=== PATIENT | male | born 1940 | race Caucasian/White ===

== ENCOUNTER → 2019-06-26 12:30 | Outpatient (BNVA) | payer MEDICARE, MEDICAID, SELFPAY | PROVIDERS: Family Provider Family Medicine; PCP Family Medicine; Visit Provider Family Medicine | DX: J44.9 Chronic obstructive pulmonary disease, unspecified (principal); I10 Essential (primary) hypertension; E78.2 Mixed hyperlipidemia; M1A.09X0 Idiopathic chronic gout, multiple sites, without tophus (tophi); N18.3 Chronic kidney disease, stage 3 (moderate); E55.9 Vitamin D deficiency, unspecified | CPT/HCPCS: 80069; 82044; 82306; 82310; 83970; 85025 ==

== ENCOUNTER 2019-10-18 07:36 | Outpatient (CLI) | payer MEDICARE, MEDICAID, SELFPAY ==
[2019-10-18 08:31] VITALS: BMI 36.5
--- NOTE | 2019-10-18 08:32 | ECG_ITS ---
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 Interpretive Statements NAME OF STUDY: LEXISCAN SESTAMIBI STRESS TEST INDICATION: Chest Pain LEXISCAN STRESS TEST ORDERING PHYSICIAN: Niranjan CLINICAL INFORMATION: Shortness of breath and chest pain INTERPRETATION: 1. The patient was brought to the laboratory where Lexiscan was infused over 20 seconds. The resting blood pressure was 154/79. Maximum blood pressure was 174/74. The resting heart rate was 75 beats per minute. The maximum heart rate is 95 beats per minute. 2. The baseline electrocardiogram reveals sinus rhythm with a right bundle branch block and nonspecific ST and T wave changes 3. With Lexiscan infusion, there were no ST segment changes to suggest ischemia. 4. The patient experienced no symptoms or arrhythmias during the examination. CONCLUSION: 1. Unremarkable Lexiscan infusion. 2. Nuclear imaging to follow. Electronically Signed On 10-19-2019 10:02:11 CDT by Franklin Ureña M.D. [email or web address] [id number]
--- NOTE | 2019-10-18 08:32 | NMCV_ITS ---
NM irma perf SPECT r/s* [id number] Yumiko Basurto Age: 78 Gender: M : 1940 Exam Date: 10/18/2019 08:32 Ordering Phys: Franklin Ureña MD ([email or web address]) Technologist: FLORINA Angulo Exam Location: [facility] Indications: SHORTNESS OF BREATH STRESS TEST Please see separate stress test report in [facility] for full findings IMAGE PROTOCOL Rest/Stress 1 Lexiscan Day Radiopharmaceutical Dose (mCi) Administration Site Administered by Rest: Tc-99m 10.8 IV FLORINA Angulo Sestamibi Stress:Tc-99m 33.0 IV FLORINA Thomas Sestamibi Rest: 18-Oct-2019 60 Discovery 630 Stress: 18-Oct-2019 120 Discovery 630 0.4mg Lexiscan. Supine position only as patient was unable to lay prone. SPECT RESULTS Technical Quality: Excellent Raw Data Analysis: Normal Image Corrections: No attenuation or motion correction applied Summed Stress Score: 11 Summed Rest Score: 6 Summed Difference Score: 6 PERFUSION FINDINGS Medium sized perfusion abnormality of mild severity of basal to mid anterior, mid anterolateral, mid inferolateral and apical lateral chawla on rest images. There is reversible perfusion abnormality of basal to apical anterior and mid anteroseptal chawla on supine stress images. FUNCTIONAL RESULTS (calculated via Gated SPECT) Stress Image LV EF (%): 68 Stress EDV (mL):75 TID: 0.98 Stress ESV (mL):24 FUNCTIONAL FINDINGS: The left ventricle is normal in size. Transient Ischemia Dilatation of 0.98. There is normal left ventricular systolic function. The left ventricular ejection fraction is normal with a value of 68%. There is normal left ventricular wall thickening. Normal end-diastolic and end-systolic volumes. IMPRESSIONS 1. Medium sized perfusion abnormality of moderate severity of basal to apical anterior and mid to apical lateral chawla with reversibility noted in entire anterior and mid anteroseptal chawla. 2. 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 3. Overall left ventricular systolic function is normal without regional wall motion abnormalities. 4. The left ventricular ejection fraction is normal with a value of 68%. 5. No prior similar studies to compare. Violet Rucker MD (Electronically Signed) Final Date: 19 October 2019 18:35 S
[2019-10-18 09:57] VITALS: BP 154/73; PULSE 94
[2019-10-18] MEDS: regadenoson 0.4 Mg/5 ml Syringe IVP (09:57)
[2019-10-18] MEDS: nitroglycerin 0.4 mg sublingual Tablet SUBLINGUAL (10:07)
== END 2019-10-18 07:37 | disposition home or self-care (01) ==
LOC: CDL 07:36
PROVIDERS: Family Provider Family Medicine; Visit Provider Internal Medicine Cardiovascular Disease
DX: R06.02 Shortness of breath (principal); R07.9 Chest pain, unspecified
CPT/HCPCS: 78452; 93017; A9500; J2785

== ENCOUNTER 2019-10-18 10:48 | Emergency (ER) | payer MEDICARE, MEDICAID, SELFPAY ==
[2019-10-18 10:49] VITALS: BMI 38.0
--- NOTE | 2019-10-18 10:49 | XR_ITS ---
WS: [id number] XR chest 1V portable [id number] REASON FOR EXAM: cp FINDINGS: Cardiomegaly is again noted with previous sternotomy changes. Interstitial reaction lower l jerome aguilar is seen. With chronic obstructive pulmonary disease findings. There is no pneumonia or pulmonary edema seen. The chest is similar to September 16, 2018. XR/XR chest 1V portable [id number] IMPRESSION: Prior sternotomy changes There is cardiomegaly There is interstitial reaction the lower lung aguilar Emphysema.
--- NOTE | 2019-10-18 10:49 | ECG_ITS ---
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 Measurements Intervals [place] Rate: 83 P: -14 OR: 137 QRS: -17 QRSD: 109 T: 32 QT: 378 QTc: 445 Interpretive Statements SINUS RHYTHM LOW QRS VOLTAGE IN PRECORDIAL LEADS [QRS DEFLECTION < 1.0 mV IN CHEST LEADS] MODERATE ST DEPRESSION [0.05+ mV ST DEPRESSION] Compared to ECG 09/16/2018 23:31:42 ST (T wave) deviation now present Sinus tachycardia no longer present Left-axis deviation no longer present Myocardial infarct finding no longer present Electronically Signed On 10-18-2019 19:20:01 CDT by Bobbi Galvez M.D. [id number]
[2019-10-18 10:52] VITALS: BP 164/84; PULSE 93; RESP 22; TEMP 36.6; O2SAT 98
--- NOTE | 2019-10-18 10:59 | W.ED.CHESTPA ---
HPI - Chest Pain General: Chief Complaint: Chest Pain Stated Complaint: CHEST PAIN Time Seen by Provider: 10/18/19 10:56 Source: patient Mode of arrival: ambulatory Limitations: no limitations History of Present Illness: HPI narrative: 78-year-old male who is having a stress test today. Patient states he started having pain during the initial part of the stress test was given 1 nitro and pain went away. Patient sent in the waiting room then and 20 minutes later started having pain again. Patient brought over here from cardiac suite. Patient states she is currently pain-free. He had shortness of breath as well that is since resolved also. MD complaint: chest pain Associated symptoms: Reports dyspnea; Deny abdominal pain, fever(s), nausea or vomiting Review of Systems Const: Denies: fever(s), chills, body aches or change in appetite Eyes: Denies: blurry vision or eye discomfort ENMT: Denies: throat pain or dental pain Card: Reports: chest pain Resp: Reports: dyspnea GI: Denies: abdominal pain, nausea, vomiting or diarrhea : Denies: dysuria Musc: Denies: neck pain or back pain Skin/Breast: Denies: rash Neuro: Denies: headache(s) Psych: Denies: depression Jean/Lymph: Denies: easy bruising All/Imm: Denies: urticaria PFSH ED PFSH: Medical History (Updated 10/18/19 @ 11:35 by Janis Quiñones MD) Arteriosclerotic heart disease (ASHD) Chronic kidney disease, stage 3 (moderate) Chronic obstructive pulmonary disease, unspecified Chronic shortness of breath Chronic systolic (congestive) heart failure Drug-induced chronic gout, unspecified wrist, without tophus (tophi) Encounter for counseling for care management of patient with chronic conditions and complex health needs using nurse-based model Essential (primary) hypertension Gastro-esophageal reflux disease without esophagitis Mixed hyperlipidemia Obesity Obstructive sleep apnea Umbilical hernia without obstruction or gangrene Vitamin B 12 deficiency Vitamin D deficiency Surgical History History of back surgery Hx of appendectomy Hx of CABG Patient had coronary bypass surgery on July 07, 2006 at a [facility]. This included left internal mammary to the LAD, single vein graft to the diagonal, single vein graft to the right posterior descending artery and sequential vein graft to the first and second marginal for a total of 5 bypasses. Family History Father Stroke Social History Smoking and tobacco status: never smoked Quit status (tobacco): has quit using tobacco Year quit tobacco: 1959' Former quit date comment: smokeless tobacco x 60 yrs; quit 2007 Alcohol intake: never Caregiver/support person: Yes Lives independently: Yes Household members: significant other Marital status: Current occupational status: retired Current gender identity: Male Physical Exam Const: COMMON NORMALS: no acute distress, patient oriented x3 and healthy appearing HENMT: COMMON NORMALS: normocephalic and atraumatic HEAD & SCALP: normocephalic and atraumatic Eye: COMMON NORMALS: Equal, round and reactive pupils present and EOMs intact bilaterally PUPIL: Yes Equal, round and reactive pupils present Neck/C-Spine: COMMON NORMALS: full ROM and supple Chest: COMMONS NORMALS: normal inspection of the chest and normal palpation of entire chest wall Resp: COMMON NORMALS: normal respiratory effort, No retractions, No use of accessory muscles and clear to auscultation bilaterally AUSCULTATION: clear to auscultation bilaterally Cardio: COMMON NORMALS: regular rate, regular rhythm and No murmurs present (Cardio) RATE: regular rate RHYTHM: regular rhythm GI: COMMON NORMALS: Normal to inspection, nondistended, normoactive bowel sounds present, Soft to palpation, non-tender and no masses PALPATION: Yes Soft to palpation Extremity: COMMON NORMALS: normal to inspection and full ROM Neuro: COMMON NORMALS: patient oriented x3, moves all extremities and no focal motor deficits Psych: COMMON NORMALS: mental status grossly normal, Normal thought process present and cooperative THOUGHT PROCESS: Normal thought process present Skin: COMMON NORMALS: no rashes or lesions noted and no wounds GENERAL SKIN EXAM: no rashes or lesions noted Course Vital Signs: Vital signs: Vital Signs Temperature 97.9 F 10/18/19 10:52 Pulse Rate 88 10/18/19 11:52 Respiratory Rate 20 H 10/18/19 11:52 Blood Pressure 138/84 10/18/19 11:52 Pulse Oximetry 97 10/18/19 11:52 MDM - Chest Pain MDM Narrative: Medical decision making narrative: Patient presents here from getting a stress test. Patient had pain that sounds like likely reflux as he had belching it was worse with lying flat. Patient's been pain-free here and troponin is normal. Patient is wanting to go back to finish his stress test. Patient discharged back over to finish the stress test at this time. Troponin and EKG are normal and he has no signs of pulmonary embolism. Lab Data: Labs: Lab Results 10/18/19 10/18/19 10/18/19 Range/Units 11:09 11:09 11:09 WBC 10.0 (4.0-10.0) 10^3/ uL RBC 4.57 (4.1-5.3) 10^6/u L Hgb 13.7 (11.7-16.6) g/dL Hct 43.0 (42.0-52.0) % MCV 94.1 H (80-94) fL MCH 30.0 (28.0-34.0) pg MCHC 31.9 (30.0-36.0) g/dL RDW 14.2 (12.1-15.1) % Plt Count 192 (130-400) 10^3/c mm MPV 11.3 H (7.4-10.4) fL Neut % (Auto) 68.5 % Lymph % (Auto) 20.8 % [place] % (Auto) 9.0 % Eos % (Auto) 0.9 % Baso % (Auto) 0.5 % Neut # (Auto) 6.8 (1.8-7.7) 10^3/u L Lymph # (Auto) 2.1 (0.8-4.8) 10^3/u L [place] # (Auto) 0.9 (0.2-0.9) 10^3/u L Eos # (Auto) 0.1 (0.0-0.8) 10^3/u L Baso # (Auto) 0.1 (0.0-0.1) 10^3/u L Nucleated RBC % (a uto) 0 % Nucleated RBCs # 0.0 /100WBC Sodium 134 L (136-145) mmol/L Potassium 4.3 (3.5-5.1) mmol/L Chloride 97 L (98-107) mmol/L Carbon Dioxide 23 (22-29) mmol/L Anion Gap 18.3 (5-19) BUN 14 (8-23) mg/dL Creatinine 1.0 (0.7-1.2) mg/dL Glucose 167 H (65-115) mg/dL Calculated Osmolal ity 278 L (285-295) mOsm/k g Calcium 9.4 (8.5-10.5) mg/dL Total Bilirubin 0.5 (0.15-1.2) mg/dL AST 22 (0-40) U/L ALT 20 (0-41) U/L Alkaline Phosphata se 65 (40-130) IU/L Troponin T Baselin e 10 (0-15) ng/L Total Protein 7.0 (6.6-8.7) g/dL Albumin 4.3 (3.5-5.2) g/dL Globulin 2.7 (1.3-4.6) g/dL EKG Data^: EKG 1: Attestation: I personally reviewed and interpreted this EKG as follows: EKG interpretation date: 10/18/19 EKG interpretation time: 11:02 Interpretation: nsr hr [address] or t wave abnormalities Discharge Plan Discharge Patient Disposition: Home, Self-Care Clinical Impression: Chest pain Qualifiers: Chest pain type: unspecified Qualified Code(s): R07.9 - Chest pain, unspecified Condition: Stable Prescriptions: No Action allopurinol 300 mg tablet 300 mg PO DAILY RF: 0 furosemide 40 mg tablet 40 mg PO QAM RF: 0 metoprolol succinate 25 mg tablet extended release 24 hr 25 mg PO DAILY RF: 0 simvastatin 40 mg tablet 40 mg PO ONCE RF: 0 Symbicort 80-4.5 mcg/actuation HFA aerosol inhaler 2 inh INHALATION BID RF: 0 albuterol sulfate [Ventolin HFA] 90 mcg/actuation HFA aerosol inhaler 2 puff INHALATION Q6H PRNRF: 0 cholecalciferol (vitamin D3) 1,000 unit capsule 1,000 unit PO ONCE RF: 0 triamcinolone acetonide 0.1 % cream 1 applic TOPICAL BID RF: 0 spironolactone 25 mg tablet 25 mg PO DAILY RF: 0 nitroglycerin 0.4 mg tablet, sublingual 0.4 mg SUBLINGUAL Q5M PRNRF: 0 pyridoxine (vitamin B6) 25 mg tablet 25 mg PO ONCE RF: 0 aspirin 81 mg tablet,chewable 81 mg PO ONCE RF: 0 potassium chloride [Klor-Con 10] 10 mEq tablet extended release 10 meq PO BID Qty: 30 RF: 5 amlodipine 5 mg tablet 5 mg PO BID Qty: 180 RF: 0 pantoprazole [Protonix] 40 mg tablet,delayed release (DR/EC) 40 mg PO QAM Qty: 90 RF: 0 albuterol sulfate 2.5 mg /3 mL (0.083 %) solution for nebulization 2.5 mg INHALATION Q4H PRN (Reason: shortness of breath or wheezing) Qty: 75 RF: 6 Discharge Orders: Discharge Order (Routine); Ordered 10/18/19 Ordered By: Janis Quiñones Referrals: Alondra Perry MD [Family Provider] - Discharge Diet: Advance as tolerated Discharge Activity: Resume usual activity Patient Instructions: Chest Pain (ED) Discharge Date/Time: 10/18/19 11:52 Coding Level of Care Code 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
[2019-10-18 11:13] VITALS: BP 165/87; PULSE 86; RESP 20; O2SAT 97
[2019-10-18 11:14] LABS: Basophils # 0.1 10^3/uL (0.0-0.1); Basophils % 0.5 %; Eosinophils # 0.1 10^3/uL (0.0-0.8); Eosinophils % 0.9 %; Hemoglobin 13.7 g/dL (11.7-16.6); Lymphocytes # 2.1 10^3/uL (0.8-4.8); Lymphocytes % 20.8 %; Mean Corpuscular HGB Conc 31.9 g/dL (30.0-36.0); Mean Corpuscular Volume 94.1 fL (80-94); Mean Platelet Volume 11.3 fL (7.4-10.4); Monocytes # 0.9 10^3/uL (0.2-0.9); Neutrophils # 6.8 10^3/uL (1.8-7.7); Neutrophils % 68.5 %; Nucleated Red Blood Cells % 0 %; Platelet Count 192 10^3/cmm (130-400); Red Blood Count 4.57 10^6/uL (4.1-5.3); Red Cell Distribution Width 14.2 % (12.1-15.1)
[2019-10-18 11:28] LABS: Alanine Aminotransferase 20 U/L (0-41); Albumin Level 4.3 g/dL (3.5-5.2); Alkaline Phosphatase 65 IU/L (40-130); Anion Gap 18.3 (5-19); Aspartate Amino Transferase 22 U/L (0-40); Blood Urea Nitrogen 14 mg/dL (8-23); Calcium 9.4 mg/dL (8.5-10.5); Carbon Dioxide 23 mmol/L (22-29); Chloride 97 mmol/L (98-107); Creatinine Clr Calc Pharmacy 74.3993; Globulin 2.7 g/dL (1.3-4.6); Glucose 167 mg/dL (65-115); Osmolality Calculated 278 mOsm/kg (285-295); Potassium 4.3 mmol/L (3.5-5.1); Sodium 134 mmol/L (136-145); Total Bilirubin 0.5 mg/dL (0.15-1.2)
[2019-10-18 11:30] LABS: Troponin(5th) Baseline 10 ng/L (0-15)
[2019-10-18 11:52] VITALS: BP 138/84; PULSE 88; RESP 20; O2SAT 97
== END 2019-10-18 11:52 | disposition home or self-care (01) ==
PROVIDERS: Emergency Provider Emergency Medicine; Family Provider Family Medicine
DX: R07.9 Chest pain, unspecified (principal); Z79.82 Long term (current) use of aspirin; I13.0 Hypertensive heart and chronic kidney disease with heart failure and stage 1 through stage 4 chronic kidney disease, or unspecified chronic kidney disease; N18.3 Chronic kidney disease, stage 3 (moderate); I50.20 Unspecified systolic (congestive) heart failure; J44.9 Chronic obstructive pulmonary disease, unspecified; E78.2 Mixed hyperlipidemia; Z95.1 Presence of aortocoronary bypass graft; Z87.891 Personal history of nicotine dependence; R06.02 Shortness of breath
CPT/HCPCS: 12345; 36415; 71045; 78452; 80053; 84484; 85025; 93005; 93017; 99281; 99284; A9500; J2785

== ENCOUNTER 2019-10-31 13:54 | Outpatient (CLI) | payer MEDICARE, MEDICAID, SELFPAY ==
[2019-10-31 14:59] LABS: NT Pro B Type Natriuretic Pept 292 pg/mL (0-450)
[2019-11-01 18:15] LABS: Bermuda Class 0; Bermuda Grass (G2) Ige <0.10 kU/L; Cat Dander (E1) Ige <0.10 kU/L; Cat Dander Class 0; Common Ragweed (Short) (W1) Ig <0.10 kU/L; Dog Dander (E5) Ige <0.10 kU/L; Dog Dander Class 0; Elm (T8) Ige <0.10 kU/L; Elm Class 0; English Plantain (W9) Ige <0.10 kU/L; English Plantain Class 0; Immunoglobulin E 133 kU/L (<OR=114); Johnson Grass (G10) Ige <0.10 kU/L; Johnson Grass Cl 0; June Grass Class 0; June Grass(Kentucky Blue) (G8) <0.10 kU/L; Lamb'S Quarters (Goose Foot) <0.10 kU/L; Lamb'S Quarters Class 0; Maple (Box Elder) (T1) Ige <0.10 kU/L; Maple Class 0; Meadow Fescue (G4) Ige <0.10 kU/L; Meadow Fescue Class 0; Oak (T7) Ige <0.10 kU/L; Oak Class 0; Orchard Grass (Cocksfoot) (G3) <0.10 kU/L; Perennial Rye Grass (G5) Ige <0.10 kU/L; Perennial Rye Grass Class 0; Ragweeed Class 0; Rough Marsh Elder (W16) Ige <0.10 kU/L; Rough Marsh Elder Class 0; Sweet Vernal Class 0; Sweet Vernal Grass (G1) Ige <0.10 kU/L; Timothy Grass (G6) Ige <0.10 kU/L; Timothy Grass Class 0
[2019-11-02 16:56] LABS: Alternaria Alternata (M6) Ige <0.10 kU/L; Alternaria Class 0; D. Farinae Class 0/1; Dermatophagoides Class 0/1; Dermatophagoides Farinae (D2) 0.11 kU/L; Dermatophagoides Pteronyssinus 0.14 kU/L; House Dust (Greer) (H1) Ige 0.24 kU/L; House Dust (Hollister- Stier) 0.15 kU/L; House Dust Class 0/1; Mucor Racemosus Class 0; Penicillium Class 0; Penicillium Notatum (M1) Ige <0.10 kU/L
[2019-11-02 21:10] LABS: Aspergillus Fumigatus, Igg Ab, 9.5 mg/L (<=102)
== END 2019-10-31 13:55 | disposition home or self-care (01) ==
LOC: LAB 14:02
PROVIDERS: Family Provider Family Medicine; Visit Provider Internal Medicine Critical Care Medicine
DX: R06.02 Shortness of breath (principal)
CPT/HCPCS: 82785; 83880; 86003

== ENCOUNTER 2019-11-20 13:06 | Outpatient (CLI) | payer MEDICARE, MEDICAID, SELFPAY ==
--- NOTE | 2019-11-20 15:00 | USCV_ITS ---
Yumiko Basurto Age: 78 Gender: M : 1940 Exam Date: 11/20/2019 14:19 Ordering Phys: Amna Arriola MD Technologist: Demetrio Low [place] [facility] [place]: CHEST PAIN BP: 123 / 72 HR: 86 Rhythm: Sinus Technical Quality: Poor MEASUREMENTS (Male / Female) Normal Values 2D ECHO LV Diastolic Diameter PLAX 4.2 cm 4.2 - 5.9 / 3.9 - 5.3 cm LV Systolic Diameter PLAX 2.8 cm IVS Diastolic Thickness 1.0 cm 0.6 - 1.0 / 0.6 - 0.9 cm IVS Systolic Thickness 1.7 cm LVPW Diastolic Thickness 1.1 cm 0.6 - 1.0 / 0.6 - 0.9 cm LVPW Systolic Thickness 1.5 cm LVOT Diameter 2.1 cm LV Ejection Fraction 2D Teich 62.7 % LV Ejection Fraction MOD 2C 49.8 % LV Ejection Fraction 2C AL 51.1 % LA Diameter 4.6 cm LA Width 3.1 cm LA Height 4.4 cm RA Width 3.8 cm RA Height 4.8 cm Aorta at Sinotubular Diameter 3.0 cm M-MODE LV Diastolic Diameter MM 5.7 cm 4.2 - 5.9 / 3.9 - 5.3 cm LV Systolic Diameter MM 4.1 cm LV Ejection Fraction MM Teich 53.7 % IVS Diastolic Thickness MM 1.3 cm 0.6 - 1.0 / 0.6 - 0.9 cm IVS Systolic Thickness MM 1.3 cm LVPW Diastolic Thickness MM 1.2 cm 0.6 - 1.0 / 0.6 - 0.9 cm LVPW Systolic Thickness MM 1.7 cm RV Diastolic Diameter MM 1.7 cm Aortic Annulus Diameter 3.6 cm LA Ao Ratio MM 1.3 MV E Point Septal Separation 0.8 cm DOPPLER AV Peak Velocity 140.0 cm/s LVOT Peak Velocity 92.0 cm/s AV Area Cont Eq vti 2.7 cm squared AV Area Cont Eq pk 2.3 cm squared MV Area PHT 5.0 cm squared Mitral E to A Ratio 1.1 MV E' Velocity 11.0 cm/s Mitral E to MV E' Ratio 9.8 Mitral E to LV E' Lateral Ratio 9.2 Mitral E to LV E' Septal Ratio 10.5 TR Peak Velocity 134.0 cm/s TR Peak Gradient 7.1 mmHg TV Peak E Velocity 78.0 cm/s Right Atrial Pressure 3.0 mmHg Pulmonary Artery Systolic Pressu 10.2 mmHg FINDINGS Left Ventricle Very poor quality study. Probably normal ventricular size. Perhaps lower limit of normal to mild global hypokinesis of the ventricle. Ejection fraction is around 45 to 50%. No obvious wall motion disturbances. Grade 1 diastolic dysfunction. Right Ventricle Right ventricle not well visualized. Normal right ventricular systolic pressure. Right Atrium The right atrium is normal in size. Left Atrium Mildly increased left atrial size. Mitral Valve Mitral valve not well visualized. Aortic Valve Aortic valve not well visualized. Tricuspid Valve Tricuspid valve not well visualized. Pulmonic Valve Pulmonic valve not well visualized. Pericardium Normal pericardium without effusion. Aorta Normal ascending aorta dimension. CONCLUSIONS Very poor quality study. Probably normal ventricular size. Perhaps lower limit of normal to mild global hypokinesis of the ventricle. Ejection fraction is around 45 to 50%. No obvious wall motion disturbances. Grade 1 diastolic dysfunction. Mildly increased left atrial size. The study is similar to the study performed in June 2017. Poor quality study with limited views available. No opportunity to evaluate the valves. Dr. Franklin Ureña MD (Electronically Signed) Final Date: 20 November 2019 17:36 S
--- NOTE | 2019-11-20 15:22 | PFTS_ITS ---
Date of Study:11/20/19 Date of Dictation: MECHANICS: Forced vital capacity (FVC) is reduced. Forced expiratory volume in one second (FEV1) is reduced. FEV1/FVC is normal. FLOW VOLUME LOOP: Narrow with mild scooping. LUNG VOLUMES: Total lung capacity (TLC) is reduced. Residual volume (RV) is increased. DIFFUSING CAPACITY FOR CARBON MONOXIDE: Normal. INTERPRETATION: The pulmonary function tests are consistent with moderate restriction. There is significant postbronchodilator response. Given his preserved gas exchange, the etiology of the restriction is likely extrathoracic. The patient has reduced MVV, and reduced maximal inspiratory and expiratory pressures. With an increased residual volume and reduced inspiratory capacity, this could represent neuromuscular weakness. However, a combination of restrictive lung disease and small airways disease can mimic the elevated residual volume. Gas exchange (DLCO) is normal. MTDD
== END 2019-11-20 13:07 | disposition home or self-care (01) ==
PROVIDERS: Visit Provider Internal Medicine Critical Care Medicine
DX: I50.22 Chronic systolic (congestive) heart failure (principal); R06.02 Shortness of breath; R07.9 Chest pain, unspecified
CPT/HCPCS: 93306; 94060; 94726; 94729; J7611

== ENCOUNTER 2019-12-25 19:37 | Emergency (ER) | payer MEDICARE, MEDICAID, SELFPAY ==
[2019-12-25 19:43] VITALS: BP 142/72; PULSE 116; RESP 18; TEMP 37.2; O2SAT 98; BMI 36.9
--- NOTE | 2019-12-25 19:49 | XRR_ITS ---
PROCEDURE INFORMATION: Exam: XR Chest, 1 View Exam date and time: 12/25/2019 8:04 PM Age: 79 years old Clinical indication: Shortness of breath; Prior surgery; Surgery type: Bypass; Additional info: SOB TECHNIQUE: Imaging protocol: XR of the chest Views: 1 view. COMPARISON: CR XR chest 1V portable [id number] 10/18/2019 11:38 AM FINDINGS: Lungs: Lungs are well aerated without a focal area of consolidation. Pleural space: Unremarkable. No pleural effusion. No pneumothorax. Heart/Mediastinum: cardiac silhouette is enlarged. Prior sternotomy. Bones/joints: See Heart/Mediastinum finding. XR/XR chest 1V portable [id number] IMPRESSION: Lungs are well aerated without a focal area of consolidation.
--- NOTE | 2019-12-25 19:49 | ECG_ITS ---
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 Measurements Intervals [place] Rate: 112 P: 35 CA: 179 QRS: 11 QRSD: 111 T: 34 QT: 332 QTc: 454 Interpretive Statements SINUS TACHYCARDIA INDETERMINATE AXIS LOW QRS VOLTAGE IN PRECORDIAL LEADS [QRS DEFLECTION < 1.0 mV IN CHEST LEADS] INCOMPLETE RIGHT BUNDLE BRANCH BLOCK [90+ ms QRS DURATION, TERMINAL R IN V1/V2, 40+ ms S IN I/aVL/V4/V5/V6] ST DEVIATION AND MODERATE T-WAVE ABNORMALITY, CONSIDER ANTERIOR ISCHEMIA [-0.1+ mV T WAVE IN V3/V4] Compared to ECG 10/18/2019 11:02:15 Indeterminate axis now present Incomplete right bundle-branch block now present T-wave abnormality now present Possible ischemia now present Sinus rhythm no longer present ST (T wave) deviation no longer present Electronically Signed On 12-26-2019 17:25:26 CDT by Kristy Clark M.D. [id number]
[2019-12-25 20:18] LABS: Basophils % 0.1 %; Hematocrit 44.3 % (42.0-52.0); Hemoglobin 14.1 g/dL (11.7-16.6); Lymphocytes # 0.7 10^3/uL (0.8-4.8); Lymphocytes % 4.7 %; Mean Corpuscular HGB Conc 31.8 g/dL (30.0-36.0); Mean Corpuscular Hemoglobin 29.4 pg (28.0-34.0); Mean Corpuscular Volume 92.3 fL (80-94); Mean Platelet Volume 11.6 fL (7.4-10.4); Monocytes # 0.9 10^3/uL (0.2-0.9); Monocytes % 6.3 %; Neutrophils # 13.12 10^3/uL (1.8-7.7); Neutrophils % 88.6 %; Nucleated Red Blood Cells % 0 %; Platelet Count 207 10^3/cmm (130-400); Red Cell Distribution Width 14.1 % (12.1-15.1); White Blood Count 14.8 10^3/uL (4.0-10.0)
--- NOTE | 2019-12-25 20:18 | ED_ITS ---
HPI - Weakness General: Chief complaint: Weakness Stated complaint: WEAKNESS Time Seen by Provider: 12/25/19 19:45 Source: patient Mode of arrival: ambulatory Limitations: no limitations History of Present Illness: HPI Narrative: 79-year-old male states has been feeling generally weak through the day. He states that he had went to the bathroom had a hard time getting off the toilet. He denies any vomiting or diarrhea. He denies any cough or shortness of breath. He states he feels improved currently and does not feel as weak. Patient given breathing treatment in route. He does have a history of COPD. MD Complaint: generalized weakness Associated symptoms: Denies chest pain, chills, dysuria, easy bruising, fever(s), headache(s), nausea or vomiting Review of Systems Const: Denies: fever(s), chills, body aches or change in appetite Eyes: Denies: blurry vision or eye discomfort ENMT: Denies: throat pain or dental pain Card: Denies: chest pain Resp: Denies: dyspnea GI: Denies: abdominal pain, nausea, vomiting or diarrhea : Denies: dysuria Musc: Reports: muscle weakness Skin/Breast: Denies: rash Neuro: Denies: headache(s) Psych: Denies: depression Jean/Lymph: Denies: easy bruising All/Imm: Denies: urticaria PFSH ED PFSH: Medical History Arteriosclerotic heart disease (ASHD) Chronic kidney disease, stage 3 (moderate) Chronic obstructive pulmonary disease, unspecified Chronic shortness of breath Chronic systolic (congestive) heart failure Drug-induced chronic gout, unspecified wrist, without tophus (tophi) Encounter for counseling for care management of patient with chronic conditions and complex health needs using nurse-based model Essential (primary) hypertension Gastro-esophageal reflux disease without esophagitis Mixed hyperlipidemia Obesity Obstructive sleep apnea Umbilical hernia without obstruction or gangrene Vitamin B 12 deficiency Vitamin D deficiency Surgical History History of back surgery Hx of appendectomy Hx of CABG Patient had coronary bypass surgery on July 07, 2006 at a [facility]. This included left internal mammary to the LAD, single vein graft to the diagonal, single vein graft to the right posterior descending artery and sequential vein graft to the first and second marginal for a total of 5 bypasses. Family History Father Stroke Social History Smoking and tobacco status: former smoker Quit status (tobacco): has quit using tobacco Year quit tobacco: 1959' Former quit date comment: smokeless tobacco x 60 yrs; quit 2007 Alcohol intake: never Caregiver/support person: Yes Lives independently: Yes Household members: significant other Marital status: Current occupational status: retired History of recent travel: No Current gender identity: Male Physical Exam Const: COMMON NORMALS: no acute distress, patient oriented x3 and healthy appearing HENMT: COMMON NORMALS: normocephalic and atraumatic HEAD & SCALP: normocephalic and atraumatic Eye: COMMON NORMALS: Equal, round and reactive pupils present and EOMs intact bilaterally PUPIL: Yes Equal, round and reactive pupils present Neck/C-Spine: COMMON NORMALS: full ROM and supple Chest: COMMONS NORMALS: normal inspection of the chest and normal palpation of entire chest wall Resp: COMMON NORMALS: normal respiratory effort, No retractions, No use of accessory muscles and clear to auscultation bilaterally AUSCULTATION: clear to auscultation bilaterally Cardio: COMMON NORMALS: regular rate, regular rhythm and No murmurs present (Cardio) RATE: regular rate RHYTHM: regular rhythm GI: COMMON NORMALS: Normal to inspection, nondistended, normoactive bowel sounds present, Soft to palpation and no masses PALPATION: Yes Soft to palpation and Yes Tenderness to palpation present (GI) Details: RUQ Extremity: COMMON NORMALS: normal to inspection and full ROM Neuro: COMMON NORMALS: patient oriented x3, moves all extremities and no focal motor deficits Psych: COMMON NORMALS: mental status grossly normal, Normal thought process present and cooperative THOUGHT PROCESS: Normal thought process present Skin: COMMON NORMALS: no rashes or lesions noted and no wounds GENERAL SKIN EXAM: no rashes or lesions noted Course Vital Signs: Vital signs: Vital Signs Temperature 98.8 F 12/25/19 23:35 Pulse Rate 88 12/25/19 23:35 Respiratory Rate 16 12/25/19 23:35 Blood Pressure 145/88 12/25/19 23:35 Pulse Oximetry 97 12/25/19 23:35 MDM - Weakness MDM Narrative: Medical decision making narrative: Sarah presents here with abdominal pain is found to have cholecystitis. Patient does have elevated bilirubin along with liver enzymes. Spoke to Dr. Higginbotham who recommended transfer as patient likely needs ERCP but these elevations. I spoke to [facility] in [place] and will transfer there for higher level of care. Lab Data: Labs: Lab Results 12/25/19 12/25/19 12/25/19 Range/Units 20:10 20:10 20:10 WBC 14.8 H (4.0-10.0) 10^3/ uL RBC 4.80 (4.1-5.3) 10^6/u L Hgb 14.1 (11.7-16.6) g/dL Hct 44.3 (42.0-52.0) % MCV 92.3 (80-94) fL MCH 29.4 (28.0-34.0) pg MCHC 31.8 (30.0-36.0) g/dL RDW 14.1 (12.1-15.1) % Plt Count 207 (130-400) 10^3/c mm MPV 11.6 H (7.4-10.4) fL Neut % (Auto) 88.6 % Lymph % (Auto) 4.7 % [place] % (Auto) 6.3 % Eos % (Auto) 0.0 % Baso % (Auto) 0.1 % Neut # (Auto) 13.12 H (1.8-7.7) 10^3/u L Lymph # (Auto) 0.7 L (0.8-4.8) 10^3/u L [place] # (Auto) 0.9 (0.2-0.9) 10^3/u L Eos # (Auto) 0.0 (0.0-0.8) 10^3/u L Baso # (Auto) 0.0 (0.0-0.1) 10^3/u L Nucleated RBC % (a uto) 0 % Nucleated RBCs # 0.0 /100WBC PT 13.50 (12.1-14.9) SECO NDS INR 1.00 (0.8-1.2) Sodium 132 L (136-145) mmol/L Potassium 3.4 L (3.5-5.1) mmol/L Chloride 92 L (98-107) mmol/L Carbon Dioxide 23 (22-29) mmol/L Anion Gap 20.4 H (5-19) BUN 29 H (8-23) mg/dL Creatinine 1.7 H (0.7-1.2) mg/dL GFR Calculation Not Reportable Glucose 239 H (65-115) mg/dL Calculated Osmolal ity 279 L (285-295) mOsm/k g Calcium 9.5 (8.5-10.5) mg/dL Total Bilirubin 3.6 H (0.15-1.2) mg/dL AST 790 H (0-40) U/L ALT 481 H (0-41) U/L Alkaline Phosphata se 176 H (40-130) IU/L Troponin T Baselin e (0-15) ng/L Troponin T 120 Min kathryn (0-15) ng/L Delta Troponin T (0-10) ABS# NT-Pro-B Natriuret Pep 420 (0-450) pg/mL Total Protein 7.1 (6.6-8.7) g/dL Albumin 3.9 (3.5-5.2) g/dL Globulin 3.2 (1.3-4.6) g/dL Lipase (13-60) U/L Urine Color (Yellow) Urine Appearance (CLEAR) Urine pH (5-7) Ur Specific Gravit y (1.005-1.030) Urine Protein (Negative) Urine Glucose (UA) (Normal) Urine Ketones (Negative) Urine Blood (Negative) Urine Nitrate (Negative) Urine Bilirubin (NEGATIVE) Urine Urobilinogen (Negative) mg/dL Ur Leukocyte Allison ase (Negative) Hepatitis A IgM Ab (Nonreactive) Hep Bs Antigen (Nonreactive) Hep Bs Antibody (0-8.5) Hep B Core Total A b (Nonreactive) Hepatitis C Antibo dy (Nonreactive) 12/25/19 12/25/19 12/25/19 Range/Units 20:10 20:55 22:20 WBC (4.0-10.0) 10^3/ uL RBC (4.1-5.3) 10^6/u L Hgb (11.7-16.6) g/dL Hct (42.0-52.0) % MCV (80-94) fL MCH (28.0-34.0) pg MCHC (30.0-36.0) g/dL RDW (12.1-15.1) % Plt Count (130-400) 10^3/c mm MPV (7.4-10.4) fL Neut % (Auto) % Lymph % (Auto) % [place] % (Auto) % Eos % (Auto) % Baso % (Auto) % Neut # (Auto) (1.8-7.7) 10^3/u L Lymph # (Auto) (0.8-4.8) 10^3/u L [place] # (Auto) (0.2-0.9) 10^3/u L Eos # (Auto) (0.0-0.8) 10^3/u L Baso # (Auto) (0.0-0.1) 10^3/u L Nucleated RBC % (a uto) % Nucleated RBCs # /100WBC PT (12.1-14.9) SECO NDS INR (0.8-1.2) Sodium (136-145) mmol/L Potassium (3.5-5.1) mmol/L Chloride (98-107) mmol/L Carbon Dioxide (22-29) mmol/L Anion Gap (5-19) BUN (8-23) mg/dL Creatinine (0.7-1.2) mg/dL GFR Calculation Glucose (65-115) mg/dL Calculated Osmolal ity (285-295) mOsm/k g Calcium (8.5-10.5) mg/dL Total Bilirubin (0.15-1.2) mg/dL AST (0-40) U/L ALT (0-41) U/L Alkaline Phosphata se (40-130) IU/L Troponin T Baselin e 18 H (0-15) ng/L Troponin T 120 Min kathryn 16.84 H (0-15) ng/L Delta Troponin T -1.16 L (0-10) ABS# NT-Pro-B Natriuret Pep (0-450) pg/mL Total Protein (6.6-8.7) g/dL Albumin (3.5-5.2) g/dL Globulin (1.3-4.6) g/dL Lipase (13-60) U/L Urine Color Yellow (Yellow) Urine Appearance Clear (CLEAR) Urine pH 7 (5-7) Ur Specific Gravit y 1.010 (1.005-1.030) Urine Protein Neg (Negative) Urine Glucose (UA) Norm (Normal) Urine Ketones Negative (Negative) Urine Blood Neg (Negative) Urine Nitrate Negative (Negative) Urine Bilirubin Neg (NEGATIVE) Urine Urobilinogen 1 H (Negative) mg/dL Ur Leukocyte Allison ase Negative (Negative) Hepatitis A IgM Ab (Nonreactive) Hep Bs Antigen (Nonreactive) Hep Bs Antibody (0-8.5) Hep B Core Total A b (Nonreactive) Hepatitis C Antibo dy (Nonreactive) 12/25/19 12/25/19 Range/Units 22:20 22:20 WBC (4.0-10.0) 10^3/ uL RBC (4.1-5.3) 10^6/u L Hgb (11.7-16.6) g/dL Hct (42.0-52.0) % MCV (80-94) fL MCH (28.0-34.0) pg MCHC (30.0-36.0) g/dL RDW (12.1-15.1) % Plt Count (130-400) 10^3/c mm MPV (7.4-10.4) fL Neut % (Auto) % Lymph % (Auto) % [place] % (Auto) % Eos % (Auto) % Baso % (Auto) % Neut # (Auto) (1.8-7.7) 10^3/u L Lymph # (Auto) (0.8-4.8) 10^3/u L [place] # (Auto) (0.2-0.9) 10^3/u L Eos # (Auto) (0.0-0.8) 10^3/u L Baso # (Auto) (0.0-0.1) 10^3/u L Nucleated RBC % (a uto) % Nucleated RBCs # /100WBC PT (12.1-14.9) SECO NDS INR (0.8-1.2) Sodium (136-145) mmol/L Potassium (3.5-5.1) mmol/L Chloride (98-107) mmol/L Carbon Dioxide (22-29) mmol/L Anion Gap (5-19) BUN (8-23) mg/dL Creatinine (0.7-1.2) mg/dL GFR Calculation Glucose (65-115) mg/dL Calculated Osmolal ity (285-295) mOsm/k g Calcium (8.5-10.5) mg/dL Total Bilirubin (0.15-1.2) mg/dL AST (0-40) U/L ALT (0-41) U/L Alkaline Phosphata se (40-130) IU/L Troponin T Baselin e (0-15) ng/L Troponin T 120 Min kathryn (0-15) ng/L Delta Troponin T (0-10) ABS# NT-Pro-B Natriuret Pep (0-450) pg/mL Total Protein (6.6-8.7) g/dL Albumin (3.5-5.2) g/dL Globulin (1.3-4.6) g/dL Lipase 21 (13-60) U/L Urine Color (Yellow) Urine Appearance (CLEAR) Urine pH (5-7) Ur Specific Gravit y (1.005-1.030) Urine Protein (Negative) Urine Glucose (UA) (Normal) Urine Ketones (Negative) Urine Blood (Negative) Urine Nitrate (Negative) Urine Bilirubin (NEGATIVE) Urine Urobilinogen (Negative) mg/dL Ur Leukocyte Allison ase (Negative) Hepatitis A IgM Ab Non-reactive (Nonreactive) Hep Bs Antigen Non-reactive (Nonreactive) Hep Bs Antibody 3.5 (0-8.5) Hep B Core Total A b Non-reactive (Nonreactive) Hepatitis C Antibo dy Non-reactive (Nonreactive) Imaging Data^: CT Abd/Pel: Attestation: I personally reviewed and interpreted this imaging study as follows: Radiologist's impression: [address] [address] [address] Scan Report Signed Patient: Yumiko Basurto Unit #: [id number] : 1940 Age/Sex: 79 / M ADM Date: 12/25/19 Loc: ER Room/Bed: Attending Dr: Ordering Provider/Ordering MD: Janis Quiñones MD Date of Service: 12/25/19 Procedure(s): CT abdomen pelvis wo con [id number] Accession Number(s): [id number] Report Number: [id number] PROCEDURE INFORMATION: Exam: CT Abdomen And Pelvis Without Contrast Exam date and time: 12/25/2019 9:17 PM Age: 79 years old Clinical indication: Pain; Prior surgery; Surgery type: Cabg, back, appy TECHNIQUE: Imaging protocol: Computed tomography of the abdomen and pelvis without contrast. Radiation optimization: All CT scans at this facility use at least one of these dose optimization techniques: automated exposure control; mA and/or kV adjustment per patient size (includes targeted exams where dose is matched to clinical indication); or iterative reconstruction. COMPARISON: CT Abdomen/Pelvis Renal [id number] 06/21/2017 10:49 PM RADIATION DOSE METRICS: Total DLP (mGy-cm): 1714.52 FINDINGS: Lungs: Calcified granuloma in the right lower lobe. Calcified right hilar lymph node. Liver: Calcified granuloma in the liver. Gallbladder and bile ducts: Fluid distended gallbladder with mild wall thickening and pericholecystic fat stranding. No visible calculi. The bile ducts are normal. Pancreas: Normal. No ductal dilation. Spleen: Calcified granulomas in the spleen. Adrenals: Normal. No mass. Kidneys and ureters: Normal. No hydronephrosis. Stomach and bowel: Linear density in the distal left transverse colon could represent an ingested foreign body or medication capsule. Small bowel and stomach are unremarkable. Appendix: The appendix is absent. Intraperitoneal space: Unremarkable. No free air. No significant fluid collection. Vasculature: Unremarkable. No abdominal aortic aneurysm. Lymph nodes: Unremarkable. Bladder: Unremarkable as visualized. Reproductive: Unremarkable as visualized. Bones/joints: Degenerative lumbar spine. No compression fracture. Soft tissues: Fat containing umbilical hernia. Fat containing left inguinal hernia. Gynecomastia. CT/CT abdomen pelvis wo con [id number] IMPRESSION: 1. Findings consistent with acute cholecystitis. No visible stones. This can be further evaluated with ultrasound. EKG Data^: EKG 1: Attestation: I personally reviewed and interpreted this EKG as follows: EKG interpretation date: 12/25/19 EKG interpretation time: 20:09 Interpretation: sinus tach hr [address] elevation qrs 111 qtc 398 Discharge Plan Discharge Patient Disposition: Xfer Other Clinical Impression: Cholecystitis Condition: Stable Coding Level of Care Code ED Spar Cap Beveler for Chg 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
[2019-12-25 20:45] LABS: Alanine Aminotransferase 481 U/L (0-41); Albumin Level 3.9 g/dL (3.5-5.2); Alkaline Phosphatase 176 IU/L (40-130); Anion Gap 20.4 (5-19); Blood Urea Nitrogen 29 mg/dL (8-23); Calcium 9.5 mg/dL (8.5-10.5); Carbon Dioxide 23 mmol/L (22-29); Chloride 92 mmol/L (98-107); Globulin 3.2 g/dL (1.3-4.6); Glucose 239 mg/dL (65-115); NT Pro B Type Natriuretic Pept 420 pg/mL (0-450); Osmolality Calculated 279 mOsm/kg (285-295); Potassium 3.4 mmol/L (3.5-5.1); Sodium 132 mmol/L (136-145); Total Bilirubin 3.6 mg/dL (0.15-1.2); Total Protein 7.1 g/dL (6.6-8.7)
[2019-12-25 20:55] LABS: Aspartate Amino Transferase 790 U/L (0-40)
--- NOTE | 2019-12-25 20:58 | CTR_ITS ---
PROCEDURE INFORMATION: Exam: CT Abdomen And Pelvis Without Contrast Exam date and time: 12/25/2019 9:17 PM Age: 79 years old Clinical indication: Pain; Prior surgery; Surgery type: Cabg, back, appy TECHNIQUE: Imaging protocol: Computed tomography of the abdomen and pelvis without contrast. Radiation optimization: All CT scans at this facility use at least one of these dose optimization techniques: automated exposure control; mA and/or kV adjustment per patient size (includes targeted exams where dose is matched to clinical indication); or iterative reconstruction. COMPARISON: CT Abdomen/Pelvis Renal [id number] 06/21/2017 10:49 PM RADIATION DOSE METRICS: Total DLP (mGy-cm): 1714.52 FINDINGS: Lungs: Calcified granuloma in the right lower lobe. Calcified right hilar lymph node. Liver: Calcified granuloma in the liver. Gallbladder and bile ducts: Fluid distended gallbladder with mild wall thickening and pericholecystic fat stranding. No visible calculi. The bile ducts are normal. Pancreas: Normal. No ductal dilation. Spleen: Calcified granulomas in the spleen. Adrenals: Normal. No mass. Kidneys and ureters: Normal. No hydronephrosis. Stomach and bowel: Linear density in the distal left transverse colon could represent an ingested foreign body or medication capsule. Small bowel and stomach are unremarkable. Appendix: The appendix is absent. Intraperitoneal space: Unremarkable. No free air. No significant fluid collection. Vasculature: Unremarkable. No abdominal aortic aneurysm. Lymph nodes: Unremarkable. Bladder: Unremarkable as visualized. Reproductive: Unremarkable as visualized. Bones/joints: Degenerative lumbar spine. No compression fracture. Soft tissues: Fat containing umbilical hernia. Fat containing left inguinal hernia. Gynecomastia. CT/CT abdomen pelvis wo con [id number] IMPRESSION: 1. Findings consistent with acute cholecystitis. No visible stones. This can be further evaluated with ultrasound. Radiation Dose CTDIVOL = (mGy): DLP = 1714.52 (mGy-cm)
[2019-12-25 21:02] LABS: Troponin(5th) Baseline 18 ng/L (0-15)
[2019-12-25 21:07] LABS: Add Urine Microscopic? NO
[2019-12-25 21:10] LABS: Bilirubin Urine Neg (NEGATIVE); Blood Urine Neg (Negative); Glucose Urine UA Norm (Normal); Ketones Urine Negative (Negative); Leukocyte Esterase Urine Negative (Negative); Nitrate Urine Negative (Negative); Protein Urine Neg (Negative); Urine Appearance Clear (CLEAR); Urine Color Yellow (Yellow); Urobilinogen Urine 1 mg/dL (Negative); pH Urine 7 (5-7)
--- NOTE | 2019-12-25 21:27 | US_ITS ---
WS: [id number] ULTRASOUND ABDOMEN LIMITED CLINICAL INFORMATION: abd pain COMPARISON: None. FINDINGS: Liver Size: Normal. Craniocaudal length: 13.0 cm. Echogenicity: Coarse Surface nodularity: None. Mass (size and location): None. Bile ducts Intrahepatic ducts: Normal. Common bile duct diameter: 0.5 cm. Gallbladder Sludge Gallstones: None. Gallbladder sludge: Present Gallbladder wall thickening: Gallbladder wall 4.4 mm. Mild gallbladder wall edema. Pericholecystic fluid: None. Sonographic [place] sign: Absent. Pancreas Normal as visualized. Right kidney: Normal. Hydronephrosis: None. Size: 11.1 cm x 6.6 cm x 5.2 cm. Abdominal aorta and IVC Visualized portions are normal. Ascites: None. US/US gall bladder [id number] IMPRESSION: 1. Diffuse fatty infiltration the liver 2. Dilated gallbladder with gallbladder sludge and gallbladder wall thickening measuring 4.4 mm. Normal common bile duct. Findings suspicious for acute mitchell cystitis. 3. No hydronephrosis in right kidney.
--- NOTE | 2019-12-25 22:22 | ECG_ITS ---
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 Measurements Intervals [place] Rate: 107 P: 30 ME: 174 QRS: 11 QRSD: 111 T: 55 QT: 334 QTc: 447 Interpretive Statements SINUS TACHYCARDIA MODERATE INTRAVENTRICULAR CONDUCTION DELAY [110+ ms QRS DURATION] ST DEVIATION AND MODERATE T-WAVE ABNORMALITY, CONSIDER ANTERIOR ISCHEMIA [-0.1+ mV T WAVE IN V3/V4] Compared to ECG 12/25/2019 20:09:45 Intraventricular conduction delay now present Indeterminate axis no longer present Incomplete right bundle-branch block no longer present T-wave abnormality still present Possible ischemia still present Electronically Signed On 12-26-2019 17:29:16 CDT by rKisty Clark M.D. [id number]
[2019-12-25] MEDS: piperacillin-tazobactam 3.375 GM in sodium chloride 0.9% (plus) 50 ML IV (22:33)
[2019-12-25 23:00] LABS: Troponin 5 2HR 16.84 ng/L (0-15)
[2019-12-25 23:01] LABS: Troponin 5 2HR Delta -1.16 ABS# (0-10)
[2019-12-25 23:15] LABS: Hepatitis A Antibody IgM Non-Reactive (Nonreactive); Hepatitis B Core AB, Total Non-Reactive (Nonreactive); Hepatitis B Surface AB 3.5 (0-8.5); Hepatitis B Surface Antigen Non-Reactive (Nonreactive); Hepatitis C Virus Antibody Non-Reactive (Nonreactive)
[2019-12-25 23:18] LABS: Lipase 21 U/L (13-60)
--- NOTE | 2019-12-25 23:34 | PC.NURSE ---
Report called to Jahaira Mac RN at [facility] dept.
[2019-12-25 23:35] VITALS: BP 145/88; PULSE 88; RESP 16; TEMP 37.1; O2SAT 97
[2019-12-26 01:08] VITALS: BP 123/65; PULSE 103; RESP 18; TEMP 37.2; O2SAT 99
== END 2019-12-26 01:10 | disposition other institution (70) ==
PROVIDERS: Emergency Provider Emergency Medicine
DX: K81.9 Cholecystitis, unspecified (principal); I13.0 Hypertensive heart and chronic kidney disease with heart failure and stage 1 through stage 4 chronic kidney disease, or unspecified chronic kidney disease; N18.3 Chronic kidney disease, stage 3 (moderate); I50.22 Chronic systolic (congestive) heart failure; J44.9 Chronic obstructive pulmonary disease, unspecified; E78.2 Mixed hyperlipidemia; Z95.1 Presence of aortocoronary bypass graft; Z87.891 Personal history of nicotine dependence
CPT/HCPCS: 12345; 71045; 74176; 76705; 80053; 80061; 81003; 82043; 82310; 83690; 83880; 83970; 84100; 84484; 85025; 85610; 86705; 86706; 86709; 86803; 87340; 93005; 96365; 99283; 99284; J2543

== ENCOUNTER 2020-01-23 10:41 | Outpatient (CLI) | payer MEDICARE, MEDICAID, SELFPAY ==
--- NOTE | 2020-01-23 10:15 | USCV_ITS ---
Sb Yumiko Age: 79 Gender: M : 1940 Exam Date: 01/23/2020 11:04 Ordering Phys: Jack Polk M.D ([email or web address]) Technologist: Exam [place] [facility] [place]ication: LEG PAIN RIGHT LEFT Brachial 151.00 mmHg Brachial 155.00 mmHg Pressure (mmHg) Waveform Pressure (mmHg) Waveform 180.00 ON AIR ANNOUNCER 166.00 172.00 DPA 160.00 1.16 Ankle/Brachial Index 1.07 166.00 Pre-Exercise Toe Pressure 168.00 1.07 Pre-Exercise Toe/Brachial Index 1.08 FINDINGS Normal resting ABIs and TBIs bilaterally CONCLUSIONS No significant arterial obstruction, based on the above findings Dr Bobbi Galvez MD [facility] (Electronically Signed) Final Date: 24 January 2020 20:44 S
== END 2020-01-23 10:42 | disposition home or self-care (01) ==
LOC: RAD 10:46
PROVIDERS: Visit Provider Internal Medicine
DX: M79.604 Pain in right leg (principal); M79.605 Pain in left leg
CPT/HCPCS: 93922; 93923

== ENCOUNTER → 2020-03-01 11:06 | Outpatient (BNVA) | payer MEDICARE, MEDICAID, SELFPAY | PROVIDERS: Visit Provider Internal Medicine | DX: R06.02 Shortness of breath (principal); E66.9 Obesity, unspecified; E78.2 Mixed hyperlipidemia; I10 Essential (primary) hypertension; I25.10 Atherosclerotic heart disease of native coronary artery without angina pectoris; J44.9 Chronic obstructive pulmonary disease, unspecified; K81.9 Cholecystitis, unspecified; R07.9 Chest pain, unspecified; Z01.818 Encounter for other preprocedural examination | CPT/HCPCS: 80048; 83880 ==

== ENCOUNTER 2020-03-05 10:04 | Outpatient (CLI) | payer MEDICARE, MEDICAID, SELFPAY ==
[2020-03-05] MEDS: perflutren protein-a microsphr 0.22 mg/mL SDV 3 mL IV (10:50)
--- NOTE | 2020-03-05 11:00 | USCV_ITS ---
Yumiko Basurto Age: 79 Gender: M : 1940 Exam Date: 03/05/2020 10:39 Ordering Phys: Jack Polk M.D ([email or web address]) Technologist: Demetrio Low Exam Location: [facility] [place] Indication: CABG BP: 120 / 80 HR: 78 Rhythm: Sinus Technical Quality: Fair MEASUREMENTS (Male / Female) Normal Values 2D ECHO LVOT Diameter 2.0 cm LV Ejection Fraction MOD 2C 38.9 % LV Ejection Fraction 2C AL 40.0 % LA Diameter 3.7 cm LA Width 3.8 cm LA Height 5.0 cm RA Width 3.8 cm RA Height 4.9 cm M-MODE LV Diastolic Diameter MM 3.7 cm 4.2 - 5.9 / 3.9 - 5.3 cm LV Systolic Diameter MM 2.4 cm LV Ejection Fraction MM Teich 64.3 % IVS Diastolic Thickness MM 1.1 cm 0.6 - 1.0 / 0.6 - 0.9 cm IVS Systolic Thickness MM 1.8 cm LVPW Diastolic Thickness MM 1.0 cm 0.6 - 1.0 / 0.6 - 0.9 cm LVPW Systolic Thickness MM 1.6 cm RV Diastolic Diameter MM 1.8 cm Aortic Annulus Diameter 3.6 cm LA Ao Ratio MM 1.1 MV E Point Septal Separation 2.4 cm DOPPLER AV Peak Velocity 103.0 cm/s LVOT Peak Velocity 69.0 cm/s AV Area Cont Eq vti 2.9 cm squared AV Area Cont Eq pk 2.2 cm squared MV Area PHT 4.1 cm squared Mitral E to A Ratio 1.0 MV E' Velocity 53.0 cm/s TR Peak Velocity 347.0 cm/s TR Peak Gradient 48.2 mmHg TV Peak E Velocity 45.0 cm/s Right Atrial Pressure 3.0 mmHg Pulmonary Artery Systolic Pressu 51.2 mmHg FINDINGS Left Ventricle LV systolic function is normal with EF of 50-55%. No significant regional wall motion abnormalities are noted. Right Ventricle Right Atrium Left Atrium Mitral Valve Aortic Valve Tricuspid Valve Mild Tricuspid regurgitation is noted Pulmonic Valve Pericardium Aorta CONCLUSIONS This is a limited echocardiogram performed to assess LV systolic function LV systolic function is normal with EF of 50-55%. No significant regional wall motion abnormalities are noted Compared to prior echo from 11/20/2019, EF is slightly improved to 50-55% (was 45-50% on last echo) Jack Polk MD (Electronically Signed) Final Date: 05 March 2020 14:42 S
== END 2020-03-05 10:05 | disposition home or self-care (01) ==
LOC: US 10:08
PROVIDERS: PCP Family Medicine; Visit Provider Internal Medicine
DX: R06.02 Shortness of breath (principal); Z95.1 Presence of aortocoronary bypass graft
CPT/HCPCS: C8924; Q9956

== ENCOUNTER 2020-06-11 09:13 | Outpatient (CLI) | payer MEDICARE, MEDICAID, SELFPAY ==
[2020-06-11 10:21] LABS: Anion Gap 17.3 (5-19); Blood Urea Nitrogen 33 mg/dL (8-23); Calcium 9.9 mg/dL (8.5-10.5); Carbon Dioxide 33 mmol/L (22-29); Chloride 90 mmol/L (98-107); Glucose 151 mg/dL (65-115); Magnesium 1.9 mg/dL (1.7-2.3); Osmolality Calculated 294 mOsm/kg (285-295); Phosphorus 2.8 mg/dL (2.5-4.5); Potassium 3.3 mmol/L (3.5-5.1); Sodium 137 mmol/L (136-145)
== END 2020-06-11 09:14 | disposition home or self-care (01) ==
PROVIDERS: PCP Family Medicine; Visit Provider Internal Medicine Critical Care Medicine
DX: J44.9 Chronic obstructive pulmonary disease, unspecified (principal); I50.22 Chronic systolic (congestive) heart failure
CPT/HCPCS: 36415; 80048; 83735; 84100

== ENCOUNTER → 2020-06-24 09:31 | Outpatient (BNVA) | payer MEDICARE, MEDICAID, SELFPAY | PROVIDERS: PCP Family Medicine; Visit Provider Family Medicine | DX: E53.8 Deficiency of other specified B group vitamins (principal); E55.9 Vitamin D deficiency, unspecified; E78.2 Mixed hyperlipidemia; I10 Essential (primary) hypertension; I25.10 Atherosclerotic heart disease of native coronary artery without angina pectoris; J45.909 Unspecified asthma, uncomplicated; Z68.36 Body mass index [BMI] 36.0-36.9, adult; F17.211 Nicotine dependence, cigarettes, in remission | CPT/HCPCS: 80053; 80061; 82306; 82607; 84443; 85025 ==

== ENCOUNTER → 2020-07-26 12:37 | Outpatient (BNVA) | payer MEDICARE, MEDICAID, SELFPAY | PROVIDERS: PCP Family Medicine; Visit Provider Internal Medicine | DX: R06.02 Shortness of breath (principal); Z20.822 Contact with and (suspected) exposure to COVID-19 | CPT/HCPCS: 87635 ==

== ENCOUNTER → 2020-07-31 07:08 | Day surgery (SDC) | payer MEDICARE, MEDICAID, SELFPAY ==
[2020-07-26 12:01] LABS: Basophils # 0.1 10^3/uL (0.0-0.1); Basophils % 0.5 %; Eosinophils # 0.2 10^3/uL (0.0-0.8); Eosinophils % 1.3 %; Hemoglobin 13.7 g/dL (11.7-16.6); Lymphocytes # 2.4 10^3/uL (0.8-4.8); Lymphocytes % 21.1 %; Mean Corpuscular HGB Conc 31.9 g/dL (30.0-36.0); Mean Corpuscular Hemoglobin 29.7 pg (28.0-34.0); Mean Corpuscular Volume 93.3 fL (80-94); Mean Platelet Volume 12.1 fL (7.4-10.4); Monocytes # 0.9 10^3/uL (0.2-0.9); Monocytes % 8.2 %; Neutrophils # 7.76 10^3/uL (1.8-7.7); Neutrophils % 68.5 %; Nucleated Red Blood Cells % 0 %; Platelet Count 190 10^3/cmm (130-400); Red Blood Count 4.61 10^6/uL (4.1-5.3); Red Cell Distribution Width 14.7 % (12.1-15.1); White Blood Count 11.4 10^3/uL (4.0-10.0)
[2020-07-26 12:25] LABS: INR 0.98 (0.8-1.2)
[2020-07-26 12:31] LABS: Anion Gap 17.7 (5-19); Blood Urea Nitrogen 40 mg/dL (8-23); Calcium 9.8 mg/dL (8.5-10.5); Carbon Dioxide 30 mmol/L (22-29); Chloride 93 mmol/L (98-107); Glucose 149 mg/dL (65-115); Osmolality Calculated 297 mOsm/kg (285-295); Potassium 3.7 mmol/L (3.5-5.1); Sodium 137 mmol/L (136-145)
[2020-07-31 07:58] VITALS: BP 161/76; PULSE 87; RESP 20; TEMP 36.8; O2SAT 97; BMI 37.2
--- NOTE | 2020-07-31 09:30 | PC.NURSE ---
Normal Saline 175 ml/hr started at 0750. The patient took his last prednisone as directed by physician.
[2020-07-31] MEDS: FUROsemide 10 mg/mL SDV 2mL 20 MG IVP (11:40)
[2020-07-31 12:00] VITALS: BP 174/89; PULSE 100; RESP 20; O2SAT 99
[2020-07-31 12:30] VITALS: BP 141/80; PULSE 96; RESP 20; O2SAT 96
[2020-07-31 13:00] VITALS: BP 152/78; PULSE 97; RESP 20; O2SAT 95
--- NOTE | 2020-07-31 13:29 | PC.NURSE ---
Normal saline 525 ml infused over 3 hours. Void x 3.
== END ==
PROVIDERS: PCP Family Medicine; Visit Provider Internal Medicine
DX: R06.02 Shortness of breath (principal); R07.89 Other chest pain
CPT/HCPCS: 36415; 80048; 85025; 85610; C1769; J1644; J1940; J2250; J3010; J7030

== ENCOUNTER → 2020-08-06 13:32 | Outpatient (BNVA) | payer MEDICARE, MEDICAID, SELFPAY | PROVIDERS: PCP Family Medicine; Visit Provider Internal Medicine | DX: R06.02 Shortness of breath (principal); R07.89 Other chest pain; I25.10 Atherosclerotic heart disease of native coronary artery without angina pectoris; E53.8 Deficiency of other specified B group vitamins; G47.33 Obstructive sleep apnea (adult) (pediatric); E78.2 Mixed hyperlipidemia; Z95.1 Presence of aortocoronary bypass graft; N18.30 Chronic kidney disease, stage 3 unspecified; E66.9 Obesity, unspecified; I12.9 Hypertensive chronic kidney disease with stage 1 through stage 4 chronic kidney disease, or unspecified chronic kidney disease | CPT/HCPCS: 80048; 83880 ==

== ENCOUNTER → 2020-10-02 11:40 | Outpatient (BNVA) | payer MEDICARE, MEDICAID, SELFPAY | PROVIDERS: PCP Family Medicine; Visit Provider Family Medicine | DX: E53.8 Deficiency of other specified B group vitamins (principal); R29.6 Repeated falls; E55.9 Vitamin D deficiency, unspecified; E66.9 Obesity, unspecified; E78.2 Mixed hyperlipidemia; I10 Essential (primary) hypertension; J44.9 Chronic obstructive pulmonary disease, unspecified; Z68.36 Body mass index [BMI] 36.0-36.9, adult; F17.211 Nicotine dependence, cigarettes, in remission | CPT/HCPCS: 80053; 80061; 82306; 82607; 84443; 85025 ==

== ENCOUNTER → 2020-10-10 10:36 | Outpatient (BNVA) | payer MEDICARE, MEDICAID, SELFPAY | PROVIDERS: PCP Family Medicine; Visit Provider Family Medicine | DX: M79.673 Pain in unspecified foot (principal) | CPT/HCPCS: 84550 ==

== ENCOUNTER 2020-10-16 06:00 | Outpatient (RCR) | payer MEDICARE, MEDICAID, SELFPAY | END 2020-10-30 23:59 | disposition home or self-care (01) | LOC: TOT 06:00 | PROVIDERS: PCP Family Medicine; Referring Provider Family Medicine; Visit Provider Family Medicine | DX: R29.6 Repeated falls (principal) | CPT/HCPCS: 97167; 97530 ==

== ENCOUNTER 2020-10-30 22:34 | Emergency (ER) | payer MEDICARE, MEDICAID, SELFPAY ==
[2020-10-30 22:53] VITALS: BP 130/69; PULSE 83; RESP 18; TEMP 36.4; O2SAT 97; BMI 34.9
--- NOTE | 2020-10-31 02:16 | ED_ITS ---
HPI - Extremity Problem General: Chief complaint: Extremity Problem,Nontraumatic Stated complaint: left ankle swelling Time Seen by Provider: 10/31/20 01:57 History of Present Illness: HPI Narrative: Patient is a 79-year-old male comes to the ED with left ankle swelling. Patient says he has been having this problem for about 3 weeks. His left leg is more swollen and he has pain in his left foot. Pain gets worse when he tries to walk on it. He denies any trauma or injury to cause left foot pain. He says his leg edema is chronic issue. Denies any chest pain or hemoptysis. Patient reports chronic shortness of breath but does not endorse any acute change in symptoms. Denies any history of blood clots or DVTs. Patient has a history of CHF, COPD, CKD stage III and history of CABG. Patient says he weighs himself daily and has not had any acute change in weight and has stayed red 230 pounds the past couple weeks. Associated symptoms: Deny chest pain, fever(s) or rash Review of Systems Const: Denies: fever(s), chills or fatigue Eyes: Denies: change in vision or eye discomfort ENMT: Denies: throat pain, odynophagia, nasal discharge or nasal congestion Card: Denies: chest pain, palpitations, edema, swelling of feet/ankles, dyspnea on exertion or orthopnea Resp: Denies: dyspnea, productive cough or non-productive cough GI: Denies: abdominal pain, nausea, vomiting, diarrhea, constipation or hematochezia : Denies: flank pain, difficulty urinating, dysuria or hematuria Musc: Reports: extremity pain (left foot) and extremity swelling (left foot); Denies: neck pain or back pain Skin/Breast: Denies: rash or new lesions Neuro: Denies: headache(s), numbness in extremities or weakness in extremities PFSH ED PFSH: Medical History Arteriosclerotic heart disease (ASHD) Chronic kidney disease, stage 3 (moderate) Chronic shortness of breath Chronic systolic (congestive) heart failure Drug-induced chronic gout, unspecified wrist, without tophus (tophi) Encounter for counseling for care management of patient with chronic conditions and complex health needs using nurse-based model Essential (primary) hypertension Gastro-esophageal reflux disease without esophagitis Mixed hyperlipidemia Obesity Obstructive sleep apnea Umbilical hernia without obstruction or gangrene Vitamin B 12 deficiency Vitamin D deficiency Surgical History History of back surgery Hx of appendectomy Hx of CABG Patient had coronary bypass surgery on July 07, 2006 at a [facility]. This included left internal mammary to the LAD, single vein graft to the diagonal, single vein graft to the right posterior descending artery and sequential vein graft to the first and second marginal for a total of 5 bypasses. Family History Father Stroke Social History Smoking and tobacco status: former smoker Quit status (tobacco): has quit using tobacco Year quit tobacco: 2007 - Chew x 60 Years Second hand smoke exposure: No Smoking risk assessment/counseling performed?: Yes Alcohol intake: never Desire information about alcohol rehabilitation?: No Counseling given: No Desire information about substance/drug rehabilitation?: No Counseling given: No Lives independently: Yes Household members: spouse Housing: House Marital status: service: No Current occupational status: retired Pets and animals: Yes History of recent travel: No Current gender identity: Male Physical Exam Const: COMMON NORMALS: no acute distress, patient oriented x3 and alert GENERAL APPEARANCE: cooperative and comfortable HENMT: COMMON NORMALS: normocephalic HEAD & SCALP: normocephalic MOUTH: Normal oral and palatal mucosa present THROAT: posterior oropharynx normal and uvula midline Neck/C-Spine: COMMON NORMALS: supple GENERAL: Yes normal visual inspection Resp: COMMON NORMALS: normal respiratory effort, No retractions, No use of accessory muscles and clear to auscultation bilaterally AUSCULTATION: clear to auscultation bilaterally Cardio: COMMON NORMALS: regular rate, regular rhythm, S1 normal heart sound present, S2 normal heart sound present, No gallops present (Cardio), No clicks present (Cardio), No murmurs present (Cardio) and Peripheral pulses 2+ thr oughout RATE: regular rate RHYTHM: regular rhythm HEART SOUNDS: S1 normal heart sound present and S2 normal heart sound present PERIPHERAL PULSES: Peripheral pulses 2+ throughout GI: COMMON NORMALS: Normal to inspection, nondistended, normoactive bowel sounds present, Soft to palpation, non-tender and no masses PALPATION: Yes Soft to palpation : COMMON NORMALS: Yes no CVA tenderness BLADDER/KIDNEY EXAM: Yes no CVA tenderness Back/Pelvis: COMMON NORMALS: no CVA tenderness Extremity: COMMON NORMALS: no calf tenderness NARRATIVE EXTREMITY EXAM: Patient's left leg appears more swollen than his right leg. He does have 3+ pitting edema both right and left lower extremities. He also has some tenderness when palpating the lateral aspect of left foot. Exam findings negative for any cellulitis or gout. GENERAL: Yes edema (Bilateral lower extr emity 3+ pitting edema.) Neuro: COMMON NORMALS: patient oriented x3 and moves all extremities SENSORIUM/ORIENTATION: Yes alert Skin: NARRATIVE SKIN EXAM: Patient's left leg appears more swollen than his right leg. He does have 3+ pitting edema both right and left lower extremities. He also has some tenderness when palpating the lateral aspect of left foot. Exam findings negative for any cellulitis or gout. GENERAL SKIN EXAM: dry skin Course Vital Signs: Vital signs: Vital Signs Temperature 97.6 F 10/30/20 22:53 Pulse Rate 83 10/31/20 03:23 Respiratory Rate 18 10/31/20 03:23 Blood Pressure 135/78 10/31/20 03:23 Pulse Oximetry 98 10/31/20 03:23 MDM - Extremity (Nontraumatic) MDM Narrative: Medical decision making narrative: Patient is a 79-year-old male comes to the ED with left leg swelling and pain. Patient has a history of CHF, COPD. Bilateral leg edema is a chronic issue has been dealing with. He sees his director regulatory agency in a week. Upon exam patient has bilateral 3+ pitting edema of lower extremities. Patient's left leg has slightly more swelling and he has tenderness and pain in his left foot. No signs of any cellulitis or gout noted. Patient has full range of motion and has 2+ pedal pulse bilaterally. Ultrasound venous duplex of left lower extremity showed no DVT or blood clots seen. Patient denies any chest pain, hemoptysis. Patient has chronic shortness of breath and denies any acute change. Patient diagnosed with bilateral lower extremity edema and I think that swelling is probably causing his left foot pain. I told him to contact his PCP tomorrow to discuss lower extremity edema and possible diuretic med adjustment. Patient also sees his director regulatory agency in a week. Return to ED precautions given. Patient understood agree with plan. Imaging Data^: US Vascular: Attestation: I personally reviewed and interpreted this imaging study as follows: Radiologist's impression: Ultrasound venous duplex of left lower extremity?prelim report?no DVTs or blood clots seen. Discharge Plan Discharge Patient Disposition: Home Clinical Impression: Bilateral leg edema Condition: Stable Prescriptions: No Action cholecalciferol (vitamin D3) 1,000 unit capsule 1,000 unit PO ONCE RF: 0 aspirin 81 mg tablet,chewable 81 mg PO ONCE RF: 0 vit C,E,Zn,Wd--ass-zeax 250-2.5-0.5 mg capsule PO RF: 0 cyanocobalamin (vitamin B-12) 2,500 mcg tablet 2,500 mcg PO DAILY Qty: 90 RF: 3 folic acid 800 mcg tablet 0.8 mg PO DAILY Qty: 90 RF: 3 pyridoxine (vitamin B6) 25 mg tablet 25 mg PO ONCE Qty: 90 RF: 3 spironolactone 25 mg tablet 25 mg PO BID 90 Days Qty: 180 RF: 3 triamcinolone acetonide 0.1 % cream 1 applic TOPICAL BID Qty: 454 RF: 2 Breztri Aerosphere 160-9-4.8 mcg/actuation HFA aerosol inhaler 2 inh inhalation BID Qty: 10.7 RF: 4 potassium chloride 20 mEq tablet extended release 20 meq PO BID Qty: 180 RF: 3 rosuvastatin [Crestor] 10 mg tablet 10 mg PO DAILY Qty: 90 RF: 2 metolazone 2.5 mg tablet 2.5 mg PO DAILY Qty: 90 RF: 1 pantoprazole [Protonix] 40 mg tablet,delayed release (DR/EC) 40 mg PO BID Qty: 180 RF: 2 nitroglycerin 0.4 mg tablet, sublingual 0.4 mg SUBLINGUAL Q5M PRN (Reason: Chest Pain) Qty: 30 RF: 0 albuterol sulfate [Ventolin HFA] 90 mcg/actuation HFA aerosol inhaler 2 puff INHALATION Q6H PRN (Reason: Shortness Of Breath) Qty: 6.7 RF: 4 albuterol sulfate 2.5 mg /3 mL (0.083 %) solution for nebulization 2.5 mg INHALATION Q4H PRN (Reason: shortness of breath or wheezing) Qty: 75 RF: 6 furosemide 40 mg tablet See Rx Instructions .ROUTE .COMPLEX Qty: 180 RF: 3 prednisone 10 mg tablets,dose pack See Rx Instructions PO PER PKG DIR Qty: 21 RF: 0 febuxostat [Uloric] 40 mg tablet 40 mg PO DAILY Qty: 30 RF: 0 metoprolol succinate 50 mg tablet extended release 24 hr 50 mg PO DAILY Qty: 90 RF: 3 Discharge Orders: Discharge ED (Routine); Ordered 10/31/20 Ordered By: Abiel Tenorio Referrals: Shannan Ellis MD [Primary Care Provider] - Discharge Diet: Regular Discharge Activity: Increase activity as tolerated Patient Instructions: Leg Edema (ED) Activity Restrictions/Additional Instructions: Follow-up with medical provider as directed. Call your primary care physician tomorrow morning to set up an appointment and to discuss your increasing leg edema. Continue taking all home medications as prescribed. Elevate your legs at night to help with swelling. Wear compression stockings to help with edema as well. Continue weighing yourself daily to monitor any fluid weight gain. Return to the ER or your medical provider if condition worsens. Please read and understand discharge instructions. Thank you for choosing [facility] for your healthcare needs today. Please realize this is an emergency room and that we are providing you with a medical screening exam and this may not be complete and all inclusive of all the testing and or work up that you may need to determine your ailment or severity of your illness. It is very important that you follow up as instructed or that you return to the Emergency Department should you have concerns or if your condition changes or worsens in any way. Coding Level of Care Code ED Environmental Emergencies Planner for Kieran Fwpenny 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
--- NOTE | 2020-10-31 02:24 | USCV_ITS ---
Yumiko Basurto Age: 79 Gender: M : 1940 Exam Date: 10/31/2020 02:55 Ordering Phys: Abiel Tenorio Technologist: Demetrio Low Exam Location: [facility]_ Indication: LLE PAIN AND SWELLING HISTORY: Lower extremity swelling. Lower extremity pain. PROCEDURES: Venous duplex imaging was performed in only the left lower extremity. The following venous structures were evaluated: common femoral vein, profunda vein, proximal portion of the greater saphenous vein, superficial femoral vein, and the popliteal vein. In addition, the posterior tibial and peroneal trunk were evaluated. Serial compression, augmentation maneuvers, and spectral Doppler flow evaluation were performed. FINDINGS: No evidence of DVT seen in any vessel visualized at this time. CONCLUSIONS No evidence of left lower extremity DVT. Asher Colby MD (Electronically Signed) Final Date: 31 October 2020 13:15 S
[2020-10-31 02:39] VITALS: BP 105/75; RESP 18; O2SAT 95
[2020-10-31 03:23] VITALS: BP 135/78; PULSE 83; RESP 18; O2SAT 98
== END 2020-10-31 03:25 | disposition home or self-care (01) ==
PROVIDERS: Emergency Provider Physician Assistant; PCP Family Medicine
DX: R60.0 Localized edema (principal); Z79.82 Long term (current) use of aspirin; I13.0 Hypertensive heart and chronic kidney disease with heart failure and stage 1 through stage 4 chronic kidney disease, or unspecified chronic kidney disease; N18.30 Chronic kidney disease, stage 3 unspecified; I50.22 Chronic systolic (congestive) heart failure; E78.2 Mixed hyperlipidemia; Z95.1 Presence of aortocoronary bypass graft; Z87.891 Personal history of nicotine dependence
CPT/HCPCS: 93971; 99282

== ENCOUNTER 2020-11-07 17:19 | Emergency (ER) | payer MEDICARE, MEDICAID, SELFPAY ==
[2020-11-07 18:24] VITALS: BP 127/77; PULSE 88; RESP 18; TEMP 37.3; O2SAT 94; BMI 38.9
--- NOTE | 2020-11-07 19:05 | XRR_ITS ---
PROCEDURE INFORMATION: Exam: XR Chest Exam date and time: 11/07/2020 7:05 PM Age: 79 years old Clinical indication: Chest wall pain; Prior surgery; Surgery date: 6+ months; Surgery type: Open heart; Additional info: Cp TECHNIQUE: Imaging protocol: XR of the chest. Views: 1 view. Total images: 1 COMPARISON: CR XR chest 1V portable [id number] 12/25/2019 7:54 PM FINDINGS: Lungs: No visible active interstitial or alveolar airspace disease. Calcified granulomas of antecedent disease. Pleural spaces: Unremarkable. No pleural effusion. No pneumothorax. Heart/Mediastinum: Cardiac structures and configuration reveal cardiomegaly with status post sternotomy chest and CABG. Arteriosclerosis. Bones/joints: Unremarkable. XR/XR chest 1V portable [id number] IMPRESSION: Nonacute.
--- NOTE | 2020-11-07 19:05 | ECG_ITS ---
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 Measurements Intervals [place] Rate: 96 P: 9 DC: 172 QRS: -59 QRSD: 144 T: 38 QT: 386 QTc: 490 Interpretive Statements SINUS RHYTHM INDETERMINATE AXIS RIGHT BUNDLE BRANCH BLOCK LEFT ANTERIOR FASCICULAR BLOCK [QRS AXIS <= -45, QR IN I, RS IN II] ST DEPRESSION, CONSIDER SUBENDOCARDIAL INJURY Compared to ECG 12/25/2019 22:23:21 Indeterminate axis now present Right bundle-branch block now present Left anterior fascicular block now present ST (T wave) deviation now present Sinus tachycardia no longer present Electronically Signed On 11-08-2020 6:11:40 CDT by Violet Rucker M.D. [email or web address]
[2020-11-07 19:40] LABS: Basophils # 0.1 10^3/uL (0.0-0.1); Basophils % 0.5 %; Eosinophils # 0.1 10^3/uL (0.0-0.8); Eosinophils % 0.8 %; Hematocrit 44.3 % (42.0-52.0); Hemoglobin 14.4 g/dL (11.7-16.6); Lymphocytes # 2.5 10^3/uL (0.8-4.8); Mean Corpuscular HGB Conc 32.5 g/dL (30.0-36.0); Mean Corpuscular Hemoglobin 30.5 pg (28.0-34.0); Mean Corpuscular Volume 93.9 fL (80-94); Mean Platelet Volume 11.2 fL (7.4-10.4); Monocytes # 1.1 10^3/uL (0.2-0.9); Monocytes % 8.8 %; Neutrophils # 8.19 10^3/uL (1.8-7.7); Neutrophils % 68.4 %; Nucleated Red Blood Cells % 0 %; Platelet Count 211 10^3/cmm (130-400); Red Blood Count 4.72 10^6/uL (4.1-5.3); Red Cell Distribution Width 14.3 % (12.1-15.1)
[2020-11-07 20:31] LABS: Alanine Aminotransferase 31 U/L (0-41); Albumin Level 4.2 g/dL (3.5-5.2); Alkaline Phosphatase 64 IU/L (40-130); Anion Gap 22.6 (5-19); Aspartate Amino Transferase 29 U/L (0-40); Blood Urea Nitrogen 46 mg/dL (8-23); Calcium 11.7 mg/dL (8.5-10.5); Carbon Dioxide 28 mmol/L (22-29); Chloride 86 mmol/L (98-107); Globulin 3.5 g/dL (1.3-4.6); Glucose 213 mg/dL (65-115); Lipase 39 U/L (13-60); NT Pro B Type Natriuretic Pept 655 pg/mL (0-450); Osmolality Calculated 294 mOsm/kg (285-295); Potassium 3.6 mmol/L (3.5-5.1); Sodium 133 mmol/L (136-145); Total Bilirubin 0.7 mg/dL (0.15-1.2); Total Protein 7.7 g/dL (6.6-8.7)
[2020-11-07 20:47] LABS: Troponin(5th) Baseline 26 ng/L (0-15)
[2020-11-07 22:14] LABS: Troponin 5 2HR 24.37 ng/L (0-15); Troponin 5 2HR Delta -1.63 ABS# (0-10)
[2020-11-07] MEDS: FUROsemide 10 mg/mL SDV 10mL 60 MG IVP (23:48)
--- NOTE | 2020-11-08 00:41 | W.ED.GENADLT ---
HPI - General Adult General: Chief complaint: General Medical Stated complaint: CHEST PAIN/NAUSEA/STOMACH PAIN Time Seen by Provider: 11/07/20 23:06 Source: patient Mode of arrival: ambulatory Limitations: no limitations History of Present Illness: HPI narrative: 79-year-old male has history congestive heart failure states he had some increased swelling over the last 2 to 3 days and some mild weakness. He states he is feeling short of breath earlier today but he feels much improved currently. Denies any chest pain currently. Denies any fever cough. He states that he still like his Lasix is not working very well at home. Denies any worsening improving factors. Associated symptoms: Deny chest pain, dyspnea, headache(s), nausea, rash or vomiting Review of Systems Const: Denies: fever(s), chills, body aches or change in appetite Eyes: Denies: blurry vision or eye discomfort ENMT: Denies: throat pain or dental pain Card: Denies: chest pain Resp: Denies: dyspnea GI: Denies: abdominal pain, nausea, vomiting or diarrhea : Denies: dysuria Musc: Reports: extremity swelling; Denies: neck pain or back pain Skin/Breast: Denies: rash Neuro: Denies: headache(s) Psych: Denies: depression Jean/Lymph: Denies: easy bruising All/Imm: Denies: urticaria PFSH ED PFSH: Medical History Arteriosclerotic heart disease (ASHD) Chronic kidney disease, stage 3 (moderate) Chronic shortness of breath Chronic systolic (congestive) heart failure Drug-induced chronic gout, unspecified wrist, without tophus (tophi) Encounter for counseling for care management of patient with chronic conditions and complex health needs using nurse-based model Essential (primary) hypertension Gastro-esophageal reflux disease without esophagitis Mixed hyperlipidemia Obesity Obstructive sleep apnea Umbilical hernia without obstruction or gangrene Vitamin B 12 deficiency Vitamin D deficiency Surgical History History of back surgery Hx of appendectomy Hx of CABG Patient had coronary bypass surgery on July 07, 2006 at a [facility]. This included left internal mammary to the LAD, single vein graft to the diagonal, single vein graft to the right posterior descending artery and sequential vein graft to the first and second marginal for a total of 5 bypasses. Family History Father Stroke Social History Smoking and tobacco status: former smoker Quit status (tobacco): has quit using tobacco Year quit tobacco: 2008 - Chew x 60 Years Second hand smoke exposure: No Smoking risk assessment/counseling performed?: Yes Alcohol intake: never Desire information about alcohol rehabilitation?: No Counseling given: No Desire information about substance/drug rehabilitation?: No Counseling given: No Lives independently: Yes Household members: spouse Housing: House Marital status: service: No Current occupational status: retired Pets and animals: Yes History of recent travel: No Current gender identity: Male Physical Exam Const: COMMON NORMALS: no acute distress, patient oriented x3 and healthy appearing HENMT: COMMON NORMALS: normocephalic and atraumatic HEAD & SCALP: normocephalic and atraumatic Eye: COMMON NORMALS: Equal, round and reactive pupils present and EOMs intact bilaterally PUPIL: Yes Equal, round and reactive pupils present Neck/C-Spine: COMMON NORMALS: full ROM and supple Chest: COMMONS NORMALS: normal inspection of the chest and normal palpation of entire chest wall Resp: COMMON NORMALS: normal respiratory effort, No retractions, No use of accessory muscles and clear to auscultation bilaterally AUSCULTATION: clear to auscultation bilaterally Cardio: COMMON NORMALS: regular rate, regular rhythm and No murmurs present (Cardio) RATE: regular rate RHYTHM: regular rhythm GI: COMMON NORMALS: Normal to inspection, nondistended, normoactive bowel sounds present, Soft to palpation, non-tender and no masses PALPATION: Yes Soft to palpation Extremity: COMMON NORMALS: full ROM NARRATIVE EXTREMITY EXAM: 2+ edema Neuro: COMMON NORMALS: patient oriented x3, moves all extremities and no focal motor deficits Psych: COMMON NORMALS: mental status grossly normal, Normal thought process present and cooperative THOUGHT PROCESS: Normal thought process present Skin: COMMON NORMALS: no rashes or lesions noted and no wounds GENERAL SKIN EXAM: no rashes or lesions noted Course Vital Signs: Vital signs: Vital Signs Temperature 99.1 F 11/07/20 18:24 Pulse Rate 88 11/07/20 18:24 Respiratory Rate 18 07/08/21 18:24 Blood Pressure 127/77 11/07/20 18:24 Pulse Oximetry 94 11/07/20 18:24 MDM - General Adult MDM Narrative: Medical decision making narrative: Patient presents with lower extreme edema and a history of congestive heart failure. He feels much improved here and has had some urine output after Lasix. BNP is only elevated minimally and x-ray here is clear. His troponins are negative. He is stable for discharge is to follow-up his PCP in 2 to 4 days and return if worsening. He understands agrees to plan. Lab Data: Labs: Lab Results 11/07/20 11/07/20 11/07/20 Range/Units 19:27 19:27 19:27 WBC 12.0 H (4.0-10.0) 10^3/ uL RBC 4.72 (4.1-5.3) 10^6/u L Hgb 14.4 (11.7-16.6) g/dL Hct 44.3 (42.0-52.0) % MCV 93.9 (80-94) fL MCH 30.5 (28.0-34.0) pg MCHC 32.5 (30.0-36.0) g/dL RDW 14.3 (12.1-15.1) % Plt Count 211 (130-400) 10^3/c mm MPV 11.2 H (7.4-10.4) fL Neut % (Auto) 68.4 % Lymph % (Auto) 21.0 % [place] % (Auto) 8.8 % Eos % (Auto) 0.8 % Baso % (Auto) 0.5 % Neut # (Auto) 8.19 H (1.8-7.7) 10^3/u L Lymph # (Auto) 2.5 (0.8-4.8) 10^3/u L [place] # (Auto) 1.1 H (0.2-0.9) 10^3/u L Eos # (Auto) 0.1 (0.0-0.8) 10^3/u L Baso # (Auto) 0.1 (0.0-0.1) 10^3/u L Nucleated RBC % (a uto) 0 % Nucleated RBCs # 0.0 /100WBC Sodium 133 L (136-145) mmol/L Potassium 3.6 (3.5-5.1) mmol/L Chloride 86 L (98-107) mmol/L Carbon Dioxide 28 (22-29) mmol/L Anion Gap 22.6 H (5-19) BUN 46 H (8-23) mg/dL Creatinine 1.9 H (0.7-1.2) mg/dL GFR Calculation Not Reportable Glucose 213 H (65-115) mg/dL Calculated Osmolal ity 294 (285-295) mOsm/k g Calcium 11.7 H (8.5-10.5) mg/dL Total Bilirubin 0.7 (0.15-1.2) mg/dL AST 29 (0-40) U/L ALT 31 (0-41) U/L Alkaline Phosphata se 64 (40-130) IU/L Troponin T Baselin e 26 H (0-15) ng/L Troponin T 120 Min [place] (0-15) ng/L Delta Troponin T (0-10) ABS# NT-Pro-B Natriuret Pep 655 H (0-450) pg/mL Total Protein 7.7 (6.6-8.7) g/dL Albumin 4.2 (3.5-5.2) g/dL Globulin 3.5 (1.3-4.6) g/dL Lipase 39 (13-60) U/L 11/07/20 Range/Units 21:32 WBC (4.0-10.0) 10^3/ uL RBC (4.1-5.3) 10^6/u L Hgb (11.7-16.6) g/dL Hct (42.0-52.0) % MCV (80-94) fL MCH (28.0-34.0) pg MCHC (30.0-36.0) g/dL RDW (12.1-15.1) % Plt Count (130-400) 10^3/c mm MPV (7.4-10.4) fL Neut % (Auto) % Lymph % (Auto) % [place] % (Auto) % Eos % (Auto) % Baso % (Auto) % Neut # (Auto) (1.8-7.7) 10^3/u L Lymph # (Auto) (0.8-4.8) 10^3/u L [place] # (Auto) (0.2-0.9) 10^3/u L Eos # (Auto) (0.0-0.8) 10^3/u L Baso # (Auto) (0.0-0.1) 10^3/u L Nucleated RBC % (a uto) % Nucleated RBCs # /100WBC Sodium (136-145) mmol/L Potassium (3.5-5.1) mmol/L Chloride (98-107) mmol/L Carbon Dioxide (22-29) mmol/L Anion Gap (5-19) BUN (8-23) mg/dL Creatinine (0.7-1.2) mg/dL GFR Calculation Glucose (65-115) mg/dL Calculated Osmolal ity (285-295) mOsm/k g Calcium (8.5-10.5) mg/dL Total Bilirubin (0.15-1.2) mg/dL AST (0-40) U/L ALT (0-41) U/L Alkaline Phosphata se (40-130) IU/L Troponin T Baselin e (0-15) ng/L Troponin T 120 Min [place] 24.37 H (0-15) ng/L Delta Troponin T -1.63 L (0-10) ABS# NT-Pro-B Natriuret Pep (0-450) pg/mL Total Protein (6.6-8.7) g/dL Albumin (3.5-5.2) g/dL Globulin (1.3-4.6) g/dL Lipase (13-60) U/L Imaging Data^: CXR: Attestation: I personally reviewed and interpreted this imaging study as follows: Radiologist's impression: [address] [address] XRay Report Signed Patient: Yumiko Basurto Unit #: [id number] : 1940 Age/Sex: 79 / M ADM Date: 11/07/20 Loc: ER Room/Bed: Attending Dr: Ordering Provider/Ordering MD: Janis Quiñones MD Date of Service: 11/07/20 Procedure(s): XR chest 1V portable [id number] Accession Number(s): [id number] Report Number: [id number] PROCEDURE INFORMATION: Exam: XR Chest Exam date and time: 11/07/2020 7:05 PM Age: 79 years old Clinical indication: Chest wall pain; Prior surgery; Surgery date: 6+ months; Surgery type: Open heart; Additional info: Cp TECHNIQUE: Imaging protocol: XR of the chest. Views: 1 view. Total images: 1 COMPARISON: CR XR chest 1V portable [id number] 12/25/2019 7:54 PM FINDINGS: Lungs: No visible active interstitial or alveolar airspace disease. Calcified granulomas of antecedent disease. Pleural spaces: Unremarkable. No pleural effusion. No pneumothorax. Heart/Mediastinum: Cardiac structures and configuration reveal cardiomegaly with status post sternotomy chest and CABG. Arteriosclerosis. Bones/joints: Unremarkable. XR/XR chest 1V portable [id number] IMPRESSION: Nonacute. Discharge Plan Discharge Patient Disposition: Home Clinical Impression: Chronic systolic (congestive) heart failure, Edema Condition: Stable Prescriptions: No Action cholecalciferol (vitamin D3) 1,000 unit capsule 1,000 unit PO ONCE RF: 0 aspirin 81 mg tablet,chewable 81 mg PO ONCE RF: 0 vit C,E,Zn,Kb--uxe-zeax 250-2.5-0.5 mg capsule PO RF: 0 cyanocobalamin (vitamin B-12) 2,500 mcg tablet 2,500 mcg PO DAILY Qty: 90 RF: 3 folic acid 800 mcg tablet 0.8 mg PO DAILY Qty: 90 RF: 3 pyridoxine (vitamin B6) 25 mg tablet 25 mg PO ONCE Qty: 90 RF: 3 spironolactone 25 mg tablet 25 mg PO BID 90 Days Qty: 180 RF: 3 triamcinolone acetonide 0.1 % cream 1 applic TOPICAL BID Qty: 454 RF: 2 Breztri Aerosphere 160-9-4.8 mcg/actuation HFA aerosol inhaler 2 inh inhalation BID Qty: 10.7 RF: 4 potassium chloride 20 mEq tablet extended release 20 meq PO BID Qty: 180 RF: 3 rosuvastatin [Crestor] 10 mg tablet 10 mg PO DAILY Qty: 90 RF: 2 metolazone 2.5 mg tablet 2.5 mg PO DAILY Qty: 90 RF: 1 pantoprazole [Protonix] 40 mg tablet,delayed release (DR/EC) 40 mg PO BID Qty: 180 RF: 2 nitroglycerin 0.4 mg tablet, sublingual 0.4 mg SUBLINGUAL Q5M PRN (Reason: Chest Pain) Qty: 30 RF: 0 albuterol sulfate [Ventolin HFA] 90 mcg/actuation HFA aerosol inhaler 2 puff INHALATION Q6H PRN (Reason: Shortness Of Breath) Qty: 6.7 RF: 4 albuterol sulfate 2.5 mg /3 mL (0.083 %) solution for nebulization 2.5 mg INHALATION Q4H PRN (Reason: shortness of breath or wheezing) Qty: 75 RF: 6 furosemide 40 mg tablet See Rx Instructions .ROUTE .COMPLEX Qty: 180 RF: 3 prednisone 10 mg tablets,dose pack See Rx Instructions PO PER PKG DIR Qty: 21 RF: 0 febuxostat [Uloric] 40 mg tablet 40 mg PO DAILY Qty: 30 RF: 0 metoprolol succinate 50 mg tablet extended release 24 hr 50 mg PO DAILY Qty: 90 RF: 3 Discharge Orders: Discharge ED (Routine); Ordered 11/08/20 Ordered By: Janis Quiñones Referrals: Shannan Ellis MD [Primary Care Provider] - 1-3 days Discharge Diet: Advance as tolerated Discharge Activity: Resume usual activity Patient Instructions: Heart Failure (ED) Coding Level of Care Code ED Appeals Reviewer Veteran for Chg 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
[2020-11-08 01:27] VITALS: BP 116/75; PULSE 88; RESP 18; TEMP 36.9; O2SAT 94
== END 2020-11-08 01:34 | disposition home or self-care (01) ==
PROVIDERS: Emergency Provider Emergency Medicine; PCP Family Medicine
DX: I13.0 Hypertensive heart and chronic kidney disease with heart failure and stage 1 through stage 4 chronic kidney disease, or unspecified chronic kidney disease (principal); N18.30 Chronic kidney disease, stage 3 unspecified; I50.22 Chronic systolic (congestive) heart failure; R60.0 Localized edema; Z79.82 Long term (current) use of aspirin; E78.2 Mixed hyperlipidemia; Z95.1 Presence of aortocoronary bypass graft; Z87.891 Personal history of nicotine dependence
CPT/HCPCS: 36415; 71045; 80053; 83690; 83880; 84484; 85025; 93005; 96374; 99283; J1940

== ENCOUNTER → 2020-11-26 09:57 | Outpatient (BNVA) | payer MEDICARE, MEDICAID, SELFPAY | PROVIDERS: PCP Family Medicine; Visit Provider Nurse Practitioner Family | DX: M25.572 Pain in left ankle and joints of left foot (principal); M10.9 Gout, unspecified; M19.072 Primary osteoarthritis, left ankle and foot | CPT/HCPCS: 73610; 73630; 80053; 84550; 85025; 85651; 86038; 86140; 86431 ==

== ENCOUNTER → 2020-12-18 12:12 | Outpatient (BNVA) | payer MEDICARE, MEDICAID, SELFPAY | PROVIDERS: PCP Family Medicine; Visit Provider Registered Nurse | DX: N18.30 Chronic kidney disease, stage 3 unspecified (principal) | CPT/HCPCS: 81000; 81003; 82043 ==

== ENCOUNTER → 2020-12-23 10:57 | Outpatient (BNVA) | payer MEDICARE, MEDICAID, SELFPAY | PROVIDERS: PCP Family Medicine; Referring Provider Nurse Practitioner Family; Visit Provider Podiatrist Foot & Ankle Surgery | DX: M79.672 Pain in left foot (principal) | CPT/HCPCS: 73610; 73630 ==

== ENCOUNTER 2020-12-23 14:12 | Outpatient (CLI) | payer MEDICARE, MEDICAID, SELFPAY | END 2020-12-23 14:13 | disposition home or self-care (01) | LOC: SPT 14:13 | PROVIDERS: PCP Family Medicine; Visit Provider Podiatrist Foot & Ankle Surgery | DX: Z46.89 Encounter for fitting and adjustment of other specified devices (principal); R29.6 Repeated falls | CPT/HCPCS: 97760; L4361 ==

== ENCOUNTER → 2020-12-26 10:30 | Outpatient (BNVA) | payer MEDICARE, MEDICAID, SELFPAY | PROVIDERS: PCP Family Medicine; Visit Provider Registered Nurse | DX: E55.9 Vitamin D deficiency, unspecified (principal); I10 Essential (primary) hypertension; N18.30 Chronic kidney disease, stage 3 unspecified; I25.10 Atherosclerotic heart disease of native coronary artery without angina pectoris; J44.9 Chronic obstructive pulmonary disease, unspecified; Z79.899 Other long term (current) drug therapy | CPT/HCPCS: 80048; 80069; 82043; 82306; 82310; 83970; 85025 ==

== ENCOUNTER → 2021-01-01 00:01 | Outpatient (BNVA) | payer MEDICARE, MEDICAID, SELFPAY | PROVIDERS: PCP Family Medicine; Visit Provider Family Medicine | DX: E53.8 Deficiency of other specified B group vitamins (principal); E55.9 Vitamin D deficiency, unspecified; E66.9 Obesity, unspecified; E78.2 Mixed hyperlipidemia; I10 Essential (primary) hypertension; M10.9 Gout, unspecified; J44.9 Chronic obstructive pulmonary disease, unspecified | CPT/HCPCS: 80061; 82306; 82607; 84443 ==

== ENCOUNTER → 2021-01-14 12:58 | Outpatient (BNVA) | payer MEDICARE, MEDICAID, SELFPAY | PROVIDERS: PCP Family Medicine; Visit Provider Internal Medicine | DX: M10.9 Gout, unspecified (principal); R00.0 Tachycardia, unspecified; N18.30 Chronic kidney disease, stage 3 unspecified; Z11.59 Encounter for screening for other viral diseases; R70.0 Elevated erythrocyte sedimentation rate; R53.1 Weakness; R25.1 Tremor, unspecified | CPT/HCPCS: 99204 ==

== ENCOUNTER 2021-01-14 14:13 | Inpatient (IN) | payer MEDICARE, MEDICAID, SELFPAY ==
[2021-01-14] VITALS (9 sets, daily range): BP systolic 117–130; BP diastolic 68–86; PULSE 80–143; RESP 16–23; TEMP 36.3–36.6; O2SAT 96–100; BMI 34.2; BMI 34.6
--- NOTE | 2021-01-14 14:15 | XR_ITS ---
WS: [id number] PORTABLE CHEST HISTORY: chest pain COMPARISON: 11/07/2020 Prior CABG. Lungs are clear and well expanded. No pleural effusion or pneumothorax. Cardiac size: [place] enlarged cardiac silhouette is exacerbated by lordotic positioning. Mediastinum/Aorta: Mild mediastinal widening and calcification in aorta. No osseous abnormality seen. XR/XR chest 1V portable [id number] IMPRESSION: Cardiomegaly and partially calcified aorta. No pneumonia.
--- NOTE | 2021-01-14 14:15 | ECG_ITS ---
[facility] Test Date: 2021-01-14 Pat Name: Yumiko Basurto Department: Room: Gender: Male Vocational Aide: : 1940 Requested By: Iris Menchaca Order Number: [id number] Ana MD: Bobbi Galvez M.D. Measurements Intervals [place] Rate: 88 P: 15 VA: 169 QRS: -12 QRSD: 138 T: 29 QT: 380 QTc: 462 Interpretive Statements SINUS RHYTHM INDETERMINATE AXIS RIGHT BUNDLE BRANCH BLOCK [120+ ms QRS DURATION, UPRIGHT V1, 40+ ms S IN I/aVL/V4/V5/V6] Compared to ECG 11/07/2020 18:46:28 Left anterior fascicular block no longer present ST (T wave) deviation no longer present Electronically Signed On 01-14-2021 23:13:11 CDT by Bobbi Galvez M.D. [email or web address] [facility] [place].[email or web address]/store/[id number]
--- NOTE | 2021-01-14 14:41 | ECG_ITS ---
[facility] Test Date: 2021-01-14 Pat Name: Yumiko Basurto Department: Room: Gender: Male Claims Agent Right Of Way: : 1940 Requested By: Michael Desir Order Number: [id number] Ana MD: Bobbi Galvez M.D. Measurements Intervals [place] Rate: 141 P: 90 ID: [id number] QRS: -20 QRSD: 144 T: 8 QT: 347 QTc: 533 Interpretive Statements SINUS TACHYCARDIA, POSSIBLE ATRIAL FLUTTER INDETERMINATE AXIS RIGHT BUNDLE BRANCH BLOCK [120+ ms QRS DURATION, UPRIGHT V1, 40+ ms S IN I/aVL/V4/V5/V6] ST DEPRESSION, CONSIDER SUBENDOCARDIAL INJURY [0.1+ mV ST DEPRESSION] Compared to ECG 01/14/2021 14:25:44 ST (T wave) deviation now present Sinus rhythm no longer present Electronically Signed On 01-14-2021 23:21:11 CDT by Bobbi Galvez M.D. [email or web address]/[id number]
--- NOTE | 2021-01-14 14:52 | W.ED.GENADLT ---
HPI - General Adult General: Chief complaint: Chest Pain Stated complaint: cp Time Seen by Provider: 01/14/21 14:36 History of Present Illness: HPI narrative: CC: Chest Pain HPI: This is a [80] yo patient hx of HTN, CABG, HLD presenting to the ED w/ acute onset intermittent substernal chest pain an dyspnea. Patient describes the pain as achey and short-lasting. Patient was seeing his financial institution president for severe gout and high uric acid level when he was told to go the ER because chest pain and dyspnea. Pain is not tearing in nature and does not radiate to the back. Endorse nausea but has no associated with vomiting or decreased PO intake. Denies any recent sympathomimetic drug use. Patient denies any cough. Denies palpitations, syncope symptoms. Pain not positional. Norecent immobility, surgery, unilateral leg swelling, or prior PE. Patient denies any orthopnea, paroxysmal nocturnal dyspnea, weight gain, or increased leg swellings. Onset: 3 hrs ago Duration: ongoing for the last 1 day Location: home Severity: moderate Review of Systems Narrative: Constitutional: No fever, no chills. HEENT: No vision changes, no sore throat. CV: +chest pain, no palpitations. PULM: No cough, +dyspnea. GI: No abdominal pain, no N/V/D. : No dysuria, no frequency, no hematuria. MSKEL: No arthralgias, no edema. SKIN: No new rashes, no lesions. NEURO: No headache, no focal weakness. HEME: No easy bleeding or bruising. PSYCH: No change in mood or affect. PFS ED PFSH: Medical History Arteriosclerotic heart disease (ASHD) Chronic kidney disease, stage 3 (moderate) Chronic shortness of breath Chronic systolic (congestive) heart failure Drug-induced chronic gout, unspecified wrist, without tophus (tophi) Encounter for counseling for care management of patient with chronic conditions and complex health needs using nurse-based model Essential (primary) hypertension Gastro-esophageal reflux disease without esophagitis Mixed hyperlipidemia Obesity Obstructive sleep apnea Umbilical hernia without obstruction or gangrene Vitamin B 12 deficiency Vitamin D deficiency Surgical History History of back surgery Hx of appendectomy Hx of CABG Patient had [facility] on [facility], [facility]. This included left internal mammary to the LAD, single vein graft to the diagonal, single vein graft to the right posterior descending artery and sequential vein graft to the first and second marginal for a total of 5 bypasses. Family History Father Stroke Social History (Updated 01/14/21 @ 13:38 by Cheryl Alonso LPN) Smoking and tobacco status: former smoker Quit status (tobacco): has quit using tobacco Year quit tobacco: 2007 - Chew x 60 Years Second hand smoke exposure: No Smoking risk assessment/counseling performed?: Yes Alcohol intake: never Desire information about alcohol rehabilitation?: No Counseling given: No Desire information about substance/drug rehabilitation?: No Counseling given: No Lives independently: Yes Household members: spouse Housing: House Marital status: service: No Current occupational status: retired Pets and animals: Yes History of recent travel: No Current gender identity: Male Physical Exam Narrative: EXAM NARRATIVE: Head: Atraumatic, normocephalic Eyes: PERRL, EOMI, conjunctiva without injection ENT: Throat without erythema, lesions or exudate, MMM NECK: Supple, trachea midline, no JVD LUNGS: LCTA CV: RRR, S1,S2, no murmurs, rubs, gallops. 2+ peripheral pulses in UEs ABDOMEN: Soft, nontender, nondistended, BS x4, no rigidity, no guarding, no rebound EXTREMITY: Normal ROM, no pitting edema, no calf tenderness to palpation SKIN: No rash or erythema NEURO: Awake and alert. No focal motor deficits. PSYCH: Normal mood and affect. Course Vital Signs: Vital signs: Vital Signs Temperature 97.3 F L 01/14/21 20:10 Pulse Rate 97 01/14/21 20:10 Respiratory Rate 16 01/14/21 20:10 Blood Pressure 130/86 01/14/21 20:10 Pulse Oximetry 97 01/14/21 20:10 MDM - General Adult MDM Narrative: Medical decision making narrative: [80]yo patient w/ hx of CABG, HTN, HLD presenting to the ED With acute substernal chest pain X 3 hrs with hx of similar prior pain. Currently chest pain free Given History And Exam today I have moderate to high suspicion for ACS/UA/NSTEMI. Today, I have NO suspicion for pneumothorax, pneumonia, pulmonary embolus, tamponade, aortic dissection or other emergent problem as a cause for this presentation. ECG did not show any signs of acute STEMI. Workup: ECG, CXR, CBC, BMP, Troponin Intervention: ASA 325mg, SL nitroglycerin EKG showing regular sinus rhythm at HT of [89]. Normal axis. RBBB No ST elevations/depressions to suggest coronary occlusion. Normal SC, QRS, QT intervals. Findings: ECG: No overt evidence of STEMI, no hyperacute T waves, localizable STD or T wave inversions. No evidence of Brugada?s sign, delta wave, epsilon wave, significantly prolonged QTc, or malignant arrhythmia. No Q waves. Troponin: mildly elevated CXR: Without PTX, PNA, or widened mediastinum [4:30pm] On reassessment, the patient is currently chest pain free. S/p aspirin 325mg. Will defer antiplatelet and anticoagulation to the inpatient team. Pending repeat troponin. HDS, AAOx3, no signs of respiratory distress, without refractory chest pain, no signs of malignant dysrhythmia on monitoring coordinator (VT/VF). Intermittently in the ED, patient went into atrial flutter with RVR with HR 145 that broke with 5mg of metoprolol. Disposition: Inpatient admission. Lab Data: Labs: Lab Results 01/14/21 01/14/21 01/14/21 Range/Units 15:07 15:07 15:07 WBC 13.9 H (4.0-10.0) 10^3/ uL RBC 4.42 (4.1-5.3) 10^6/u L Hgb 13.4 (11.7-16.6) g/dL Hct 41.0 L (42.0-52.0) % MCV 92.8 (80-94) fl MCH 30.3 (28.0-34.0) pg MCHC 32.7 (30.0-36.0) g/dL RDW 15.4 H (12.1-15.1) % Plt Count 213 (130-400) 10^3/c mm MPV 10.9 H (7.4-10.4) fL Neut % (Auto) 75.5 % Lymph % (Auto) 15.1 % Garza % (Auto) 7.5 % Eos % (Auto) 0.9 % Baso % (Auto) 0.4 % Neut # (Auto) 10.52 H (1.8-7.7) 10^3/u L Lymph # (Auto) 2.1 (0.8-4.8) 10^3/u L Garza # (Auto) 1.1 H (0.2-0.9) 10^3/u L Eos # (Auto) 0.1 (0.0-0.8) 10^3/u L Baso # (Auto) 0.1 (0.0-0.1) 10^3/u L Nucleated RBC % (a uto) 0 % Nucleated RBCs # 0.0 /100WBC D-Dimer (0-0.59) ug/mIFE U Sodium 131 L (136-145) mmol/L Potassium 3.8 (3.5-5.1) mmol/L Chloride 88 L (98-107) mmol/L Carbon Dioxide 27 (22-29) mmol/L Anion Gap 19.8 H (5-19) BUN 28 H (8-23) mg/dL Creatinine 1.8 H (0.7-1.2) mg/dL GFR Calculation Not Reportable Glucose 177 H (65-115) mg/dL Calculated Osmolal ity 282 L (285-295) mOsm/k g Calcium 8.8 (8.5-10.5) mg/dL Total Bilirubin 0.5 (0.15-1.2) mg/dL AST 98 H (0-40) U/L ALT 176 H (0-41) U/L Alkaline Phosphata se 292 H (40-130) IU/L Troponin T Baselin e 27 H (0-15) ng/L NT-Pro-B Natriuret Pep 596 H (0-450) pg/mL Total Protein 6.5 L (6.6-8.7) g/dL Albumin 4.1 (3.5-5.2) g/dL Globulin 2.4 (1.3-4.6) g/dL 01/14/ Range/Units 15:07 WBC (4.0-10.0) 10^3/ uL RBC (4.1-5.3) 10^6/u L Hgb (11.7-16.6) g/dL Hct (42.0-52.0) % MCV (80-94) fl MCH (28.0-34.0) pg MCHC (30.0-36.0) g/dL RDW (12.1-15.1) % Plt Count (130-400) 10^3/c mm MPV (7.4-10.4) fL Neut % (Auto) % Lymph % (Auto) % Garza % (Auto) % Eos % (Auto) % Baso % (Auto) % Neut # (Auto) (1.8-7.7) 10^3/u L Lymph # (Auto) (0.8-4.8) 10^3/u L Garza # (Auto) (0.2-0.9) 10^3/u L Eos # (Auto) (0.0-0.8) 10^3/u L Baso # (Auto) (0.0-0.1) 10^3/u L Nucleated RBC % (a uto) % Nucleated RBCs # /100WBC D-Dimer 1.16 H (0-0.59) ug/mIFE U Sodium (136-145) mmol/L Potassium (3.5-5.1) mmol/L Chloride (98-107) mmol/L Carbon Dioxide (22-29) mmol/L Anion Gap (5-19) BUN (8-23) mg/dL Creatinine (0.7-1.2) mg/dL GFR Calculation Glucose (65-115) mg/dL Calculated Osmolal ity (285-295) mOsm/k g Calcium (8.5-10.5) mg/dL Total Bilirubin (0.15-1.2) mg/dL AST (0-40) U/L ALT (0-41) U/L Alkaline Phosphata se (40-130) IU/L Troponin T Baselin e (0-15) ng/L NT-Pro-B Natriuret Pep (0-450) pg/mL Total Protein (6.6-8.7) g/dL Albumin (3.5-5.2) g/dL Globulin (1.3-4.6) g/dL Imaging Data^: Other Imaging: Radiologist's impression: [employer] [place], [place] [address]YJfs ReportSigned Patient: Yumiko Basurto #: [id number]: 1940cct#:[id number]/Sex: 80 / MADM Date: 01/14/21Loc: ERRoom/Bed:Attending Dr: Ordering Provider/Ordering MD: Iris Menchaca Date of Service: 01/14/21 Procedure(s): XR chest 1V portable [id number] Accession Number(s): [id number] Report Number: [id number] WS: [id number] PORTABLE CHEST HISTORY: chest pain COMPARISON: 11/07/2020 Prior CABG. Lungs are clear and well expanded. No pleural effusion or pneumothorax. Cardiac size: [place] enlarged cardiac silhouette is exacerbated by lordotic positioning. Mediastinum/Aorta: Mild mediastinal widening and calcification in aorta. No osseous abnormality seen. XR/XR chest 1V portable [id number] IMPRESSION: Cardiomegaly and partially calcified aorta. No pneumonia. Dictated By:Mariah Nguyen DOSigned By:Mariah Nguyen DOSigned Date/Time:01/14/218DD/ 151 Discharge Plan Discharge Patient Disposition: Admitted As Inpatient Admit Provider: Tone Junior Clinical Impression: Chest pain, Dyspnea, Hx of CABG, Atrial flutter with rapid ventricular response Condition: Stable Coding Level of Care Code ED Photoengraving Proofer Apprentice for Kirean Sanders
[2021-01-14 15:18] LABS: Basophils # 0.1 10^3/uL (0.0-0.1); Basophils % 0.4 %; Eosinophils # 0.1 10^3/uL (0.0-0.8); Eosinophils % 0.9 %; Hemoglobin 13.4 g/dL (11.7-16.6); Lymphocytes # 2.1 10^3/uL (0.8-4.8); Lymphocytes % 15.1 %; Mean Corpuscular HGB Conc 32.7 g/dL (30.0-36.0); Mean Corpuscular Hemoglobin 30.3 pg (28.0-34.0); Mean Corpuscular Volume 92.8 fl (80-94); Mean Platelet Volume 10.9 fL (7.4-10.4); Monocytes # 1.1 10^3/uL (0.2-0.9); Monocytes % 7.5 %; Neutrophils # 10.52 10^3/uL (1.8-7.7); Neutrophils % 75.5 %; Nucleated Red Blood Cells % 0 %; Platelet Count 213 10^3/cmm (130-400); Red Blood Count 4.42 10^6/uL (4.1-5.3); Red Cell Distribution Width 15.4 % (12.1-15.1); White Blood Count 13.9 10^3/uL (4.0-10.0)
[2021-01-14] MEDS: metoprolol tartrate 1 mg/1 mL SDV 5 mL 5 MG IVP (15:23)
[2021-01-14 15:43] LABS: Troponin(5th) Baseline 27 ng/L (0-15)
[2021-01-14] MEDS: aspirin 325 mg Tablet PO (15:55)
[2021-01-14 16:00] LABS: Alanine Aminotransferase 176 U/L (0-41); Albumin Level 4.1 g/dL (3.5-5.2); Alkaline Phosphatase 292 IU/L (40-130); Anion Gap 19.8 (5-19); Aspartate Amino Transferase 98 U/L (0-40); Blood Urea Nitrogen 28 mg/dL (8-23); Calcium 8.8 mg/dL (8.5-10.5); Carbon Dioxide 27 mmol/L (22-29); Chloride 88 mmol/L (98-107); Globulin 2.4 g/dL (1.3-4.6); Glucose 177 mg/dL (65-115); NT Pro B Type Natriuretic Pept 596 pg/mL (0-450); Osmolality Calculated 282 mOsm/kg (285-295); Potassium 3.8 mmol/L (3.5-5.1); Sodium 131 mmol/L (136-145); Total Bilirubin 0.5 mg/dL (0.15-1.2); Total Protein 6.5 g/dL (6.6-8.7)
[2021-01-14 17:53] LABS: Troponin 5 2HR 24.08 ng/L (0-15)
[2021-01-14 17:56] LABS: Troponin 5 2HR Delta -2.92 ABS# (0-10)
[2021-01-14 18:22] LABS: D Dimer 1.16 ug/mIFEU (0-0.59)
--- NOTE | 2021-01-14 19:12 | PC.NURSE ---
PATIENT PLACED ON PHONE BANKER.
--- NOTE | 2021-01-14 20:15 | ECG_ITS ---
[facility] Test Date: 2021-01-14 Pat Name: Yumiko Basurto Department: Room: Gender: Male Crack Off Person: : 1940 Requested By: Iris Menchaca Order Number: [id number] Ana MD: Bobbi Galvez M.D. Measurements Intervals [place] Rate: 82 P: 18 TN: 180 QRS: 0 QRSD: 145 T: 37 QT: 400 QTc: 469 Interpretive Statements SINUS RHYTHM INDETERMINATE AXIS RIGHT BUNDLE BRANCH BLOCK [120+ ms QRS DURATION, UPRIGHT V1, 40+ ms S IN I/aVL/V4/V5/V6] Compared to ECG 01/14/2021 15:22:15 ST (T wave) deviation no longer present Electronically Signed On 01-14-2021 23:52:48 CDT by Bobbi Galvez M.D. [id number]
--- NOTE | 2021-01-14 20:41 | ECG_ITS ---
[facility] Test Date: 2021-01-14 Pat Name: Yumiko Basurto Department: Room: 276 Gender: Male Human Resource Assistant: : 1940 Requested By: Michael Desir Order Number: [id number] Ana MD: Bobbi Galvez M.D. Measurements Intervals [place] Rate: 89 P: 30 MN: 184 QRS: -30 QRSD: 145 T: 36 QT: 402 QTc: 490 Interpretive Statements SINUS RHYTHM BORDERLINE LEFT AXIS DEVIATION [QRS AXIS < -20] RIGHT BUNDLE BRANCH BLOCK [120+ ms QRS DURATION, UPRIGHT V1, 40+ ms S IN I/aVL/V4/V5/V6] Compared to ECG 01/14/2021 16:34:41 Indeterminate axis no longer present Electronically Signed On 01-14-2021 23:53:37 CDT by Bobbi Galvez M.D. [id number]
--- NOTE | 2021-01-14 20:52 | PC.NURSE ---
i reported low temp to nurse 97.3
[2021-01-14 21:38] LABS: Troponin 5 6HR 26.19 ng/L (0-15)
[2021-01-14 21:43] LABS: Troponin 5 6HR Delta -0.81 ng/L (0-12)
--- NOTE | 2021-01-14 22:09 | P.HP_ITS ---
Providers/Chief Complaint Admitting Physician: Tone Junior MD Primary Care Provider: Shannan Ellis MD Chief Complaint: cp History of Present Illness Yumiko Basurto is a 80 year old male with PMH of HTN, GOUT, CAD S/P CABG, HFrEF, LELIA,COPD, was admitted with C/O substernal chest pain 6/7 In severity, squeezing, lasting transiently going on last couple of days earliest episode being this morning non radiating.He is also complaining of worsening SOB with minimal exertion goi ng on for some time. Upon arrival in the ER he was worked up for above mention complain. Pertinent imaging studies and labs : XR chest : No infiltrates, effusion,PTX. EKG :A.Flutter with RVR WBC: 13.9 H&H : 13.4/41, PLT : 213, Serum Na: 131, k: 3.8 BUN/SCR : 28/1.8, AST: 98, ALT: 176, ALP: 292, Troponin trend :Without significant delta, Pro Bnp: 596 Received Metoprolol 5 Mg I.V * 1 Dose , Aspirin :325 mg po * 1 dsoe Review of Systems Const: Denies: fever(s), chills, body aches, change in appetite or diaphoresis Card: Denies: orthopnea Resp: Denies: productive cough, wheezing or pain on inspiration GI: Denies: abdominal pain, nausea, vomiting, diarrhea or constipation : Denies: flank pain or difficulty urinating Musc: Denies: back pain Neuro: Denies: headache(s), difficulty walking or confusion Medications/Allergies Home Medications Medication Instructions Recorded Confirmed Last Taken Type aspirin 81 mg chewable tablet 81 mg PO DAILY 05/08/19 01/14/21 01/13/21 History cholecalciferol (vitamin D3) 25 1,000 unit PO DAILY 05/08/19 01/14/21 01/13/21 History mcg (1,000 unit) capsule albuterol sulfate 2.5 mg INHALATION Q4H PRN #75 ml 10/06/19 01/14/21 01/13/21 Rx vit 1 cap PO DAILY 06/11/20 01/14/21 01/13/21 History C,E,zinc,Xr-laqjo-8-lutein-zeaxanthin 250 mg-2.5 mg-0.5 mg capsule cyanocobalamin (vitamin B-12) 2,500 mcg PO DAILY #90 tab 06/24/20 01/14/21 01/13/21 Rx 2,500 mcg tablet folic acid 800 mcg tablet 0.8 mg PO DAILY #90 tab 06/24/20 01/14/21 01/13/21 Rx spironolactone 25 mg tablet 25 mg PO BID 90 Days #180 tab 06/24/20 01/14/21 01/13/21 Rx triamcinolone acetonide 0.1 % 1 applic TOPICAL BID #454 g 06/24/20 01/14/21 Rx topical cream albuterol sulfate 90 mcg/actuation 2 puff INHALATION Q6H PRN #6.7 g 10/02/20 01/14/21 01/14/21 Rx aerosol inhaler metolazone 2.5 mg tablet 2.5 mg PO DAILY #90 tab 10/02/20 01/14/21 01/13/21 Rx nitroglycerin 0.4 mg sublingual 0.4 mg SUBLINGUAL Q5M PRN #30 tab 10/02/20 01/14/21 Unknown Rx tablet pantoprazole 40 mg tablet,delayed 40 mg PO BID #180 tab 10/02/20 01/14/21 01/13/21 Rx release potassium chloride 20 mEq 20 meq PO BID #180 tab 10/02/20 01/14/21 01/13/21 Rx tablet,extended release rosuvastatin 10 mg tablet 10 mg PO DAILY #90 tab 10/02/20 01/14/21 01/13/21 Rx metoprolol succinate 50 mg 50 mg PO DAILY #90 tab 10/23/20 01/14/21 01/13/21 Rx tablet,extended release 24 hr powered scooter #1 ea 11/15/20 01/14/21 Unknown Rx Cam Boot to the left #1 ea 12/23/20 01/14/21 Unknown Rx doxycycline hyclate 100 mg capsule 100 mg PO BID 12/23/20 01/14/21 01/13/21 History budesonide-formoterol HFA 160 2 puff INHALATION BID #10.2 g 01/01/21 01/14/21 01/14/21 Rx mcg-4.5 mcg/actuation aerosol inhaler febuxostat 80 mg tablet 80 mg PO DAILY #30 tab 01/01/21 01/14/21 01/13/21 Rx meloxicam 15 mg tablet 15 mg PO DAILY #20 tab 01/02/21 01/14/21 Unknown Rx acetaminophen [Tylenol] 325 mg PO QID PRN MDD SEE PHARMACY 01/14/21 01/14/21 01/13/21 History COMMENT allopurinol 300 mg tablet 300 mg PO DAILY 01/14/21 01/14/21 01/13/21 History furosemide 40 mg PO DAILY 01/14/21 01/14/21 01/14/21 History pyridoxine (vitamin B6) 25 mg PO DAILY 01/14/21 01/14/21 01/13/21 History Allergies Allergy/AdvReac Type Severity Reaction Status Date / Time iodine Allergy Severe Unknown Verified 01/14/21 13:33 PFSH Acute PFSH: Medical History Arteriosclerotic heart disease (ASHD) Chronic kidney disease, stage 3 (moderate) Chronic shortness of breath Chronic systolic (congestive) heart failure Drug-induced chronic gout, unspecified wrist, without tophus (tophi) Encounter for counseling for care management of patient with chronic conditions and complex health needs using nurse-based model Essential (primary) hypertension Gastro-esophageal reflux disease without esophagitis Mixed hyperlipidemia Obesity Obstructive sleep apnea Umbilical hernia without obstruction or gangrene Vitamin B 12 deficiency Vitamin D deficiency Surgical History History of back surgery Hx of appendectomy Hx of CABG Patient had coronary bypass surgery on July 07, 2006 at a [facility]. This included left internal mammary to the LAD, single vein graft to the diagonal, single vein graft to the right posterior descending artery and sequential vein graft to the first and second marginal for a total of 5 bypasses. Family History Father Stroke Social History (Updated 01/14/21 @ 13:38 by Cheryl Alonso LPN) Smoking and tobacco status: former smoker Quit status (tobacco): has quit using tobacco Year quit tobacco: 2008 - Chew x 60 Years Second hand smoke exposure: No Smoking risk assessment/counseling performed?: Yes Alcohol intake: never Desire information about alcohol rehabilitation?: No Counseling given: No Desire information about substance/drug rehabilitation?: No Counseling given: No Lives independently: Yes Household members: spouse Housing: House Marital status: service: No Current occupational status: retired Pets and animals: Yes History of recent travel: No Current gender identity: Male Vitals/I&O/Wt Last Vital Signs Temp 97.3 F L 01/14/21 20:10 Pulse 97 01/14/21 20:10 Resp 16 01/14/21 20:10 BP 130/86 01/14/21 20:10 Pulse Ox 97 01/14/21 20:10 Weight last 48 hrs Weight 103.374 kg Weight 102.058 kg Physical Exam Const: COMMON NORMALS: patient oriented x3 HENMT: COMMON NORMALS: normocephalic and atraumatic HEAD & SCALP: normocephalic and atraumatic Resp: COMMON NORMALS: clear to auscultation bilaterally AUSCULTATION: clear to auscultation bilaterally Cardio: COMMON NORMALS: regular rate, regular rhythm, S1 normal heart sound present, S2 normal heart sound present, No gallops present (Cardio), No murmurs present (Cardio), No rub (Cardio) and Peripheral pulses 2+ throughout RATE: regular rate RHYTHM: regular rhythm HEART SOUNDS: S1 normal heart sound present and S2 normal heart sound present PERIPHERAL PULSES: Peripheral pulses 2+ throughout GI: COMMON NORMALS: Normal to inspection, nondistended, normoactive bowel sounds present, Soft to palpation, non-tender, No hepatosplenomegaly present and no masses AUSCULTATION: Yes normoactive bowel sounds PALPATION: Yes Soft to palpation and Yes No hepatosplenomegaly present RECTAL EXAM: Yes deferred Extremity: OTHER: B/L Lower extremity erythema present as well as B/L L/E 2 + Pitting edema present. Neuro: COMMON NORMALS: patient oriented x3 Data : 01/14/21 15:07 01/14/21 15:07 A&P Assessment and plan (1) Chest pain: Patient Present with Typical cardiac chest pain.Has prior h/o underlying CAD S/P CABG: Nuclear stress test in 2019: Medium sized perfusion abnormality of moderate severity of basal to apical anterior and mid to apical lateral chawla with reversibility noted in entire anterior and mid anteroseptal chawla. 2 D Echo Aspirin 81 mg po daily Metoprorlol .S : 50 Mg po daily IMDUR 30 MG PO DAILY Lipitor 40 mg po daily S/L Nitro Status: Acute (2) Atrial flutter with rapid ventricular response: Metoprorlol .S : 50 Mg po daily Lovenox 100 mg sc q12 h daily.Will switch to eliquis on discharge Status: Acute (3) Cellulitis: Cellulitis of lower extremity Cef 1g i.v daily Doppler vein b/l l/e Status: Acute (4) Chronic systolic (congestive) heart failure: Currently compensated Lasix 40 mg i.v q12 h daily Metolazone I/O Charting Status: Acute (5) Gout: Status: Acute (6) Tremor: Status: Acute (7) Obstructive sleep apnea: Status: Acute (8) Mixed hyperlipidemia: Status: Acute (9) Essential (primary) hypertension: Status: Acute (10) Chronic obstructive pulmonary disease, unspecified: Status: Acute Qualifiers: COPD type: unspecified COPD Qualified Code(s): J44.9 - Chronic obstructive pulmonary disease, unspecified (11) Chronic kidney disease, stage 3 (moderate): Status: Acute (12) Hx of CABG: Status: Acute (13) Arteriosclerotic heart disease (ASHD): Status: Acute Additional A&P Information Code Status :Full code DVT PPX: Not needed on eliquis Attestations Medical Necessity Statement*: Patient needs to be in hospital for chest pain work up and new onset A.Flutter with RVR.Anticipated LOS Greater then 2 midnights. Coding Level of Care Code Acute Client Project Coordinator for [facility] Fwd Diagnoses Chest pain R07.9 Atrial flutter with rapid ventricular response I48.92 Cellulitis L03.90 Chronic systolic (congestive) heart failure I50.22 Gout M10.9 Tremor R25.1 Obstructive sleep apnea G47.33 Mixed hyperlipidemia E78.2 Essential (primary) hypertension I10 Chronic obstructive pulmonary disease, unspecified J44.9 COPD type: unspecified COPD Chronic kidney disease, stage 3 (moderate) N18.3 Hx of CABG Z95.1 Arteriosclerotic heart disease (ASHD) I25.10
[2021-01-14] MEDS: cefTRIAXone 1,000 MG in sodium chloride 0.9% (plus) 50 ML 100 MG IV (22:54)
[2021-01-15] VITALS (13 sets, daily range): BP systolic 104–132; BP diastolic 67–84; PULSE 48–95; RESP 16–20; TEMP 36.4–36.9; O2SAT 95–98
--- NOTE | 2021-01-15 04:04 | PC.NURSE ---
i reported low pulse 48 to nurse
[2021-01-15] MEDS: acetaminophen 325 mg Tablet 650 MG PO (04:20)
[2021-01-15 04:53] LABS: Basophils # 0.1 10^3/uL (0.0-0.1); Basophils % 0.4 %; Eosinophils # 0.2 10^3/uL (0.0-0.8); Eosinophils % 1.8 %; Hematocrit 37.5 % (42.0-52.0); Lymphocytes # 2.2 10^3/uL (0.8-4.8); Lymphocytes % 19.1 %; Mean Corpuscular Hemoglobin 30.1 pg (28.0-34.0); Mean Platelet Volume 10.7 fL (7.4-10.4); Monocytes % 8.5 %; Neutrophils # 8.03 10^3/uL (1.8-7.7); Neutrophils % 69.7 %; Nucleated Red Blood Cells % 0 %; Platelet Count 193 10^3/cmm (130-400); Red Blood Count 3.99 10^6/uL (4.1-5.3); Red Cell Distribution Width 15.4 % (12.1-15.1); White Blood Count 11.5 10^3/uL (4.0-10.0)
[2021-01-15 05:23] LABS: Alanine Aminotransferase 119 U/L (0-41); Albumin Level 3.4 g/dL (3.5-5.2); Alkaline Phosphatase 198 IU/L (40-130); Anion Gap 16.8 (5-19); Aspartate Amino Transferase 51 U/L (0-40); Blood Urea Nitrogen 30 mg/dL (8-23); Calcium 9.1 mg/dL (8.5-10.5); Carbon Dioxide 27 mmol/L (22-29); Chloride 96 mmol/L (98-107); Globulin 2.9 g/dL (1.3-4.6); Glucose 130 mg/dL (65-115); Magnesium 2.1 mg/dL (1.7-2.3); Osmolality Calculated 290 mOsm/kg (285-295); Potassium 3.8 mmol/L (3.5-5.1); Sodium 136 mmol/L (136-145); Total Bilirubin 0.3 mg/dL (0.15-1.2); Total Protein 6.3 g/dL (6.6-8.7)
[2021-01-15] MEDS: metoprolol succinate ER (24 HR) 50 mg Tablet PO (07:59)
[2021-01-15] MEDS: cholecalciferol (vitamin D3) 1,000 unit Tablet 1000 UNIT PO (07:59)
[2021-01-15] MEDS: isosorbide mononitrate ER 30 mg Tablet PO (07:59)
[2021-01-15] MEDS: spironolactone 25 mg Tablet PO ×2 (07:59→18:03)
[2021-01-15] MEDS: aspirin 81 mg Chew Tablet PO (07:59)
[2021-01-15] MEDS: atorvastatin 40 mg Tablet PO (07:59)
[2021-01-15] MEDS: pantoprazole DR 40 mg Tablet PO ×2 (07:59→18:04)
[2021-01-15] MEDS: cyanocobalamin 1,000 mcg Tablet 2500 MCG PO (08:00)
[2021-01-15] MEDS: metOLazone 5 MG Tablet 2.5 MG PO (08:00)
[2021-01-15] MEDS: enoxaparin 100 mg/mL Syringe SUBCUT ×2 (08:03→20:29)
[2021-01-15] MEDS: FUROsemide 10 mg/mL SDV 4mL 40 MG IVP ×2 (09:28→20:29)
--- NOTE | 2021-01-15 10:11 | PC.CHAP ---
Pastoral Care Encounter/Spiritual Assessment Type of Contact [] Declined can bander operator visit [] Patient/Family/Request visit [] Outpatient visit [] Follow-up visit [] Physician referral [] Code/Alert [x] Routine visit [] Staff referral [] Actively dying [] Patient sleeping [] Family support [] [] Out of room [] Palliative care [] [] Receiving care in room [] Pre-surgical visit [] Trauma [] Long length of stay [] ICU visit [] Other: Relational/Emotional Strength [x] Patient feels connected with others/family/visitors/staff [] Distress [] Loneliness/isolation [] Abandonment Spirituality of Patient [x] Person of Viv [] Attends Shinto of their Viv [x] Believes in Prayer [] Reads Bible or Latter-Day materials [] There are Spiritual issues to be addressed Hair Rooting Machine Operator Interventions [x] Prayer [x] Active listening [x] Non-anxious presence [] Spiritual/emotional support [] Crisis/trauma care [] Spiritual counseling [] Bereavement support [] Provided bereavement packet [] Provided Bible/devotional materials [] Provided toy/stuffed animal, coloring book to patient or family member [] Provided Communion [] Anointing/[place] [] Salvation [x] Completed spiritual assessment [] Other: Impact on Illness or Injury [] Angry [] Fearful [] Anxious [] Often cries [] Exhaustion [] Unable to work [] Unable to attend orthodoxy [] Unable to walk/stand [] Unable to read [] Unable to drive [] Unable to eat/drink [] Unable to sleep [] Unable to be with family [] Patient intubated [] Other: Summary Time spent with patient 20 min
--- NOTE | 2021-01-15 13:17 | P.PN_ITS ---
Subjective Subjective: Interval history: Patient was seen and examined this morning,deny any chest pain, sob is at its baseline. Denies any palpitation. tele was reviewed was in NSR. Medications: Reviewed: Yes Vitals/I&O/Wt Last Vital Signs Temp 97.9 F 01/15/21 11:52 Pulse 76 01/15/21 11:52 Resp 20 H 01/15/21 11:52 BP 122/71 01/15/21 11:52 Pulse Ox 96 01/15/21 11:52 01/14/21 01/15/21 01/15/21 22:59 06:59 14:59 Intake Total 650 / 650 240 / 240 Output Total 1000 / 1000 Balance -350 / -350 240 / 240 Weight last 48 hrs Weight 104.825 kg Weight 103.374 kg Weight 102.058 kg Physical Exam Const: COMMON NORMALS: patient oriented x3 HENMT: COMMON NORMALS: normocephalic and atraumatic HEAD & SCALP: normocephalic and atraumatic Resp: COMMON NORMALS: clear to auscultation bilaterally AUSCULTATION: clear to auscultation bilaterally Cardio: COMMON NORMALS: regular rate, regular rhythm, S1 normal heart sound present, S2 normal heart sound present, No gallops present (Cardio), No murmurs present (Cardio), No rub (Cardio) and Peripheral pulses 2+ throughout RATE: regular rate RHYTHM: regular rhythm HEART SOUNDS: S1 normal heart sound present and S2 normal heart sound present PERIPHERAL PULSES: Peripheral pulses 2+ throughout GI: COMMON NORMALS: Normal to inspection, nondistended, normoactive bowel sounds present, Soft to palpation, non-tender, No hepatosplenomegaly present and no masses AUSCULTATION: Yes normoactive bowel sounds PALPATION: Yes Soft to palpation and Yes No hepatosplenomegaly present RECTAL EXAM: Yes deferred Extremity: OTHER: B/L Lower extremity erythema present as well as B/L L/E 2 + Pitting edema present. Neuro: COMMON NORMALS: patient oriented x3 Data : 01/15/21 04:45 01/15/21 04:45 A&P Assessment and plan (1) Chest pain: Patient Present with Typical cardiac chest pain.Has prior h/o underlying CAD S/P CABG: Nuclear stress test in 2019: Medium sized perfusion abnormality of moderate severity of basal to apical anterior and mid to apical lateral chawla with reversibility noted in entire anterior and mid anteroseptal chawla. 2 D Echo : Normal left ventricular cavity size. Normal left ventricular systolic function. No regional wall motion abnormalities. Left ventricular ejection fraction is estimated at 55 %. Grade I/IV diastolic dysfunction (abnormal relaxation filling pattern),normal to mildly elevated filling pressures. No significant valve abnormalities. There is no pericardial effusion. Pulmonary artery systolic pressure is within normal limits. Right atrial pressure is around 5 mm of mercury. Aspirin 81 mg po daily Metoprorlol .S : 50 Mg po daily IMDUR 30 MG PO DAILY Lipitor 40 mg po daily S/L Nitro Patient currently do not want any aggressive intervention. We will continue with optimal medical management Status: Acute (2) Atrial flutter with rapid ventricular response: Metoprorlol .S : 50 Mg po daily Lovenox 100 mg sc q12 h daily.Will switch to eliquis on discharge Status: Acute (3) Cellulitis: Cellulitis of lower extremity Cef 1g i.v daily Doppler vein b/l l/e Status: Acute (4) Chronic systolic (congestive) heart failure: Currently compensated Lasix 40 mg i.v q12 h daily Metolazone I/O Charting Status: Acute (5) Gout: Status: Acute (6) Tremor: Status: Acute (7) Obstructive sleep apnea: Status: Acute (8) Mixed hyperlipidemia: Status: Acute (9) Essential (primary) hypertension: Status: Acute (10) Chronic obstructive pulmonary disease, unspecified: Status: Acute Qualifiers: COPD type: unspecified COPD Qualified Code(s): J44.9 - Chronic obstructive pulmonary disease, unspecified (11) Chronic kidney disease, stage 3 (moderate): Status: Acute (12) Hx of CABG: Status: Acute (13) Arteriosclerotic heart disease (ASHD): Status: Acute Additional A&P Information Code Status :Full code DVT PPX: On Lovenox Attestations Medical Necessity Statement*: Patient needs to be in hospital for management of chest pain. And for A. 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
--- NOTE | 2021-01-15 22:13 | USCV_ITS ---
Yumiko Basurto Age: 80 Gender: M : 1940 Exam Date: 01/15/2021 07:13 Ordering Phys: Tone Junior MD Technologist: Stacey Cruz Exam Location: [facility] [place] Indication: SWOLLEN RED LEGS HISTORY: Swollen legs PROCEDURES: The venous duplex Doppler examination of both lower extremities was performed in the standard fashion. The following venous structures were evaluated: common femoral vein, profunda vein, proximal portion of the greater saphenous vein, superficial femoral vein, and the popliteal vein. In addition, the posterior tibial and peroneal trunk were evaluated. Serial compression, augmentation maneuvers, and spectral Doppler flow evaluation were performed. FINDINGS: Normal 2-D Doppler and augmentation and compressibility throughout the lower extremity venous structures. Additional imaging through the proximal calf veins also reveals no thrombus. Limited evaluation of the greater saphenous vein is patent with no thrombus. (Rt GSV was used for Cabg) CONCLUSIONS No DVT bilateral lower extremities. Dr. Mariah Nguyen DO (Electronically Signed) Final Date: 15 January 2021 08:07 S
[2021-01-15] MEDS: cefTRIAXone 1,000 MG in sodium chloride 0.9% (plus) 50 ML 100 MG IV (22:17)
--- NOTE | 2021-01-15 22:38 | USCV_ITS ---
Yumiko Basurto Age: 80 Gender: M : 1940 Exam Date: 01/15/2021 14:10 Ordering Phys: Tone Junior MD Technologist: JENA DUARTE [place] [facility] [place]: chest pain BP: 126 / 83 HR: 83 Rhythm: Sinus Technical Quality: Adequate MEASUREMENTS (Male / Female) Normal Values 2D ECHO LV Diastolic Diameter PLAX 3.5 cm 4.2 - 5.9 / 3.9 - 5.3 cm LV Systolic Diameter PLAX 2.3 cm LV Chamber Size 2.9 cm IVS Diastolic Thickness 1.3 cm 0.6 - 1.0 / 0.6 - 0.9 cm IVS Systolic Thickness 1.3 cm LVPW Diastolic Thickness 1.5 cm 0.6 - 1.0 / 0.6 - 0.9 cm LVPW Systolic Thickness 1.5 cm RV Chamber Size 2.5 cm LVOT Diameter 2.1 cm LV Ejection Fraction 2D Teich 65.2 % LV Ejection Fraction MOD 2C 66.7 % LV Ejection Fraction 2C AL 68.3 % LA Diameter 3.4 cm LA Width 2.8 cm LA Height 4.2 cm RA Width 2.8 cm RA Height 3.3 cm Aorta at Sinotubular Diameter 3.7 cm M-MODE LV Diastolic Diameter MM 6.6 cm 4.2 - 5.9 / 3.9 - 5.3 cm LV Systolic Diameter MM 4.9 cm LV Ejection Fraction MM Teich 48.1 % IVS Diastolic Thickness MM 1.3 cm 0.6 - 1.0 / 0.6 - 0.9 cm IVS Systolic Thickness MM 1.6 cm LVPW Diastolic Thickness MM 1.2 cm 0.6 - 1.0 / 0.6 - 0.9 cm LVPW Systolic Thickness MM 1.9 cm Aortic Annulus Diameter 2.1 cm LA Ao Ratio MM 1.1 DOPPLER AV Peak Velocity 116.0 cm/s LVOT Peak Velocity 68.0 cm/s AV Area Cont Eq vti 2.7 cm squared AV Area Cont Eq pk 2.0 cm squared MV Area PHT 3.9 cm squared Mitral E to A Ratio 1.1 MV E' Velocity 39.0 cm/s Mitral E to MV E' Ratio 11.9 Mitral E to LV E' Lateral Ratio 10.3 Mitral E to LV E' Septal Ratio 14.0 TR Peak Velocity 199.7 cm/s TR Peak Gradient 16.0 mmHg TR Mean Velocity 119.8 cm/s TR Mean Gradient 7.2 mmHg TR Velocity Time Integral 48.3 cm TV Peak E Velocity 67.0 cm/s Right Atrial Pressure 3.0 mmHg Pulmonary Artery Systolic Pressu 19.0 mmHg PV Peak Velocity 50.0 cm/s RV Acceleration Time 0.1 s RV Ejection Time 0.3 s RV AcT/ET 0.3 FINDINGS Left Ventricle Normal left ventricular cavity size. Normal left ventricular systolic function. No regional wall motion abnormalities. Left ventricular ejection fraction is estimated at 55 %. Grade I/IV diastolic dysfunction (abnormal relaxation filling pattern), normal to mildly elevated filling pressures. Right Ventricle The right ventricle is normal in size and function. Right Atrium The right atrium is normal in size. Left Atrium The left atrium is normal in size. Mitral Valve Moderately thickened mitral valve. No mitral valve stenosis. Trace mitral valve regurgitation. Aortic Valve Aortic valve sclerosis without stenosis or regurgitation. Tricuspid Valve No tricuspid valve regurgitation. Pulmonic Valve Structurally normal pulmonic valve without significant stenosis. There is no pulmonic regurgitation. Pericardium Normal pericardium without effusion. Aorta Normal ascending aorta dimension. CONCLUSIONS 1-Normal left ventricular cavity size. Normal left ventricular systolic function. No regional wall motion abnormalities. Left ventricular ejection fraction is estimated at 55 %. Grade I/IV diastolic dysfunction (abnormal relaxation filling pattern), normal to mildly elevated filling pressures. 2-No significant valve abnormalities. 3-There is no pericardial effusion. 4-Pulmonary artery systolic pressure is within normal limits. 5-Right atrial pressure is around 5 mm of mercury. 6-No significant change since the prior echocardiogram study of 11/20/2019. Kristy Clark MD (Electronically Signed) Final Date: 15 January 2021 15:52 S
[2021-01-16] VITALS (26 sets, daily range): BP systolic 105–178; BP diastolic 61–108; PULSE 72–140; RESP 16–23; TEMP 36.4–36.8; O2SAT 92–100
--- NOTE | 2021-01-16 00:22 | ECG_ITS ---
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 Measurements Intervals [place] Rate: 140 P: MS: QRS: -36 QRSD: 144 T: 11 QT: 339 QTc: 518 Interpretive Statements ATRIAL FLUTTER/TACHYCARDIA WITH RAPID VENTRICULAR RESPONSE INDETERMINATE AXIS RIGHT BUNDLE BRANCH BLOCK ST DEPRESSION, CONSIDER SUBENDOCARDIAL INJURY Compared to ECG 01/14/2021 21:06:50 Indeterminate axis now present ST (T wave) deviation now present Sinus rhythm no longer present Electronically Signed On 01-17-2021 18:57:31 CDT by Violet Rucker M.D. [id number]
[2021-01-16] MEDS: metoprolol tartrate 1 mg/1 mL SDV 5 mL 5 MG IVP ×4 (00:50→23:17)
[2021-01-16] MEDS: metoprolol succinate ER (24 HR) 50 mg Tablet PO ×3 (05:14→18:02)
[2021-01-16 05:47] LABS: Basophils # 0.1 10^3/uL (0.0-0.1); Basophils % 0.6 %; Eosinophils # 0.3 10^3/uL (0.0-0.8); Eosinophils % 2.2 %; Hematocrit 36.8 % (42.0-52.0); Hemoglobin 11.8 g/dL (11.7-16.6); Lymphocytes # 2.3 10^3/uL (0.8-4.8); Lymphocytes % 19.8 %; Mean Corpuscular HGB Conc 32.1 g/dL (30.0-36.0); Mean Corpuscular Hemoglobin 30.3 pg (28.0-34.0); Mean Corpuscular Volume 94.6 fl (80-94); Mean Platelet Volume 11.4 fL (7.4-10.4); Monocytes # 0.9 10^3/uL (0.2-0.9); Monocytes % 7.8 %; Neutrophils # 8.15 10^3/uL (1.8-7.7); Neutrophils % 69.1 %; Nucleated Red Blood Cells % 0 %; Platelet Count 198 10^3/cmm (130-400); Red Blood Count 3.89 10^6/uL (4.1-5.3); Red Cell Distribution Width 15.6 % (12.1-15.1); White Blood Count 11.8 10^3/uL (4.0-10.0)
[2021-01-16 06:03] LABS: Alanine Aminotransferase 84 U/L (0-41); Albumin Level 3.6 g/dL (3.5-5.2); Alkaline Phosphatase 188 IU/L (40-130); Anion Gap 17.6 (5-19); Aspartate Amino Transferase 27 U/L (0-40); Blood Urea Nitrogen 24 mg/dL (8-23); Calcium 9.1 mg/dL (8.5-10.5); Carbon Dioxide 28 mmol/L (22-29); Chloride 94 mmol/L (98-107); Creatinine Clr Calc Pharmacy 43.2135; Globulin 2.7 g/dL (1.3-4.6); Glucose 148 mg/dL (65-115); Osmolality Calculated 289 mOsm/kg (285-295); Potassium 3.6 mmol/L (3.5-5.1); Sodium 136 mmol/L (136-145); Total Bilirubin 0.4 mg/dL (0.15-1.2); Total Protein 6.3 g/dL (6.6-8.7)
[2021-01-16] MEDS: enoxaparin 100 mg/mL Syringe SUBCUT ×2 (08:10→22:33)
[2021-01-16] MEDS: metOLazone 5 MG Tablet 2.5 MG PO (08:10)
[2021-01-16] MEDS: spironolactone 25 mg Tablet PO (08:11)
[2021-01-16] MEDS: aspirin 81 mg Chew Tablet PO (08:11)
[2021-01-16] MEDS: atorvastatin 40 mg Tablet PO (08:11)
[2021-01-16] MEDS: pantoprazole DR 40 mg Tablet PO ×2 (08:11→18:02)
[2021-01-16] MEDS: cholecalciferol (vitamin D3) 1,000 unit Tablet 1000 UNIT PO (08:11)
[2021-01-16] MEDS: cyanocobalamin 1,000 mcg Tablet 2500 MCG PO (08:11)
[2021-01-16] MEDS: isosorbide mononitrate ER 30 mg Tablet PO (08:11)
--- NOTE | 2021-01-16 09:14 | ECG_ITS ---
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 Measurements Intervals [place] Rate: 77 P: 12 [place]: 169 QRS: -5 QRSD: 145 T: 21 QT: 409 QTc: 465 Interpretive Statements SINUS RHYTHM INDETERMINATE AXIS RIGHT BUNDLE BRANCH BLOCK [120+ ms QRS DURATION, UPRIGHT V1, 40+ ms S IN I/aVL/V4/V5/V6] Compared to ECG 01/16/2021 00:29:38 Atrial flutter no longer present ST (T wave) deviation no longer present Electronically Signed On 01-17-2021 19:22:42 CDT by Violet Rucker M.D. [id number] f
[2021-01-16] MEDS: FUROsemide 10 mg/mL SDV 4mL 40 MG IVP (11:02)
[2021-01-16] MEDS: amiodarone 200 mg Tablet PO ×2 (11:02→18:02)
--- NOTE | 2021-01-16 15:02 | PC.NURSE ---
patient pressed called light and reported that he was experiencing chest pain rated 4/10. telemetry showed that patients hearts rate was in the 140's and he was in an irregular rhythm. notified and new orders received. After medication patient returned to normal sinus rhythm, and chest pain has since resolved. patient voiced concerns about saying alone overnight. Dr. Junior notified, and okayed the patient's son staying overnight.
--- NOTE | 2021-01-16 15:04 | P.PN_ITS ---
Subjective Subjective: Interval history: Patient was seen and examined this morning, patient again went into A. fib with RVR, with rate as high as 130-140S at that time he was complaining of severe chest pain. He again went into A.fib with rvr this afternoon with chest pain.Converted back to NSR both time with I.V Metoprolol. Medications: Reviewed: Yes Vitals/I&O/Wt Last Vital Signs Temp 98.1 F 01/16/21 11:15 Pulse 109 H 01/16/21 11:15 Resp 20 H 01/16/21 11:15 BP 109/75 01/16/21 14:25 Pulse Ox 95 01/16/21 11:15 01/16/21 01/16/21 01/16/21 06:59 14:59 22:59 Intake Total 120 / 120 Output Total 500 / 2130 Balance -500 / -1360 120 / 120 Weight last 48 hrs Weight 103.873 kg Weight 104.825 kg Weight 103.374 kg Physical Exam Const: COMMON NORMALS: patient oriented x3 HENMT: COMMON NORMALS: normocephalic and atraumatic HEAD & SCALP: normocephalic and atraumatic Resp: COMMON NORMALS: clear to auscultation bilaterally AUSCULTATION: clear to auscultation bilaterally Cardio: COMMON NORMALS: regular rate, regular rhythm, S1 normal heart sound present, S2 normal heart sound present, No gallops present (Cardio), No murmurs present (Cardio), No rub (Cardio) and Peripheral pulses 2+ throughout RATE: regular rate RHYTHM: regular rhythm HEART SOUNDS: S1 normal heart sound present and S2 normal heart sound present PERIPHERAL PULSES: Peripheral pulses 2+ throughout GI: COMMON NORMALS: Normal to inspection, nondistended, normoactive bowel sounds present, Soft to palpation, non-tender, No hepatosplenomegaly present and no masses AUSCULTATION: Yes normoactive bowel sounds PALPATION: Yes Soft to palpation and Yes No hepatosplenomegaly present RECTAL EXAM: Yes deferred Extremity: OTHER: B/L Lower extremity erythema present as well as B/L L/E 2 + Pitting edema present. Neuro: COMMON NORMALS: patient oriented x3 Data : 01/16/21 05:18 01/16/21 05:18 A&P Assessment and plan (1) Chest pain: Patient Present with Typical cardiac chest pain.Has prior h/o underlying CAD S/P CABG: Nuclear stress test in 2020: Medium sized perfusion abnormality of moderate severity of basal to apical anterior and mid to apical lateral chawla with reversibility noted in entire anterior and mid anteroseptal chawla. 2 D Echo : Normal left ventricular cavity size. Normal left ventricular s ystolic function. No regional wall motion abnormalities. Left ventricular ejection fraction is estimated at 55 %. Grade I/IV diastolic dysfunction (abnormal relaxation filling pattern),normal to mildly elevated filling pressures. No significant valve abnormalities. There is no pericardial effusion. Pulmonary artery systolic pressure is within normal limits. Right atrial pressure is around 5 mm of mercury. Aspirin 81 mg po daily Metoprorlol .S : 50 Mg po BID IMDUR 30 MG PO DAILY Lipitor 40 mg po daily S/L Nitro Patient currently do not want any aggressive intervention. We will continue with optimal medical management Status: Acute (2) Atrial flutter with rapid ventricular response: Amiodarone Drip Amiodarone 200 mg po BID Metoprorlol .S : 50 Mg po BID Lovenox 100 mg sc q12 h daily.Will switch to eliquis on discharge Status: Acute (3) Cellulitis: Cellulitis of lower extremity Cef 1g i.v daily Doppler vein b/l l/e : No DVT Status: Acute (4) Chronic systolic (congestive) heart failure: Currently compensated Lasix 40 mg i.v q24H h daily Metolazone 2.5 MG PO Daily I/O Charting Daily weight Mg>2, K>4 Status: Acute (5) Gout: On Febuxostat 80 mg po daily Status: Acute (6) Tremor: Status: Acute (7) Obstructive sleep apnea: Status: Acute (8) Mixed hyperlipidemia: Status: Acute (9) Essential (primary) hypertension: Status: Acute (10) Chronic obstructive pulmonary disease, unspecified: Status: Acute Qualifiers: COPD type: unspecified COPD Qualified Code(s): J44.9 - Chronic obstructive pulmonary disease, unspecified (11) Chronic kidney disease, stage 3 (moderate): Status: Acute (12) Hx of CABG: Status: Acute (13) Arteriosclerotic heart disease (ASHD): Status: Acute Additional A&P Information Code Status :Full code DVT PPX: On Lovenox Attestations Medical Necessity Statement*: Patient needs to be in hospital for the management of A.fib with RVR, chest pain. 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
--- NOTE | 2021-01-16 16:59 | PM.CONSULT ---
Providers/Reason For Consult Consulting Physician/Specialty*: Dr. Rucker, cardiology Reason for Consult*: Symptomatic A. flutter with RVR Attending Physician: Tone Junior MD Primary Care Provider: Shannan Ellis MD History of Present Illness History of Present Illness Yumiko Basurto is a 80 year old male with past medical history of coronary artery disease, status post CABG in 2006 with a ROJAS to LAD, single vein graft to the diagonal, single vein graft to the right PDA, sequential vein graft to first and second marginal for a total of 5 bypasses. Because of his unrelenting symptoms of shortness of breath coronary angiography was performed in 2017 and his grafts were open. He had a repeat angiogram in 2018 in [place] which revealed that his graft to diagonal was occluded. Rest of the grafts were open. His ejection fraction was 55 to 60%. He also has severe COPD, LELIA on CPAP, obesity, HTN, HLD, CKD stage 3 and HFmrEF. He was scheduled for left heart cath in August 2020 but did not tolerated as he was unable to lay flat and was diuresed. Medical management was opted for later on as patient denied having any anginal symptoms. He was admitted with C/O substernal chest pain 6/7 In severity, squeezing, lasting transiently going on last couple of days earliest episode being this morning non radiating.He is also complaining of worsening SOB with minimal exertion going on for some time. Upon arrival in the ER he was found to be in possible atrial flutter with RVR with HR in 140's. He received metoprolol IV that converted him. Since then inspite of being on metoprolo , he had 2 other episodes requiring metoprolol IV that converted him. He develops chest pain and SOB with each episode of tachycardia. Troponin T x 3 in 20's. At the time of evaluation, patient was sitting comfortable in bed and having dinner. He was due to be started on amiodarone gtt. Shortly, thereafter at around 6:30 pm rapid response was called as the patient became unresponsive. Patient was just started on amidarone drip at 1. Upon arrival patient was found to be in A. fib with RVR with rate in 130s.He had also developed erythematous macular rash in thigh as well as in the anterior of chest, neck and appeared flushed. Drug reaction to amidarone was suspected he was given solumedrol 60 mg I.V. For his tachycardia he was give metoprolol 5mg I.V push. He also received fluid bolus and was briefly on levophed drip. After sometime patient regained consciousness and was agitated. He was given ativan I.V. Patient was moved to ICU. His BP was in 150's. In ICU he developed PSVT with HR in 160's for which he give was adenosine 6 followed by 12 mg I.V to which he responded briefly and then went back in PSVT. He was then started on esmolol drip. He received metoprolol 5 i.v push as well w/o response. He successfully converted and maintained NSR on esmolol gtt. Review of Systems Const: Denies: fever(s), chills, body aches, change in appetite or diaphoresis Card: Reports: edema (mild (better than before)); Denies: orthopnea Resp: Denies: productive cough, wheezing or pain on inspiration GI: Denies: abdominal pain, nausea, vomiting, diarrhea or constipation : Denies: flank pain or difficulty urinating Musc: Denies: back pain Neuro: Denies: headache(s), difficulty walking or confusion Endo: Denies: change in body appearance Meds/Allergies Home Medications and Allergies Home Medications Medication Instructions Recorded Confirmed Last Taken Type aspirin 81 mg chewable tablet 81 mg PO DAILY 05/08/19 01/14/21 01/13/21 History cholecalciferol (vitamin D3) 25 1,000 unit PO DAILY 05/08/19 01/14/21 01/13/21 History mcg (1,000 unit) capsule albuterol sulfate 2.5 mg INHALATION Q4H PRN #75 ml 10/06/19 01/14/21 01/13/21 Rx vit 1 cap PO DAILY 06/11/20 01/14/21 01/13/21 History C,E,zinc,Vh-nhkdy-4-lutein-zeaxanthin 250 mg-2.5 mg-0.5 mg capsule cyanocobalamin (vitamin B-12) 2,500 mcg PO DAILY #90 tab 06/24/20 01/14/21 01/13/21 Rx 2,500 mcg tablet folic acid 800 mcg tablet 0.8 mg PO DAILY #90 tab 06/24/20 01/14/21 01/13/21 Rx spironolactone 25 mg tablet 25 mg PO BID 90 Days #180 tab 06/24/20 01/14/21 01/13/21 Rx triamcinolone acetonide 0.1 % 1 applic TOPICAL BID #454 g 06/24/20 01/14/21 01/13/21 Rx topical cream albuterol sulfate 90 mcg/actuation 2 puff INHALATION Q6H PRN #6.7 g 10/02/20 01/14/21 01/14/21 Rx aerosol inhaler metolazone 2.5 mg tablet 2.5 mg PO DAILY #90 tab 10/02/20 01/14/21 01/13/21 Rx nitroglycerin 0.4 mg sublingual 0.4 mg SUBLINGUAL Q5M PRN #30 tab 10/02/20 01/14/21 Unknown Rx tablet pantoprazole 40 mg tablet,delayed 40 mg PO BID #180 tab 10/02/20 01/14/21 01/13/21 Rx release potassium chloride 20 mEq 20 meq PO BID #180 tab 10/02/20 01/14/21 01/13/21 Rx tablet,extended release rosuvastatin 10 mg tablet 10 mg PO DAILY #90 tab 10/02/20 01/14/21 01/13/21 Rx metoprolol succinate 50 mg 50 mg PO DAILY #90 tab 10/23/20 01/14/21 01/13/21 Rx tablet,extended release 24 hr powered scooter #1 ea 11/15/20 01/14/21 Unknown Rx Cam Boot to the left #1 ea 12/23/20 01/14/21 Unknown Rx doxycycline hyclate 100 mg capsule 100 mg PO BID 12/23/20 01/14/21 01/13/21 History budesonide-formoterol HFA 160 2 puff INHALATION BID #10.2 g 01/01/21 01/14/21 01/14/21 Rx mcg-4.5 mcg/actuation aerosol inhaler febuxostat 80 mg tablet 80 mg PO DAILY #30 tab 01/01/21 01/14/21 01/13/21 Rx meloxicam 15 mg tablet 15 mg PO DAILY #20 tab 01/02/21 01/14/21 Unknown Rx acetaminophen [Tylenol] 325 mg PO QID PRN MDD SEE PHARMACY 01/14/21 01/14/21 01/13/21 History COMMENT allopurinol 300 mg tablet 300 mg PO DAILY 01/14/21 01/14/21 01/13/21 History furosemide 40 mg PO DAILY 01/14/21 01/14/21 01/14/21 History pyridoxine (vitamin B6) 25 mg PO DAILY 01/14/21 01/14/21 01/13/21 History Allergies Allergy/AdvReac Type Severity Reaction Status Date / Time iodine Allergy Severe Unknown Verified 01/14/21 13:33 Current Medications Current Medications Generic Name Dose Route Start Last Admin Trade Name Freq PRN Reason Stop Dose Admin Acetaminophen 650 mg 01/14/21 21:55 01/15/21 04:20 Acetaminophen 325 Mg Tablet PO 650 mg Q6H PRN Administration Mild/Mod Pain Or Temp >/= 101 Amiodarone HCl 200 mg 01/16/21 10:40 01/16/21 11:02 Amiodarone 200 Mg Tablet PO 200 mg BID MARK Administration Aspirin 81 mg 01/15/21 09:00 01/16/21 08:11 Aspirin 81 Mg Chew Tablet PO 81 mg DAILY MARK Administration Atorvastatin Calcium 40 mg 01/15/21 09:00 01/16/21 08:11 Atorvastatin 40 Mg Tablet PO 40 mg DAILY MARK Administration Cyanocobalamin 2,500 mcg 01/15/21 09:00 01/16/21 08:11 Cyanocobalamin 1,000 Mcg Tablet PO 2,500 mcg DAILY MARK Administration Enoxaparin Sodium 100 mg 01/15/21 08:00 01/16/21 08:10 Enoxaparin 100 Mg/Ml Syringe 1 mg/kg (100 mg) 100 mg SUBCUT Administration Q12H [facility] Ceftriaxone Sodium 1,000 mg/ 50 mls @ 100 mls/hr 01/14/21 22:15 01/15/21 22:47 Sodium Chloride IV Infused Q24H [facility] Infusion Protocol Isosorbide Mononitrate 30 mg 01/15/21 09:00 01/16/21 08:11 Isosorbide Mononitrate Er 30 Mg Tablet PO 30 mg DAILY MARK Administration Metolazone 2.5 mg 01/15/21 09:00 01/16/21 08:10 Metolazone 5 Mg Tablet PO 2.5 mg DAILY MARK Administration Metoprolol Succinate 50 mg 01/16/21 06:00 01/16/21 08:11 Metoprolol Succinate Er (24 Hr) 50 Mg Tablet PO 50 mg BID MARK Administration Non-Formulary Medication 80 mg 01/15/21 09:00 01/16/21 08:16 Febuxostat [Uloric] PO Not Given DAILY MARK Non-Formulary Medication 0.8 mg 01/15/21 09:00 01/16/21 08:16 Folic Acid PO Not Given DAILY MARK Pantoprazole Sodium 40 mg 01/15/21 09:00 01/16/21 08:[address] 40 Mg Tablet PO 40 mg BID MARK Administration Fluticasone/Salmeterol 1 puff 01/15/21 09:00 01/16/21 09:18 Fluticasone-Salmeterol 250-50 Diskus INHALATION 1 puff BID MARK Administration Vitamin D 1,000 unit 01/15/21 09:00 01/16/21 08:11 Cholecalciferol (Vitamin D3) 1,000 Unit Tablet PO 1,000 unit DAILY MARK Administration PFSH Acute PFSH: Medical History (Updated 01/17/21 @ 17:07 by Violet Rucker MD) Arteriosclerotic heart disease (ASHD) Chronic kidney disease, stage 3 (moderate) Chronic shortness of breath Chronic systolic (congestive) heart failure Drug-induced chronic gout, unspecified wrist, without tophus (tophi) Encounter for counseling for care management of patient with chronic conditions and complex health needs using nurse-based model Essential (primary) hypertension Gastro-esophageal reflux disease without esophagitis Mixed hyperlipidemia Obesity Obstructive sleep apnea PSVT (paroxysmal supraventricular tachycardia) Umbilical hernia without obstruction or gangrene Vitamin B 12 deficiency Vitamin D deficiency Surgical History History of back surgery Hx of appendectomy Hx of CABG Patient had coronary bypass surgery on July 07, 2006 at a [facility]. This included left internal mammary to the LAD, single vein graft to the diagonal, single vein graft to the right posterior descending artery and sequential vein graft to the first and second marginal for a total of 5 bypasses. Family History Father Stroke Social History Smoking and tobacco status: former smoker Quit status (tobacco): has quit using tobacco Year quit tobacco: 2008 - Chew x 60 Years Second hand smoke exposure: No Smoking risk assessment/counseling performed?: Yes Alcohol intake: never Desire information about alcohol rehabilitation?: No Counseling given: No Desire information about substance/drug rehabilitation?: No Counseling given: No Lives independently: Yes Household members: spouse Housing: House Marital status: service: No Current occupational status: retired Pets and animals: Yes History of recent travel: No Current gender identity: Male Vitals/I&O/Wt Last Vital Signs Temp 97.5 F L 01/16/21 15:35 Pulse 80 01/16/21 15:35 Resp 18 01/16/21 15:35 BP 108/68 01/16/21 15:35 Pulse Ox 100 01/16/21 15:35 01/16/21 01/16/21 01/16/21 06:59 14:59 22:59 Intake Total 120 / 120 Output Total 500 / 2130 Balance -500 / -1360 120 / 120 Weight last 48 hrs Weight 229 lb Weight 231 lb 1.6 oz Weight 227 lb 14.4 oz Physical Exam Narrative: EXAM NARRATIVE: GENERAL: obese man sitting in no acute distress HEENT: No pallor or icterus. NECK: JVD not appreciated, short thick neck CARDIOVASCULAR SYSTEM: S1-S2 regular. No murmur or gallops. RESPIRATORY SYSTEM: Chest clear to auscultation. Decreased d/t habitus. No wheezes heard. ABDOMEN: Soft, nontender and nondistended. Normal bowel sounds present. EXTREMITIES: No cyanosis . Trace bilateral edema. ASSURANCE MANAGER INSURANCE: Patient is alert oriented ?3. No focal neurological deficits. Data Other Data: Attestation for Other Data: I personally reviewed and interpreted the following: Other data: Transthoracic echocardiogram 15 January 2021 CONCLUSIONS 1-Normal left ventricular cavity size. Normal left ventricular systolic function. No regional wall motion abnormalities. Left ventricular ejection fraction is estimated at 55 %. Grade I/IV diastolic dysfunction (abnormal relaxation filling pattern), normal to mildly elevated filling pressures. 2-No significant valve abnormalities. 3-There is no pericardial effusion. 4-Pulmonary artery systolic pressure is within normal limits. 5-Right atrial pressure is around 5 mm of mercury. 6-No significant change since the prior echocardiogram study of 11/20/2019. Lexiscan stress test 10/18/2019 IMPRESSIONS 1. Medium sized perfusion abnormality of moderate severity of basal to apical anterior and mid to apical lateral chawla with reversibility noted in entire anterior and mid anteroseptal chawla. 2. 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 3. Overall left ventricular systolic function is normal without regional wall motion abnormalities. 4. The left ventricular ejection fraction is normal with a value of 68%. 5. No prior similar studies to compare. A&P Assessment and plan (1) Atrial flutter with rapid ventricular response: -continue esmolol gtt and therapeutic lovenox -Allergic to amiodarone. -will plan for sotalol in morning. Status: Acute (2) PSVT (paroxysmal supraventricular tachycardia): Status: Acute (3) Chest pain: -may benefit from cardiac cath if chest pain persists. Status: Acute Qualifiers: Chest pain type: other chest pain Qualified Code(s): R07.89 - Other chest pain (4) Chronic systolic (congestive) heart failure: Status: Acute (5) Chronic kidney disease, stage 3 (moderate): Status: Acute (6) Mixed hyperlipidemia: Status: Acute (7) Obstructive sleep apnea: Status: Acute Additional A&P Information H/O CAD s/p CABG Obesity H/O iodine allergy Anaphylaxis with amiodarone Thank you for allowing me to participate in patient's care. Please feel free to call with questions or concerns. Consult Attestations Critical Care Time: The high probability of a clinically significant, sudden or life threatening deterioration of the patient's cardiovascular and respiratory system(s) required my full and direct attention, intervention and personal management. The critical care time is as shown. This time is in addition to time spent performing any reported procedures but includes the following: [x] Data and vital sign review and interpretation [x] Patient assessment, examination and intervention [x] Documentation [x] Medication orders and management Critical Care Time (min): 60 Coding Level of Care Code Acute Drupal Php Developer for Kieran Fwd Diagnoses Atrial flutter with rapid ventricular response I48.92 PSVT (paroxysmal supraventricular tachycardia) I47.1 Chest pain R07.89 Chest pain type: other chest pain Chronic systolic (congestive) heart failure I50.22 Chronic kidney disease, stage 3 (moderate) N18.3 Mixed hyperlipidemia E78.2 Obstructive sleep apnea G47.33
[2021-01-16] MEDS: spironolactone 25 mg Tablet 12.5 MG PO (18:01)
--- NOTE | 2021-01-16 18:39 | CTR_ITS ---
PROCEDURE INFORMATION: Exam: CT Head Without Contrast Exam date and time: 01/16/2021 6:39 PM Age: 80 years old Clinical indication: Altered mental status/memory loss; Confusion or disorientation; Patient HX: Unresponsiveness due to episode of cardiac svt. ; Additional info: Unresponsive TECHNIQUE: Imaging protocol: Computed tomography of the head without contrast. Radiation optimization: All CT scans at this facility use at least one of these dose optimization techniques: automated exposure control; mA and/or kV adjustment per patient size (includes targeted exams where dose is matched to clinical indication); or iterative reconstruction. COMPARISON: No relevant prior studies available. RADIATION DOSE METRICS: Total DLP (mGy-cm): 910.34 FINDINGS: Brain: No acute intracranial hemorrhage or mass effect. There is decreased attenuation in the periventricular white matter, likely from microvascular disease. No definite acute infarct by CT. MRI could be more sensitive/specific for detection, as clinically directed. Cerebral ventricles: Ventricle size is normal for age. Paranasal sinuses: Included paranasal sinuses are essentially clear. Mastoid air cells: No significant acute finding. Vasculature: Vascular calcifications in the internal carotid and vertebral basilar systems. Bones/joints: No definite acute skull fracture. CT/CT head wo con* 13560 IMPRESSION: 1. No acute intracranial hemorrhage or mass effect. 2. Changes of microvascular disease. 3. No definite acute infarct by CT, see above. 4. Other findings discussed above. Radiation Dose CTDIVOL = (mGy): DLP = 910.34 (mGy-cm)
[2021-01-16 18:41] LABS: Glucose Point of Care 209 mg/dL (70-110)
[2021-01-16] MEDS: LORazepam 2 mg/mL INJ 1 mL 0.5 MG IVP (19:00)
[2021-01-16] MEDS: LORazepam 2 mg/mL INJ 1 mL IVP (19:10)
[2021-01-16] MEDS: adenosine 3 mg/mL SDV 2mL 6 MG IVP (19:11)
[2021-01-16] MEDS: adenosine 3 mg/mL SDV 2mL 12 MG IVP (19:13)
[2021-01-16] MEDS: esmolol drip 2,500 MG/250 ML PREMIX 31.16 MG IV (19:22)
--- NOTE | 2021-01-16 19:30 | ECG_ITS ---
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 Measurements Intervals [place] Rate: 82 P: 41 MI: 169 QRS: 19 QRSD: 144 T: 32 QT: 394 QTc: 463 Interpretive Statements SINUS RHYTHM WITH OCCASIONAL VENTRICULAR PREMATURE COMPLEXES INDETERMINATE AXIS RIGHT BUNDLE BRANCH BLOCK [120+ ms QRS DURATION, UPRIGHT V1, 40+ ms S IN I/aVL/V4/V5/V6] Compared to ECG 01/16/2021 09:50:22 Ventricular premature complex(es) now present Electronically Signed On 01-17-2021 18:36:21 CDT by Violet Rucker M.D. [email or web address] [email or web address] Limitedregency hospital [email or web address]/[id number]
[2021-01-16 19:36] LABS: Basophils % 0.3 %; Eosinophils # 0.1 10^3/uL (0.0-0.8); Eosinophils % 0.9 %; Hematocrit 43.3 % (42.0-52.0); Hemoglobin 13.7 g/dL (11.7-16.6); Lymphocytes # 5.4 10^3/uL (0.8-4.8); Lymphocytes % 48.7 %; Mean Corpuscular HGB Conc 31.6 g/dL (30.0-36.0); Mean Platelet Volume 11.4 fL (7.4-10.4); Monocytes # 0.4 10^3/uL (0.2-0.9); Monocytes % 3.8 %; Neutrophils # 5.05 10^3/uL (1.8-7.7); Neutrophils % 45.1 %; Nucleated Red Blood Cells % 0 %; Platelet Count 225 10^3/cmm (130-400); Red Blood Count 4.56 10^6/uL (4.1-5.3); Red Cell Distribution Width 15.6 % (12.1-15.1); White Blood Count 11.2 10^3/uL (4.0-10.0)
--- NOTE | 2021-01-16 19:48 | PC.NURSE ---
admitted to room 108 from room 276 at 1715.report received.pt alert and awake and oriented x 4.sr on monitor.denies pain at present.oral antiarrhythmics given as ordered.dr martin rounded on pt.ordered amioderone drip per protocol...no bolus.began drip at approx 1830.with-in minutes of starting drip,pt became flushed,sob,and extremely anxious.amioderone drip stopped.pt became unresponsive.did have pulse. rapid response called. blood sugar obtained (209).abg obtained.bp 60/dop.noted to be in rapid afib with rates 150's.ns bolus began.levophed began at 4 mcg/min.5 mg metoprolol given iv push.pt awakened...combative.ativan 0.25 mg given initially..then 0.5mg given as ordered.raised red rash appeared on chest,upper arms,and upper thighs.solumedrol given iv as ordered.bp up to 90/dop.briefly converted to sr...then back to afib with rvr.transferred to icu at 1850
[2021-01-16 20:03] LABS: Slide Review Slide Review Perform
--- NOTE | 2021-01-16 20:04 | PC.NURSE ---
Rapid Response was called to room 108. ICU nurses responded. Patient was unresponsive. Dr. Junior and Dr. Rucker were at the bedside. Vital signs and blood sugar were obtained. Patient was observed to have a new rash. Solu medrol was given. Patients heart rate was elevated. Metoporol was given. Patient was aggitated and trying to get out of bed. Ativan was given. Patient was transferred to ICU. Dr. Junior and Dr. Rucker at bedside. Patient connected to monitor. Adnosine was given for dysrhythmia. Esmolol drip started. Will continue to monitor.
[2021-01-16 20:07] LABS: Troponin T (5th) Once 25 ng/L (0-15)
[2021-01-16 20:12] LABS: Anion Gap 20.5 (5-19); Blood Urea Nitrogen 28 mg/dL (8-23); Calcium 8.8 mg/dL (8.5-10.5); Carbon Dioxide 26 mmol/L (22-29); Chloride 92 mmol/L (98-107); Glucose 230 mg/dL (65-115); Magnesium 1.7 mg/dL (1.7-2.3); Osmolality Calculated 293 mOsm/kg (285-295); Potassium 3.5 mmol/L (3.5-5.1); Sodium 135 mmol/L (136-145)
[2021-01-16 22:00] LABS: Glucose Point of Care 135 mg/dL (70-110)
[2021-01-16] MEDS: cefTRIAXone 1,000 MG in sodium chloride 0.9% (plus) 50 ML 100 MG IV (22:33)
[2021-01-17] VITALS (116 sets, daily range): BP systolic 84–131; BP diastolic 44–109; PULSE 63–82; RESP 9–38; TEMP 36.4–36.7; O2SAT 83–100; BMI 34.1
[2021-01-17] MEDS: LORazepam 2 mg/mL INJ 1 mL 1 MG IVP (02:08)
[2021-01-17] MEDS: esmolol drip 2,500 MG/250 ML PREMIX 31.16 MG IV (03:30)
[2021-01-17 05:46] LABS: Basophils % 0.1 %; Lymphocytes # 1.2 10^3/uL (0.8-4.8); Lymphocytes % 7.4 %; Mean Corpuscular HGB Conc 32.4 g/dL (30.0-36.0); Mean Corpuscular Hemoglobin 30.5 pg (28.0-34.0); Mean Corpuscular Volume 94.1 fl (80-94); Mean Platelet Volume 11.2 fL (7.4-10.4); Monocytes # 0.1 10^3/uL (0.2-0.9); Monocytes % 0.9 %; Neutrophils # 14.74 10^3/uL (1.8-7.7); Neutrophils % 91.1 %; Nucleated Red Blood Cells % 0 %; Platelet Count 194 10^3/cmm (130-400); Red Blood Count 3.93 10^6/uL (4.1-5.3); Red Cell Distribution Width 15.3 % (12.1-15.1); White Blood Count 16.2 10^3/uL (4.0-10.0)
--- NOTE | 2021-01-17 05:54 | PC.NURSE ---
Davin ARROYO, and Abiel the yard specialist, left for CT at 0545. They arrived back at 0553 without experiencing any complications.
[2021-01-17 06:09] LABS: Alanine Aminotransferase 56 U/L (0-41); Albumin Level 3.2 g/dL (3.5-5.2); Alkaline Phosphatase 147 IU/L (40-130); Aspartate Amino Transferase 19 U/L (0-40); Blood Urea Nitrogen 26 mg/dL (8-23); Calcium 8.4 mg/dL (8.5-10.5); Carbon Dioxide 23 mmol/L (22-29); Chloride 91 mmol/L (98-107); Globulin 2.9 g/dL (1.3-4.6); Glucose 257 mg/dL (65-115); Osmolality Calculated 280 mOsm/kg (285-295); Sodium 128 mmol/L (136-145); Total Bilirubin 0.4 mg/dL (0.15-1.2); Total Protein 6.1 g/dL (6.6-8.7)
[2021-01-17 06:10] LABS: Anion Gap 18.3 (5-19); Potassium 4.3 mmol/L (3.5-5.1)
[2021-01-17 06:26] LABS: ABG PCO2 50.4 mmHg (35-45); ABG PH Result 7.34 (7.35-7.45); Alveolar-Arterial Oxygen Gradi 17.5 mmHg (5-10); Arterial Blood Gas Hematocrit 41.6 % (42-52); Base Excess ABG 0.6 mmol/L (-2.0-2.0); Blood Gas Allen Test Pos; Blood Gas Operator Identificat ED; Blood Gas Sample Site Radial, left; Blood Gas Sample Type Arterial; HCO3 ABG 27.2 mmol/L (22-26); HGB O2 Sat 87.9 % (95-100); Ionized Calcium Level - ABG 1.2 mmol/L (1.1-1.4); Methemoglobin 0.3 % (0.4-1.5); Oxygen Device NC; Oxygen Saturation ABG 89.1; PO2 ABG 60.1 mmHg (80.0-100.0); Potassium Level - ABG 3.7 mmol/L (3.5-5.0); Total Hemoglobin 13.6 g/dL (14-18)
--- NOTE | 2021-01-17 07:05 | PC.NURSE ---
Shift Note Frequent safety and comfort rounds continue. Orders and/or nursing care completed as indicated. Patient monitored for response to intervention and treatment(s). Education provided includes[]. Patient and/or group sales representative [ResponseToTeaching]. Will continue to monitor. The patient arrived as a rapid response at the beginning of shift. It was believe that there was an allergic reaction to the Amiodarone drip that was being infused. To stabilize the patient he received two doses of ativan, metoprolol, and also received adenosine twice. The patient was also started on an Esmolol drip at 1922 at 50 mcg. The patient slept most of the night and converted to a normal sinus rhythm. He also went down to CT in the morning. There were no further complications with the patient and his vitals remained stable.
[2021-01-17] MEDS: atorvastatin 40 mg Tablet PO (08:37)
[2021-01-17] MEDS: pantoprazole DR 40 mg Tablet PO ×2 (08:37→17:18)
[2021-01-17] MEDS: metoprolol succinate ER (24 HR) 50 mg Tablet PO (08:37)
[2021-01-17] MEDS: isosorbide mononitrate ER 30 mg Tablet PO (08:37)
[2021-01-17] MEDS: cyanocobalamin 1,000 mcg Tablet 2500 MCG PO (08:37)
[2021-01-17] MEDS: spironolactone 25 mg Tablet 12.5 MG PO ×2 (08:37→17:18)
[2021-01-17] MEDS: aspirin 81 mg Chew Tablet PO (08:37)
[2021-01-17] MEDS: cholecalciferol (vitamin D3) 1,000 unit Tablet 1000 UNIT PO (08:37)
[2021-01-17] MEDS: metOLazone 5 MG Tablet 2.5 MG PO (08:38)
--- NOTE | 2021-01-17 09:34 | ECG_ITS ---
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 Measurements Intervals [place] Rate: 66 P: 20 NC: 174 QRS: -9 QRSD: 137 T: 47 QT: 444 QTc: 468 Interpretive Statements SINUS RHYTHM INDETERMINATE AXIS RIGHT BUNDLE BRANCH BLOCK [120+ ms QRS DURATION, UPRIGHT V1, 40+ ms S IN I/aVL/V4/V5/V6] Compared to ECG 01/16/2021 19:36:44 Ventricular premature complex(es) no longer present Electronically Signed On 01-17-2021 19:10:53 CDT by Violet Rucker M.D. [email or web address] delta regional medical [email or web address] memorial [email or web address]/store/[id number]
[2021-01-17] MEDS: enoxaparin 100 mg/mL Syringe SUBCUT ×2 (09:52→19:04)
[2021-01-17] MEDS: sotalol 80 mg Tablet 40 MG PO (09:53)
--- NOTE | 2021-01-17 10:24 | PC.SOCIAL ---
IMM Update Pg. 2 of IMM updated and reviewed with patient who verbalized understanding. Copy provided.
--- NOTE | 2021-01-17 13:26 | P.PN_ITS ---
Subjective Subjective: Interval history: Patient was seen and examined this morning,was alert and awake, and oriented, was in NSR, denied any chest pain, SOB,rash has cleared. Medications: Reviewed: Yes Vitals/I&O/Wt Last Vital Signs Temp 98.0 F 01/17/21 08:00 Pulse 64 01/17/21 13:00 Resp 27 H 01/17/21 13:00 BP 119/64 01/17/21 13:00 Pulse Ox 96 01/17/21 13:00 01/16/21 01/17/21 01/17/21 22:59 06:59 14:59 Intake Total 300 / 420 212.927 / 212.927 Balance 300 / 420 212.927 / 212.927 Weight last 48 hrs Weight 101.746 kg Weight 103.873 kg Physical Exam Const: COMMON NORMALS: patient oriented x3 HENMT: COMMON NORMALS: normocephalic and atraumatic HEAD & SCALP: normocephalic and atraumatic Resp: COMMON NORMALS: clear to auscultation bilaterally AUSCULTATION: clear to auscultation bilaterally Cardio: COMMON NORMALS: regular rate, regular rhythm, S1 normal heart sound present, S2 normal heart sound present, No gallops present (Cardio), No murmurs present (Cardio), No rub (Cardio) and Peripheral pulses 2+ throughout RATE: regular rate RHYTHM: regular rhythm HEART SOUNDS: S1 normal heart sound present and S2 normal heart sound present PERIPHERAL PULSES: Peripheral pulses 2+ throughout GI: COMMON NORMALS: Normal to inspection, nondistended, normoactive bowel sounds present, Soft to palpation, non-tender, No hepatosplenomegaly present and no masses AUSCULTATION: Yes normoactive bowel sounds PALPATION: Yes Soft to palpation and Yes No hepatosplenomegaly present RECTAL EXAM: Yes deferred Extremity: OTHER: B/L Lower extremity erythema present as well as B/L L/E 1 + Pitting edema present. Neuro: COMMON NORMALS: patient oriented x3 Data : 01/17/21 05:34 01/17/21 05:34 A&P Assessment and plan (1) Chest pain: Patient Present with Typical cardiac chest pain.Has prior h/o underlying CAD S/P CABG: Nuclear stress test in 2019: Medium sized perfusion abnormality of moderate severity of basal to apical anterior and mid to apical lateral chawla with reversibility noted in entire anterior and mid anteroseptal chawla. 2 D Echo : Normal left ventricular cavity size. Normal left ventricular systolic function. No regional wall motion abnormalities. Left ventricular ejection fraction is estimated at 55 %. Grade I/IV diastolic dysfunction (abnormal relaxation filling pattern),normal to mildly elevated filling pressures. No significant valve abnormalities. There is no pericardial effusion. Pulmonary artery systolic pressure is within normal limits. Right atrial pressure is around 5 mm of mercury. Aspirin 81 mg po daily Metoprorlol .S : 50 Mg po BID IMDUR 30 MG PO DAILY Lipitor 40 mg po daily S/L Nitro Patient currently do not want any aggressive intervention. We will continue with optimal medical management Status: Acute (2) Atrial flutter with rapid ventricular response: Amiodarone Drip was stopped as the patient developed allergic reaction to it ( Rash, SOB, dizziness, LOC ) Amiodarone 200 mg po BID ( Stopped ) Metoprorlol .S : 50 Mg po BID ( Stopped ) Esmolol Drip was stopped Sotolol 40 MG PO Daily started folowed by 2 hrs ekg monitoring Lovenox 100 mg sc q12 h daily.Will switch to eliquis on discharge Status: Acute (3) Cellulitis: Cellulitis of lower extremity Cef 1g i.v daily Doppler vein b/l l/e : No DVT Status: Acute (4) Chronic systolic (congestive) heart failure: Currently compensated Lasix 40 mg po q24H h daily Metolazone 2.5 MG PO Daily I/O Charting Daily weight Mg>2, K>4 Status: Acute (5) Gout: On Febuxostat 80 mg po daily Status: Acute (6) Tremor: Status: Acute (7) Obstructive sleep apnea: Status: Acute (8) Mixed hyperlipidemia: Status: Acute (9) Essential (primary) hypertension: Status: Acute (10) Chronic obstructive pulmonary disease, unspecified: Status: Acute Qualifiers: COPD type: unspecified COPD Qualified Code(s): J44.9 - Chronic obstructive pulmonary disease, unspecified (11) Chronic kidney disease, stage 3 (moderate): Status: Acute (12) Hx of CABG: Status: Acute (13) Arteriosclerotic heart disease (ASHD): Status: Acute Additional A&P Information Code Status :Full code DVT PPX: On Lovenox Attestations Medical Necessity Statement*: Patient needs to be in hospital for the management of A.fib with RVR . 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
[2021-01-17] MEDS: tamsulosin 0.4 mg Capsule PO (14:19)
[2021-01-17] MEDS: FUROsemide 40 mg Tablet PO (14:19)
--- NOTE | 2021-01-17 17:15 | P.PN_ITS ---
Subjective Subjective: Interval history: He is back to his normal self today. Mental status has improved. Medications: Reviewed: Yes Medication Review Details: Current Medications Acetaminophen (Acetaminophen 325 Mg Tablet) 650 mg PO Q6H PRN PRN Reason: Mild/Mod Pain Or Temp >/= 101 Last Admin: 01/15/21 04:20 Dose: 650 mg Documented by: Albuterol Sulfate (Albuterol 8 Gm Mdi) 2 puff INHALATION Q6H PRN PRN Reason: Shortness Of Breath Aspirin (Aspirin 81 Mg Chew Tablet) 81 mg PO DAILY MARK Last Admin: 01/17/21 08:37 Dose: 81 mg Documented by: Atorvastatin Calcium (Atorvastatin 40 Mg Tablet) 40 mg PO DAILY MARK Last Admin: 01/17/21 08:37 Dose: 40 mg Documented by: Bisacodyl (Bisacodyl 5 Mg Tablet) 10 mg PO DAILY PRN; Protocol PRN Reason: Constipation (see protocol) Cyanocobalamin (Cyanocobalamin 1,000 Mcg Tablet) 2,500 mcg PO DAILY [facility] Last Admin: 01/17/21 08:37 Dose: 2,500 mcg Documented by: Enoxaparin Sodium (Enoxaparin 100 Mg/Ml Syringe) 100 mg 1 mg/kg (100 mg) SUBCUT Q12H MARK Last Admin: 01/17/21 09:52 Dose: 100 mg Documented by: Furosemide (Furosemide 40 Mg Tablet) 40 mg PO DAILY@1500 MARK Last Admin: 01/17/21 14:19 Dose: 40 mg Documented by: Ceftriaxone Sodium 1,000 mg/ (Sodium Chloride) 50 mls @ 100 mls/hr IV Q24H [facility]; Protocol Last Infusion: 01/16/21 23:03 Dose: Infused Documented by: Esmolol HCl (Brevibloc Drip) 2,500 mg in 250 mls @ 0 mls/hr IV .Q0M [facility]; Protocol Last Titration: 01/17/21 10:20 Dose: 0 mcg/kg/min, 0 mls/hr Documented by: Isosorbide Mononitrate (Isosorbide Mononitrate Er 30 Mg Tablet) 30 mg PO DAILY MARK Last Admin: 01/17/21 08:37 Dose: 30 mg Documented by: Lorazepam (Lorazepam 2 Mg/Ml Inj 1 Ml) 1 mg IVP Q4H PRN PRN Reason: ANXIETY Last Admin: 01/17/21 02:08 Dose: 1 mg Documented by: Metolazone (Metolazone 5 Mg Tablet) 2.5 mg PO DAILY [facility] Last Admin: 01/17/21 08:38 Dose: 2.5 mg Documented by: Naloxone HCl (Naloxone 0.4 Mg/Ml Sdv) 0.1 mg IVP Q2M PRN PRN Reason: OPIATERV Nitroglycerin (Nitroglycerin 0.4 Mg Sublingual Tablet) 0.4 mg SUBLINGUAL Q5M PRN PRN Reason: Chest Pain Non-Formulary Medication (Febuxostat [Uloric]) 80 mg PO DAILY [facility] Last Admin: 01/17/21 08:13 Dose: Not Given Documented by: Non-Formulary Medication (Folic Acid) 0.8 mg PO DAILY [facility] Last Admin: 01/17/21 08:13 Dose: Not Given Documented by: Ondansetron HCl (Ondansetron 2 Mg/Ml Sdv 2 Ml) 4 mg IVP Q8H PRN PRN Reason: vomiting, or N/V if npo Oxycodone/Acetaminophen (Oxycodone-Apap 5-325 Mg Tablet) 1 tab PO Q4H PRN PRN Reason: SEVERE PAIN Pantoprazole Sodium (Pantoprazole Dr 40 Mg Tablet) 40 mg PO BID [facility] Last Admin: 01/17/21 08:37 Dose: 40 mg Documented by: Fluticasone/Salmeterol (Fluticasone-Salmeterol 250-50 Diskus) 1 puff INHALATION BID [facility] Last Admin: 01/16/21 20:14 Dose: Not Given Documented by: Sotalol HCl (Sotalol 80 Mg Tablet) 40 mg PO DAILY [facility] Last Admin: 01/17/21 09:53 Dose: 40 mg Documented by: Spironolactone (Spironolactone 25 Mg Tablet) 12.5 mg PO BID [facility] Last Admin: 01/17/21 08:37 Dose: 12.5 mg Documented by: Tamsulosin HCl (Tamsulosin 0.4 Mg Capsule) 0.4 mg PO DAILY [facility] Last Admin: 01/17/21 14:19 Dose: 0.4 mg Documented by: Vitamin D (Cholecalciferol (Vitamin D3) 1,000 Unit Tablet) 1,000 unit PO DAILY [facility] Last Admin: 01/17/21 08:37 Dose: 1,000 unit Documented by: Vitals/I&O/Wt Last Vital Signs Temp 98.0 F 01/17/21 08:00 Pulse 73 01/17/21 16:30 Resp 28 H 01/17/21 16:30 BP 96/58 01/17/21 16:30 Pulse Ox 99 01/17/21 16:30 01/17/21 01/17/21 01/17/21 06:59 14:59 22:59 Intake Total 300 / 420 212.927 / 212.927 Balance 300 / 420 212.927 / 212.927 Weight last 48 hrs Weight 224 lb 5 oz Weight 229 lb Physical Exam Narrative: EXAM NARRATIVE: GENERAL: obese man sitting in no acute distress HEENT: No pallor or icterus. NECK: JVD not appreciated, short thick neck CARDIOVASCULAR SYSTEM: S1-S2 regular. No murmur or gallops. RESPIRATORY SYSTEM: Chest clear to auscultation. Decreased d/t habitus. No wheezes heard. ABDOMEN: Soft, nontender and nondistended. Normal bowel sounds present. EXTREMITIES: No cyanosis . Trace bilateral edema. 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 No focal neurological deficits. Urinary Catheter Management^: Parker: Cath Placed During This Visit: yes Urinary Catheter Date of Insertion: 01/17/21 Urinary Catheter Time of Insertion: 13:44 Data : 01/17/21 05:34 01/17/21 05:34 A&P Assessment and plan (1) Atrial flutter with rapid ventricular response: - He got sotalol in morning and was taken off esmolol drip. -will need to be monitored 72 hr. EKG daily after sotalol. -He feels well and denies any chest pain. -continue with lovenox and plan to transition to Eliquis 2.5 BID on discharge. Status: Acute (2) PSVT (paroxysmal supraventricular tachycardia): Status: Acute (3) Chest pain: -Continue medical management for CAD. Status: Acute Qualifiers: Chest pain type: other chest pain Qualified Code(s): R07.89 - Other cipriano st pain (4) Chronic systolic (congestive) heart failure: Status: Acute (5) Chronic kidney disease, stage 3 (moderate): Status: Acute (6) Mixed hyperlipidemia: Status: Acute (7) Obstructive sleep apnea: Status: Acute Additional A&P Information H/O CAD s/p CABG Obesity H/O iodine allergy Allergic to amiodarone Cellulitis Urinary retention Thank you for allowing me to participate in patient's care. Please feel free to call with questions or concerns. Attestations Medical Necessity Statement*: Needs hospital stay for A flutter, SVT, CHF, cellulitis and urinary retention. Time Spent in Patient Care: Greater than 35 minutes (>than 50% of time spent in counselling and/or direct pt care on unit) . 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
--- NOTE | 2021-01-17 17:27 | PC.NURSE ---
Shift Note Frequent safety and comfort rounds continue. Orders and nursing care completed as indicated. Pt started on new medication today per physician's orders. Patient received first dose of betapace this am, esmolol drip stopped at 1020 this am per physician's orders. Pt often complained he had to urinate today, on attempt to stand up and urinate patient was only able to urinate 100ml. This nurse bladder scanned patient to find approimately 500ml of urine still left in bladder. Physician notified. Orders to place abreu and start patient on flomax today. Pt sat in chair for 3 hours and his son came to visit later in the afternoon. Son was updated on plan of care and new medications that were started today, verbalized understanding. Patient had BM today, up to bedside commode with one assist. Patient monitored for response to intervention and treatments. Will continue to monitor.
--- NOTE | 2021-01-17 19:09 | PC.NURSE ---
Patient is currently alert and oriented x4. Per report, patient can become confused at night. Patient states, sometimes I wake up and don't know where I am at, so if I do that I promise I'm not trying to scare you. Bed alarm has been set. Patient has been oriented to his room and call light and has call light within reach.
[2021-01-17] MEDS: cefTRIAXone 1,000 MG in sodium chloride 0.9% (plus) 50 ML 100 MG IV (21:03)
[2021-01-18] VITALS (19 sets, daily range): BP systolic 91–138; BP diastolic 49–74; PULSE 62–77; RESP 16–30; TEMP 36.7–37.1; O2SAT 95–100
--- NOTE | 2021-01-18 00:51 | PC.NURSE ---
Patient became tearful. Nurse asked patient if he was in pain and patient stated, no, I just do this sometimes.
--- NOTE | 2021-01-18 02:34 | PC.NURSE ---
Patient assisted to chair with 2 assist. Patient states that the bed was becoming uncomfortable for his back. Patient is requesting Tylenol.
[2021-01-18] MEDS: acetaminophen 325 mg Tablet 650 MG PO (02:36)
--- NOTE | 2021-01-18 04:03 | PC.NURSE ---
Shift Note Frequent safety and comfort rounds continue. Orders and/or nursing care completed as indicated. Patient monitored for response to intervention and treatment(s). Education provided includes fall safety and call light. Patient and/or major account representative verbalized understanding. Will continue to monitor.
--- NOTE | 2021-01-18 07:57 | XRR_ITS ---
PROCEDURE INFORMATION: Exam: XR Chest Exam date and time: 01/18/2021 7:57 AM Age: 80 years old Clinical indication: Dyspnea; Additional info: SOB, chf TECHNIQUE: Imaging protocol: XR of the chest. Views: 1 view. COMPARISON: CR XR chest 1V portable [id number] 01/14/2021 2:57 PM FINDINGS: Lungs: COPD, interstitial prominence, chronic granulomatous disease. Pleural spaces: Extrapleural thickening. No dependent pleural effusion. Heart/Mediastinum: Cardiomegaly and prominent epicardial fat. Diaphragm: Asymmetric elevation of the right hemidiaphragm. Bones/joints: Median sternotomy. Degenerative change. XR/XR chest 1V portable [id number] IMPRESSION: 1. COPD, interstitial prominence, chronic granulomatous disease. 2. Additional findings as described above.
[2021-01-18] MEDS: cholecalciferol (vitamin D3) 1,000 unit Tablet 1000 UNIT PO (08:01)
[2021-01-18] MEDS: atorvastatin 40 mg Tablet PO (08:01)
[2021-01-18] MEDS: tamsulosin 0.4 mg Capsule PO (08:01)
[2021-01-18] MEDS: metOLazone 5 MG Tablet 2.5 MG PO (08:01)
[2021-01-18] MEDS: isosorbide mononitrate ER 30 mg Tablet PO (08:01)
[2021-01-18] MEDS: pantoprazole DR 40 mg Tablet PO ×2 (08:01→17:51)
[2021-01-18] MEDS: aspirin 81 mg Chew Tablet PO (08:01)
[2021-01-18] MEDS: sotalol 80 mg Tablet 40 MG PO (08:01)
[2021-01-18] MEDS: cyanocobalamin 1,000 mcg Tablet 2500 MCG PO (08:02)
[2021-01-18] MEDS: enoxaparin 100 mg/mL Syringe SUBCUT ×2 (08:02→21:05)
[2021-01-18] MEDS: spironolactone 25 mg Tablet 12.5 MG PO ×2 (08:02→17:51)
[2021-01-18 08:23] LABS: Basophils % 0.2 %; Eosinophils % 0.1 %; Hematocrit 36.6 % (42.0-52.0); Hemoglobin 11.9 g/dL (11.7-16.6); Lymphocytes # 2.2 10^3/uL (0.8-4.8); Lymphocytes % 11.5 %; Mean Corpuscular HGB Conc 32.5 g/dL (30.0-36.0); Mean Corpuscular Hemoglobin 30.5 pg (28.0-34.0); Mean Corpuscular Volume 93.8 fl (80-94); Mean Platelet Volume 11.4 fL (7.4-10.4); Monocytes % 5.2 %; Neutrophils # 15.86 10^3/uL (1.8-7.7); Neutrophils % 82.5 %; Nucleated Red Blood Cells % 0 %; Platelet Count 202 10^3/cmm (130-400); Red Cell Distribution Width 15.4 % (12.1-15.1); White Blood Count 19.2 10^3/uL (4.0-10.0)
--- NOTE | 2021-01-18 08:41 | ECG_ITS ---
[facility] Test Date: 2021-01-18 Pat Name: Yumiko Basurto Department: Room: [facility] Gender: Male Subassemblies Wirer: : 1940 Requested By: Violet Rucker Order Number: [id number] Ana MD: Bobbi Galvez M.D. Measurements Intervals [place] Rate: 73 P: 31 CO: 183 QRS: -10 QRSD: 150 T: 29 QT: 439 QTc: 485 Interpretive Statements SINUS RHYTHM INDETERMINATE AXIS RIGHT BUNDLE BRANCH BLOCK [120+ ms QRS DURATION, UPRIGHT V1, 40+ ms S IN I/aVL/V4/V5/V6] Compared to ECG 01/17/2021 11:38:21 No significant changes Electronically Signed On 01-18-2021 16:14:52 CDT by Bobbi Galvez M.D. [id number]
--- NOTE | 2021-01-18 08:43 | P.PN_ITS ---
Subjective Subjective: Interval history: He is back to his normal self today. Mental status has improved. He did not sleep well last night. Occasional PVC's on telemetry. Medications: Reviewed: Yes Medication Review Details: Current Medications Acetaminophen (Acetaminophen 325 Mg Tablet) 650 mg PO Q6H PRN PRN Reason: Mild/Mod Pain Or Temp >/= 101 Last Admin: 01/15/21 04:20 Dose: 650 mg Documented by: Albuterol Sulfate (Albuterol 8 Gm Mdi) 2 puff INHALATION Q6H PRN PRN Reason: Shortness Of Breath Aspirin (Aspirin 81 Mg Chew Tablet) 81 mg PO DAILY [facility] Last Admin: 01/17/21 08:37 Dose: 81 mg Documented by: Atorvastatin Calcium (Atorvastatin 40 Mg Tablet) 40 mg PO DAILY [facility] Last Admin: 01/17/21 08:37 Dose: 40 mg Documented by: Bisacodyl (Bisacodyl 5 Mg Tablet) 10 mg PO DAILY PRN; Protocol PRN Reason: Constipation (see protocol) Cyanocobalamin (Cyanocobalamin 1,000 Mcg Tablet) 2,500 mcg PO DAILY [facility] Last Admin: 01/17/21 08:37 Dose: 2,500 mcg Documented by: Enoxaparin Sodium (Enoxaparin 100 Mg/Ml Syringe) 100 mg 1 mg/kg (100 mg) SUBCUT Q12H MARK Last Admin: 01/17/21 09:52 Dose: 100 mg Documented by: Furosemide (Furosemide 40 Mg Tablet) 40 mg PO DAILY@1500 MARK Last Admin: 01/17/21 14:19 Dose: 40 mg Documented by: Ceftriaxone Sodium 1,000 mg/ (Sodium Chloride) 50 mls @ 100 mls/hr IV Q24H MARK; Protocol Last Infusion: 01/16/21 23:03 Dose: Infused Documented by: Esmolol HCl (Brevibloc Drip) 2,500 mg in 250 mls @ 0 mls/hr IV .Q0M MARK; Prot ocol Last Titration: 01/17/21 10:20 Dose: 0 mcg/kg/min, 0 mls/hr Documented by: Isosorbide Mononitrate (Isosorbide Mononitrate Er 30 Mg Tablet) 30 mg PO DAILY MARK Last Admin: 01/17/21 08:37 Dose: 30 mg Documented by: Lorazepam (Lorazepam 2 Mg/Ml Inj 1 Ml) 1 mg IVP Q4H PRN PRN Reason: ANXIETY Last Admin: 01/17/21 02:08 Dose: 1 mg Documented by: Metolazone (Metolazone 5 Mg Tablet) 2.5 mg PO DAILY [facility] Last Admin: 01/17/21 08:38 Dose: 2.5 mg Documented by: Naloxone HCl (Naloxone 0.4 Mg/Ml Sdv) 0.1 mg IVP Q2M PRN PRN Reason: OPIATERV Nitroglycerin (Nitroglycerin 0.4 Mg Sublingual Tablet) 0.4 mg SUBLINGUAL Q5M PRN PRN Reason: Chest Pain Non-Formulary Medication (Febuxostat [Uloric]) 80 mg PO DAILY [facility] Last Admin: 01/17/21 08:13 Dose: Not Given Documented by: Non-Formulary Medication (Folic Acid) 0.8 mg PO DAILY [facility] Last Admin: 01/17/21 08:13 Dose: Not Given Documented by: Ondansetron HCl (Ondansetron 2 Mg/Ml Sdv 2 Ml) 4 mg IVP Q8H PRN PRN Reason: vomiting, or N/V if npo Oxycodone/Acetaminophen (Oxycodone-Apap 5-325 Mg Tablet) 1 tab PO Q4H PRN PRN Reason: SEVERE PAIN Pantoprazole Sodium (Pantoprazole Dr 40 Mg Tablet) 40 mg PO BID [facility] Last Admin: 01/17/21 08:37 Dose: 40 mg Documented by: Fluticasone/Salmeterol (Fluticasone-Salmeterol 250-50 Diskus) 1 puff INHALATION BID [facility] Last Admin: 01/16/21 20:14 Dose: Not Given Documented by: Sotalol HCl (Sotalol 80 Mg Tablet) 40 mg PO DAILY [facility] Last Admin: 01/17/21 09:53 Dose: 40 mg Documented by: Spironolactone (Spironolactone 25 Mg Tablet) 12.5 mg PO BID [facility] Last Admin: 01/17/21 08:37 Dose: 12.5 mg Documented by: Tamsulosin HCl (Tamsulosin 0.4 Mg Capsule) 0.4 mg PO DAILY [facility] Last Admin: 01/17/21 14:19 Dose: 0.4 mg Documented by: Vitamin D (Cholecalciferol (Vitamin D3) 1,000 Unit Tablet) 1,000 unit PO DAILY [facility] Last Admin: 01/17/21 08:37 Dose: 1,000 unit Documented by: Vitals/I&O/Wt Last Vital Signs Temp 97.6 F 01/17/21 19:08 Pulse 65 01/18/21 07:04 Resp 17 01/18/21 07:04 BP 122/65 01/18/21 07:04 Pulse Ox 98 01/18/21 06:00 01/17/21 01/18/21 01/18/21 22:59 06:59 14:59 Intake Total 530 / 742.927 300 / 1042.927 Output Total 550 / 550 975 / 1525 Balance -20 / 192.927 -675 / -482.073 Weight last 48 hrs Weight 224 lb 5 oz Physical Exam Narrative: EXAM NARRATIVE: GENERAL: obese man sitting in no acute distress HEENT: No pallor or icterus. NECK: JVD not appreciated, short thick neck CARDIOVASCULAR SYSTEM: S1-S2 regular. No murmur or gallops. RESPIRATORY SYSTEM: Chest clear to auscultation. Decreased d/t habitus. No wheezes heard. ABDOMEN: Soft, nontender and nondistended. Normal bowel sounds present. EXTREMITIES: No cyanosis . Trace bilateral edema. 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 No focal neurological deficits. Urinary Catheter Management^: Parker: Cath Placed During This Visit: yes Reason for Continuing Indwelling Catheter: Acute Urinary Retention or Obstruction Urinary Catheter Date of Insertion: 01/17/21 Urinary Catheter Time of Insertion: 13:44 Data : 01/18/21 08:15 01/18/21 08:15 A&P Assessment and plan (1) Atrial flutter with rapid ventricular response: - He got sotalol yesterday morning and was taken off esmolol drip. -will need to be monitored 72 hr. EKG daily after sotalol. -He feels well and denies any chest pain. Discharge home on Wednesday -continue with lovenox and plan to transition to Eliquis 2.5 BID later today/tomorrow. -I spoke to son bedside and he was updated on plan. Status: Acute (2) PSVT (paroxysmal supraventricular tachycardia): Status: Acute (3) Chest pain: -Continue medical management for CAD. I thinks his symptoms were in setting of atrial flutter with RVR and PSVT. -None when is in SR. Status: Acute Qualifiers: Chest pain type: other chest pain Qualified Code(s): R07.89 - Other chest pain (4) Chronic systolic (congestive) heart failure: appears fairly euvolemic. -continue PO diuretics. Status: Acute (5) Chronic kidney disease, stage 3 (moderate): Status: Acute (6) Mixed hyperlipidemia: Status: Acute (7) Obstructive sleep apnea: Status: Acute Additional A&P Information H/O CAD s/p CABG Obesity H/O iodine allergy Allergic to amiodarone Cellulitis : On antibiotics Urinary retention : currently Parker in place Thank you for allowing me to participate in patient's care. Please feel free to call with questions or concerns. Attestations Medical Necessity Statement*: need hospital stay for atrial flutter for monitoring for sotalol. Time Spent in Patient Care: 16 - 35 minutes (>than 50% of time spent in counselling and/or direct pt care on unit) . 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
[2021-01-18 08:45] LABS: Alanine Aminotransferase 47 U/L (0-41); Albumin Level 3.8 g/dL (3.5-5.2); Alkaline Phosphatase 129 IU/L (40-130); Aspartate Amino Transferase 19 U/L (0-40); Blood Urea Nitrogen 42 mg/dL (8-23); Calcium 9.4 mg/dL (8.5-10.5); Carbon Dioxide 26 mmol/L (22-29); Chloride 92 mmol/L (98-107); Globulin 2.8 g/dL (1.3-4.6); Glucose 185 mg/dL (65-115); Magnesium 2.1 mg/dL (1.7-2.3); Osmolality Calculated 293 mOsm/kg (285-295); Sodium 134 mmol/L (136-145); Total Bilirubin 0.3 mg/dL (0.15-1.2); Total Protein 6.6 g/dL (6.6-8.7)
--- NOTE | 2021-01-18 11:43 | P.PN_ITS ---
Subjective Subjective: Interval history: Patient was seen and examined this morning,no acute events overnight. Vitals and labs have been reviewed. Medications: Reviewed: Yes Vitals/I&O/Wt Last Vital Signs Temp 98.7 F 01/18/21 08:00 Pulse 70 01/18/21 08:00 Resp 23 H 01/18/21 08:00 BP 111/62 01/18/21 08:00 Pulse Ox 100 01/18/21 08:00 01/17/21 01/18/21 01/18/21 22:59 06:59 14:59 Intake Total 530 / 742.927 300 / 1042.927 120 / 120 Output Total 550 / 550 975 / 1525 Balance -20 / 192.927 -675 / -482.073 120 / 120 Weight last 48 hrs Weight 101.746 kg Physical Exam Const: COMMON NORMALS: patient oriented x3 HENMT: COMMON NORMALS: normocephalic and atraumatic HEAD & SCALP: normocephalic and atraumatic Resp: COMMON NORMALS: clear to auscultation bilaterally AUSCULTATION: clear to auscultation bilaterally Cardio: COMMON NORMALS: regular rate, regular rhythm, S1 normal heart sound present, S2 normal heart sound present, No gallops present (Cardio), No murmurs present (Cardio), No rub (Cardio) and Peripheral pulses 2+ throughout RATE: regular rate RHYTHM: regular rhythm HEART SOUNDS: S1 normal heart sound present and S2 normal heart sound present PERIPHERAL PULSES: Peripheral puls es 2+ throughout GI: COMMON NORMALS: Normal to inspection, nondistended, normoactive bowel sounds present, Soft to palpation, non-tender, No hepatosplenomegaly present and no masses AUSCULTATION: Yes normoactive bowel sounds PALPATION: Yes Soft to palpation and Yes No hepatosplenomegaly present RECTAL EXAM: Yes deferred Extremity: OTHER: B/L Lower extremity erythema present as well as B/L L/E 1 + Pitting edema present. Neuro: COMMON NORMALS: patient oriented x3 Urinary Catheter Management^: Parker: Cath Placed During This Visit: yes Reason for Continuing Indwelling Catheter: Acute Urinary Retention or Obstruction Urinary Catheter Date of Insertion: 01/17/21 Urinary Catheter Time of Insertion: 13:44 Data : 01/18/21 08:15 01/18/21 08:15 A&P Assessment and plan (1) Chest pain: Patient Present with Typical cardiac chest pain.Has prior h/o underlying CAD S/P CABG: Nuclear stress test in 2019: Medium sized perfusion abnormality of moderate severity of basal to apical anterior and mid to apical lateral chawla with reversibility noted in entire anterior and mid anteroseptal chawla. 2 D Echo : 01/2020 : Normal left ventricular cavity size. Normal left ventricular systolic function. No regional wall motion abnormalities. Left ventricular ejection fraction is estimated at 55 %. Grade I/IV diastolic dysfu nction (abnormal relaxation filling pattern),normal to mildly elevated filling pressures. No significant valve abnormalities. There is no pericardial effusion. Pulmonary artery systolic pressure is within normal limits. Right atrial pressure is around 5 mm of mercury. Repeat 2 D Echo : Aspirin 81 mg po daily Metoprorlol .S : 50 Mg po BID IMDUR 30 MG PO DAILY Lipitor 40 mg po daily S/L Nitro Patient currently do not want any aggressive intervention. We will continue with optimal medical management Status: Acute Qualifiers: Chest pain type: other chest pain Qualified Code(s): R07.89 - Other chest pain (2) Atrial flutter with rapid ventricular response: Amiodarone Drip was stopped as the patient developed allergic reaction to it ( Rash, SOB, dizziness, LOC ) Amiodarone 200 mg po BID ( Stopped ) Metoprorlol .S : 50 Mg po BID ( Stopped ) Initially on Esmolol Drip was stopped Sotolol 40 MG PO Daily started folowed by 2 hrs ekg monitoring Lovenox 100 mg sc q12 h daily.Will switch to eliquis on discharge Status: Acute (3) PSVT (paroxysmal supraventricular tachycardia): Status: Acute (4) Cellulitis: Cellulitis of lower extremity Cef 1g i.v daily Doppler vein b/l l/e : No DVT Status: Acute (5) Leukocytosis: Likely reactive with some element from soolumedrol dose.Patient is afebrile,no worsening SOB. Xray chest :No infiltrates Blood Culture Follow Status: Acute (6) Chronic systolic (congestive) heart failure: Currently compensated Lasix 40 mg po q24H h daily Metolazone 2.5 MG PO Daily I/O Charting Daily weight Mg>2, K>4 Status: Acute (7) Gout: On Febuxostat 80 mg po daily Status: Acute (8) Tremor: Status: Acute (9) Obstructive sleep apnea: Status: Acute (10) Mixed hyperlipidemia: Status: Acute (11) Essential (primary) hypertension: Status: Acute (12) Chronic obstructive pulmonary disease, unspecified: Status: Acute Qualifiers: COPD type: unspecified COPD Qualified Code(s): J44.9 - Chronic obstructive pulmonary disease, unspecified (13) Chronic kidney disease, stage 3 (moderate): Status: Acute (14) Hx of CABG: Status: Acute (15) Arteriosclerotic heart disease (ASHD): Status: Acute Additional A&P Information Code Status :Full code DVT PPX: On Lovenox Attestations Medical Necessity Statement*: Patient needs to be in hospital for the management of A.flutter. Coding Level of Care Code Acute Director Of Academic Support for [facility] Fwd Exam Detailed Diagnoses Chest pain R07.89 Chest pain type: other chest pain Atrial flutter with rapid ventricular response I48.92 PSVT (paroxysmal supraventricular tachycardia) I47.1 Cellulitis L03.90 Leukocytosis D72.829 Chronic systolic (congestive) heart failure I50.22 Gout M10.9 Tremor R25.1 Obstructive sleep apnea G47.33 Mixed hyperlipidemia E78.2 Essential (primary) hypertension I10 Chronic obstructive pulmonary disease, unspecified J44.9 COPD type: unspecified COPD Chronic kidney disease, stage 3 (moderate) N18.3 Hx of CABG Z95.1 Arteriosclerotic heart disease (ASHD) I25.10
[2021-01-18] MEDS: FUROsemide 40 mg Tablet PO (14:40)
--- NOTE | 2021-01-18 17:46 | PC.NURSE ---
Shift Note Frequent safety and comfort rounds continue. Orders and nursing care completed as indicated. Pt up to chair with meals today. Son came to visit and still remains at bedside. Orders to transfer patient to [facility] room 103. Report called to DINA Mendez. Pt transferred to C[facility] room 103 by wheelchair with son and this nurse at side. Pt transferred from wheelchair to bed with one assist, patient tolerated well. Patient A&O at time of transfer, Vanessa notified of patient's arrival.
[2021-01-18 18:40] LABS: Add Urine Culture? Yes; Add Urine Microscopic? YES; Bacteria Urine 1+ /hpf; Bilirubin Urine Neg (Negative); Blood Urine 3+ (Negative); Glucose Urine UA Norm (Normal); Ketones Urine Negative (Negative); Leukocyte Esterase Urine 2+ (Negative); Nitrate Urine Negative (Negative); Protein Urine Neg (Negative); RBC Urine >100 /hpf (0-2); Squamous Epithelial Cell Urine 0-4 /hpf (0-5); Urine Color Yellow (Yellow); Urobilinogen Urine Norm (Negative); WBC Urine >100 /hpf (0-5); pH Urine 5 (5-7)
--- NOTE | 2021-01-18 19:08 | PC.NURSE ---
Received report from DINA Mendez. Patient resting in bed with eyes closed. Spontaneously aroused with verbal stimuli. Patient denies pain or needs presently. No distress observed. Parker catheter in place.
[2021-01-18] MEDS: cefTRIAXone 1,000 MG in sodium chloride 0.9% (plus) 50 ML 100 MG IV (21:05)
[2021-01-19] VITALS (8 sets, daily range): BP systolic 104–135; BP diastolic 57–71; PULSE 72–77; RESP 15–30; TEMP 36.5–37; O2SAT 95–97
--- NOTE | 2021-01-19 00:33 | PC.NURSE ---
Patient requesting to be up out of bed. Assisted patient up to chair using walker. Patient tolerated well and expressed thanks. Patient has not slept this evening. Denies pain or other needs. No distress observed.
[2021-01-19] MEDS: acetaminophen 325 mg Tablet 650 MG PO (03:28)
--- NOTE | 2021-01-19 03:34 | PC.NURSE ---
Patient c/o left flank pain. Repositioned for comfort and administered Tylenol as ordered. Provided ice cream per patient request. Patient reports not sleeping this night states, I am ready to be home in my own bed. Patient denies other needs. No distress observed.
[2021-01-19 05:26] LABS: Basophils # 0.1 10^3/uL (0.0-0.1); Basophils % 0.3 %; Eosinophils # 0.2 10^3/uL (0.0-0.8); Eosinophils % 1.1 %; Lymphocytes # 2.9 10^3/uL (0.8-4.8); Lymphocytes % 19.3 %; Mean Corpuscular HGB Conc 32.4 g/dL (30.0-36.0); Mean Corpuscular Hemoglobin 30.9 pg (28.0-34.0); Mean Corpuscular Volume 95.4 fl (80-94); Mean Platelet Volume 12.1 fL (7.4-10.4); Monocytes % 6.6 %; Neutrophils # 10.76 10^3/uL (1.8-7.7); Neutrophils % 71.8 %; Nucleated Red Blood Cells % 0 %; Platelet Count 214 10^3/cmm (130-400); Red Blood Count 3.88 10^6/uL (4.1-5.3); Red Cell Distribution Width 15.5 % (12.1-15.1)
--- NOTE | 2021-01-19 05:28 | PC.NURSE ---
Shift Note Frequent safety and comfort rounds continue. Orders and/or nursing care completed as indicated. Patient monitored for response to intervention and treatment(s). Education provided includes Lovenox. Patient verbalized complete understanding. Patient reports improvement in pain to left flank. Patient reports feeling ready to be home so he can sleep in his own bed. Denies other needs. No distress observed. Will continue to monitor.
[2021-01-19 05:57] LABS: Magnesium 1.8 mg/dL (1.7-2.3)
[2021-01-19 06:02] LABS: Procalcitonin 0.45 ng/mL (0-0.5)
[2021-01-19 07:59] LABS: Absolute Eosinophils 0.3 10^3/cmm (0.0-0.7); Absolute Neutrophil 11.7 10^3/cmm (1.4-6.5); Absolute Segmented Neutrophil 11.1 10/cmm (1.6-7.1); Band Neutrophils Absolute 0.6 10^3/cmm (0.0-1.2); Eosinophils 2 %; Giant Platelets Trace; Lymphocytes 18 %; Lymphocytes Absolute 2.7 10^3/cmm (1.2-3.4); Monocytes Absolute 0.3 10^3/cmm (0.1-0.6); Platelet Estimate Normal (Normal); Segmented Neutrophils 74 %; Total Cells Counted 100 (0-100)
[2021-01-19] MEDS: cyanocobalamin 1,000 mcg Tablet 2500 MCG PO (08:46)
[2021-01-19] MEDS: spironolactone 25 mg Tablet 12.5 MG PO (08:46)
[2021-01-19] MEDS: metOLazone 5 MG Tablet 2.5 MG PO (08:46)
[2021-01-19] MEDS: pantoprazole DR 40 mg Tablet PO (08:46)
[2021-01-19] MEDS: isosorbide mononitrate ER 30 mg Tablet PO (08:47)
[2021-01-19] MEDS: tamsulosin 0.4 mg Capsule PO (08:47)
[2021-01-19] MEDS: atorvastatin 40 mg Tablet PO (08:47)
[2021-01-19] MEDS: cholecalciferol (vitamin D3) 1,000 unit Tablet 1000 UNIT PO (08:47)
[2021-01-19] MEDS: aspirin 81 mg Chew Tablet PO (08:47)
[2021-01-19] MEDS: sotalol 80 mg Tablet 40 MG PO (08:47)
[2021-01-19] MEDS: enoxaparin 100 mg/mL Syringe SUBCUT (08:48)
--- NOTE | 2021-01-19 09:32 | PC.SOCIAL ---
IMM Updated Updated pt on IMM. No questions voiced. Provided pt a copy. Initialed, dated, & timed copy in chart.
--- NOTE | 2021-01-19 10:40 | ECG_ITS ---
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 Measurements Intervals Stollings Rate: 64 P: 21 SC: 173 QRS: -4 QRSD: 144 T: 20 QT: 447 QTc: 463 Interpretive Statements SINUS RHYTHM INDETERMINATE AXIS RIGHT BUNDLE BRANCH BLOCK [120+ ms QRS DURATION, UPRIGHT V1, 40+ ms S IN I/aVL/V4/V5/V6] Compared to ECG 01/18/2021 12:11:54 No significant changes Electronically Signed On 01-19-2021 18:15:56 CDT by Bobbi Galvez M.D. [id number]
--- NOTE | 2021-01-19 10:46 | PM.PN ---
Subjective Subjective: Interval history: No events on telemetry. He has tolerated sotalol well. He would like to go home. No chest pain or SOB. Medications: Reviewed: Yes Medication Review Details: Current Medications Acetaminophen (Acetaminophen 325 Mg Tablet) 650 mg PO Q6H PRN PRN Reason: Mild/Mod Pain Or Temp >/= 101 Last Admin: 01/15/21 04:20 Dose: 650 mg Documented by: Albuterol Sulfate (Albuterol 8 Gm Mdi) 2 puff INHALATION Q6H PRN PRN Reason: Shortness Of Breath Aspirin (Aspirin 81 Mg Chew Tablet) 81 mg PO DAILY COUNTS INCLUDE 234 BEDS AT THE [facility] Last Admin: 01/17/21 08:37 Dose: 81 mg Documented by: Atorvastatin Calcium (Atorvastatin 40 Mg Tablet) 40 mg PO DAILY MARK Last Admin: 01/17/21 08:37 Dose: 40 mg Documented by: Bisacodyl (Bisacodyl 5 Mg Tablet) 10 mg PO DAILY PRN; Protocol PRN Reason: Constipation (see protocol) Cyanocobalamin (Cyanocobalamin 1,000 Mcg Tablet) 2,500 mcg PO DAILY MARK Last Admin: 01/17/21 08:37 Dose: 2,500 mcg Documented by: Enoxaparin Sodium (Enoxaparin 100 Mg/Ml Syringe) 100 mg 1 mg/kg (100 mg) SUBCUT Q12H MARK Last Admin: 01/17/21 09:52 Dose: 100 mg Documented by: Furosemide (Furosemide 40 Mg Tablet) 40 mg PO DAILY@1500 MARK Last Admin: 01/17/21 14:19 Dose: 40 mg Documented by: Ceftriaxone Sodium 1,000 mg/ (Sodium Chloride) 50 mls @ 100 mls/hr IV Q24H MARK; Protocol Last Infusion: 01/16/21 23:03 Dose: Infused Documented by: Esmolol HCl (Brevibloc Drip) 2,500 mg in 250 mls @ 0 mls/hr IV .Q0M MARK; Protocol Last Titration: 01/17/21 10:20 Dose: 0 mcg/kg/min, 0 mls/hr Documented by: Isosorbide Mononitrate (Isosorbide Mononitrate Er 30 Mg Tablet) 30 mg PO DAILY MARK Last Admin: 01/17/21 08:37 Dose: 30 mg Documented by: Lorazepam (Lorazepam 2 Mg/Ml Inj 1 Ml) 1 mg IVP Q4H PRN PRN Reason: ANXIETY Last Admin: 01/17/21 02:08 Dose: 1 mg Documented by: Metolazone (Metolazone 5 Mg Tablet) 2.5 mg PO DAILY COUNTS INCLUDE 234 BEDS AT THE [facility] Last Admin: 01/17/21 08:38 Dose: 2.5 mg Documented by: Naloxone HCl (Naloxone 0.4 Mg/Ml Sdv) 0.1 mg IVP Q2M PRN PRN Reason: OPIATERV Nitroglycerin (Nitroglycerin 0.4 Mg Sublingual Tablet) 0.4 mg SUBLINGUAL Q5M PRN PRN Reason: Chest Pain Non-Formulary Medication (Febuxostat [Uloric]) 80 mg PO DAILY COUNTS INCLUDE 234 BEDS AT THE [facility] Last Admin: 01/17/21 08:13 Dose: Not Given Documented by: Non-Formulary Medication (Folic Acid) 0.8 mg PO DAILY COUNTS INCLUDE 234 BEDS AT THE [facility] Last Admin: 01/17/21 08:13 Dose: Not Given Documented by: Ondansetron HCl (Ondansetron 2 Mg/Ml Sdv 2 Ml) 4 mg IVP Q8H PRN PRN Reason: vomiting, or N/V if npo Oxycodone/Acetaminophen (Oxycodone-Apap 5-325 Mg Tablet) 1 tab PO Q4H PRN PRN Reason: SEVERE PAIN Pantoprazole Sodium (Pantoprazole Dr 40 Mg Tablet) 40 mg PO BID COUNTS INCLUDE 234 BEDS AT THE [facility] Last Admin: 01/17/21 08:37 Dose: 40 mg Documented by: Fluticasone/Salmeterol (Fluticasone-Salmeterol 250-50 Diskus) 1 puff INHALATION BID COUNTS INCLUDE 234 BEDS AT THE [facility] Last Admin: 01/16/21 20:14 Dose: Not Given Documented by: Sotalol HCl (Sotalol 80 Mg Tablet) 40 mg PO DAILY COUNTS INCLUDE 234 BEDS AT THE [facility] Last Admin: 01/17/21 09:53 Dose: 40 mg Documented by: Spironolactone (Spironolactone 25 Mg Tablet) 12.5 mg PO BID COUNTS INCLUDE 234 BEDS AT THE [facility] Last Admin: 01/17/21 08:37 Dose: 12.5 mg Documented by: Tamsulosin HCl (Tamsulosin 0.4 Mg Capsule) 0.4 mg PO DAILY COUNTS INCLUDE 234 BEDS AT THE [facility] Last Admin: 01/17/21 14:19 Dose: 0.4 mg Documented by: Vitamin D (Cholecalciferol (Vitamin D3) 1,000 Unit Tablet) 1,000 unit PO DAILY COUNTS INCLUDE 234 BEDS AT THE [facility] Last Admin: 01/17/21 08:37 Dose: 1,000 unit Documented by: Vitals/I&O/Wt Last Vital Signs Temp 97.7 F 01/19/21 08:00 Pulse 77 01/19/21 09:13 Resp 18 01/19/21 09:12 BP 135/71 01/19/21 08:00 Pulse Ox 95 01/19/21 09:12 01/18/21 01/19/21 01/19/21 22:59 06:59 14:59 Intake Total 410 / 770 100 / 100 Output Total 1000 / 1000 1750 / 2750 Balance -590 / -230 -1750 / -1980 100 / 100 Weight last 48 hrs Weight 227 lb 11.2 oz Physical Exam Narrative: EXAM NARRATIVE: GENERAL: obese man sitting in no acute distress HEENT: No pallor or icterus. NECK: JVD not appreciated, short thick neck CARDIOVASCULAR SYSTEM: S1-S2 regular. No murmur or gallops. RESPIRATORY SYSTEM: Chest clear to auscultation. Decreased d/t habitus. No wheezes heard. ABDOMEN: Soft, nontender and nondistended. Normal bowel sounds present. EXTREMITIES: No cyanosis . Trace bilateral edema. FLUX CORE WELDER: Patient is alert oriented ?3. No focal neurological deficits. Urinary Catheter Management^: Parker: Cath Placed During This Visit: yes Reason for Continuing Indwelling Catheter: Acute Urinary Retention or Obstruction Urinary Catheter Date of Insertion: 01/17/21 Urinary Catheter Time of Insertion: 13:44 Data : 01/19/21 04:30 01/18/21 08:15 Micro: Microbiology 01/19/21 04:30 Blood Culture - Preliminary Blood SPECIMEN COLLECTED 01/19/21 04:30 Blood Culture - Preliminary Blood SPECIMEN COLLECTED A&P Assessment and plan (1) Atrial flutter with rapid ventricular response: - He is tolerating sotalol well -He feels well and denies any chest pain. -May be discharged home safely later this afternoon. -continue with lovenox and plan to transition to Eliquis 2.5 BID. -I spoke to son bedside and he was updated on plan. Status: Acute (2) PSVT (paroxysmal supraventricular tachycardia): Status: Acute (3) Chest pain: -Continue medical management for CAD. I thinks his symptoms were in setting of atrial flutter with RVR and PSVT. -None when is in SR. Status: Acute Qualifiers: Chest pain type: other chest pain Qualified Code(s): R07.89 - Other chest pain (4) Chronic systolic (congestive) heart failure: appears fairly euvolemic. -continue PO diuretics. Status: Acute (5) Chronic kidney disease, stage 3 (moderate): Status: Acute (6) Mixed hyperlipidemia: Status: Acute (7) Obstructive sleep apnea: Status: Acute Additional A&P Information H/O CAD s/p CABG Obesity H/O iodine allergy Allergic to amiodarone Cellulitis : On antibiotics Urinary retention : currently Parker in place Thank you for allowing me to participate in patient's care. Please feel free to call with questions or concerns. 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
--- NOTE | 2021-01-19 10:51 | USCV_ITS ---
Yumiko Basurto Age: 80 Gender: M : 1940 Exam Date: 01/19/2021 11:17 Ordering Phys: Violet Rucker MD ([email or web address]) Technologist: ISADORA [place] [facility] [place] function and RWMA BP: 135 / 71 HR: 65 Rhythm: Sinus Technical Quality: Suboptimal MEASUREMENTS (Male / Female) Normal Values 2D ECHO LV Diastolic Diameter PLAX 3.7 cm 4.2 - 5.9 / 3.9 - 5.3 cm LV Systolic Diameter PLAX 2.8 cm IVS Diastolic Thickness 1.6 cm 0.6 - 1.0 / 0.6 - 0.9 cm IVS Systolic Thickness 1.4 cm LVPW Diastolic Thickness 0.9 cm 0.6 - 1.0 / 0.6 - 0.9 cm LVPW Systolic Thickness 1.0 cm LV Ejection Fraction 2D Teich 46.8 % LV Ejection Fraction MOD 2C 55.0 % LV Ejection Fraction 2C AL 57.4 % M-MODE LV Diastolic Diameter MM 5.8 cm 4.2 - 5.9 / 3.9 - 5.3 cm LV Systolic Diameter MM 4.3 cm LV Ejection Fraction MM Teich 51.3 % IVS Diastolic Thickness MM 0.9 cm 0.6 - 1.0 / 0.6 - 0.9 cm IVS Systolic Thickness MM 1.3 cm LVPW Diastolic Thickness MM 1.4 cm 0.6 - 1.0 / 0.6 - 0.9 cm LVPW Systolic Thickness MM 1.6 cm FINDINGS Left Ventricle Normal left ventricular cavity size. Normal left ventricular systolic function. Left ventricular ejection fraction is estimated at 55 %. No diagnostic regional wall motion abnormality. Abnormal septal motion consistent with conduction abnormality. Right Ventricle Normal right ventricular size and systolic function. Right Atrium Normal right atrial size. Left Atrium Mildly increased left atrial size. Mitral Valve Structurally normal mitral valve. Aortic Valve Mildly thickened trileaflet aortic valve. Tricuspid Valve Structurally normal tricuspid valve. Pulmonic Valve Pulmonic valve not well visualized. Pericardium No pericardial effusion. Aorta Aorta not well visualized. CONCLUSIONS 1. Normal left ventricular cavity size and systolic function. Left ventricular ejection fraction is estimated at 55 %. No diagnostic regional wall motion abnormality. Abnormal septal motion consistent with conduction abnormality. 2. Normal right ventricular size and systolic function. 3. There may not have been any significant change when compared to previous echo dated 01/15/21. Violet Rucker MD (Electronically Signed) Final Date: 19 January 2021 16:21 S
--- NOTE | 2021-01-19 11:30 | PM.DCS ---
Discharge Providers Date of Admission: 01/14/21 16:17 Date of Discharge: January 19, 2021 Attending Provider at Admission: Tone Junior MD Attending Provider at Discharge: Tone Junior MD Primary Care Provider: Shannan Ellis MD Diagnoses at Discharge Discharge Diagnosis (1) Atrial flutter with rapid ventricular response: Status: Acute (2) PSVT (paroxysmal supraventricular tachycardia): Status: Acute (3) Chest pain: Status: Acute Qualifiers: Chest pain type: other chest pain Qualified Code(s): R07.89 - Other chest pain (4) Chronic systolic (congestive) heart failure: Status: Acute (5) Chronic kidney disease, stage 3 (moderate): Status: Acute (6) Mixed hyperlipidemia: Status: Acute (7) Obstructive sleep apnea: Status: Acute Reason for Visit Reason for Visit: cp Hospital Course Hospital Course 80 year old male with PMH of HTN, GOUT, CAD S/P CABG, HFrEF, LELIA,COPD, was admitted with C/O substernal chest pain 6/7 In severity, squeezing, lasting transiently going on last couple of days.Upon arrival in the ER he was worked up for above mention complain. Pertinent imaging studies and labs : XR chest : No infiltrates, effusion,PTX. EKG :A.Flutter with RVR WBC: 13.9 H&H : 13.4/41, PLT : 213, Serum Na: 131, k: 3.8 BUN/SCR : 28/1.8, AST: 98, ALT: 176, ALP: 292, Troponin trend :Without significant delta, Pro Bnp: 596. Patient received metoprolol 5 mg IV x1 dose as well as aspirin 325 mg p.o. x1 dose in the ER, and converted to normal sinus rhythm. After that he was continued on metoprolol but unfortunately he went into atrial flutter with RVR intermittently during the hospital stay, for breakthrough atrial flutter, he was started on p.o. amiodarone, as well as amiodarone drip Patient developed severe allergic reaction immediately after initiating amiodarone drip, he developed generalized erythematous rash, transient hypotension, transient loss of consciousness, shortness of breath. Thereafter amiodarone drip was stopped, Solu-Medrol IV was given, during that episode patient also went into a flutter with RVR, followed by PSVT, he failed to respond to metoprolol IV push, as well as to adenosine, he was placed on esmolol drip, after which again he converted to normal sinus rhythm, later esmolol drip, he was started on p.o. sotalol 40 mg daily, based on his renal function, 2-hour EKG monitoring for QTC assessment was done. QTC was satisfactory. Patient continued to remain in normal sinus rhythm on sotalol. Plan is to discharge the patient on sotalol and he will follow cardiology as an outpatient. Patient complain of chest pains during these episodes of palpitation.Nuclear stress test in 2020: Medium sized perfusion abnormality of moderate severity of basal to apical anterior and mid to apical lateral chawla with reversibility noted in entire anterior and mid anteroseptal chawla. 2D echo done during the hospital stay had shown normal LV cavity and systolic function no RWMA , Left ventricular ejection fraction is estimated at 55 %. Grade I/IV diastolic dysfunction (abnormal relaxation filling pattern), normal to mildly elevated filling pressures.Patient failed to tolerate cardiac cath recently likely was not able to lie flat. In all likelihood the current chest pain can be arrhythmia driven or it could be possibly due to underlying coronary artery disease. Plan at this point in time is to discharge patient home on sotalol, and continue to monitor for now. He will continue on aspirin, Lipitor, Imdur. Patient was also started on anticoagulation for a flutter. Patient was also managed for decompensated heart failure with preserved ejection fraction, responded well to IV diuresis, at the time of discharge he was continued on his home dose of Lasix 40 p.o. daily as well as metolazone 2.5 mg p.o. daily, at the time of discharge patient was euvolemic. He was also managed for lower extremity cellulitis. For his gout he was started on febuxostat 80 mg p.o. daily, allopurinol has been discontinued. Patient responded well to the medical management and is being discharged in stable condition to home. Physical Exam Const: COMMON NORMALS: patient oriented x3 HENMT: COMMON NORMALS: normocephalic and atraumatic HEAD & SCALP: normocephalic and atraumatic Resp: COMMON NORMALS: clear to auscultation bilaterally AUSCULTATION: clear to auscultation bilaterally Cardio: COMMON NORMALS: regular rate, regular rhythm, S1 normal heart sound present, S2 normal heart sound present, No gallops present (Cardio), No murmurs present (Cardio), No rub (Cardio) and Peripheral pulses 2+ throughout RATE: regular rate RHYTHM: regular rhythm HEART SOUNDS: S1 normal heart sound present and S2 normal heart sound present PERIPHERAL PULSES: Peripheral pulses 2+ throughout GI: COMMON NORMALS: Normal to inspection, nondistended, normoactive bowel sounds present, Soft to palpation, non-tender, No hepatosplenomegaly present and no masses AUSCULTATION: Yes normoactive bowel sounds PALPATION: Yes Soft to palpation and Yes No hepatosplenomegaly present RECTAL EXAM: Yes deferred Extremity: OTHER: B/L Lower extremity erythema present as well as B/L L/E 1 + Pitting edema present. Neuro: COMMON NORMALS: patient oriented x3 Urinary Catheter Management^: Parker: Cath Placed During This Visit: yes, but has since been removed by the nurse Reason for Continuing Indwelling Catheter: Acute Urinary Retention or Obstruction Urinary Catheter Date of Insertion: 01/17/21 Urinary Catheter Time of Insertion: 13:44 Date Urinary Catheter Removed: 01/19/21 Time Urinary Catheter Discontinued: 10:00 Discharge Data Data Completed and Pending: Completed Studies During Hospitalization Category Date Time Status CT head wo con* [id number] 0450 Stat Cat Scan 01/16/21 18:39 Completed XR chest 1V radha ble [id number] Routine Exams 01/18/21 07:57 Completed XR chest 1V radha ble [id number] Urgent Exams 01/14/21 14:15 [place] [id number] Routin e Ultrasound 01/15/21 22:13 Completed CV. echo complete * [id number] Routine Ultrasound 01/15/21 22:38 Completed Pending at discharge Category Date Time Status Blood Culture AM LABS Lab 01/19/21 04:30 Results Complete Blood Co unt w/Auto AM LABS Lab 01/20/21 04:00 Ordered Complete Blood Co unt w/Auto AM LABS Lab 01/21/21 04:00 Ordered Complete Blood Co unt w/Man Dif AM L ABS Lab 01/20/21 04:00 Ordered Complete Blood Co unt w/Man Dif AM L ABS Lab 01/21/21 04:00 Ordered Magnesium AM LABS Lab 01/20/21 04:00 Ordered Magnesium AM LABS Lab 01/21/21 04:00 Ordered Urine Culture Rou danielle Lab 01/18/21 18:00 Received CV. echo lmt w/w contras [id number] Rout ine Ultrasound 01/19/21 10:51 Ordered Labs from last 24 hours 01/19/21 01/19/21 01/18/21 04:30 04:30 18:00 WBC 15.0 H RBC 3.88 L Hgb 12.0 Hct 37.0 L MCV 95.4 H MCH 30.9 MCHC 32.4 RDW 15.5 H Plt Count 214 MPV 12.1 H Neut % (Auto) 71.8 Lymph % (Auto) 19.3 [place] % (Auto) 6.6 Eos % (Auto) 1.1 Baso % (Auto) 0.3 Neut # (Auto) 10.76 H Lymph # (Auto) 2.9 [place] # (Auto) 1.0 H Eos # (Auto) 0.2 Baso # (Auto) 0.1 Nucleated RBC % (a uto) 0 Total Counted 100 Atypical Lymphs % 0.0 Absolute Neutrophi ls 11.7 H Segmented Neutroph ils 74 Abs Segm Neuts (Ma n) 11.1 H Band Neutrophils 4.0 Abs Band Neuts (Ma n) 0.6 Absolute Lymphocyt es 2.7 Lymphocytes (Manua l) 18 Monocytes (Manual) 2.0 Absolute Monocytes 0.3 Eosinophils (Manua l) 2 Absolute Eosinophi ls 0.3 Basophils (Manual) 0.0 Absolute Basophils 0.0 Nucleated RBCs # 0.0 Platelet Estimate Normal Giant Platelets Trace Magnesium 1.8 Procalcitonin 0.45 Urine Color Yellow Urine Appearance Sl cloudy A Urine pH 5 Ur Specific Gravit y 1.010 Urine Protein Neg Urine Glucose (UA) Norm Urine Ketones Negative Urine Blood 3+ H Urine Nitrate Negative Urine Bilirubin Neg Urine Urobilinogen Norm Ur Leukocyte Alliosn ase 2+ H Urine RBC >100 H Urine WBC >100 H Ur Squamous Epith Cells 0-4 H Amorphous Sediment Not Reportable Urine Bacteria 1+ H Vitals: Last Vital Signs Temp 97.7 F 01/19/21 08:00 Pulse 77 01/19/21 09:13 Resp 18 01/19/21 09:12 BP 135/71 01/19/21 08:00 Pulse Ox 95 01/19/21 09:12 Discharge Plan Discharge Patient Disposition: Home Condition: Stable Prescriptions: New sotalol 80 mg tablet 40 mg PO DAILY Qty: 30 RF: 3 Eliquis 2.5 mg tablet 2.5 mg PO BID Qty: 60 RF: 3 Continued cholecalciferol (vitamin D3) 1,000 unit capsule 1,000 unit PO DAILY RF: 0 aspirin 81 mg tablet,chewable 81 mg PO DAILY RF: 0 vit C,E,Zn,Vd-[id number]-pgf-zeax 250-2.5-0.5 mg capsule 1 cap PO DAILY RF: 0 budesonide-formoterol [Symbicort] 160-4.5 mcg/actuation HFA aerosol inhaler 2 puff inhalation BID Qty: 10.2 RF: 4 febuxostat [Uloric] 80 mg tablet 80 mg PO DAILY Qty: 30 RF: 5 (DME) [place] Boot to the left See Rx Instructions .Route .MEDSUPPLY Qty: 1 RF: 0 cyanocobalamin (vitamin B-12) 2,500 mcg tablet 2,500 mcg PO DAILY Qty: 90 RF: 3 folic acid 800 mcg tablet 0.8 mg PO DAILY Qty: 90 RF: 3 spironolactone 25 mg tablet 25 mg PO BID 90 Days Qty: 180 RF: 3 triamcinolone acetonide 0.1 % cream 1 applic TOPICAL BID Qty: 454 RF: 2 potassium chloride 20 mEq tablet extended release 20 meq PO BID Qty: 180 RF: 3 rosuvastatin [Crestor] 10 mg tablet 10 mg PO DAILY Qty: 90 RF: 2 metolazone 2.5 mg tablet 2.5 mg PO DAILY Qty: 90 RF: 1 pantoprazole [Protonix] 40 mg tablet,delayed release (DR/EC) 40 mg PO BID Qty: 180 RF: 2 nitroglycerin 0.4 mg tablet, sublingual 0.4 mg SUBLINGUAL Q5M PRN (Reason: Chest Pain) Qty: 30 RF: 0 albuterol sulfate [Ventolin HFA] 90 mcg/actuation HFA aerosol inhaler 2 puff INHALATION Q6H PRN (Reason: Shortness Of Breath) Qty: 6.7 RF: 4 albuterol sulfate 2.5 mg /3 mL (0.083 %) solution for nebulization 2.5 mg INHALATION Q4H PRN (Reason: shortness of breath or wheezing) Qty: 75 RF: 6 (DME) powered scooter large See Rx Instructions .Route .MEDSUPPLY Qty: 1 RF: 0 meloxicam [Mobic] 15 mg tablet 15 mg PO DAILY Qty: 20 RF: 0 acetaminophen [Tylenol] 325 mg Tablet 325 mg PO QID MDD SEE PHARMACY COMMENT PRN (Reason: Pain) RF: 0 furosemide 40 mg tablet 40 mg PO DAILY RF: 0 pyridoxine (vitamin B6) 25 mg tablet 25 mg PO DAILY RF: 0 Discontinued doxycycline hyclate 100 mg capsule 100 mg PO BID RF: 0 allopurinol 300 mg tablet 300 mg PO DAILY RF: 0 metoprolol succinate 50 mg tablet extended release 24 hr 50 mg PO DAILY Qty: 90 RF: 3 Discharge Orders: Discharge Order (Routine); Ordered 01/19/21 Ordered By: Tone Junior Referrals: Jack Polk M.D [Physician] - 2 weeks Shannan Ellis MD [Primary Care Provider] - 1 week Discharge Diet: Cardiac Discharge Activity: Increase activity as tolerated Patient Instructions: Opioid Safety Discharge Attestations Time Spent in Discharge Care*: less than 30 min Specific Discharge Activities: educating patient, educating and/or supporting family/caregiver, discussing with pcp/other providers, discussing with foster care case manager/social workers/dc planners, documenting/other paperwork and evaluating patient/reviewing data Status at Discharge: Cognitive status at discharge: cognitively intact, Behavioral status at discharge: cooperative, Functional status at discharge: other assisted ambulation Overall status at discharge: patient is progressing back to baseline Quality Metrics Clinical Quality Measures During this hospital stay, did patient experience: None Coding Level of Care Code Acute Chg FW DC note Exam Detailed Diagnoses Atrial flutter with rapid ventricular response I48.92 PSVT (paroxysmal supraventricular tachycardia) I47.1 Chest pain R07.89 Chest pain type: other chest pain Chronic systolic (congestive) heart failure I50.22 Chronic kidney disease, stage 3 (moderate) N18.3 Mixed hyperlipidemia E78.2 Obstructive sleep apnea G47.33
--- NOTE | 2021-01-19 15:59 | PC.NURSE ---
pt left via w/c with son. d/c papers given no questions or concerns
--- NOTE | 2021-01-20 09:47 | PC.SOCIAL ---
discharge follow up call made. spoke with patient . discussed new medications and discontinued medications. patient reports when they took patient home, he fell getting into the 5th wheel, no injuries just bruising. reports they are living in an 5th wheel at the time because they are unable to finish their house due to prices. patient given follow up appointments. she isn't sure they will make it to Dr. Garcia, she will call and cancel if they can't or see if they can do a telephone visit. questioned patient about home health, she said they were living in such close quarters she wasn't sure she wanted anyone there but would talk to dr. garcia's office if she decided they needed it. patient does have [facility]. son is living with them to help with patient.
--- NOTE | 2021-01-21 13:02 | PC.SOCIAL ---
patients called wanting patient set up with outpatient therapy. real estate underwriter called and scheduled pts follow up appointment for sooner, this wednesday. left a message for Dr. Ellis about orders for physical therapy and for patient to be seen in the [facility] for PT. real estate underwriter called and gave this info to patients .
== END 2021-01-19 15:59 | disposition home or self-care (01) | DRG 308 ==
LOC: ER 14:57 → MEDSURG 18:32 → CSU 01-16 17:44 → ICU 01-16 18:58 → CSU 01-18 18:11
PROVIDERS: Physician Assistant; Admitting Provider Internal Medicine; Emergency Provider Emergency Medicine; PCP Family Medicine; Visit Provider Internal Medicine
DX: I48.92 Unspecified atrial flutter (principal); I50.23 Acute on chronic systolic (congestive) heart failure; I13.0 Hypertensive heart and chronic kidney disease with heart failure and stage 1 through stage 4 chronic kidney disease, or unspecified chronic kidney disease; L03.116 Cellulitis of left lower limb; L03.115 Cellulitis of right lower limb; N18.30 Chronic kidney disease, stage 3 unspecified; I25.10 Atherosclerotic heart disease of native coronary artery without angina pectoris; Z95.1 Presence of aortocoronary bypass graft; E78.2 Mixed hyperlipidemia; M1A.20X0 Drug-induced chronic gout, unspecified site, without tophus (tophi); K21.9 Gastro-esophageal reflux disease without esophagitis; E66.9 Obesity, unspecified; Z68.34 Body mass index [BMI] 34.0-34.9, adult; G47.33 Obstructive sleep apnea (adult) (pediatric); K42.9 Umbilical hernia without obstruction or gangrene; E53.8 Deficiency of other specified B group vitamins; Z87.891 Personal history of nicotine dependence; J44.9 Chronic obstructive pulmonary disease, unspecified; R25.1 Tremor, unspecified; R33.9 Retention of urine, unspecified; Z79.82 Long term (current) use of aspirin; Z79.51 Long term (current) use of inhaled steroids; L27.0 Generalized skin eruption due to drugs and medicaments taken internally; T46.2X5A Adverse effect of other antidysrhythmic drugs, initial encounter; Y92.230 Patient room in hospital as the place of occurrence of the external cause; R06.02 Shortness of breath; I47.1 Supraventricular tachycardia; I95.9 Hypotension, unspecified
CPT/HCPCS: 36415; 36416; 36600; 51702; 70450; 71045; 80048; 80051; 80053; 81001; 82330; 82805; 82962; 83735; 83880; 84145; 84484; 85007; 85025; 85027; 85378; 87040; 87086; 93005; 93306; 93308; 93970; 94640; 96372; 96374; 96375; 99204; 99285; J0153; J0696; J1650; J1940; J2060; J2930; J3490; J7040; J7050

== ENCOUNTER 2021-01-31 06:00 | Outpatient (RCR) | payer MEDICARE, MEDICAID, SELFPAY | END 2021-03-02 23:59 | disposition home or self-care (01) | LOC: TPT 06:00 | PROVIDERS: PCP Family Medicine; Referring Provider Nurse Practitioner Family; Visit Provider Nurse Practitioner Family | DX: R29.6 Repeated falls (principal) | CPT/HCPCS: 97110; 97162 ==

== ENCOUNTER 2021-03-03 13:37 | Emergency (ER) | payer MEDICARE, MEDICAID, SELFPAY ==
[2021-03-03 14:16] VITALS: BP 114/71; PULSE 70; RESP 20; TEMP 36.9; O2SAT 99; BMI 34.9
--- NOTE | 2021-03-03 14:39 | ECG_ITS ---
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1940 Requested By: Oswaldo Ray Order Number: [id number] Reading MD: MANN SHELLEY Measurements Intervals [place] Rate: 68 P: 41 CO: 175 QRS: -11 QRSD: 138 T: 21 QT: 452 QTc: 482 Interpretive Statements SINUS RHYTHM INDETERMINATE AXIS RIGHT BUNDLE BRANCH BLOCK [120+ ms QRS DURATION, UPRIGHT V1, 40+ ms S IN I/aVL/V4/V5/V6] Compared to ECG 01/19/2021 10:01:58 No significant changes Electronically Signed On 03-03-2021 21:54:26 CDT by MANN SHELLEY [id number]
--- NOTE | 2021-03-03 14:40 | XRR_ITS ---
PROCEDURE INFORMATION: Exam: XR Chest Exam date and time: 03/03/2021 2:40 PM Age: 80 years old Clinical indication: Cough and dyspnea; Additional info: Dyspnea/cough TECHNIQUE: Imaging protocol: XR of the chest. Views: 1 view. COMPARISON: CR (CHEST, ) 01/18/2021 8:12 AM FINDINGS: Lungs: There are calcified granulomata in the right lung. Pleural spaces: Unremarkable. No pleural effusion. No pneumothorax. Heart/Mediastinum: Mild cardiomegaly. Bones/joints: Status post median sternotomy. XR/XR chest 1V portable [id number] IMPRESSION: No acute findings Radiation Dose CTDIVOL = (mGy): DLP = (mGy-cm)
[2021-03-03 18:05] LABS: Basophils # 0.1 10^3/uL (0.0-0.1); Basophils % 0.6 %; Eosinophils # 0.2 10^3/uL (0.0-0.8); Eosinophils % 1.5 %; Hematocrit 41.2 % (42.0-52.0); Hemoglobin 13.2 g/dL (11.7-16.6); Lymphocytes # 2.3 10^3/uL (0.8-4.8); Lymphocytes % 19.7 %; Mean Corpuscular Hemoglobin 29.6 pg (28.0-34.0); Mean Corpuscular Volume 92.4 fl (80-94); Mean Platelet Volume 11.2 fL (7.4-10.4); Monocytes # 0.8 10^3/uL (0.2-0.9); Neutrophils % 70.9 %; Nucleated Red Blood Cells % 0 %; Platelet Count 280 10^3/cmm (130-400); Red Blood Count 4.46 10^6/uL (4.1-5.3); Red Cell Distribution Width 14.7 % (12.1-15.1); White Blood Count 11.7 10^3/uL (4.0-10.0)
[2021-03-03 18:29] LABS: Creatine Phosphokinase 31 U/L (39-308)
[2021-03-03 18:41] LABS: Alanine Aminotransferase 22 U/L (0-41); Albumin Level 4.2 g/dL (3.5-5.2); Alkaline Phosphatase 80 IU/L (40-130); Anion Gap 17.2 (5-19); Aspartate Amino Transferase 23 U/L (0-40); Blood Urea Nitrogen 47 mg/dL (8-23); Calcium 9.8 mg/dL (8.5-10.5); Carbon Dioxide 31 mmol/L (22-29); Chloride 90 mmol/L (98-107); Globulin 2.6 g/dL (1.3-4.6); Glucose 146 mg/dL (65-115); NT Pro B Type Natriuretic Pept 682 pg/mL (0-450); Osmolality Calculated 293 mOsm/kg (285-295); Potassium 4.2 mmol/L (3.5-5.1); Sodium 134 mmol/L (136-145); Total Bilirubin 0.5 mg/dL (0.15-1.2); Total Protein 6.8 g/dL (6.6-8.7)
== END 2021-03-03 22:31 ==
LOC: ER 13:41
PROVIDERS: Family Medicine; Physician Assistant; PCP Family Medicine
DX: Z53.21 Procedure and treatment not carried out due to patient leaving prior to being seen by health care provider (principal)
CPT/HCPCS: 71045; 80053; 82550; 83880; 85025; 93005

== ENCOUNTER → 2021-03-04 11:47 | Outpatient (BNVA) | payer MEDICARE, MEDICAID, SELFPAY | PROVIDERS: PCP Family Medicine; Visit Provider Internal Medicine | DX: I48.92 Unspecified atrial flutter (principal); R07.89 Other chest pain; R06.02 Shortness of breath; I48.91 Unspecified atrial fibrillation | CPT/HCPCS: 80048; 83880 ==

== ENCOUNTER 2021-03-13 11:42 | Inpatient (IN) | payer MEDICARE, MEDICAID, SELFPAY ==
--- NOTE | 2021-03-13 11:51 | XR_ITS ---
WS: [id number] Portable AP upright chest, 03/13/2021 Clinical Data: edema, fluid overload Comparison: Portable chest, 03/03/2021. Findings: No nodules, masses or effusions are seen. The heart is enlarged. The pulmonary vascularity is not increased. No pneumonia or pneumothorax is seen. The aortic arch and descending thoracic aorta show calcification and tortuosity. Midline sternotomy sutures are present. XR/XR chest 1V portable [id number] Impression: Cardiomegaly and atherosclerosis.
[2021-03-13 12:16] VITALS: PULSE 68; RESP 16; TEMP 36.7; O2SAT 97; BMI 35.2
--- NOTE | 2021-03-13 13:59 | ECG_ITS ---
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 Measurements Intervals [place] Rate: 64 P: 47 OR: 181 QRS: 5 QRSD: 151 T: 44 QT: 482 QTc: 500 Interpretive Statements SINUS RHYTHM INDETERMINATE AXIS RIGHT BUNDLE BRANCH BLOCK [120+ ms QRS DURATION, UPRIGHT V1, 40+ ms S IN I/aVL/V4/V5/V6] Compared to ECG 03/03/2021 17:23:17 No significant changes Electronically Signed On 03-13-2021 22:45:39 DRY ROASTER by Bobbi Galvez M.D. [id number]
--- NOTE | 2021-03-13 14:02 | ED_ITS ---
HPI - SOB/Dyspnea General: Chief Complaint: Extremity Injury, Lower Stated Complaint: Fluid Build up Time Seen by Provider: 03/13/21 13:54 History of Present Illness: HPI Narrative: 80-year-old male with history of CHF and COPD presents due to worsening shortness of breath and lower extremity swelling over the past 2 weeks. Primary care has been increasing his Lasix dose. Denies any chest pain fevers or chills. Denies cough. States he has orthopnea. He is also on Eliquis and states has been compliant with medications. Review of Systems Narrative: - CONSTITUTIONAL: Denies weight loss, fever and chills. - HEENT: Denies changes in vision and hearing. - RESPIRATORY: As above - CV: Denies palpitations and CP. - GI: Denies abdominal pain, nausea, vomiting and diarrhea. - : Denies dysuria and urinary frequency. - MSK: Denies myalgia and joint pain. - SKIN: Denies rash and pruritus. - NEUROLOGICAL: Denies headache, weakness, numbness and syncope. - PSYCHIATRIC: Denies suicidal ideation PFS ED PFSH: Medical History Arteriosclerotic heart disease (ASHD) Atrial flutter with rapid ventricular response Cellulitis Chest pain Chronic kidney disease, stage 3 (moderate) Chronic obstructive pulmonary disease, unspecified Chronic shortness of breath Chronic systolic (congestive) heart failure Drug-induced chronic gout, unspecified wrist, without tophus (tophi) Dyspnea Encounter for counseling for care management of patient with chronic conditions and complex health needs using nurse-based model Essential (primary) hypertension Gastro-esophageal reflux disease without esophagitis Gout Leukocytosis Mixed hyperlipidemia Obesity Obstructive sleep apnea PSVT (paroxysmal supraventricular tachycardia) PSVT (paroxysmal supraventricular tachycardia) Tremor Umbilical hernia without obstruction or gangrene Vitamin B 12 deficiency Vitamin D deficiency Surgical History History of back surgery Hx of appendectomy Hx of CABG Patient had coronary bypass surgery on July 07, 2006 at a [facility]. This included left internal mammary to the LAD, single vein graft to the diagonal, single vein graft to the right posterior descending artery and sequential vein graft to the first and second marginal for a total of 5 bypasses. Family History Father Stroke Social History Quit status (tobacco): has quit using tobacco Year quit tobacco: 2008 - Chew x 60 Years Second hand smoke exposure: No Smoking risk assessment/counseling performed?: Yes Alcohol intake: never Desire information about alcohol rehabilitation?: No Counseling given: No Desire information about substance/drug rehabilitation?: No Counseling given: No Lives independently: Yes Household members: spouse Housing: House Marital status: service: No Current occupational status: retired Pets and animals: Yes History of recent travel: No Current gender identity: Male Physical Exam Narrative: EXAM NARRATIVE: - GENERAL: Alert and oriented x 3. No acute distress. Well-nourished. - EYES: EOMI. Anicteric. - HENT: Atraumatic, no C-spine tenderness. Moist mucous membranes. No scleral icterus. No cervical lymphadenopathy. - LUNGS: Bilateral crackles, no wheezing, equal breath sounds bilaterally - CARDIOVASCULAR: Regular rate and rhythm. No murmur. No JVD. - ABDOMEN: Soft, non-tender and non-distended. Negative CVA tenderness bilate rally, no rebound or guarding, negative [place] sign. No palpable masses. - EXTREMITIES: +2 bilateral pitting edema with bilateral ulcers. No crepitus or signs of overlying infection. No signs of necrotizing fasciitis. Pulses intact. Capillary refill less than 2 seconds. - SKIN: No rashes or lesions. Warm. - NEUROLOGIC: No meningismus or focal neurological deficits. CN II-XII grossly intact. - PSYCHIATRIC: Cooperative. Appropriate mood and affect. Course Vital Signs: Vital signs: Vital Signs Temperature 98.0 F 03/13/21 12:16 Pulse Rate 68 03/13/21 12:16 Respiratory Rate 18 03/13/21 15:08 Pulse Oximetry 97 03/13/21 12:16 MDM - SOB/Dyspnea MDM Narrative: Medical decision making narrative: 80-year-old male with history of CHF and COPD presents with shortness of breath. He has orthopnea and bilateral lower extremity swelling. BNP is elevated to 1600. Lasix provided. X-ray does not reveal pneumothorax or consolidation. Also has mildly worsened kidney function with creatinine 1.6. EKG reveals right bundle branch block with no sign of acute ischemia or other acute abnormality. High-sensitivity troponin is mildly elevated this 30s. Will trend. However this is likely secondary to strain and reduced clearance. He denies any chest pain. Also has LULU with creatinine up to 4. Remainder of lab work and imaging reviewed. Discussed with hospitalist and they agreed patient would benefit from admission. Patient admitted in stable condition. Further evaluation management per hospitalist team. Lab Data: Labs: Lab Results 03/13/21 03/13/21 03/13/21 14:14 14:14 14:14 WBC 9.3 10^3/uL 10^3/ uL (4.0-10.0) RBC 4.50 10^6/uL 10^6 /uL (4.1-5.3) Hgb 13.2 g/dL g/dL (11.7-16.6) Hct 40.4 % L % (42.0-52.0) MCV 89.8 fl fl (80-94) MCH 29.3 pg pg (28.0-34.0) MCHC 32.7 g/dL g/dL (30.0-36.0) RDW 14.8 % % (12.1-15.1) Plt Count 245 10^3/cmm 10^3 /cmm (130-400) MPV 11.8 fL H fL (7.4-10.4) Neut % (Auto) 69.3 % % Lymph % (Auto) 16.8 % % Toombs % (Auto) 10.5 % % Eos % (Auto) 2.0 % % Baso % (Auto) 1.0 % % Neut # (Auto) 6.43 10^3/uL 10^3 /uL (1.8-7.7) Lymph # (Auto) 1.6 10^3/uL 10^3/ uL (0.8-4.8) [place]ombs # (Auto) 1.0 10^3/uL H 10^ 3/uL (0.2-0.9) Eos # (Auto) 0.2 10^3/uL 10^3/ uL (0.0-0.8) Baso # (Auto) 0.1 10^3/uL 10^3/ uL (0.0-0.1) Nucleated RBC % (a uto) 0 % % Nucleated RBCs # 0.0 /100WBC /100W BC Sodium Cancelled Potassium Cancelled Chloride Cancelled Carbon Dioxide Cancelled Anion Gap Cancelled BUN Cancelled Creatinine Cancelled GFR Calculation Cancelled Glucose Cancelled Calculated Osmolal ity Cancelled Calcium Cancelled Total Bilirubin Cancelled AST Cancelled ALT Cancelled Alkaline Phosphata se Cancelled Troponin T Baselin e Cancelled NT-Pro-B Natriuret Pep Cancelled Total Protein Cancelled Albumin Cancelled Globulin Cancelled SARS-CoV-2 Ag (Rap id) 03/13/21 03/13/21 03/13/21 14:30 15:22 15:22 WBC RBC Hgb Hct MCV MCH MCHC RDW Plt Count MPV Neut % (Auto) Lymph % (Auto) [place]ombs % (Auto) Eos % (Auto) Baso % (Auto) Neut # (Auto) Lymph # (Auto) [place]ombs # (Auto) Eos # (Auto) Baso # (Auto) Nucleated RBC % (a uto) Nucleated RBCs # Sodium 129 mmol/L L mmol /L (136-145) Potassium 4.3 mmol/L mmol/L (3.5-5.1) Chloride 85 mmol/L L mmol/ L (98-107) Carbon Dioxide 21 mmol/L L mmol/ L (22-29) Anion Gap 27.3 H (5-19) BUN 68 mg/dL H mg/dL (8-23) Creatinine 4.0 mg/dL H mg/dL (0.7-1.2) GFR Calculation Not Reportable Glucose 128 mg/dL H mg/dL (65-115) Calculated Osmolal ity 289 mOsm/kg mOsm/ kg (285-295) Calcium 10.1 mg/dL mg/dL (8.5-10.5) Total Bilirubin 0.4 mg/dL mg/dL (0.15-1.2) AST 39 U/L U/L (0-40) ALT 20 U/L U/L (0-41) Alkaline Phosphata se 68 IU/L IU/L (40-130) Troponin T Baselin e 37 ng/L H ng/L (0-15) NT-Pro-B Natriuret Pep 1673 pg/mL H pg/m L (0-450) Total Protein 7.7 g/dL g/dL (6.6-8.7) Albumin 3.9 g/dL g/dL (3.5-5.2) Globulin 3.8 g/dL g/dL (1.3-4.6) SARS-CoV-2 Ag (Rap id) Negative (Negative) EKG Data^: EKG 1: Other EKG Comments: Sinus rhythm, rate of 64, right bundle branch block, no sign of acute ischemia or other acute abnormality. Discharge Plan Discharge Prescriptions: No Action cholecalciferol (vitamin D3) 1,000 unit capsule 1,000 unit PO DAILY RF: 0 aspirin 81 mg tablet,chewable 81 mg PO DAILY RF: 0 vit C,E,Zn,Lu--emn-zeax 250-2.5-0.5 mg capsule 1 cap PO DAILY RF: 0 budesonide-formoterol [Symbicort] 160-4.5 mcg/actuation HFA aerosol inhaler 2 puff inhalation BID Qty: 10.2 RF: 4 febuxostat [Uloric] 80 mg tablet 80 mg PO DAILY Qty: 30 RF: 5 (DME) Cam Boot to the left See Rx Instructions .Route .MEDSUPPLY Qty: 1 RF: 0 cyanocobalamin (vitamin B-12) 2,500 mcg tablet 2,500 mcg PO DAILY Qty: 90 RF: 3 folic acid 800 mcg tablet 0.8 mg PO DAILY Qty: 90 RF: 3 spironolactone 25 mg tablet 25 mg PO BID 90 Days Qty: 180 RF: 3 triamcinolone acetonide 0.1 % cream 1 applic TOPICAL BID Qty: 454 RF: 2 potassium chloride 20 mEq tablet extended release 20 meq PO BID Qty: 180 RF: 3 rosuvastatin [Crestor] 10 mg tablet 10 mg PO DAILY Qty: 90 RF: 2 pantoprazole [Protonix] 40 mg tablet,delayed release (DR/EC) 40 mg PO BID Qty: 180 RF: 2 nitroglycerin 0.4 mg tablet, sublingual 0.4 mg SUBLINGUAL Q5M PRN (Reason: Chest Pain) Qty: 30 RF: 0 albuterol sulfate [Ventolin HFA] 90 mcg/actuation HFA aerosol inhaler 2 puff INHALATION Q6H PRN (Reason: Shortness Of Breath) Qty: 6.7 RF: 4 mupirocin 2 % ointment 1 applic topical BID Qty: 22 RF: 0 metolazone 2.5 mg tablet 2.5 mg PO DAILY Qty: 90 RF: 1 furosemide 40 mg tablet 40 mg PO BID Qty: 180 RF: 3 albuterol sulfate 2.5 mg /3 mL (0.083 %) solution for nebulization 2.5 mg INHALATION Q4H PRN (Reason: shortness of breath or wheezing) Qty: 75 RF: 6 (DME) powered scooter large See Rx Instructions .Route .MEDSUPPLY Qty: 1 RF: 0 meloxicam [Mobic] 15 mg tablet 15 mg PO DAILY Qty: 20 RF: 0 acetaminophen [Tylenol] 325 mg Tablet 325 mg PO QID MDD SEE PHARMACY COMMENT PRN (Reason: Pain) RF: 0 pyridoxine (vitamin B6) 25 mg tablet 25 mg PO DAILY RF: 0 sotalol 80 mg tablet 40 mg PO DAILY Qty: 30 RF: 3 Eliquis 2.5 mg tablet 2.5 mg PO BID Qty: 60 RF: 3 Coding Level of Care Code ED Project Manager Entertainment [employer] Media for Kieran Sanders
[2021-03-13 14:37] LABS: Basophils # 0.1 10^3/uL (0.0-0.1); Eosinophils # 0.2 10^3/uL (0.0-0.8); Hematocrit 40.4 % (42.0-52.0); Hemoglobin 13.2 g/dL (11.7-16.6); Lymphocytes # 1.6 10^3/uL (0.8-4.8); Lymphocytes % 16.8 %; Mean Corpuscular HGB Conc 32.7 g/dL (30.0-36.0); Mean Corpuscular Hemoglobin 29.3 pg (28.0-34.0); Mean Corpuscular Volume 89.8 fl (80-94); Mean Platelet Volume 11.8 fL (7.4-10.4); Monocytes % 10.5 %; Neutrophils # 6.43 10^3/uL (1.8-7.7); Neutrophils % 69.3 %; Nucleated Red Blood Cells % 0 %; Platelet Count 245 10^3/cmm (130-400); Red Cell Distribution Width 14.8 % (12.1-15.1); White Blood Count 9.3 10^3/uL (4.0-10.0)
[2021-03-13 15:08] VITALS: RESP 18
[2021-03-13 15:14] LABS: SARS Covid-2 Antigen Negative (Negative)
--- NOTE | 2021-03-13 15:59 | ECG_ITS ---
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 Measurements Intervals [place] Rate: 60 P: 34 DC: 191 QRS: 5 QRSD: 152 T: 31 QT: 477 QTc: 480 Interpretive Statements SINUS RHYTHM INDETERMINATE AXIS RIGHT BUNDLE BRANCH BLOCK [120+ ms QRS DURATION, UPRIGHT V1, 40+ ms S IN I/aVL/V4/V5/V6] Nonspecific ST change Compared to ECG 03/13/2021 14:30:44 No significant changes Electronically Signed On 03-13-2021 22:58:59 COLD STORAGE SUPERINTENDENT by Bobbi Galvez M.D. [id number]
[2021-03-13] MEDS: FUROsemide 10 mg/mL SDV 4mL 40 MG IVP (16:06)
[2021-03-13 16:20] LABS: Troponin(5th) Baseline 37 ng/L (0-15)
[2021-03-13 17:20] LABS: Alanine Aminotransferase 20 U/L (0-41); Albumin Level 3.9 g/dL (3.5-5.2); Alkaline Phosphatase 68 IU/L (40-130); Blood Urea Nitrogen 68 mg/dL (8-23); Calcium 10.1 mg/dL (8.5-10.5); Carbon Dioxide 21 mmol/L (22-29); Chloride 85 mmol/L (98-107); Globulin 3.8 g/dL (1.3-4.6); Glucose 128 mg/dL (65-115); NT Pro B Type Natriuretic Pept 1673 pg/mL (0-450); Osmolality Calculated 289 mOsm/kg (285-295); Sodium 129 mmol/L (136-145); Total Bilirubin 0.4 mg/dL (0.15-1.2); Total Protein 7.7 g/dL (6.6-8.7)
[2021-03-13 17:23] LABS: Anion Gap 27.3 (5-19); Aspartate Amino Transferase 39 U/L (0-40); Potassium 4.3 mmol/L (3.5-5.1)
[2021-03-13 18:47] LABS: Troponin 5 2HR 38.79 ng/L (0-15); Troponin 5 2HR Delta 1.79 ABS# (0-10)
--- NOTE | 2021-03-13 19:01 | P.HP_ITS ---
Providers/Chief Complaint Primary Care Provider: Shannan Ellis MD Chief Complaint: Fluid Build up History of Present Illness Very pleasant 80-year-old gentleman is accompanied in ER by his son, presenting due to progressive dyspnea, lower extremity edema with weeping over the last 2 weeks despite taking his medications including Lasix, metolazone, spironolactone. He has not been able to sleep well in the last 2-3 weeks, to the point that son reports he also is having intermittent hallucinations, like seeing a pill in his hand which is not there, or seeing a dog which is not there. No other medication changes apart from recent start of sotalol, Eliquis for atrial fibrillation. He is otherwise not forgetful. Reports orthopnea also for last several years. He does not normally wear oxygen. He wears CPAP at night for sleep apnea. Nausea and poor appetite in the last week. Review of Systems Const: Denies: fever(s), chills, body aches or malaise Eyes: Denies: change in vision or eye redness ENMT: Denies: throat pain, oral sores or ear or mastoid pain Card: Reports: edema, dyspnea on exertion and orthopnea; Denies: chest pain or pre-syncope Resp: Reports: dyspnea; Denies: productive cough, change in phlegm color or hemoptysis GI: Denies: abdominal pain, nausea, vomiting, diarrhea, constipation, hematochezia or melena : Denies: flank pain, difficulty urinating, urinary frequency or hematuria Musc: Denies: back pain, joint swelling or joint redness Skin/Breast: Reports: other (ulcerations BL LE, weeping); Denies: rash, sores or new lesions Neuro: Denies: headache(s), numbness in extremities, weakness in extremities, dizziness, confusion or seizure-like activity Endo: Denies: polyuria or polydipsia Jean/Lymph: Denies: easy bleeding or purpura All/Imm: Denies: urticaria, throat swelling or tongue swelling Medications/Allergies Home Medications Medication Instructions Recorded Confirmed Last Taken Type aspirin 81 mg chewable tablet 81 mg PO DAILY 05/08/19 03/11/21 01/13/21 History cholecalciferol (vitamin D3) 25 1,000 unit PO DAILY 05/08/19 03/11/21 01/13/21 History mcg (1,000 unit) capsule albuterol sulfate 2.5 mg INHALATION Q4H PRN #75 ml 10/06/19 03/11/21 01/13/21 Rx vit 1 cap PO DAILY 06/11/20 03/11/21 01/13/21 History C,E,zinc,Ol-cbonz-4-lutein-zeaxanthin 250 mg-2.5 mg-0.5 mg capsule cyanocobalamin (vitamin B-12) 2,500 mcg PO DAILY #90 tab 06/24/20 03/11/21 0 01/13/21 Rx 2,500 mcg tablet folic acid 800 mcg tablet 0.8 mg PO DAILY #90 tab 06/24/20 03/11/21 01/13/21 Rx spironolactone 25 mg tablet 25 mg PO BID 90 Days #180 tab 06/24/20 03/11/21 01/13/21 Rx triamcinolone acetonide 0.1 % 1 applic TOPICAL BID #454 g 06/24/20 03/11/21 01/13/21 Rx topical cream albuterol sulfate 90 mcg/actuation 2 puff INHALATION Q6H PRN #6.7 g 10/02/20 03/11/21 01/14/21 Rx aerosol inhaler nitroglycerin 0.4 mg sublingual 0.4 mg SUBLINGUAL Q5M PRN #30 tab 10/02/20 03/11/21 Unknown Rx tablet pantoprazole 40 mg tablet,delayed 40 mg PO BID #180 tab 10/02/20 03/11/21 01/13/21 Rx release potassium chloride 20 mEq 20 meq PO BID #180 tab 10/02/20 03/11/21 01/13/21 Rx tablet,extended release rosuvastatin 10 mg tablet 10 mg PO DAILY #90 tab 10/02/20 03/11/21 01/13/21 Rx powered scooter #1 ea 11/15/20 03/11/21 Unknown Rx Cam Boot to the left #1 ea 12/23/20 03/11/21 Unknown Rx budesonide-formoterol HFA 160 2 puff INHALATION BID #10.2 g 01/01/21 03/11/21 01/14/21 Rx mcg-4.5 mcg/actuation aerosol inhaler febuxostat 80 mg tablet 80 mg PO DAILY #30 tab 01/01/21 03/11/21 01/13/21 Rx meloxicam 15 mg tablet 15 mg PO DAILY #20 tab 01/02/21 03/11/21 Unknown Rx acetaminophen [Tylenol] 325 mg PO QID PRN MDD SEE PHARMACY 01/14/21 03/11/21 01/13/21 History COMMENT pyridoxine (vitamin B6) 25 mg PO DAILY 01/14/21 03/11/21 01/13/21 History apixaban [Eliquis] 2.5 mg PO BID #60 tab 01/19/21 03/11/21 Unknown Rx sotalol 40 mg PO DAILY #30 tab 01/19/21 03/11/21 Unknown Rx metolazone 2.5 mg tablet 2.5 mg PO DAILY #90 tab 01/24/21 03/11/21 Unknown Rx mupirocin 2 % topical ointment 1 applic TOPICAL BID #22 g 01/24/21 03/11/21 Unknown Rx furosemide 40 mg tablet 40 mg PO BID #180 tab 02/11/21 03/11/21 Unknown Rx Allergies Allergy/AdvReac Type Severity Reaction Status Date / Time iodine Allergy Severe Unknown Verified 03/11/21 11:38 amiodarone Allergy Mild RASH, Verified 03/11/21 11:38 SOB,Hypotension, PFSH Acute PFSH: Medical History Arteriosclerotic heart disease (ASHD) Atrial flutter with rapid ventricular response Cellulitis Chest pain Chronic kidney disease, stage 3 (moderate) Chronic obstructive pulmonary disease, unspecified Chronic shortness of breath Chronic systolic (congestive) heart failure Drug-induced chronic gout, unspecified wrist, without tophus (tophi) Dyspnea Encounter for counseling for care management of patient with chronic conditions and complex health needs using nurse-based model Essential (primary) hypertension Gastro-esophageal reflux disease without esophagitis Gout Leukocytosis Mixed hyperlipidemia Obesity Obstructive sleep apnea PSVT (paroxysmal supraventricular tachycardia) PSVT (paroxysmal supraventricular tachycardia) Tremor Umbilical hernia without obstruction or gangrene Vitamin B 12 deficiency Vitamin D deficiency Surgical History History of back surgery Hx of appendectomy Hx of CABG Patient had coronary bypass surgery on July 07, 2006 at a [facility]. This included left internal mammary to the LAD, single vein graft to the diagonal, single vein graft to the right posterior descending artery and sequential vein graft to the first and second marginal for a total of 5 bypasses. Family History Father Stroke Social History Quit status (tobacco): has quit using tobacco Year quit tobacco: 2007 - Chew x 60 Years Second hand smoke exposure: No Smoking risk assessment/counseling performed?: Yes Alcohol intake: never Desire information about alcohol rehabilitation?: No Counseling given: No Desire information about substance/drug rehabilitation?: No Counseling given: No Lives independently: Yes Household members: spouse Housing: House Marital status: service: No Current occupational status: retired Pets and animals: Yes History of recent travel: No Current gender identity: Male Vitals/I&O/Wt Last Vital Signs Temp 98.0 F 03/13/21 12:16 Pulse 68 03/13/21 12:16 Resp 18 03/13/21 15:08 Pulse Ox 97 03/13/21 12:16 Weight last 48 hrs Weight 102.058 kg Physical Exam Const: COMMON NORMALS: no acute distress and patient oriented x3 HENMT: COMMON NORMALS: oropharynx normal Resp: COMMON NORMALS: normal respiratory effort and clear to auscultation bilaterally AUSCULTATION: clear to auscultation bilaterally Cardio: COMMON NORMALS: no JVD, regular rhythm, S1 normal heart sound present, S2 normal heart sound present and No murmurs present (Cardio) RHYTHM: regular rhythm HEART SOUNDS: S1 normal heart sound present and S2 normal heart sound present GI: COMMON NORMALS: Normal to inspection, nondistended, normoactive bowel sounds present, Soft to palpation and non-tender PALPATION: Yes Soft to palpation Extremity: COMMON NORMALS: no joint enlargement GENERAL: Yes edema (3+ below knees, fluid filled blisters) Neuro: COMMON NORMALS: patient oriented x3 and moves all extremities Skin: COMMON NORMALS: no rashes or lesions noted OTHER: BL LE ulcerations Data : 03/13/21 14:14 03/13/21 15:22 A&P Assessment and plan (1) Acute diastolic CHF (congestive heart failure): Local response to diuretics at home, possibly multifactorial with progressive edema, got edema, also with LULU. Cardiomegaly on x-ray. Elevated NT proBNP. At this time will give a dose of albumin, received 80 mg IV Lasix in ER. Reassess tomorrow regarding further diuretics. Discussed with him and his son Parker catheter for I&O monitoring. Status: Acute (2) LULU (acute kidney injury): Possibly multifactorial secondary to NSAID use, as well as poor appetite with poor oral intake within the last week. Kidney ultrasound. Urine studies. Discontinue NSAID. Albumin fluid challenge. Regular diet as tolerating. Status: Acute (3) Severe edema: Secondary to CHF. Status: Acute (4) Leg ulcer: Bilateral lower extremity ulcers. With chronic edema. Status: Acute Additional A&P Information CAD, CABG history Atrial flutter CKD 3 HTN Gout HLD Obesity LELIA on nightly CPAP Other chronic conditions noted. Attestations Medical Necessity Statement*: Admission of over 2 midnights is good immediate versus management of acute CHF in the setting of acute kidney injury. Coding Level of Care Code Acute Blast Furnace Blower for Kieran Sanders Diagnoses Acute diastolic CHF (congestive heart failure) I50.31 LULU (acute kidney injury) N17.9 Severe edema R60.9 Leg ulcer L97.909
--- NOTE | 2021-03-13 19:59 | ECG_ITS ---
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 Measurements Intervals [place] Rate: 62 P: 47 [place]: 188 QRS: 13 QRSD: 149 T: 50 QT: 487 QTc: 495 Interpretive Statements SINUS RHYTHM INDETERMINATE AXIS RIGHT BUNDLE BRANCH BLOCK [120+ ms QRS DURATION, UPRIGHT V1, 40+ ms S IN I/aVL/V4/V5/V6] Compared to ECG 03/13/2021 15:35:10 No significant changes Electronically Signed On 03-13-2021 22:59:50 CONCIERGE MANAGER by Bobbi Galvez M.D. [id number]
[2021-03-13 20:05] VITALS: BP 92/63; PULSE 74; RESP 18; O2SAT 98
[2021-03-13 21:07] VITALS: BP 98/62; PULSE 65; RESP 16; O2SAT 98
[2021-03-13 21:42] VITALS: BMI 35.2
[2021-03-13 21:42] LABS: Troponin 5 6HR 36.87 ng/L (0-15)
[2021-03-13 21:43] LABS: Troponin 5 6HR Delta -0.13 ng/L (0-12)
[2021-03-13 22:00] VITALS: PULSE 66
[2021-03-13] MEDS: sotalol 80 mg Tablet 40 MG PO (22:25)
[2021-03-13 23:13] LABS: Urine Creatinine 77 mg/dL (39-259); Urine Random Sodium 52 mmol/L
[2021-03-13 23:22] LABS: Urea Nitrogen,Urine Random 359 mg/dL
[2021-03-13 23:46] VITALS: PULSE 61; RESP 18; O2SAT 97
[2021-03-14] VITALS (15 sets, daily range): BP systolic 87–142; BP diastolic 52–72; PULSE 57–73; RESP 13–22; TEMP 35.8–36.2; O2SAT 90–99
--- NOTE | 2021-03-14 00:12 | PC.NURSE ---
Patient c/o pain to legs, groin and abreu placement. Confirmed placement. Patient has cloudy, pale yellow urine present. Informed Dr Sánchez. Received telephone order for Morphine 2mg IVP q4hr as needed for pain.
[2021-03-14] MEDS: morphine 4 mg/mL SDV 1 mL 2 MG IVP ×2 (00:29→04:11)
[2021-03-14 05:03] LABS: Basophils # 0.1 10^3/uL (0.0-0.1); Basophils % 0.9 %; Eosinophils # 0.2 10^3/uL (0.0-0.8); Eosinophils % 1.7 %; Hematocrit 37.1 % (42.0-52.0); Hemoglobin 12.3 g/dL (11.7-16.6); Lymphocytes # 1.5 10^3/uL (0.8-4.8); Mean Corpuscular HGB Conc 33.2 g/dL (30.0-36.0); Mean Corpuscular Hemoglobin 29.9 pg (28.0-34.0); Mean Corpuscular Volume 90.3 fl (80-94); Mean Platelet Volume 11.1 fL (7.4-10.4); Monocytes # 1.2 10^3/uL (0.2-0.9); Monocytes % 11.9 %; Neutrophils # 7.09 10^3/uL (1.8-7.7); Neutrophils % 70.2 %; Nucleated Red Blood Cells % 0 %; Platelet Count 238 10^3/cmm (130-400); Red Blood Count 4.11 10^6/uL (4.1-5.3); Red Cell Distribution Width 14.6 % (12.1-15.1); White Blood Count 10.1 10^3/uL (4.0-10.0)
[2021-03-14 05:29] LABS: Alanine Aminotransferase 17 U/L (0-41); Alkaline Phosphatase 60 IU/L (40-130); Anion Gap 20.7 (5-19); Aspartate Amino Transferase 27 U/L (0-40); Blood Urea Nitrogen 74 mg/dL (8-23); Calcium 9.4 mg/dL (8.5-10.5); Carbon Dioxide 25 mmol/L (22-29); Chloride 85 mmol/L (98-107); Globulin 3.2 g/dL (1.3-4.6); Glucose 121 mg/dL (65-115); Osmolality Calculated 287 mOsm/kg (285-295); Potassium 3.7 mmol/L (3.5-5.1); Sodium 127 mmol/L (136-145); Total Bilirubin 0.6 mg/dL (0.15-1.2); Total Protein 7.2 g/dL (6.6-8.7)
[2021-03-14 08:25] LABS: Glucose Point of Care 142 mg/dL (70-110)
[2021-03-14 09:01] LABS: Add Urine Microscopic? YES; Bilirubin Urine 1+ (Negative); Blood Urine 3+ (Negative); Glucose Urine UA Norm (Normal); Ketones Urine Negative (Negative); Leukocyte Esterase Urine 2+ (Negative); Nitrate Urine Negative (Negative); Protein Urine Neg (Negative); Urine Appearance Bloody (CLEAR); Urine Color Red (Yellow); Urobilinogen Urine Norm (Negative); pH Urine 5 (5-7)
[2021-03-14] MEDS: FUROsemide 10 mg/mL SDV 10mL 60 MG IVP (09:16)
[2021-03-14] MEDS: apixaban 5 mg Tablet 2.5 MG PO ×2 (09:18→17:30)
[2021-03-14] MEDS: aspirin 81 mg Chew Tablet PO (09:18)
[2021-03-14] MEDS: pantoprazole DR 40 mg Tablet PO ×2 (09:19→17:30)
[2021-03-14] MEDS: atorvastatin 40 mg Tablet PO (09:19)
[2021-03-14 09:29] LABS: Add Urine Culture? Yes; Bacteria Urine 1+ /hpf; Hyaline Casts Urine 0-4 /lpf; RBC Urine >100 /hpf (0-2); Squamous Epithelial Cell Urine 0-4 /hpf (0-5); WBC Urine 25-40 /hpf (0-5)
[2021-03-14] MEDS: cefTRIAXone 1,000 MG in sodium chloride 0.9% (plus) 50 ML 100 MG IV (12:00)
--- NOTE | 2021-03-14 13:39 | PC.CHAP ---
Pastoral Care Encounter/Spiritual Assessment Type of Contact [] Declined glass washer and carrier visit [] Patient/Family/Request visit [] Outpatient visit [] Follow-up visit [] Physician referral [] Code/Alert [] Routine visit [] Staff referral [] Actively dying [] Patient sleeping [] Family support [] [] Out of room [] Palliative care [] [] Receiving care in room [] Pre-surgical visit [] Trauma [] Long length of stay [] ICU visit [xx] Other: Staff requested no visit this date. Relational/Emotional Strength [] Patient feels connected with others/family/visitors/staff [] Distress [] Loneliness/isolation [] Abandonment Spirituality of Patient [] Person of Viv [] Attends Episcopalian of their Viv [] Believes in Prayer [] Reads Bible or Yazdanism materials [] There are Spiritual issues to be addressed Saw Handle Assembler Interventions [] Prayer [] Active listening [] Non-anxious presence [] Spiritual/emotional support [] Crisis/trauma care [] Spiritual counseling [] Bereavement support [] Provided bereavement packet [] Provided Bible/devotional materials [] Provided toy/stuffed animal, coloring book to patient or family member [] Provided Communion [] Anointing/Earth [] Salvation [] Completed spiritual assessment [] Other: Impact on Illness or Injury [] Angry [] Fearful [] Anxious [] Often cries [] Exhaustion [] Unable to work [] Unable to attend religion [] Unable to walk/stand [] Unable to read [] Unable to drive [] Unable to eat/drink [] Unable to sleep [] Unable to be with family [] Patient intubated [] Other: Summary Follow up later Time spent with patient
--- NOTE | 2021-03-14 18:34 | PM.PN ---
Subjective Subjective: Interval history: Confused. Denies pain or discomfort. No shortness of breath. Vitals/I&O/Wt Last Vital Signs Temp 96.7 F L 03/14/21 16:00 Pulse 59 L 03/14/21 16:40 Resp 16 03/14/21 16:40 BP 101/57 03/14/21 16:00 Pulse Ox 94 03/14/21 16:40 03/14/21 03/14/21 03/14/21 06:59 14:59 22:59 Intake Total 100 / 100 0 / 0 Output Total 325 / 875 550 / 550 Balance -225 / -775 0 / 0 -550 / -550 Weight last 48 hrs Weight 97.069 kg Weight 102.058 kg Weight 102.058 kg Physical Exam Const: COMMON NORMALS: no acute distress and patient oriented x3 HENMT: COMMON NORMALS: oropharynx normal Neck/C-Spine: COMMON NORMALS: no JVD Resp: COMMON NORMALS: normal respiratory effort and clear to auscultation bilaterally AUSCULTATION: clear to auscultation bilaterally Cardio: COMMON NORMALS: no JVD, regular rhythm, S1 normal heart sound present, S2 normal heart sound present and No murmurs present (Cardio) RHYTHM: regular rhythm HEART SOUNDS: S1 normal heart sound present and S2 normal heart sound present GI: COMMON NORMALS: Normal to inspection, nondistended, normoactive bowel sounds present, Soft to palpation and non-tender PALPATION: Yes Soft to palpation Extremity: COMMON NORMALS: no joint enlargement GENERAL: Yes edema (3+ below knees, fluid filled blisters) Neuro: COMMON NORMALS: patient oriented x3 and moves all extremities Skin: COMMON NORMALS: no rashes or lesions noted GENERAL SKIN EXAM: no rashes or lesions noted OTHER: BL LE ulcerations Urinary Catheter Management^: Parker: Cath Placed During This Visit: yes Reason for Continuing Indwelling Catheter: Accurate Measurement of Urinary Output in Critically Ill Patients Urinary Catheter Date of Insertion: 03/13/21 Urinary Catheter Time of Insertion: 22:23 Data : 03/14/21 04:47 03/14/21 04:47 A&P Assessment and plan (1) Acute encephalopathy: Confused today. Going off on impossible to understand tangents. Echo encephalopathy possibly secondary infection, UA with more than 100 RBC, 25-40 WBC, no hydronephrosis on renal ultrasound. Started on Rocephin for UTI. Follow-up urine culture. Status: Acute (2) Acute diastolic CHF (congestive heart failure): In negative balance. Some improvement in acute kidney injury. Cautious diuresis, additional dose IV 60 mg Lasix x1 today. Reassess tomorrow. Creatinine today is 3.5. Given additional albumin. Local response to diuretics at home, possibly multifactorial with progressive edema, got edema, also with LULU. Cardiomegaly on x-ray. Elevated NT proBNP. Parker catheter for I&O monitoring. Status: Acute (3) LLUU (acute kidney injury): With noted some improvement, creatinine down to 3.5. Producing urine. Additional albumin today. Cautious diuresis for CHF. No obstruction on kidney ultrasound. Possibly multifactorial secondary to NSAID use, as well as poor appetite with poor oral intake within the last week. Urine with hyaline cast, coarse granular casts. Suspect ATN. Intrinsic renal failure as per FENa, prerenal suggested by FE urea. Add urine chloride, assess serum osm. Discontinue NSAID. Regular diet as tolerating. Status: Acute (4) Severe edema: Secondary to CHF. Status: Acute (5) Leg ulcer: Bilateral lower extremity ulcers. With chronic edema. Status: Acute (6) Hyponatremia: Suspected hypervolemic hyponatremia, although also in setting of LULU. Cautious diuresis. Regular diet. Reassess sodium. Request urine chloride. Serum awesome. Poor oral intake. Add supplements. Status: Acute Additional A&P Information CAD, CABG history Atrial flutter CKD 3 HTN Gout HLD Obesity LELIA on nightly CPAP Other chronic conditions noted. Attestations Medical Necessity Statement*: Continue admission for assessment of management of CHF in the setting of acute LULU. Acute encephalopathy, UTI. Coding Level of Care Code Acute Chief Program Officer for [facility] Diagnoses Acute encephalopathy G93.40 Acute diastolic CHF (congestive heart failure) I50.31 LULU (acute kidney injury) N17.9 Severe edema R60.9 Leg ulcer L97.909 Hyponatremia E87.1
--- NOTE | 2021-03-14 20:08 | PC.NURSE ---
Patient is currently alert to person and place only. Patient was frequently trying to get out of bed without assistance. Patient stated, my bottom is hurting me from laying in this bed so much. Patient assisted to chair and currently has chair alarm on.
[2021-03-14 20:45] LABS: Blood Urea Nitrogen 76 mg/dL (8-23); Calcium 9.7 mg/dL (8.5-10.5); Carbon Dioxide 21 mmol/L (22-29); Chloride 86 mmol/L (98-107); Glucose 130 mg/dL (65-115); Osmolality Calculated 290 mOsm/kg (285-295); Sodium 128 mmol/L (136-145)
[2021-03-14 20:49] LABS: Anion Gap 25.1 (5-19); Potassium 4.1 mmol/L (3.5-5.1)
--- NOTE | 2021-03-14 21:47 | US_ITS ---
WS: [id number] ULTRASOUND RENAL TECHNIQUE: Ultrasound examination of both kidneys. CLINICAL INFORMATION: LULU COMPARISON: None. FINDINGS: RIGHT: Right kidney is normal in size and appearance. Echogenicity: Normal. Cortical thickness: cm; Normal. Hydronephrosis: None. Perinephric fluid: None. Right kidney measures: 11.9 cm x 5.6 cm x 6.9 cm. LEFT: Left kidney is normal in size and appearance. Echogenicity: Normal. Cortical thickness: 1.9 cm; Normal. Hydronephrosis: None. Perinephric fluid: None. Left kidney measures: 11.2 cm x 5.2 cm x 6.4 cm. Aorta not well seen. Parker catheter US/US renal BI* [id number] IMPRESSION: 1. No hydronephrosis in either kidney. 2. Kidneys are otherwise normal in appearance. 3. Parker catheter in place.
--- NOTE | 2021-03-14 21:54 | PC.NURSE ---
Patient states, I can barely hold my eyes open. Patient assisted to bed, left side. Bed alarm set.
--- NOTE | 2021-03-14 22:15 | PC.NURSE ---
Patient stated that the bed was uncomfortable for him. Recliner placed in patient's room. Patient assisted to recliner with chair alarm on.
[2021-03-15] VITALS (15 sets, daily range): BP systolic 108–148; BP diastolic 52–76; PULSE 61–91; RESP 15–28; TEMP 36.3; O2SAT 92–97
--- NOTE | 2021-03-15 05:42 | PC.NURSE ---
Patient throughout shift x3 has yelled out, stating that he feels like he is falling. Patient is sitting or laying during these times and is not falling. Patient continually pulls of telemetry wires.
[2021-03-15] MEDS: morphine 4 mg/mL SDV 1 mL 2 MG IVP ×2 (05:46→17:35)
--- NOTE | 2021-03-15 05:55 | PC.NURSE ---
Patient assisted to recliner and back to bed left side lying x3 throughout shift. Patient c/o headache and body pain and asking for something for pain. PRN Morphine given. Will continue to monitor. Bed alarm set.
[2021-03-15] MEDS: albuterol 8 gm MDI 2 PUFF INHALATION (08:33)
[2021-03-15] MEDS: aspirin 81 mg Chew Tablet PO (09:23)
[2021-03-15] MEDS: atorvastatin 40 mg Tablet PO (09:23)
[2021-03-15] MEDS: pantoprazole DR 40 mg Tablet PO ×2 (09:23→17:36)
[2021-03-15] MEDS: apixaban 5 mg Tablet 2.5 MG PO ×2 (09:24→17:36)
[2021-03-15 11:22] LABS: Basophils # 0.1 10^3/uL (0.0-0.1); Basophils % 1.2 %; Eosinophils # 0.2 10^3/uL (0.0-0.8); Eosinophils % 2.2 %; Hemoglobin 12.7 g/dL (11.7-16.6); Lymphocytes # 1.4 10^3/uL (0.8-4.8); Lymphocytes % 15.8 %; Mean Corpuscular HGB Conc 32.6 g/dL (30.0-36.0); Mean Corpuscular Hemoglobin 29.6 pg (28.0-34.0); Mean Corpuscular Volume 90.9 fl (80-94); Mean Platelet Volume 11.4 fL (7.4-10.4); Monocytes % 11.3 %; Neutrophils # 6.19 10^3/uL (1.8-7.7); Neutrophils % 69.3 %; Nucleated Red Blood Cells % 0 %; Platelet Count 236 10^3/cmm (130-400); Red Blood Count 4.29 10^6/uL (4.1-5.3); Red Cell Distribution Width 14.7 % (12.1-15.1); White Blood Count 8.9 10^3/uL (4.0-10.0)
[2021-03-15 11:44] LABS: Alanine Aminotransferase 19 U/L (0-41); Albumin Level 4.1 g/dL (3.5-5.2); Alkaline Phosphatase 68 IU/L (40-130); Anion Gap 21.6 (5-19); Aspartate Amino Transferase 26 U/L (0-40); Blood Urea Nitrogen 66 mg/dL (8-23); Calcium 9.6 mg/dL (8.5-10.5); Carbon Dioxide 26 mmol/L (22-29); Chloride 88 mmol/L (98-107); Glucose 148 mg/dL (65-115); Magnesium 2.2 mg/dL (1.7-2.3); Osmolality Calculated 296 mOsm/kg (285-295); Potassium 3.6 mmol/L (3.5-5.1); Sodium 132 mmol/L (136-145); Total Bilirubin 0.5 mg/dL (0.15-1.2); Total Protein 7.1 g/dL (6.6-8.7)
[2021-03-15] MEDS: cefTRIAXone 1,000 MG in sodium chloride 0.9% (plus) 50 ML 100 MG IV (12:20)
[2021-03-15] MEDS: FUROsemide 10 mg/mL SDV 4mL 40 MG IVP (13:50)
[2021-03-15] MEDS: sotalol 80 mg Tablet 40 MG PO (20:40)
--- NOTE | 2021-03-15 21:53 | P.PN_ITS ---
Subjective Subjective: Interval history: Today he is much less confused. Son is at bedside. He denies chest pain or pressure. Denies trouble breathing. Son reports he has been falling recently, we are requesting PT and OT. Also report of cough, possible aspiration event earlier this morning. We are requesting ST. Vitals/I&O/Wt Last Vital Signs Temp 97.4 F L 03/15/21 08:00 Pulse 71 03/15/21 20:00 Resp 23 H 03/15/21 20:00 BP 118/73 03/15/21 20:00 Pulse Ox 95 03/15/21 20:00 03/15/21 03/15/21 03/15/21 06:59 14:59 22:59 Intake Total 50 / 50 360 / 410 Output Total 675 / 1225 820 / 820 Balance -675 / -935 50 / 50 -460 / -410 Weight last 48 hrs Weight 95.073 kg Weight 97.069 kg Physical Exam Const: COMMON NORMALS: no acute distress and patient oriented x3 HENMT: COMMON NORMALS: oropharynx normal Neck/C-Spine: COMMON NORMALS: no JVD Resp: COMMON NORMALS: normal respiratory effort and clear to auscultation bilaterally AUSCULTATION: clear to auscultation bilaterally Cardio: COMMON NORMALS: no JVD, regular rhythm, S1 normal heart sound present, S2 normal heart sound present and No murmurs present (Cardio) RHYTHM: regular rhythm HEART SOUNDS: S1 normal heart sound present and S2 normal heart sound present GI: COMMON NORMALS: Normal to inspection, nondistended, normoactive bowel sounds present, Soft to palpation and non-tender PALPATION: Yes Soft to palpation Extremity: COMMON NORMALS: no joint enlargement GENERAL: Yes edema (2+ below knees, resolved fluid filled blisters) Neuro: COMMON NORMALS: patient oriented x3 and moves all extremities Skin: COMMON NORMALS: no rashes or lesions noted GENERAL SKIN EXAM: no rashes or lesions noted OTHER: BL LE ulcerations Urinary Catheter Management^: Parker: Cath Placed During This Visit: yes Reason for Continuing Indwelling Catheter: Accurate Measurement of Urinary Output in Critically Ill Patients Urinary Catheter Date of Insertion: 03/13/21 Urinary Catheter Time of Insertion: 22:23 Data : 03/15/21 11:05 03/15/21 11:05 Micro: Microbiology 03/14/21 08:35 Urine Culture - Preliminary Urine,Clean Catch A&P Assessment and plan (1) Acute encephalopathy: Acute encephalopathy improving. Much less confused today. Pleasant, cooperative. Son at bedside. Continue treatment of UTI, CHF. Status: Acute (2) Acute diastolic CHF (congestive heart failure): Lower extremity edema is improving. Some worsening in renal function today, creatinine up to 3.6. Repeat additional albumin. Lasix IV 40 mg x 1. Lack of response to diuretics at home, possibly multifactorial with progressive edema, gut edema, also with LULU. Cardiomegaly on x-ray. Elevated NT proBNP. Parker catheter for I&O monitoring. Status: Acute (3) LULU (acute kidney injury): Improvement somewhat stalled. Creatinine 3.6. Additional albumin today. Cautious diuresis. No obstruction on kidney ultrasound. Possibly multifactorial secondary to NSAID use, as well as poor appetite with poor oral intake within the last week. Urine with hyaline cast, coarse granular casts. Suspect ATN. Intrinsic renal failure as per FENa, prerenal suggested by FE urea. Add urine chloride, assess serum osm. Discontinue NSAID. Regular diet as tolerating. Status: Acute (4) Severe edema: Secondary to CHF. Status: Acute (5) Leg ulcer: Bilateral lower extremity ulcers. With chronic edema. We are avoiding steroid cream. Should improve with improvement in edema. Status: Acute (6) Hyponatremia: Improving. Suspected hypervolemic hyponatremia, although also in setting of LULU. Cautious diuresis. Regular diet. Reassess sodium. Request urine chloride. Serum osmole. Poor oral intake. Add supplements. Status: Acute Additional A&P Information Possible aspiration: With episode of cough today earlier in the morning. Requesting speech therapy assessment. CAD, CABG history Atrial flutter CKD 3 HTN Gout HLD Obesity LELIA on nightly CPAP Other chronic conditions noted. Attestations Medical Necessity Statement*: Continue admission for management of acute CHF unresponsive to outpatient treatment, complicated by acute kidney injury, improving acute encephalopathy, treatment of UTI. Coding Level of Care Code Acute Doughnut Glazier for Kieran Sanders Diagnoses Acute encephalopathy G93.40 Acute diastolic CHF (congestive heart failure) I50.31 LULU (acute kidney injury) N17.9 Severe edema R60.9 Leg ulcer L97.909 Hyponatremia E87.1
[2021-03-16] VITALS (20 sets, daily range): BP systolic 108–147; BP diastolic 52–80; PULSE 54–85; RESP 14–26; TEMP 36.1–36.3; O2SAT 91–100
[2021-03-16] MEDS: morphine 4 mg/mL SDV 1 mL 2 MG IVP (01:20)
[2021-03-16 06:31] LABS: Basophils # 0.1 10^3/uL (0.0-0.1); Basophils % 0.9 %; Eosinophils # 0.2 10^3/uL (0.0-0.8); Eosinophils % 2.7 %; Hematocrit 38.1 % (42.0-52.0); Hemoglobin 12.2 g/dL (11.7-16.6); Lymphocytes % 25.2 %; Mean Corpuscular Hemoglobin 29.4 pg (28.0-34.0); Mean Corpuscular Volume 91.8 fl (80-94); Mean Platelet Volume 11.2 fL (7.4-10.4); Monocytes # 0.9 10^3/uL (0.2-0.9); Monocytes % 11.9 %; Neutrophils # 4.57 10^3/uL (1.8-7.7); Neutrophils % 58.9 %; Nucleated Red Blood Cells % 0 %; Platelet Count 238 10^3/cmm (130-400); Red Blood Count 4.15 10^6/uL (4.1-5.3); Red Cell Distribution Width 14.8 % (12.1-15.1); White Blood Count 7.8 10^3/uL (4.0-10.0)
[2021-03-16 06:54] LABS: Alanine Aminotransferase 16 U/L (0-41); Alkaline Phosphatase 73 IU/L (40-130); Anion Gap 19.1 (5-19); Aspartate Amino Transferase 20 U/L (0-40); Blood Urea Nitrogen 71 mg/dL (8-23); Calcium 9.2 mg/dL (8.5-10.5); Carbon Dioxide 28 mmol/L (22-29); Chloride 94 mmol/L (98-107); Globulin 3.6 g/dL (1.3-4.6); Glucose 138 mg/dL (65-115); Magnesium 2.3 mg/dL (1.7-2.3); Osmolality Calculated 309 mOsm/kg (285-295); Potassium 3.1 mmol/L (3.5-5.1); Sodium 138 mmol/L (136-145); Total Bilirubin 0.3 mg/dL (0.15-1.2); Total Protein 7.6 g/dL (6.6-8.7)
--- NOTE | 2021-03-16 08:00 | PC.SOCIAL ---
IMM Update Pg. 2 of IMM updated and reviewed with patient, who verbalized understanding. Copy provided.
--- NOTE | 2021-03-16 08:38 | PC.NURSE ---
Around 0830: Received medication orders from Dr. Palacios, Hospitalist. See, MAR. Orders received to dress wounds to lower extremities with non-adhesive dressings as needed.
[2021-03-16] MEDS: pantoprazole DR 40 mg Tablet PO ×2 (09:58→17:59)
[2021-03-16] MEDS: aspirin 81 mg Chew Tablet PO (09:58)
[2021-03-16] MEDS: apixaban 5 mg Tablet 2.5 MG PO ×2 (09:58→17:59)
[2021-03-16] MEDS: potassium chloride ER 20 mEq Tablet PO (09:59)
[2021-03-16] MEDS: atorvastatin 40 mg Tablet PO (09:59)
[2021-03-16] MEDS: FUROsemide 10 mg/mL SDV 4mL 40 MG IVP (10:00)
--- NOTE | 2021-03-16 10:10 | PC.NURSE ---
Pt sitting up in chair eating breakfast. Pt resp even and non-labored no distress noted. Pt had no c/o pain or discomfort at the present time. Chair alarm set. No needs voiced. Call light in reach. Will cont to monitor.
[2021-03-16 10:34] LABS: Urine Random Chloride 61 mmol/L
[2021-03-16] MEDS: cefTRIAXone 1,000 MG in sodium chloride 0.9% (plus) 50 ML 100 MG IV (12:58)
--- NOTE | 2021-03-16 16:20 | P.PN_ITS ---
Subjective Subjective: Interval history: Confusion appears to be improving. Today he appears oriented x3. Calm. Denies chest pain or pressure. No nausea or vomiting. No abdominal discomfort. Swelling persists in lower extremities. Vitals/I&O/Wt Last Vital Signs Temp 97.0 F L 03/16/21 04:00 Pulse 80 03/16/21 14:43 Resp 18 03/16/21 14:43 BP 138/62 03/16/21 04:00 Pulse Ox 93 03/16/21 14:43 03/16/21 03/16/21 03/16/21 06:59 14:59 22:59 Intake Total 200 / 710 Output Total 700 / 1520 Balance -500 / -810 Weight last 48 hrs Weight 94.529 kg Weight 95.073 kg Physical Exam Const: COMMON NORMALS: no acute distress and patient oriented x3 HENMT: COMMON NORMALS: oropharynx normal Neck/C-Spine: COMMON NORMALS: no JVD Resp: COMMON NORMALS: normal respiratory effort and clear to auscultation bilaterally AUSCULTATION: clear to auscultation bilaterally Cardio: COMMON NORMALS: no JVD, regular rhythm, S1 normal heart sound present, S2 normal heart sound present and No murmurs present (Cardio) RHYTHM: regular rhythm HEART SOUNDS: S1 normal heart sound present and S2 normal heart sound present GI: COMMON NORMALS: Normal to inspection, nondistended, normoactive bowel sounds present, Soft to palpation and non-tender PALPATION: Yes Soft to palpation Extremity: COMMON NORMALS: no joint enlargement GENERAL: Yes edema (2+ below knees, resolved fluid filled blisters) Neuro: COMMON NORMALS: patient oriented x3 and moves all extremities Skin: COMMON NORMALS: no rashes or lesions noted GENERAL SKIN EXAM: no rashes or lesions noted OTHER: BL LE ulcerations Urinary Catheter Management^: Parker: Cath Placed During This Visit: yes Reason for Continuing Indwelling Catheter: Accurate Measurement of Urinary Output in Critically Ill Patients Urinary Catheter Date of Insertion: 03/13/21 Urinary Catheter Time of Insertion: 22:23 Data : 03/16/21 06:18 03/16/21 06:18 Micro: Microbiology 03/14/21 08:35 Urine Culture - Final Urine,Clean Catch A&P Assessment and plan (1) Acute encephalopathy: Acute encephalopathy related to urinary tract infection. Improving. Today he is oriented x3. He is doing better. Urinalysis suggestive of UTI, although urine culture without growth. Given his symptoms and improvement after initiation of treatment will complete a brief course of antibiotic. Status: Acute (2) Acute diastolic CHF (congestive heart failure): His renal function is gradually improving and creatinine down to 2.9. Appears he has been responding well to albumin plus Lasix. Will repeat again additional albumin dose and Lasix IV 40 mg today. Reassess renal function, volume status given edema still persist. May benefit from additional 1-2 days of diuresis that hopefully may be able to transition to oral therapy if renal function and edema continue to improve. Recently with some falling noted at home, assessed by PT. Ambulated 25 feet, fatigue, but declines consideration of residential for rehabilitation. Should continue home exercise program. Lack of response to diuretics at home, possibly multifactorial with progressive edema, gut edema, also with LULU. At presentation cardiomegaly on x-ray. Elevated NT proBNP. Parker catheter for I&O monitoring. Status: Acute (3) LULU (acute kidney injury): Additional improvement in renal function. Repeat albumin. Continue cautious diuresis. No obstruction on kidney ultrasound. Possibly multifactorial secondary to NSAID use, as well as poor appetite with poor oral intake within the last week. Urine with hyaline cast, coarse granular casts. Suspect ATN. Intrinsic renal failure as per FENa, prerenal suggested by FE urea. Add urine chloride, assess serum osm. Discontinue NSAID. Regular diet as tolerating. Status: Acute (4) Severe edema: Secondary to CHF. Consider venous duplex with reflux studies at discharge to closer assess for component of venous stasis with chronic ulceration as well, consideration wheth er may benefit from ablation therapy. Status: Acute (5) Leg ulcer: Bilateral lower extremity ulcers. With chronic edema. We are avoiding steroid cream. Should improve with improvement in edema. Status: Acute (6) Hyponatremia: Resolved. Suspected hypervolemic hyponatremia, although also in setting of LULU. Cautious diuresis. Regular diet. Reassess sodium. Request urine chloride. Serum osmole. Poor oral intake. Add supplements. Status: Acute Additional A&P Information Possible aspiration: With episode of cough today earlier in the morning. Requested speech therapy assessment. CAD, CABG history Atrial flutter CKD 3 HTN Gout HLD Obesity LELIA on nightly CPAP Other chronic conditions noted. Attestations Medical Necessity Statement*: Continue admission for assessment management of CHF exacerbation in setting of LULU on CKD. Coding Level of Care Code Acute Biztalk Administrator for [facility] Diagnoses Acute encephalopathy G93.40 Acute diastolic CHF (congestive heart failure) I50.31 LULU (acute kidney injury) N17.9 Severe edema R60.9 Leg ulcer L97.909 Hyponatremia E87.1
--- NOTE | 2021-03-16 21:31 | PC.NURSE ---
applied zinc oxide cream to patients lower legs, 2 stasis ulcers to the right lower leg and one to the left lower leg, all three are about a inch and 1/2 in diameter.
[2021-03-16] MEDS: acetaminophen 325 mg Tablet 650 MG PO (22:50)
[2021-03-17] VITALS (17 sets, daily range): BP systolic 128–147; BP diastolic 73–80; PULSE 59–106; RESP 16–26; TEMP 36.2–36.6; O2SAT 94–100
[2021-03-17] MEDS: morphine 4 mg/mL SDV 1 mL 2 MG IVP ×3 (00:26→22:36)
[2021-03-17 05:24] LABS: Basophils # 0.1 10^3/uL (0.0-0.1); Basophils % 0.9 %; Eosinophils # 0.2 10^3/uL (0.0-0.8); Eosinophils % 2.6 %; Hematocrit 39.7 % (42.0-52.0); Hemoglobin 12.8 g/dL (11.7-16.6); Lymphocytes # 2.3 10^3/uL (0.8-4.8); Lymphocytes % 24.3 %; Mean Corpuscular HGB Conc 32.2 g/dL (30.0-36.0); Mean Corpuscular Hemoglobin 29.6 pg (28.0-34.0); Mean Corpuscular Volume 91.9 fl (80-94); Mean Platelet Volume 11.5 fL (7.4-10.4); Monocytes % 10.6 %; Neutrophils # 5.76 10^3/uL (1.8-7.7); Neutrophils % 61.3 %; Nucleated Red Blood Cells % 0 %; Platelet Count 263 10^3/cmm (130-400); Red Blood Count 4.32 10^6/uL (4.1-5.3); Red Cell Distribution Width 14.8 % (12.1-15.1); White Blood Count 9.4 10^3/uL (4.0-10.0)
[2021-03-17 06:02] LABS: Alanine Aminotransferase 18 U/L (0-41); Albumin Level 4.4 g/dL (3.5-5.2); Alkaline Phosphatase 67 IU/L (40-130); Anion Gap 19.2 (5-19); Aspartate Amino Transferase 23 U/L (0-40); Blood Urea Nitrogen 67 mg/dL (8-23); Calcium 9.7 mg/dL (8.5-10.5); Carbon Dioxide 27 mmol/L (22-29); Chloride 93 mmol/L (98-107); Globulin 3.6 g/dL (1.3-4.6); Glucose 134 mg/dL (65-115); Magnesium 2.2 mg/dL (1.7-2.3); Osmolality Calculated 303 mOsm/kg (285-295); Potassium 3.2 mmol/L (3.5-5.1); Sodium 136 mmol/L (136-145); Total Bilirubin 0.4 mg/dL (0.15-1.2)
[2021-03-17] MEDS: apixaban 5 mg Tablet 2.5 MG PO ×2 (08:25→18:43)
[2021-03-17] MEDS: atorvastatin 40 mg Tablet PO (08:25)
[2021-03-17] MEDS: aspirin 81 mg Chew Tablet PO (08:25)
[2021-03-17] MEDS: pantoprazole DR 40 mg Tablet PO ×2 (08:25→18:43)
--- NOTE | 2021-03-17 09:28 | PC.OT ---
OT TREATMENT PLAN ADJUSTED TO REFLECT WEDNESDAY-WEDNESDAY TREATMENT 5X WEEK. WITH PERMISSION OF EVALUATING THERAPIST
--- NOTE | 2021-03-17 09:29 | PC.CHAP ---
Pastoral Care Encounter/Spiritual Assessment Type of Contact [] Declined lead front end developer visit [] Patient/Family/Request visit [] Outpatient visit [] Follow-up visit [] Physician referral [] Code/Alert [x] Routine visit [] Staff referral [] Actively dying [x] Patient sleeping [] Family support [] [] Out of room [] Palliative care [] [x] Receiving care in room [] Pre-surgical visit [] Trauma [] Long length of stay [] ICU visit [] Other: Relational/Emotional Strength [] Patient feels connected with others/family/visitors/staff [] Distress [] Loneliness/isolation [] Abandonment Spirituality of Patient [] Person of Viv [] Attends Faith of their Viv [] Believes in Prayer [] Reads Bible or Mosque materials [] There are Spiritual issues to be addressed Combination Welder Apprentice Interventions [x] Prayer [] Active listening [] Non-anxious presence [] Spiritual/emotional support [] Crisis/trauma care [] Spiritual counseling [] Bereavement support [] Provided bereavement packet [] Provided Bible/devotional materials [] Provided toy/stuffed animal, coloring book to patient or family member [] Provided Communion [] Anointing/[place] [] Salvation [x] Completed spiritual assessment [] Other: Impact on Illness or Injury [] Angry [] Fearful [] Anxious [] Often cries [] Exhaustion [] Unable to work [] Unable to attend scientologist [] Unable to walk/stand [] Unable to read [] Unable to drive [] Unable to eat/drink [] Unable to sleep [] Unable to be with family [] Patient intubated [] Other: Summary Time spent with patient
[2021-03-17] MEDS: albuterol 8 gm MDI 2 PUFF INHALATION (09:30)
[2021-03-17 10:22] LABS: Iron 41 ug/dL (59-158); NT Pro B Type Natriuretic Pept 2704 pg/mL (0-450); Percent Saturation 12.7 % (20-50); Total Iron Binding Capacity 321 mcg/dl; Unsaturated Iron Binding 280 ug/dL (112-347)
[2021-03-17 10:23] LABS: Folate Level 10.3 ng/mL (4.5-32.2)
[2021-03-17] MEDS: FUROsemide 10 mg/mL SDV 4mL 40 MG IVP ×2 (13:32→19:33)
[2021-03-17] MEDS: b-complex-vitamin c Tablet 1 EACH PO (13:32)
[2021-03-17] MEDS: cefTRIAXone 1,000 MG in sodium chloride 0.9% (plus) 50 ML 100 MG IV (13:32)
[2021-03-17 13:38] LABS: Vitamin B12 > 2000 pg/mL (232-1245)
[2021-03-17] MEDS: magnesium hydroxide 30 mL UDC PO (13:42)
--- NOTE | 2021-03-17 15:42 | PM.PN ---
Subjective Subjective: Interval history: Hospital course, labs appreciated. Examination today working with physical therapy. Patient is awake alert oriented. Denies any nausea vomiting, headache. Has remained afebrile. Currently on room air satting 95%. As per physical therapist walked up to 100 feet without difficulty. Patient denies any difficulty in breathing. Vitals/I&O/Wt Last Vital Signs Temp 97.2 F L 03/17/21 08:00 Pulse 79 03/17/21 12:00 Resp 20 H 03/17/21 12:00 BP 143/73 03/17/21 12:00 Pulse Ox 98 03/17/21 12:00 03/17/21 03/17/21 03/17/21 06:59 14:59 22:59 Intake Total 150 / 560 Output Total 400 / 1400 Balance -250 / -840 Weight last 48 hrs Weight 95.254 kg Weight 94.529 kg Physical Exam Const: COMMON NORMALS: no acute distress and patient oriented x3 HENMT: COMMON NORMALS: oropharynx normal Neck/C-Spine: COMMON NORMALS: no JVD Resp: COMMON NORMALS: normal respiratory effort and clear to auscultation bilaterally AUSCULTATION: clear to auscultation bilaterally Cardio: COMMON NORMALS: no JVD, regular rhythm, S1 normal heart sound present, S2 normal heart sound present and No murmurs present (Cardio) RHYTHM: regular rhythm HEART SOUNDS: S1 normal heart sound present and S2 normal heart sound present GI: COMMON NORMALS: Normal to inspection, nondistended, normoactive bowel sounds present, Soft to palpation and non-tender PALPATION: Yes Soft to palpation Extremity: COMMON NORMALS: no joint enlargement GENERAL: Yes edema (2+ below knees, resolved fluid filled blisters) Neuro: COMMON NORMALS: patient oriented x3 and moves all extremities Skin: COMMON NORMALS: no rashes or lesions noted GENERAL SKIN EXAM: no rashes or lesions noted OTHER: BL LE ulcerations Urinary Catheter Management^: Parker: Cath Placed During This Visit: yes Reason for Continuing Indwelling Catheter: Accurate Measurement of Urinary Output in Critically Ill Patients Urinary Catheter Date of Insertion: 03/13/21 Urinary Catheter Time of Insertion: 22:23 Data : 03/17/21 04:29 03/17/21 04:29 A&P Assessment and plan (1) Acute encephalopathy: Acute encephalopathy related to urinary tract infection causing worsening possible underlying dementia. Improving. Currently AOx3. Does have episode of forgetfulness. Continue ceftriaxone to finish a 5-day course. Last dose March 19. Status: Acute (2) Acute diastolic CHF (congestive heart failure): Recent echocardiogram in January 2021 shows an EF 55% with abnormal septal motion with normal right ventricular systolic and diastolic function consistent with diastolic heart failure. Takes Lasix 40 mg twice daily and metolazone 2.5 mg daily at home. Currently on room air. Check proBNP. Most likely close to euvolemic. IV Lasix 40 mg twice daily. Fluid restriction up to 1500 cc. Lack of response to diuretics at home, possibly multifactorial with progressive edema, gut edema, also with LULU. At presentation cardiomegaly on x-ray. Elevated NT proBNP. Parker catheter for I&O monitoring. Status: Acute (3) LULU (acute kidney injury): Most likely multifactorial secondary to NSAID use, dehydration from poor appetite and home aggressive diuresis. Baseline creatinine ranging from 1.5-2.1 was in this ER. Trending down in this admission from 4-2.8 currently. Urinalysis and urine lites appreciated. fena-1.8 consistent with intrinsic. Cannot rule out secondary to mild CRS. Patient's albumin today 4.4. IV Lasix 40 mg twice daily. Strict input output charting. Depending on the urine output will dose metolazone accordingly. Status: Acute (4) Severe edema: Second to congestive heart failure. Wound dressing with zinc oxide. Lymphedema wraps. Status: Acute (5) Leg ulcer: Bilateral lower extremity ulcers. With chronic edema. We are avoiding steroid cream. Should improve with improvement in edema. Status: Acute (6) Hyponatremia: Resolved. Suspected hypervolemic hyponatremia, although also in setting of LULU. Cautious diuresis. Regular diet. Reassess sodium. Request urine chloride. Serum osmole. Poor oral intake. Add supplements. Status: Acute Additional A&P Information Possible aspiration: With episode of cough today earlier in the morning. Requested speech therapy assessment. CAD, CABG history Atrial flutter CKD 3 HTN Gout HLD Obesity LELIA on nightly CPAP Other chronic conditions noted. Full code. Renal nondialysis diet Eliquis 2.5 mg twice daily will help with DVT prophylaxis. Famotidine for PUD prophylaxis. Discharge planning:Recently with some falling noted at home, assessed by PT. Ambulated 50 feet, fatigue, but declines consideration of custodial for rehabilitation. Should continue home exercise program. Attestations Medical Necessity Statement*: Requires further hospitalization for management of acute diastolic heart failure, acute kidney injury with mild UTI Time Spent in Patient Care: Greater than 35 minutes (>than 50% of time spent in counselling and/or direct pt care on unit). Coding Level of Care Code Acute Truck Service Manager for Kieran Martind Diagnoses Acute encephalopathy G93.40 Acute diastolic CHF (congestive heart failure) I50.31 LULU (acute kidney injury) N17.9 Severe edema R60.9 Leg ulcer L97.909 Hyponatremia E87.1
[2021-03-17] MEDS: ferrous gluconate 324 mg Tablet PO (18:43)
[2021-03-17] MEDS: sotalol 80 mg Tablet 40 MG PO (19:33)
[2021-03-17] MEDS: acetaminophen 325 mg Tablet 650 MG PO (20:44)
--- NOTE | 2021-03-18 02:14 | PC.NURSE ---
Patient has been assisted from chair to bed multiple times. Patient sleeps for short periods of time, then wakes up and wants to sit on the side of the bed or in the chair. Patient's bed alarm frequently goes off and patient frequently requires assistance.
--- NOTE | 2021-03-18 02:34 | PC.NURSE ---
Patient is very confused at this time. Patient is very restless and paranoid. CONSTRUCTION OR LEAK GANG LABORER currently at bedside with patient.
--- NOTE | 2021-03-18 02:57 | PC.NURSE ---
Dr. Fitzgerald notified of patient become more confused, very restless, and slightly agitated. Haldol PRN ordered.
[2021-03-18] MEDS: magnesium hydroxide 30 mL UDC PO (03:12)
[2021-03-18] MEDS: haloperidol inj 5 mg/mL INJ 1 mL IVP (03:13)
--- NOTE | 2021-03-18 03:15 | PC.NURSE ---
Addendum entered by Sonya Bhatti RN 03/18/21 03:16: When CLINICAL TRIALS MANAGER attempts to put telemetry wires back on, patient becomes agitated with staff. Patient has NOT become combative so far. Original Note: Patient refusing to wear telemetry wires at this time. Patient unable to comprehend education at this time.
[2021-03-18 03:40] VITALS: BP 152/83; PULSE 63; RESP 15; O2SAT 96
--- NOTE | 2021-03-18 03:48 | PC.NURSE ---
Patient's bed alarm frequently goes off. Patient is frequently back and forth from bed to chair. Due to high fall risk and confusion and patient being unable to comprehend education and safety measures, one on one sitter order obtained from Dr. Fitzgerald.
[2021-03-18 05:30] VITALS: PULSE 70
[2021-03-18 06:00] LABS: Basophils # 0.1 10^3/uL (0.0-0.1); Eosinophils # 0.2 10^3/uL (0.0-0.8); Eosinophils % 2.3 %; Hematocrit 39.6 % (42.0-52.0); Lymphocytes % 24.1 %; Mean Corpuscular HGB Conc 32.8 g/dL (30.0-36.0); Mean Corpuscular Hemoglobin 29.5 pg (28.0-34.0); Mean Platelet Volume 11.4 fL (7.4-10.4); Monocytes % 12.1 %; Neutrophils # 4.92 10^3/uL (1.8-7.7); Neutrophils % 60.3 %; Nucleated Red Blood Cells % 0 %; Platelet Count 269 10^3/cmm (130-400); Red Cell Distribution Width 14.5 % (12.1-15.1); White Blood Count 8.2 10^3/uL (4.0-10.0)
[2021-03-18 06:36] LABS: Alanine Aminotransferase 21 U/L (0-41); Albumin Level 4.1 g/dL (3.5-5.2); Alkaline Phosphatase 63 IU/L (40-130); Aspartate Amino Transferase 26 U/L (0-40); Blood Urea Nitrogen 57 mg/dL (8-23); Carbon Dioxide 25 mmol/L (22-29); Chloride 88 mmol/L (98-107); Chol HDL Ratio 3.44 mg/dL (1.0-5.00); Cholesterol 124 mg/dL (0-200); Globulin 3.4 g/dL (1.3-4.6); Glucose 157 mg/dL (65-115); HDL Cholesterol 36 mg/dL (60-100); LDL Cholesterol Calculated 56 mg/dL (50-129); Osmolality Calculated 297 mOsm/kg (285-295); Sodium 134 mmol/L (136-145); Total Bilirubin 0.4 mg/dL (0.15-1.2); Total Protein 7.5 g/dL (6.6-8.7); Triglycerides 161 mg/dL (0-150); VLDL Cholestrol Calculation 32 mg/dL (0-30)
[2021-03-18 07:05] LABS: Estmated Average Glucose 171; Hemoglobin A1C 7.6 % (4.0-6.0)
[2021-03-18 08:00] VITALS: BP 114/82; PULSE 70; RESP 18; TEMP 36.7; O2SAT 96
[2021-03-18] MEDS: albuterol 8 gm MDI 2 PUFF INHALATION (08:22)
[2021-03-18 08:23] VITALS: PULSE 63; RESP 16; O2SAT 97
[2021-03-18] MEDS: apixaban 5 mg Tablet 2.5 MG PO (08:43)
[2021-03-18] MEDS: pantoprazole DR 40 mg Tablet PO (08:44)
[2021-03-18] MEDS: ferrous gluconate 324 mg Tablet PO (08:44)
[2021-03-18] MEDS: b-complex-vitamin c Tablet 1 EACH PO (08:44)
[2021-03-18] MEDS: atorvastatin 40 mg Tablet PO (08:44)
[2021-03-18] MEDS: aspirin 81 mg Chew Tablet PO (08:44)
[2021-03-18] MEDS: FUROsemide 10 mg/mL SDV 4mL 40 MG IVP (08:44)
--- NOTE | 2021-03-18 10:27 | P.DS_ITS ---
Discharge Providers Date of Admission: 03/13/21 19:33 Date of Discharge: March 18, 2021 Attending Provider at Admission: Giuseppe Palacios Attending Provider at Discharge: Juan Blackwell MD Primary Care Provider: Shannan Ellis MD Diagnoses at Discharge Discharge Diagnosis (1) Acute encephalopathy: Status: Acute (2) Acute diastolic CHF (congestive heart failure): Status: Acute (3) LULU (acute kidney injury): Status: Acute (4) Severe edema: Status: Acute (5) Leg ulcer: Status: Acute (6) Hyponatremia: Status: Acute Reason for Visit Reason for Visit: Fluid Build up Hospital Course Hospital Course As per the H&P. Very pleasant 80-year-old gentleman is accompanied in ER by his son, presenting due to progressive dyspnea, lower extremity edema with weeping over the last 2 weeks despite taking his medications including Lasix, metolazone, spironolactone. He has not been able to sleep well in the last 2-3 weeks, to the point that son reports he also is having intermittent hallucinations, like seeing a pill in his hand which is not there, or seeing a dog which is not there. No other medication changes apart from recent start of sotalol, Eliquis for atrial fibrillation. He is otherwise not forgetful. Reports orthopnea also for last several years. He does not normally wear oxygen. He wears CPAP at night for sleep apnea. Patient was admitted to the hospital for further work-up and management. He was found to be in acute diastolic heart failure with acute on chronic kidney injury which is believed most likely secondary to use of NSAID at home along with poor oral intake and multiple diuretics. Patient was started on IV diuretics and UA done on admission was concerning for mild UTI for which he was started on IV ceftriaxone. Patient did have episode of confusion during hospitalization which is believed most likely secondary to worse kidney functions, advancing dementia and mild UTI. Encephalopathy improved with treatment and frequent reorientation and patient is back to back to baseline. Patient has been working well with physical therapy and has been advised home exercise program. Review of echocardiogram showed EF of 55% with abnormal septal motion and right normal ventricle systolic and diastolic function consistent with diastolic dysfunction of the heart. Patient is been discharged in hemodynamically stable condition on home exercise program on oral Lasix 60 mg twice daily. His home dose of metolazone and spironolactone for now have been withheld given stable cardiac functions. He has been advised to continue with fluid restriction up to 1500 cc at home along with 2 to 3 g of salt daily salt intake. He is advised to follow-up with his primary care provider within next 7 to 10 days for repeat BMP. He is advised to use zinc oxide and lymphedema wraps for legs. Physical Exam Const: COMMON NORMALS: no acute distress and patient oriented x3 HENMT: COMMON NORMALS: oropharynx normal Neck/C-Spine: COMMON NORMALS: no JVD Resp: COMMON NORMALS: normal respiratory effort and clear to auscultation bilaterally AUSCULTATION: clear to auscultation bilaterally Cardio: COMMON NORMALS: no JVD, regular rhythm, S1 normal heart sound present, S2 normal heart sound present and No murmurs present (Cardio) RHYTHM: regular rhythm HEART SOUNDS: S1 normal heart sound present and S2 normal heart sound present GI: COMMON NORMALS: Normal to inspection, nondistended, normoactive bowel sounds present, Soft to palpation and non-tender PALPATION: Yes Soft to palpation Extremity: COMMON NORMALS: no joint enlargement GENERAL: Yes edema (2+ below knees, resolved fluid filled blisters) Neuro: COMMON NORMALS: patient oriented x3 and moves all extremities Skin: COMMON NORMALS: no rashes or lesions noted GENERAL SKIN EXAM: no rashes or lesions noted OTHER: BL LE ulcerations Urinary Catheter Management^: Parker: Cath Placed During This Visit: yes Reason for Continuing Indwelling Catheter: Acute Urinary Retention or Obstruction Urinary Catheter Date of Insertion: 03/13/21 Urinary Catheter Time of Insertion: 22:23 Discharge Data Data Completed and Pending: Completed Studies During Hospitalization Category Date Time Status XR chest 1V radha ble [id number] Urgent Exams 03/13/21 11:51 Completed US renal BI* [id number] Routine Ultrasound 03/14/21 21:47 Completed Pending at discharge Category Date Time Status Complete Blood Co unt w/Auto AM LABS Lab 03/19/21 04:00 Ordered Comprehensive Met abolic Panel AM LA BS Lab 03/19/21 04:00 Ordered Osmolality Serum Routine Lab 03/14/21 18:43 Received Labs from last 24 hours 03/18/21 03/18/21 03/18/21 04:32 04:32 04:32 WBC 8.2 RBC 4.40 Hgb 13.0 Hct 39.6 L MCV 90.0 MCH 29.5 MCHC 32.8 RDW 14.5 Plt Count 269 MPV 11.4 H Neut % (Auto) 60.3 Lymph % (Auto) 24.1 [place] % (Auto) 12.1 Eos % (Auto) 2.3 Baso % (Auto) 1.0 Neut # (Auto) 4.92 Lymph # (Auto) 2.0 [place] # (Auto) 1.0 H Eos # (Auto) 0.2 Baso # (Auto) 0.1 Nucleated RBC % (a uto) 0 Nucleated RBCs # 0.0 Sodium 134 L Potassium 3.0 L Chloride 88 L Carbon Dioxide 25 Anion Gap 24.0 H BUN 57 H Creatinine 2.5 H GFR Calculation Not Reportable Glucose 157 H Estimat Average Gl ucose 171 Hemoglobin A1c 7.6 H Calculated Osmolal ity 297 H Calcium 10.0 Iron TIBC % Saturation Unsat Iron Binding Total Bilirubin 0.4 AST 26 ALT 21 Alkaline Phosphata se 63 NT-Pro-B Natriuret Pep Total Protein 7.5 Albumin 4.1 Globulin 3.4 Triglycerides 161 H Cholesterol 124 LDL Cholesterol, C alc 56 Total VLDL Cholest aminata 32 H HDL Cholesterol 36 L Cholesterol/HDL Ra jason 3.44 Vitamin B12 03/17/21 04:29 WBC RBC Hgb Hct MCV MCH MCHC RDW Plt Count MPV Neut % (Auto) Lymph % (Auto) [place] % (Auto) Eos % (Auto) Baso % (Auto) Neut # (Auto) Lymph # (Auto) [place] # (Auto) Eos # (Auto) Baso # (Auto) Nucleated RBC % (a uto) Nucleated RBCs # Sodium Potassium Chloride Carbon Dioxide Anion Gap BUN Creatinine GFR Calculation Glucose Estimat Average Gl ucose Hemoglobin A1c Calculated Osmolal ity Calcium Iron 41 L TIBC 321 % Saturation 12.7 L Unsat Iron Binding 280 Total Bilirubin AST ALT Alkaline Phosphata se NT-Pro-B Natriuret Pep 2704 H Total Protein Albumin Globulin Triglycerides Cholesterol LDL Cholesterol, C alc Total VLDL Cholest aminata HDL Cholesterol Cholesterol/HDL Ra jason Vitamin B12 > 2000 H Addt'l Data from Hospital Stay: Laboratory Results WBC 8.2 10^3/uL (4.0- 10.0) 03/18/21 04:32 RBC 4.40 10^6/uL (4.1 -5.3) 03/18/21 04:32 Hgb 13.0 g/dL (11.7-1 6.6) 03/18/21 04:32 Hct 39.6 % (42.0-52.0 ) L 03/18/21 04:32 MCV 90.0 fl (80-94) 03/18/21 04:32 MCH 29.5 pg (28.0-34. 0) 03/18/21 04:32 MCHC 32.8 g/dL (30.0-3 6.0) 03/18/21 04:32 RDW 14.5 % (12.1-15.1 ) 03/18/21 04:32 Plt Count 269 10^3/cmm (130 -400) 03/18/21 04:32 MPV 11.4 fL (7.4-10.4 ) H 03/18/21 04:32 Neut % (Auto) 60.3 % 03/18/21 04:32 Lymph % (Auto) 24.1 % 03/18/21 04:32 [place] % (Auto) 12.1 % 03/18/21 04:32 Eos % (Auto) 2.3 % 03/18/21 04:32 Baso % (Auto) 1.0 % 03/18/21 04:32 Neut # (Auto) 4.92 10^3/uL (1.8 -7.7) 03/18/21 04:32 Lymph # (Auto) 2.0 10^3/uL (0.8- 4.8) 03/18/21 04:32 [place] # (Auto) 1.0 10^3/uL (0.2- 0.9) H 03/18/21 04:32 Eos # (Auto) 0.2 10^3/uL (0.0- 0.8) 03/18/21 04:32 Baso # (Auto) 0.1 10^3/uL (0.0- 0.1) 03/18/21 04:32 Nucleated RBC % (a uto) 0 % 03/18/21 04:32 Nucleated RBCs # 0.0 /100WBC 03/18/21 04:32 Sodium 134 mmol/L (136-1 45) L 03/18/21 04:32 Potassium 3.0 mmol/L (3.5-5 .1) L 03/18/21 04:32 Chloride 88 mmol/L (98-107 ) L 03/18/21 04:32 Carbon Dioxide 25 mmol/L (22-29) 03/18/21 04:32 Anion Gap 24.0 (5-19) H 03/18/21 04:32 BUN 57 mg/dL (8-23) H 03/18/21 04:32 Creatinine 2.5 mg/dL (0.7-1. 2) H 03/18/21 04:32 GFR Calculation Not Reportable 03/18/21 04:32 Glucose 157 mg/dL (65-115 ) H 03/18/21 04:32 POC Glucose 142 mg/dL (70-110 ) H 03/14/21 08:13 Estimat Average Gl ucose 171 03/18/21 04:32 Hemoglobin A1c 7.6 % (4.0-6.0) H 03/18/21 04:32 Calculated Osmolal ity 297 mOsm/kg (285- 295) H 03/18/21 04:32 Calcium 10.0 mg/dL (8.5-1 0.5) 03/18/21 04:32 Magnesium 2.2 mg/dL (1.7-2. 3) 03/17/21 04:29 Iron 41 ug/dL (59-158) L 03/17/21 04:29 TIBC 321 mcg/dl 03/17/21 04:29 % Saturation 12.7 % (20-50) L 03/17/21 04:29 Unsat Iron Binding 280 ug/dL (112-34 7) 03/17/21 04:29 Total Bilirubin 0.4 mg/dL (0.15-1 .2) 03/18/21 04:32 AST 26 U/L (0-40) 03/18/21 04:32 ALT 21 U/L (0-41) 03/18/21 04:32 Alkaline Phosphata se 63 IU/L (40-130) 03/18/21 04:32 Troponin T Baselin e 37 ng/L (0-15) H 03/13/21 15:22 Troponin T 120 Min kathryn 38.79 ng/L (0-15) H 03/13/21 18:08 Delta Troponin T 1.79 ABS# (0-10) 03/13/21 18:08 Troponin T Hi Sens 6Hr 36.87 ng/L (0-15) H 03/13/21 21:18 Troponin T Hi Sens 6Hr Delta -0.13 ng/L (0-12) L 03/13/21 21:18 NT-Pro-B Natriuret Pep 2704 pg/mL (0-450 ) H 03/17/21 04:29 Total Protein 7.5 g/dL (6.6-8.7 ) 03/18/21 04:32 Albumin 4.1 g/dL (3.5-5.2 ) 03/18/21 04:32 Globulin 3.4 g/dL (1.3-4.6 ) 03/18/21 04:32 Triglycerides 161 mg/dL (0-150) H 03/18/21 04:32 Cholesterol 124 mg/dL (0-200) 03/18/21 04:32 LDL Cholesterol, C alc 56 mg/dL (50-129) 03/18/21 04:32 Total VLDL Cholest aminata 32 mg/dL (0-30) H 03/18/21 04:32 HDL Cholesterol 36 mg/dL (60-100) L 03/18/21 04:32 Cholesterol/HDL Ra jason 3.44 mg/dL (1.0-5 .00) 03/18/21 04:32 Vitamin B12 > 2000 pg/mL (232 -1245) H 03/17/21 04:29 Folate 10.3 ng/mL (4.5-3 2.2) 03/17/21 04:29 TSH 1.10 uIU/mL (0.27 -4.20) 03/17/21 04:29 Urine Color Red (Yellow) 03/14/21 08:35 Urine Appearance Bloody (CLEAR) A 03/14/21 08:35 Urine pH 5 (5-7) 03/14/21 08:35 Ur Specific Gravit y 1.020 (1.005-1.0 30) 03/14/21 08:35 Urine Protein Neg (Negative) 03/14/21 08:35 Urine Glucose (UA) Norm (Normal) 03/14/21 08:35 Urine Ketones Negative (Negati ve) 03/14/21 08:35 Urine Blood 3+ (Negative) H 03/14/21 08:35 Urine Nitrate Negative (Negati ve) 03/14/21 08:35 Urine Bilirubin 1+ (Negative) H 03/14/21 08:35 Urine Urobilinogen Norm mg/dL (Negat mina) 03/14/21 08:35 Ur Leukocyte Allison ase 2+ (Negative) H 03/14/21 08:35 Urine RBC >100 /hpf (0-2) H 03/14/21 08:35 Urine WBC 25-40 /hpf (0-5) H 03/14/21 08:35 Ur Squamous Epith Cells 0-4 /hpf (0-5) H 03/14/21 08:35 Amorphous Sediment Not Reportable 03/14/21 08:35 Urine Bacteria 1+ /hpf (NONE) H 03/14/21 08:35 Hyaline Casts 0-4 /lpf H 03/14/21 08:35 Coarse Granular Ca sts 5-10 /lpf H 03/14/21 08:35 Ur Random Sodium 52 mmol/L 03/13/21 22:30 Ur Random Chloride 61 mmol/L 03/13/21 22:30 Ur Random Urea Nit rogn 359 mg/dL 03/13/21 22:30 Urine Creatinine 77 mg/dL (39-259) 03/13/21 22:30 SARS-CoV-2 Ag (Rap id) Negative (Negati ve) 03/13/21 14:30 Impressions Chest X-Ray 03/13/21 11:51 Impression: Cardiomegaly and atherosclerosis. Renal Ultrasound 03/14/21 21:47 IMPRESSION: 1. No hydronephrosis in either kidney. 2. Kidneys are otherwise normal in appearance. 3. Parker catheter in place. Echocardiogram: January 2021: CONCLUSIONS 1. Normal left ventricular cavity size and systolic function. Left ventricular ejection fraction is estimated at 55 %. No diagnostic regional wall motion abnormality. Abnormal septal motion consistent with conduction abnormality. 2. Normal right ventricular size and systolic function. 3. There may not have been any significant change when compared to previous echo dated 01/15/21. Violet Rucker MD (Electronically Signed) Final Date: 19 January 2021 16:21 S Microbiology 03/14/21 08:35 Urine,Clean Catch Urine Culture - Final Vitals: Last Vital Signs Temp 98.1 F 03/18/21 08:00 Pulse 70 03/18/21 08:00 Resp 18 03/18/21 08:00 BP 114/82 03/18/21 08:00 Pulse Ox 96 03/18/21 08:00 Discharge Plan Discharge Patient Disposition: Home Condition: Stable Prescriptions: New ferrous gluconate 324 mg (37.5 mg iron) Tablet 324 mg PO BIDWM 60 Days Qty: 60 RF: 0 zinc oxide 20 % Ointment 1 applic topical PRN PRN (Reason: Skin Protectant) 14 Days Qty: 10 RF: 0 Continued cholecalciferol (vitamin D3) 1,000 unit capsule 1,000 unit PO DAILY RF: 0 aspirin 81 mg tablet,chewable 81 mg PO DAILY RF: 0 vit C,E,Zn,Py-quokk6-oep-zeax 250-2.5-0.5 mg capsule 1 cap PO DAILY RF: 0 budesonide-formoterol [Symbicort] 160-4.5 mcg/actuation HFA aerosol inhaler 2 puff inhalation BID Qty: 10.2 RF: 4 febuxostat [Uloric] 80 mg tablet 80 mg PO DAILY Qty: 30 RF: 5 (DME) Cam Boot to the left See Rx Instructions .Route .MEDSUPPLY Qty: 1 RF: 0 cyanocobalamin (vitamin B-12) 2,500 mcg tablet 2,500 mcg PO DAILY Qty: 90 RF: 3 folic acid 800 mcg tablet 0.8 mg PO DAILY Qty: 90 RF: 3 triamcinolone acetonide 0.1 % cream 1 applic TOPICAL BID Qty: 454 RF: 2 potassium chloride 20 mEq tablet extended release 20 meq PO BID Qty: 180 RF: 3 rosuvastatin [Crestor] 10 mg tablet 10 mg PO DAILY Qty: 90 RF: 2 pantoprazole [Protonix] 40 mg tablet,delayed release (DR/EC) 40 mg PO BID Qty: 180 RF: 2 nitroglycerin 0.4 mg tablet, sublingual 0.4 mg SUBLINGUAL Q5M PRN (Reason: Chest Pain) Qty: 30 RF: 0 albuterol sulfate [Ventolin HFA] 90 mcg/actuation HFA aerosol inhaler 2 puff INHALATION Q6H PRN (Reason: Shortness Of Breath) Qty: 6.7 RF: 4 mupirocin 2 % ointment 1 applic topical BID Qty: 22 RF: 0 albuterol sulfate 2.5 mg /3 mL (0.083 %) solution for nebulization 2.5 mg INHALATION Q4H PRN (Reason: shortness of breath or wheezing) Qty: 75 RF: 6 (DME) powered scooter large See Rx Instructions .Route .MEDSUPPLY Qty: 1 RF: 0 acetaminophen [Tylenol] 325 mg Tablet 325 mg PO QID PRN (Reason: Pain) RF: 0 pyridoxine (vitamin B6) 25 mg tablet 25 mg PO DAILY RF: 0 Eliquis 2.5 mg tablet 2.5 mg PO BID Qty: 60 RF: 3 Changed furosemide 40 mg tablet 60 mg PO BID Qty: 180 RF: 3 sotalol 80 mg tablet 40 mg PO Q48H Qty: 30 RF: 3 Discontinued spironolactone 25 mg tablet 25 mg PO BID 90 Days Qty: 180 RF: 3 metolazone 2.5 mg tablet 2.5 mg PO DAILY Qty: 90 RF: 1 meloxicam [Mobic] 15 mg tablet 15 mg PO DAILY Qty: 20 RF: 0 Discharge Orders: Discharge Order (Routine); Ordered 03/18/21 Ordered By: Juan Blackwell Referrals: Shannan Ellis MD [Primary Care Provider] - 7-10 days Discharge Diet: Diabetic Discharge Activity: Resume usual activity Patient Instructions: Opioid Safety Activity Restrictions/Additional Instructions: Fluid restriction up to 1500 cc. Try to take up to 2 to 3 g of salt daily. Dose of Lasix has been changed to 60 mg twice daily. Do not take metolazone or spironolactone for now. Please follow-up with your primary care provider within next 7 to 10 days for repeat BMP. Discharge Attestations Time Spent in Discharge Care*: greater than 30 min Specific Discharge Activities: educating patient, educating and/or supporting family/caregiver, discussing with case fitter/social workers/dc planners, documenting/other paperwork and evaluating patient/reviewing data Status at Discharge: Cognitive status at discharge: mildly impaired cognition , Behavioral status at discharge: cooperative , Functional status at discharge: uses cane/walker Overall status at discharge: patient is back to baseline Quality Metrics Clinical Quality Measures During this hospital stay, did patient experience: None Coding Level of Care Code Acute Chg FW DC note Diagnoses Acute encephalopathy G93.40 Acute diastolic CHF (congestive heart failure) I50.31 LULU (acute kidney injury) N17.9 Severe edema R60.9 Leg ulcer L97.909 Hyponatremia E87.1
--- NOTE | 2021-03-18 10:48 | PC.NURSE ---
abreu removed per md order. pt tolerated well. will continue to monitor.
--- NOTE | 2021-03-18 11:06 | PC.SOCIAL ---
IMM Update Pg. 2 of IMM updated and reviewed with patient and his son at bedside. Both verbalized understanding. Copy provided.
[2021-03-18 12:00] VITALS: BP 114/82; PULSE 63; RESP 16; TEMP 36.7; O2SAT 97
[2021-03-18 12:48] VITALS: BP 114/82; PULSE 63; RESP 16; O2SAT 97
--- NOTE | 2021-03-18 13:04 | PC.OT ---
Patient held due to scheduled discharge
--- NOTE | 2021-03-18 13:45 | PC.NURSE ---
Pt discharged home. Pts IV removed no redness or swelling noted. Discharge instructions given along with prescriptions and follow up appointment. Pt had no c/o pain or discomfort at the time of discharge.
[2021-03-24 16:08] LABS: Osmolality Serum 306 mOsm/kg (278-305)
== END 2021-03-18 13:30 | disposition home or self-care (01) | DRG 291 ==
LOC: ER 13:54 → CSU 19:34
PROVIDERS: Physician Assistant; Admitting Provider Internal Medicine; Emergency Provider Emergency Medicine; PCP Family Medicine; Visit Provider Student in an Organized Health Care Education/Training Program
DX: I13.0 Hypertensive heart and chronic kidney disease with heart failure and stage 1 through stage 4 chronic kidney disease, or unspecified chronic kidney disease (principal); I50.31 Acute diastolic (congestive) heart failure; I50.22 Chronic systolic (congestive) heart failure; N17.9 Acute kidney failure, unspecified; L97.929 Non-pressure chronic ulcer of unspecified part of left lower leg with unspecified severity; L97.919 Non-pressure chronic ulcer of unspecified part of right lower leg with unspecified severity; N39.0 Urinary tract infection, site not specified; G93.40 Encephalopathy, unspecified; E87.1 Hypo-osmolality and hyponatremia; N18.30 Chronic kidney disease, stage 3 unspecified; J44.9 Chronic obstructive pulmonary disease, unspecified; I25.10 Atherosclerotic heart disease of native coronary artery without angina pectoris; Z95.1 Presence of aortocoronary bypass graft; K21.9 Gastro-esophageal reflux disease without esophagitis; E78.2 Mixed hyperlipidemia; E66.9 Obesity, unspecified; Z68.33 Body mass index [BMI] 33.0-33.9, adult; G47.33 Obstructive sleep apnea (adult) (pediatric); Z87.891 Personal history of nicotine dependence; Z99.89 Dependence on other enabling machines and devices; E55.9 Vitamin D deficiency, unspecified; E53.8 Deficiency of other specified B group vitamins; Z79.01 Long term (current) use of anticoagulants; Z79.51 Long term (current) use of inhaled steroids; Z79.82 Long term (current) use of aspirin; R29.6 Repeated falls; F03.90 Unspecified dementia, unspecified severity, without behavioral disturbance, psychotic disturbance, mood disturbance, and anxiety
CPT/HCPCS: 36415; 36416; 51702; 71045; 76770; 80048; 80053; 80061; 81001; 82436; 82570; 82607; 82746; 82962; 83036; 83540; 83550; 83735; 83880; 83930; 84300; 84443; 84484; 84540; 85025; 87086; 87426; 92610; 93005; 94640; 94660; 96374; 97116; 97161; 97165; 97530; 97535; 99285; J0696; J1630; J1940; J2270; J3535; P9047

== ENCOUNTER → 2021-03-25 13:20 | Outpatient (BNVA) | payer MEDICARE, MEDICAID, SELFPAY | PROVIDERS: PCP Family Medicine; Visit Provider Internal Medicine Nephrology | DX: R60.9 Edema, unspecified (principal) | CPT/HCPCS: 80048 ==

== ENCOUNTER → 2021-04-07 17:04 | Outpatient (BNVA) | payer MEDICARE, MEDICAID, SELFPAY | PROVIDERS: PCP Family Medicine; Visit Provider Nurse Practitioner Family | DX: L97.909 Non-pressure chronic ulcer of unspecified part of unspecified lower leg with unspecified severity (principal); R60.9 Edema, unspecified; L03.116 Cellulitis of left lower limb; L03.115 Cellulitis of right lower limb | CPT/HCPCS: 80053; 83880; 85025; 85379 ==

== ENCOUNTER 2021-04-11 13:10 | Outpatient (CLI) | payer MEDICARE, MEDICAID, SELFPAY | END 2021-04-11 13:11 | disposition home or self-care (01) | LOC: WOUND 13:11 | PROVIDERS: PCP Family Medicine; Visit Provider Surgery | DX: I87.2 Venous insufficiency (chronic) (peripheral) (principal); L97.821 Non-pressure chronic ulcer of other part of left lower leg limited to breakdown of skin; L97.812 Non-pressure chronic ulcer of other part of right lower leg with fat layer exposed | CPT/HCPCS: 11042; 11045; A6253 ==

== ENCOUNTER 2021-04-14 13:13 | Outpatient (CLI) | payer MEDICARE, MEDICAID, SELFPAY | END 2021-04-14 13:14 | disposition home or self-care (01) | LOC: WOUND 13:14 | PROVIDERS: PCP Family Medicine; Visit Provider Emergency Medicine | DX: I87.2 Venous insufficiency (chronic) (peripheral) (principal); L97.812 Non-pressure chronic ulcer of other part of right lower leg with fat layer exposed; L97.822 Non-pressure chronic ulcer of other part of left lower leg with fat layer exposed; M79.604 Pain in right leg; M79.605 Pain in left leg | CPT/HCPCS: 29581; A6252 ==

== ENCOUNTER 2021-04-18 11:16 | Outpatient (CLI) | payer MEDICARE, MEDICAID, SELFPAY | END 2021-04-18 11:17 | disposition home or self-care (01) | LOC: WOUND 11:17 | PROVIDERS: PCP Family Medicine; Visit Provider Surgery | DX: I96 Gangrene, not elsewhere classified (principal); I87.2 Venous insufficiency (chronic) (peripheral); L97.821 Non-pressure chronic ulcer of other part of left lower leg limited to breakdown of skin; L97.812 Non-pressure chronic ulcer of other part of right lower leg with fat layer exposed | CPT/HCPCS: 11042; 11045; A6251; A6252 ==

== ENCOUNTER 2021-04-21 11:05 | Outpatient (CLI) | payer MEDICARE, MEDICAID, SELFPAY | END 2021-04-21 11:06 | disposition home or self-care (01) | PROVIDERS: PCP Family Medicine; Visit Provider Nurse Practitioner Family | DX: I96 Gangrene, not elsewhere classified (principal); I87.2 Venous insufficiency (chronic) (peripheral); L97.812 Non-pressure chronic ulcer of other part of right lower leg with fat layer exposed; L97.822 Non-pressure chronic ulcer of other part of left lower leg with fat layer exposed; J44.9 Chronic obstructive pulmonary disease, unspecified | CPT/HCPCS: 99213; 99214 ==

== ENCOUNTER 2021-04-24 14:49 | Outpatient (CLI) | payer MEDICARE, MEDICAID, SELFPAY | END 2021-04-24 14:50 | disposition home or self-care (01) | LOC: WOUND 14:50 | PROVIDERS: PCP Family Medicine; Visit Provider Nurse Practitioner Family | DX: I96 Gangrene, not elsewhere classified (principal); I87.2 Venous insufficiency (chronic) (peripheral); L97.822 Non-pressure chronic ulcer of other part of left lower leg with fat layer exposed; L97.812 Non-pressure chronic ulcer of other part of right lower leg with fat layer exposed; J44.9 Chronic obstructive pulmonary disease, unspecified | CPT/HCPCS: 11042; 11045; A6253 ==

== ENCOUNTER 2021-05-01 14:59 | Outpatient (CLI) | payer MEDICARE, MEDICAID, SELFPAY | END 2021-05-01 15:00 | disposition home or self-care (01) | LOC: WOUND 15:00 | PROVIDERS: PCP Family Medicine; Visit Provider Nurse Practitioner Family | DX: I96 Gangrene, not elsewhere classified (principal); I87.2 Venous insufficiency (chronic) (peripheral); L97.812 Non-pressure chronic ulcer of other part of right lower leg with fat layer exposed; L97.822 Non-pressure chronic ulcer of other part of left lower leg with fat layer exposed; J44.9 Chronic obstructive pulmonary disease, unspecified | CPT/HCPCS: 11042; 11045; A6252 ==

== ENCOUNTER 2021-05-09 10:45 | Outpatient (CLI) | payer MEDICARE, MEDICAID, SELFPAY | END 2021-05-09 10:46 | disposition home or self-care (01) | LOC: WOUND 10:46 | PROVIDERS: PCP Family Medicine; Visit Provider Surgery | DX: I96 Gangrene, not elsewhere classified (principal); N18.32 Chronic kidney disease, stage 3b; I87.2 Venous insufficiency (chronic) (peripheral); L97.812 Non-pressure chronic ulcer of other part of right lower leg with fat layer exposed; L97.822 Non-pressure chronic ulcer of other part of left lower leg with fat layer exposed; J44.9 Chronic obstructive pulmonary disease, unspecified | CPT/HCPCS: 11042; 11045; 80069; 82043; 82310; 83970; 85025; A6253 ==

== ENCOUNTER 2021-05-12 15:09 | Outpatient (CLI) | payer MEDICARE, MEDICAID, SELFPAY | END 2021-05-12 15:10 | disposition home or self-care (01) | LOC: WOUND 15:10 | PROVIDERS: PCP Family Medicine; Visit Provider Thoracic Surgery (Cardiothoracic Vascular Surgery) | DX: L97.812 Non-pressure chronic ulcer of other part of right lower leg with fat layer exposed (principal); L97.822 Non-pressure chronic ulcer of other part of left lower leg with fat layer exposed; I87.2 Venous insufficiency (chronic) (peripheral); M79.604 Pain in right leg; M79.605 Pain in left leg | CPT/HCPCS: 29581; A6252 ==

== ENCOUNTER 2021-05-14 15:12 | Outpatient (CLI) | payer MEDICARE, MEDICAID, SELFPAY | END 2021-05-14 15:13 | disposition home or self-care (01) | LOC: WOUND 15:13 | PROVIDERS: PCP Family Medicine; Visit Provider Thoracic Surgery (Cardiothoracic Vascular Surgery) | DX: L97.812 Non-pressure chronic ulcer of other part of right lower leg with fat layer exposed (principal); L97.822 Non-pressure chronic ulcer of other part of left lower leg with fat layer exposed; I87.2 Venous insufficiency (chronic) (peripheral); M79.604 Pain in right leg; M79.605 Pain in left leg | CPT/HCPCS: 29581 ==

== ENCOUNTER → 2021-05-29 14:04 | Outpatient (BNVA) | payer MEDICARE, MEDICAID, SELFPAY | PROVIDERS: PCP Family Medicine; Visit Provider Internal Medicine Nephrology | DX: R60.9 Edema, unspecified (principal) | CPT/HCPCS: 80069 ==

== ENCOUNTER → 2021-06-03 11:43 | Outpatient (BNVA) | payer MEDICARE, MEDICAID, SELFPAY | PROVIDERS: PCP Family Medicine; Visit Provider Internal Medicine Nephrology | DX: N18.32 Chronic kidney disease, stage 3b (principal) | CPT/HCPCS: 80048 ==

== ENCOUNTER → 2021-06-23 09:53 | Outpatient (BNVA) | payer MEDICARE, MEDICAID, SELFPAY | PROVIDERS: PCP Family Medicine; Visit Provider Nurse Practitioner Family | DX: N17.9 Acute kidney failure, unspecified (principal) | CPT/HCPCS: 80048 ==

== ENCOUNTER 2021-07-04 12:05 | Emergency (ER) | payer MEDICARE, MEDICAID, SELFPAY ==
[2021-07-04 12:32] VITALS: BP 122/83; PULSE 74; RESP 18; TEMP 36.8; O2SAT 99; BMI 30.4
--- NOTE | 2021-07-04 13:13 | W.ED.EXTPRO ---
HPI - Extremity Problem General: Chief complaint: Extremity Problem,Nontraumatic Stated complaint: Fluid build up, Kidney DrRemy sent over Time Seen by Provider: 07/04/21 13:13 History of Present Illness: Mr. Aldana is an 80-year-old gentleman with complex past medical history including CKD, hypertension, hyperlipidemia, atrial fibrillation on anticoagulation, as well as others who presents to the emergency department due to concern over lower extremity edema. He reports symptoms have been ongoing for perhaps 2 weeks though he does have similar symptoms in the past. He endorses increased discomfort and drainage. He denies fevers or other signs of systemic illness. Apparently he talked to his kidney doctor who sent him to the emergency department. He does report compliance with his diuretics though in the past, perhaps months ago, has been on a different regimen. History is somewhat limited by patient's medical knowledge. Intensity of symptoms moderate. Course has been worsening. No other specific change in health, exacerbating, relieving factors identified. Onset (ago): week(s) Review of Systems General: Reports: 10 or more systems reviewed and unremarkable except in HPI and below PFSH ED PFSH: Medical History Arteriosclerotic heart disease (ASHD) Atrial flutter with rapid ventricular response Cellulitis Chest pain Chronic kidney disease, stage 3 (moderate) Chronic obstructive pulmonary disease, unspecified Chronic shortness of breath Chronic systolic (congestive) heart failure Drug-induced chronic gout, unspecified wrist, without tophus (tophi) Dyspnea Encounter for counseling for care management of patient with chronic conditions and complex health needs using nurse-based model Essential (primary) hypertension Gastro-esophageal reflux disease without esophagitis Gout Leukocytosis Mixed hyperlipidemia Obesity Obstructive sleep apnea PSVT (paroxysmal supraventricular tachycardia) PSVT (paroxysmal supraventricular tachycardia) Tremor Umbilical hernia without obstruction or gangrene Vitamin B 12 deficiency Vitamin D deficiency Surgical History History of back surgery Hx of appendectomy 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 This included left internal mammary to the LAD, single vein graft to the diagonal, single vein graft to the right posterior descending artery and sequential vein graft to the first and second marginal for a total of 5 bypasses. Family History Father Stroke Social History Smoking and tobacco status: never smoked Quit status (tobacco): has quit using tobacco Year quit tobacco: 2008 - Chew x 60 Years Second hand smoke exposure: No Smoking risk assessment/counseling performed?: Yes Alcohol intake: never Desire information about alcohol rehabilitation?: No Counseling given: No Desire information about substance/drug rehabilitation?: No Counseling given: No Lives independently: Yes Household members: spouse Housing: House Marital status: service: No Current occupational status: retired Pets and animals: Yes History of recent travel: No Current gender identity: Male Physical Exam Const: COMMON NORMALS: alert GENERAL APPEARANCE: cooperative, well developed and ill appearing (Chronic) HENMT: COMMON NORMALS: normocephalic and atraumatic HEAD & SCALP: normocephalic and atraumatic THROAT: posterior oropharynx normal Eye: COMMON NORMALS: conjunctivae normal CONJUNCTIVA: Yes conjunctivae normal SCLERA: sclerae normal Neck/C-Spine: COMMON NORMALS: supple GENERAL: Yes trachea midline Resp: COMMON NORMALS: normal respiratory effort EFFORT & INSPECTION: Yes able to speak in complete sentences AUSCULTATION: diminished lung sounds Cardio: COMMON NORMALS: regular rate and regular rhythm RATE: regular rate RHYTHM: regular rhythm GI: COMMON NORMALS: Soft to palpation PALPATION: Yes Soft to palpation and No Tenderness to palpation present (GI) OTHER: Protuberant abdomen though no tenderness, patient reports this being baseline. Extremity: NARRATIVE EXTREMITY EXAM: Bilateral lower extremity edema which is symmetric. there is mostly areas of stasis dermatitis though there are areas that were more erythematous and concerning for superimposed infection. Pulses palpable bilaterally. GENERAL: Yes edema Neuro: COMMON NORMALS: moves all extremities SENSORIUM/ORIENTATION: Yes alert and No Orientation impaired Psych: COMMON NORMALS: mental status grossly normal and Normal thought process present THOUGHT PROCESS: Normal thought process present Course ED course: - Patient was seen and evaluated by me at bedside - Patient placed on cardiac monitors, IV access obtained - Initial evaluation notable for exam as above - Labs notable for mild leukocytosis. Creatinine is roughly baseline without acute electrolyte derangement requiring intervention. Delta troponin is negative. BNP is mildly elevated. - Case was discussed with nephrology in [place] who apparently comes to [facility] for a remote clinic. Unfortunately the patient's physician was not available however an RYAN that spoke with the patient earlier was available. Upon clarification patient has had spotty follow-up with nephrology and only intermittent compliance with medications. In discussion between the patient he had his RYAN he was talking about having oozing from his legs and patient was left so sent to emergency department for specific nephrology regions and more so because his complaints were outside the scope of the limited relationship/contact they have had. - Upon serial reexamination after treatment the patient was similar - Based on patient history, evaluation, labs, and imaging as interpreted the most likely cause of the patient's condition is mild volume overload though patient not requiring supplemental oxygen, I bilateral lower extremity edema with stasis dermatitis and small areas of superimposed cellulitis which were treated. - The results of ED evaluation were discussed with the patient including prescriptions and/or symptomatic cares (if applicable) including appropriate and responsible use, followup plan, and return precautions. I stressed the importance of reestablishment with various specialty providers. The patient verbalized understanding and felt safe for discharge. - Patient discharged in satisfactory condition. Note: Click bubbles or prepopulated aguilar in note writing are used for assistance with data collection and billing and are inherently more limited than narrative and other text portions of this note. Please use narrative for additional clinical history and defer to narrative/free test for any case of contradictory information. If information appears in only free text or click bubble it should be considered present or absent as reported. Please contact note conventional underwriter for clarifications of clinical information or contradictory information. MDM is a brief summary, contradictory or erroneous seeming information should be clarified and full note should be reviewed. Vital Signs: Vital signs: Vital Signs Temperature 98.2 F 07/04/21 12:32 Pulse Rate 80 07/04/21 18:42 Respiratory Rate 20 H 07/04/21 18:42 Blood Pressure 109/79 07/04/21 18:42 Pulse Oximetry 99 07/04/21 18:42 MDM - Extremity (Nontraumatic) Medical Decision Making 80-year-old gentleman with complex past medical history presenting with bilateral lower extremities swelling and weeping. Patient likely has stasis dermatitis with superimposed bacterial infection. Satisfactory for outpatient management. Stressed importance of follow-up with various specialists including nephrology, wound care, PCP. Medical Records I reviewed the patient's medical records. Lab Data I reviewed the patient's lab results. : 07/04/21 14:20 07/04/21 14:20 Laboratory Results WBC 12.0 10^3/uL (4.0-10.0) H 07/04/21 14:20 RBC 4.45 10^6/uL (4.1-5.3) 07/04/21 14:20 Hgb 12.4 g/dL (11.7-16.6) 07/04/21 14:20 Hct 39.5 % (42.0-52.0) L 07/04/21 14:20 MCV 88.8 fl (80-94) 07/04/21 14:20 MCH 27.9 pg (28.0-34.0) L 07/04/21 14:20 MCHC 31.4 g/dL (30.0-36.0) 07/04/21 14: RDW 14.8 % (12.1-15.1) 07/04/21 14:20 Plt Count 312 10^3/cmm (130-400) 07/04/21 14:20 MPV 10.1 fL (7.4-10.4) 07/04/21 14:20 Neut % (Auto) 73.3 % 07/04/21 14:20 Lymph % (Auto) 14.8 % 07/04/21 14:20 [place] % (Auto) 8.5 % 07/04/21 14:20 Eos % (Auto) 2.5 % 07/04/21 14:20 Baso % (Auto) 0.4 % 07/04/21 14:20 Neut # (Auto) 8.78 10^3/uL (1.8-7.7) H 07/04/21 14:20 Lymph # (Auto) 1.8 10^3/uL (0.8-4.8) 07/04/21 14:20 [place] # (Auto) 1.0 10^3/uL (0.2-0.9) H 07/04/21 14:20 Eos # (Auto) 0.3 10^3/uL (0.0-0.8) 07/04/21 14:20 Baso # (Auto) 0.1 10^3/uL (0.0-0.1) 07/04/21 14:20 Nucleated RBC % (auto) 0 % 07/04/21 14:20 Nucleated RBCs # 0.0 /100WBC 07/04/21 14:20 Sodium 136 mmol/L (136-145) 07/04/21 14:20 Potassium 4.0 mmol/L (3.5-5.1) 07/04/21 14:20 Chloride 92 mmol/L (98-107) L 07/04/21 14:20 Carbon Dioxide 28 mmol/L (22-29) 07/04/21 14:20 Anion Gap 20.0 (5-19) H 07/04/21 14:20 BUN 36 mg/dL (8-23) H 07/04/21 14:20 Creatinine 1.9 mg/dL (0.7-1.2) H 07/04/21 14:20 GFR Calculation Not Reportable 07/04/21 14:20 Glucose 146 mg/dL (65-115) H 07/04/21 14:20 Calculated Osmolality 293 mOsm/kg (285-295) 07/04/21 14:20 Calcium 9.0 mg/dL (8.5-10.5) 07/04/21 14:20 Total Bilirubin 0.3 mg/dL (0.15-1.2) 07/04/21 14:20 AST 18 U/L (0-40) 07/04/21 14:20 ALT 16 U/L (0-41) 07/04/21 14:20 Alkaline Phosphatase 78 IU/L (40-130) 07/04/21 14:20 Troponin T Baseline 39 ng/L (0-15) H 07/04/21 14:20 Troponin T 120 Minute 36.86 ng/L (0-15) H 07/04/21 16:18 Delta Troponin T -2.14 ABS# (0-10) L 07/04/21 16:18 NT-Pro-B Natriuret Pep 1425 pg/mL (0-450) H 07/04/21 14:20 Total Protein 7.1 g/dL (6.6-8.7) 07/04/21 14:20 Albumin 3.8 g/dL (3.5-5.2) 07/04/21 14:20 Globulin 3.3 g/dL (1.3-4.6) 03/04/22 14:20 EKG Data EKG 1: I personally reviewed and interpreted this EKG as follows: EKG interpretation date: 07/04/21 EKG interpretation time: 14:44 Interpretation: Twelve-lead EKG shows a regular rhythm at a rate of 74. NE interval 180, QRS duration 148, QTc 479. Indeterminate axis. Interpreted: Sinus rhythm. Right bundle branch block. EKG 2: I personally reviewed and interpreted this EKG as follows: EKG interpretation date: 07/04/21 EKG interpretation time: 16:53 Interpretation: Twelve-lead EKG shows a regular rhythm at a rate of 77. NE interval 160, QRS duration 146, QTc 482. Borderline axis. Interpretation: Sinus rhythm. Right bundle branch block. Discharge Plan Discharge Patient Disposition: Home Clinical Impression: CKD (chronic kidney disease), Cellulitis, Bilateral edema of lower extremity, Stasis dermatitis of both legs Condition: Stable Prescriptions: No Action cholecalciferol (vitamin D3) 1,000 unit capsule 1,000 unit PO DAILY 0RF budesonide-formoterol [Symbicort] 160-4.5 mcg/actuation HFA aerosol inhaler 2 puff inhalation BID Qty: 10.2 4RF febuxostat [Uloric] 80 mg tablet 80 mg PO DAILY Qty: 30 5RF hydrocodone-acetaminophen 5-325 mg tablet 1 tab PO Q8H PRN (Reason: pain) 7 Days Qty: 21 0RF hydroxyzine HCl 25 mg tablet 25 mg PO QID PRN (Reason: itching) Qty: 90 1RF cyanocobalamin (vitamin B-12) 2,500 mcg tablet 2,500 mcg PO DAILY Qty: 90 3RF folic acid 800 mcg tablet 0.8 mg PO DAILY Qty: 90 3RF potassium chloride 20 mEq tablet extended release 20 meq PO BID Qty: 180 3RF rosuvastatin [Crestor] 10 mg tablet 10 mg PO DAILY Qty: 90 2RF pantoprazole [Protonix] 40 mg tablet,delayed release (DR/EC) 40 mg PO BID Qty: 180 2RF nitroglycerin 0.4 mg tablet, sublingual 0.4 mg SUBLINGUAL Q5M PRN (Reason: Chest Pain) Qty: 30 0RF albuterol sulfate [Ventolin HFA] 90 mcg/actuation HFA aerosol inhaler 2 puff INHALATION Q6H PRN (Reason: Shortness Of Breath) Qty: 6.7 4RF bumetanide 2 mg tablet 2 mg PO BID Qty: 60 2RF albuterol sulfate 2.5 mg /3 mL (0.083 %) solution for nebulization 2.5 mg INHALATION Q4H PRN (Reason: shortness of breath or wheezing) Qty: 75 6RF (DME) powered scooter large See Rx Instructions .Route .MEDSUPPLY Qty: 1 0RF Rx Instructions: As directed Eliquis 2.5 mg tablet 2.5 mg PO BID Qty: 60 3RF sotalol 80 mg tablet 40 mg PO Q48H Qty: 30 3RF acetaminophen [Tylenol] 325 mg Tablet 325 mg PO QID PRN (Reason: Pain) 0RF pyridoxine (vitamin B6) 25 mg tablet 25 mg PO DAILY 0RF Discharge Orders: Discharge ED (Routine); Ordered 07/04/21 Ordered By: Jose Juares Referrals: Shannan Ellis MD [Primary Care Provider] - Discharge Diet: Usual diet Discharge Activity: Resume usual activity Activity Restrictions/Additional Instructions: Thank you for visiting the emergency department. You were seen and evaluated for lower extremity swelling and discoloration. I believe that most of your redness and swelling is related to stasis dermatitis however there is a few areas of cellulitis which will be treated with antibiotics. You do have evidence of fluid overload. You do require further evaluation in the outpatient setting. Please follow-up within 1 week with your primary care provider, your installment agent, and also reestablish with wound care. Return to the emergency department for worsening symptoms or anything else that you are concerned about and feel needs emergency department evaluation. Coding Level of Care Code ED Undergraduate Intern for Kieran Sanders
--- NOTE | 2021-07-04 14:23 | ECG_ITS ---
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 Measurements Intervals [place] Rate: 74 P: 40 [place]: 180 QRS: -21 QRSD: 148 T: 29 QT: 452 QTc: 502 Interpretive Statements SINUS RHYTHM BORDERLINE LEFT AXIS DEVIATION [QRS AXIS < -20] RIGHT BUNDLE BRANCH BLOCK [120+ ms QRS DURATION, UPRIGHT V1, 40+ ms S IN I/aVL/V4/V5/V6] Compared to ECG 03/13/2021 18:10:17 Indeterminate axis no longer present Electronically Signed On 07-05-2021 8:32:08 MOTION PICTURES CARTOONIST by Violet Rucker M.D. [id number]
[2021-07-04 14:31] LABS: Basophils # 0.1 10^3/uL (0.0-0.1); Basophils % 0.4 %; Eosinophils # 0.3 10^3/uL (0.0-0.8); Eosinophils % 2.5 %; Hematocrit 39.5 % (42.0-52.0); Hemoglobin 12.4 g/dL (11.7-16.6); Lymphocytes # 1.8 10^3/uL (0.8-4.8); Lymphocytes % 14.8 %; Mean Corpuscular HGB Conc 31.4 g/dL (30.0-36.0); Mean Corpuscular Hemoglobin 27.9 pg (28.0-34.0); Mean Corpuscular Volume 88.8 fl (80-94); Mean Platelet Volume 10.1 fL (7.4-10.4); Monocytes % 8.5 %; Neutrophils # 8.78 10^3/uL (1.8-7.7); Neutrophils % 73.3 %; Nucleated Red Blood Cells % 0 %; Platelet Count 312 10^3/cmm (130-400); Red Blood Count 4.45 10^6/uL (4.1-5.3); Red Cell Distribution Width 14.8 % (12.1-15.1)
[2021-07-04 14:54] LABS: Troponin(5th) Baseline 39 ng/L (0-15)
[2021-07-04 15:01] LABS: Alanine Aminotransferase 16 U/L (0-41); Albumin Level 3.8 g/dL (3.5-5.2); Alkaline Phosphatase 78 IU/L (40-130); Aspartate Amino Transferase 18 U/L (0-40); Blood Urea Nitrogen 36 mg/dL (8-23); Carbon Dioxide 28 mmol/L (22-29); Chloride 92 mmol/L (98-107); Creatinine Clr Calc Pharmacy 33.9154; Globulin 3.3 g/dL (1.3-4.6); Glucose 146 mg/dL (65-115); NT Pro B Type Natriuretic Pept 1425 pg/mL (0-450); Osmolality Calculated 293 mOsm/kg (285-295); Sodium 136 mmol/L (136-145); Total Bilirubin 0.3 mg/dL (0.15-1.2); Total Protein 7.1 g/dL (6.6-8.7)
[2021-07-04 15:52] VITALS: BP 146/75; PULSE 72; RESP 20; O2SAT 98
--- NOTE | 2021-07-04 16:23 | ECG_ITS ---
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 Measurements Intervals [place] Rate: 77 P: -29 [place]: 160 QRS: -10 QRSD: 146 T: 35 QT: 451 QTc: 511 Interpretive Statements SINUS RHYTHM INDETERMINATE AXIS RIGHT BUNDLE BRANCH BLOCK [120+ ms QRS DURATION, UPRIGHT V1, 40+ ms S IN I/aVL/V4/V5/V6] Compared to ECG 07/04/2021 14:37:02 Indeterminate axis now present Electronically Signed On 07-05-2021 8:57:27 SOFTWARE CLIENT ARCHITECT by Violet Rucker M.D. [id number]
[2021-07-04 17:22] LABS: Troponin 5 2HR 36.86 ng/L (0-15)
[2021-07-04 17:27] LABS: Troponin 5 2HR Delta -2.14 ABS# (0-10)
[2021-07-04 17:32] VITALS: BP 109/69; PULSE 82; RESP 12; O2SAT 97
[2021-07-04 18:42] VITALS: BP 109/79; PULSE 80; RESP 20; O2SAT 99
== END 2021-07-04 18:43 | disposition home or self-care (01) ==
PROVIDERS: Emergency Provider Emergency Medicine; PCP Family Medicine
DX: I87.2 Venous insufficiency (chronic) (peripheral) (principal); R60.0 Localized edema; L03.116 Cellulitis of left lower limb; L03.115 Cellulitis of right lower limb; I13.0 Hypertensive heart and chronic kidney disease with heart failure and stage 1 through stage 4 chronic kidney disease, or unspecified chronic kidney disease; N18.30 Chronic kidney disease, stage 3 unspecified; I50.22 Chronic systolic (congestive) heart failure; J44.9 Chronic obstructive pulmonary disease, unspecified; E78.2 Mixed hyperlipidemia; Z95.1 Presence of aortocoronary bypass graft; Z87.891 Personal history of nicotine dependence; Z79.01 Long term (current) use of anticoagulants
CPT/HCPCS: 80053; 83880; 84484; 85025; 93005; 99283

== ENCOUNTER → 2021-07-16 13:21 | Outpatient (BNVA) | payer MEDICARE, MEDICAID, SELFPAY | PROVIDERS: PCP Family Medicine; Visit Provider Nurse Practitioner Family | DX: I50.22 Chronic systolic (congestive) heart failure (principal); R60.9 Edema, unspecified; E87.1 Hypo-osmolality and hyponatremia; I48.91 Unspecified atrial fibrillation; R73.9 Hyperglycemia, unspecified; N17.9 Acute kidney failure, unspecified; Z01.810 Encounter for preprocedural cardiovascular examination | CPT/HCPCS: 80053; 83036; 83880 ==

== ENCOUNTER 2021-09-23 06:00 | Outpatient (RCR) | payer MEDICARE, MEDICAID, SELFPAY | END 2021-09-30 23:59 | disposition home or self-care (01) | LOC: SPT 06:00 | PROVIDERS: PCP Family Medicine; Referring Provider Family Medicine; Visit Provider Family Medicine | DX: R29.6 Repeated falls (principal) | CPT/HCPCS: 29581; 97140; 97161 ==

== ENCOUNTER → 2021-09-25 10:20 | Outpatient (BNVA) | payer MEDICARE, MEDICAID, SELFPAY | PROVIDERS: Family Provider Family Medicine; PCP Family Medicine; Visit Provider Family Medicine | DX: E11.9 Type 2 diabetes mellitus without complications (principal); N18.32 Chronic kidney disease, stage 3b; E55.9 Vitamin D deficiency, unspecified; E66.9 Obesity, unspecified; R53.1 Weakness; R29.6 Repeated falls; Z09 Encounter for follow-up examination after completed treatment for conditions other than malignant neoplasm; R60.1 Generalized edema; I50.22 Chronic systolic (congestive) heart failure | CPT/HCPCS: 80053; 80061; 82306; 83036; 85025 ==

== ENCOUNTER 2021-10-01 06:00 | Outpatient (RCR) | payer MEDICARE, MEDICAID, SELFPAY | END 2021-10-30 23:59 | disposition home or self-care (01) | LOC: SPT 06:00 | PROVIDERS: PCP Family Medicine; Referring Provider Family Medicine; Visit Provider Family Medicine | DX: I89.0 Lymphedema, not elsewhere classified (principal) | CPT/HCPCS: 29581; 97140 ==

== ENCOUNTER → 2021-10-09 12:56 | Outpatient (BNVA) | payer MEDICARE, MEDICAID, SELFPAY | PROVIDERS: PCP Family Medicine; Visit Provider Family Medicine | DX: R60.1 Generalized edema (principal); N18.32 Chronic kidney disease, stage 3b | CPT/HCPCS: 80048 ==

== ENCOUNTER 2021-10-31 06:00 | Outpatient (RCR) | payer MEDICARE, MEDICAID, SELFPAY | END 2021-11-30 23:59 | disposition home or self-care (01) | LOC: SPT 06:00 | PROVIDERS: PCP Family Medicine; Referring Provider Family Medicine; Visit Provider Family Medicine | DX: I89.0 Lymphedema, not elsewhere classified (principal) | CPT/HCPCS: 29581; 97140 ==

== ENCOUNTER → 2021-11-18 10:54 | Outpatient (BNVA) | payer MEDICARE, MEDICAID, SELFPAY | PROVIDERS: PCP Family Medicine; Visit Provider Family Medicine | DX: R60.9 Edema, unspecified (principal) | CPT/HCPCS: 80048 ==

== ENCOUNTER → 2021-12-09 16:56 | Outpatient (BNVA) | payer MEDICARE, MEDICAID, SELFPAY | PROVIDERS: PCP Family Medicine; Visit Provider Nurse Practitioner Family | DX: M79.642 Pain in left hand (principal); M79.89 Other specified soft tissue disorders; R29.898 Other symptoms and signs involving the musculoskeletal system; M25.432 Effusion, left wrist; M25.532 Pain in left wrist | CPT/HCPCS: 73110; 73130 ==

== ENCOUNTER → 2022-07-28 17:23 | Outpatient (BNVA) | payer MEDICARE, MEDICAID, SELFPAY | PROVIDERS: PCP Family Medicine; Visit Provider Family Medicine | DX: G47.33 Obstructive sleep apnea (adult) (pediatric) (principal); R53.1 Weakness; R29.898 Other symptoms and signs involving the musculoskeletal system; E11.9 Type 2 diabetes mellitus without complications; E87.1 Hypo-osmolality and hyponatremia; E55.9 Vitamin D deficiency, unspecified; E53.8 Deficiency of other specified B group vitamins; M10.9 Gout, unspecified; N17.9 Acute kidney failure, unspecified; E66.9 Obesity, unspecified | CPT/HCPCS: 80053; 80061; 82306; 83036; 83721; 84443; 84550; 85025 ==

== ENCOUNTER 2022-08-13 06:00 | Outpatient (RCR) | payer MEDICARE, MEDICAID, SELFPAY | END 2022-08-30 23:59 | disposition home or self-care (01) | LOC: SOT 06:00 | PROVIDERS: Visit Provider Family Medicine | DX: R53.1 Weakness (principal); R29.898 Other symptoms and signs involving the musculoskeletal system | CPT/HCPCS: 97167 ==

== ENCOUNTER → 2022-11-02 14:26 | Outpatient (BNVA) | payer MEDICARE, MEDICAID, SELFPAY | PROVIDERS: PCP Family Medicine; Visit Provider Family Medicine | DX: E11.69 Type 2 diabetes mellitus with other specified complication (principal); E78.5 Hyperlipidemia, unspecified; I10 Essential (primary) hypertension; E11.9 Type 2 diabetes mellitus without complications; M10.9 Gout, unspecified; E66.9 Obesity, unspecified; R53.1 Weakness | CPT/HCPCS: 80053; 80061; 83036; 84443; 84550; 85025 ==

== ENCOUNTER 2022-11-24 05:04 | Observation (INO) | payer MEDICARE, MEDICAID, SELFPAY ==
[2022-11-24] VITALS (39 sets, daily range): BP systolic 100–160; BP diastolic 61–111; PULSE 64–102; RESP 13–26; TEMP 36.5–36.9; O2SAT 84–100; BMI 24.3
--- NOTE | 2022-11-24 | CTR_ITS ---
PROCEDURE INFORMATION: Exam: CT Pelvis Without Contrast; Skeletal Exam date and time: 11/24/2022 5:49 AM Age: 81 years old Clinical indication: Hip pain; Bilateral; Additional info: Fall TECHNIQUE: Imaging protocol: Computed tomography of the pelvis without contrast. Exam focused on the skeleton. Radiation optimization: All CT scans at this facility use at least one of these dose optimization techniques: automated exposure control; mA and/or kV adjustment per patient size (includes targeted exams where dose is matched to clinical indication); or iterative reconstruction. REPORTING DATA: Count of CT and Cardiac NM exams in prior 12 months: This patient has received 0 known CTs and 0 known cardiac nuclear medicine studies in the 12 months prior to the current study. COMPARISON: CT abdomen pelvis wo con [id number] 12/25/2019 9:40 PM RADIATION DOSE METRICS: Total DLP (mGy-cm): 553.11 FINDINGS: Stomach and bowel: Visible portions of the small bowel and colon are unremarkable. Urinary bladder: The urinary bladder is unremarkable. Reproductive: The prostate and seminal vesicles are unremarkable. Intraperitoneal space: No intraperitoneal free fluid. Lymph nodes: No pelvic or inguinal lymphadenopathy. Bones/joints: Femoroacetabular alignment is normal bilaterally. Joint spaces are preserved. Small acetabular osteophyte on the right. Proximal femora are intact. The bony pelvis is intact. Sacrum is intact. SI joints are normal. There is moderate degenerative disease in the lower lumbar spine. No acute fracture. Soft tissues: Pelvic musculature is unremarkable. Small fat containing umbilical hernia noted. No soft tissue edema. CT/CT pelvis wo con [id number] IMPRESSION: No pelvic fracture or evidence of significant soft tissue injury.
--- NOTE | 2022-11-24 05:15 | XRR_ITS ---
PROCEDURE INFORMATION: Exam: XR Pelvis Exam date and time: 11/24/2022 5:38 AM Age: 81 years old Clinical indication: Injury or trauma; Fall; Crushing; Bilateral; Hip and pelvic region; Hip and pelvic area TECHNIQUE: Imaging protocol: Radiologic exam of the pelvis. Views: 1 or 2 view. COMPARISON: CT abdomen pelvis con [id number] 12/25/2019 9:40 PM FINDINGS: Bones/joints: Unremarkable. No acute fracture. Soft tissues: Unremarkable. XR/XR pelvis 1-2V* [id number] IMPRESSION: No acute findings.
--- NOTE | 2022-11-24 05:15 | CTR_ITS ---
PROCEDURE INFORMATION: Exam: CT Lumbar Spine Without Contrast Exam date and time: 11/24/2022 5:44 AM Age: 81 years old Clinical indication: Low back pain; Additional info: Fall TECHNIQUE: Imaging protocol: Computed tomography of the lumbar spine without contrast. Radiation optimization: All CT scans at this facility use at least one of these dose optimization techniques: automated exposure control; mA and/or kV adjustment per patient size (includes targeted exams where dose is matched to clinical indication); or iterative reconstruction. REPORTING DATA: Count of CT and Cardiac NM exams in prior 12 months: This patient has received 0 known CTs and 0 known cardiac nuclear medicine studies in the 12 months prior to the current study. COMPARISON: CT abdomen pelvis wo con [id number] 12/25/2019 9:40 PM RADIATION DOSE METRICS: Total DLP (mGy-cm): 1904.51 FINDINGS: Bones/joints: Grade 1 degenerative anterolisthesis of L5 on S1. Pars interarticularis are intact. Spinal alignment is otherwise normal. Vertebral body height is maintained. There is moderate multilevel lumbar disc degeneration. There is mild to moderate multilevel facet spondylosis, greatest at L4-L5. No acute fracture. Visible portions of the ribs are intact. The visible portion of the pelvis and sacrum is intact. [id number] multilevel lumbar spinal stenosis is greatest at L2-L3. Spinal epidural space: There is mild diffuse lumbar epidural lipomatosis. Soft tissues: Paraspinal soft tissues are unremarkable. Visible intra-abdominal soft tissues are unremarkable. CT/CT lumbar spine wo con* [id number] IMPRESSION: 1. No acute fracture. 2. 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
--- NOTE | 2022-11-24 05:16 | ECG_ITS ---
[facility] Test Date: 2022-11-24 Pat Name: Yumiko Basurto Department: Room: Gender: Male House Registry Rn: : 1940 Requested By: Janis Quiñones Order Number: [id number] Ana MD: Jack Polk M.D. Measurements Intervals [place] Rate: 76 P: 50 [place]: 201 QRS: -68 QRSD: 158 T: 29 QT: 462 QTc: 521 Interpretive Statements SINUS RHYTHM WITH OCCASIONAL VENTRICULAR PREMATURE COMPLEXES RIGHT BUNDLE BRANCH BLOCK [120+ ms QRS DURATION, UPRIGHT V1, 40+ ms S IN I/aVL/V4/V5/V6] LEFT ANTERIOR FASCICULAR BLOCK [QRS AXIS <= -45, QR IN I, RS IN II] Compared to ECG 07/04/2021 16:45:34 Ventricular premature complex(es) now present Left anterior fascicular block now present Indeterminate axis no longer present Electronically Signed On 11-24-2022 17:34:58 CDT by Jack Polk M.D. [id number]
--- NOTE | 2022-11-24 05:19 | ED_ITS ---
Documented by User: Janis Quiñones MD 11/24/22 05:29 HPI - Fall General: Chief Complaint: Fall Stated Complaint: fall Time Seen by Provider: 11/24/22 05:05 Source: patient Mode of arrival: ambulatory Limitations: no limitations History of Present Illness: 81-year-old male is here with EMS after fall per EMS he has had a few falls recently he states that he is legs are weak he has to use a cane states he got up this morning to the bathroom and fell onto his back. He states he has low back pain he rates a 6 out of 10 he denies hitting his head denies any head injury denies any weakness he states he just had a hard time walking. Denies any lower extremity pain. Associated symptoms-after fall: Denies abdominal pain, chest pain, headache(s) or neck pain Review of Systems Const: Denies: fever(s) or chills ENMT: Denies: throat pain or dental pain Card: Denies: chest pain Resp: Denies: dyspnea GI: Denies: abdominal pain, nausea, vomiting or diarrhea Musc: Reports: back pain; Denies: neck pain Skin/Breast: Denies: rash Neuro: Denies: headache(s) PFSH ED PFSH: Medical History (Updated 11/24/22 @ 14:34 by Oswaldo Soto DO) Arteriosclerotic heart disease (ASHD) Atrial flutter with rapid ventricular response Cellulitis Chest pain Chronic kidney disease, stage 3 (moderate) Chronic obstructive pulmonary disease, unspecified Chronic shortness of breath Chronic systolic (congestive) heart failure Depression with anxiety Drug-induced chronic gout, unspecified wrist, without tophus (tophi) Dyspnea Encounter for counseling for care management of patient with chronic conditions and complex health needs using nurse-based model Essential (primary) hypertension Essential hypertension Gastro-esophageal reflux disease without esophagitis GERD (gastroesophageal reflux disease) Gout Hyperlipidemia associated with type 2 diabetes mellitus Leukocytosis Mixed hyperlipidemia Obesity Obstructive sleep apnea PSVT (paroxysmal supraventricular tachycardia) PSVT (paroxysmal supraventricular tachycardia) Tremor Type 2 diabetes mellitus Umbilical hernia without obstruction or gangrene Vitamin B 12 deficiency Vitamin D deficiency Surgical History History of back surgery Hx of appendectomy Hx of CABG Patient had coronary bypass surgery on July 07, 2006 at a [facility]. This included left internal mammary to the LAD, single vein graft to the diagonal, single vein graft to the right posterior descending artery and sequential vein graft to the first and second marginal for a total of 5 bypasses. Family History Father Stroke Social History Smoking and tobacco status: former smoker Quit status (tobacco): has quit using tobacco Year quit tobacco: 2007 - Chew x 60 Years Second hand smoke exposure: No Smoking risk assessment/counseling performed?: Yes Alcohol intake: never Desire information about alcohol rehabilitation?: No Counseling given: No Substance/Drug Use: never Desire information about substance/drug rehabilitation?: No Counseling given: No Lives independently: Yes Household members: spouse Housing: House Marital status: service: No Current occupational status: retired Pets and animals: Yes Do you think of yourself as: Straight/Heterosexual Current gender identity: Male Physical Exam Const: COMMON NORMALS: patient oriented x3 HENMT: COMMON NORMALS: normocephalic and atraumatic HEAD & SCALP: normocephalic and atraumatic Neck/C-Spine: COMMON NORMALS: full ROM and supple Chest: COMMONS NORMALS: normal inspection of the chest and normal palpation of entire chest wall Resp: COMMON NORMALS: normal respiratory effort, No retractions, No use of accessory muscles and clear to auscultation bilaterally AUSCULTATION: clear to auscultation bilaterally Cardio: COMMON NORMALS: regular rate, regular rhythm and No murmurs present (Cardio) RATE: regular rate RHYTHM: regular rhythm GI: COMMON NORMALS: Normal to inspection, nondistended, normoactive bowel jagdeep nds present, Soft to palpation, non-tender and no masses PALPATION: Yes Soft to palpation Back/Pelvis: OTHER: Tenderness along lumbar spine Extremity: COMMON NORMALS: normal to inspection and full ROM Neuro: COMMON NORMALS: patient oriented x3, moves all extremities and no focal motor deficits Psych: COMMON NORMALS: mental status grossly normal, Normal thought process present and cooperative THOUGHT PROCESS: Normal thought process present Skin: COMMON NORMALS: no rashes or lesions noted and no wounds GENERAL SKIN EXAM: no rashes or lesions noted Course Vital Signs: Vital signs: Vital Signs Temperature 98.5 F 11/24/22 05:05 Pulse Rate 69 11/24/22 14:30 Respiratory Rate 16 11/24/22 13:55 Blood Pressure 147/80 11/24/22 14:45 Pulse Oximetry 94 11/24/22 14:30 Oxygen Delivery Me thod Room Air 11/24/22 15:21 Oxygen Flow Rate 2 11/24/22 11:14 MDM - Fall Lab Data 11/24/22 05:31 11/24/22 05:[address] 11/24/22 00:00 IMPRESSION: No pelvic fracture or evidence of significant soft tissue injury. Lumbar Spine CT 11/24/22 05:15 IMPRESSION: 1. No acute fracture. 2. 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 Pelvis X-Ray 11/24/22 05:15 IMPRESSION: No acute findings. Knee X-Ray 11/24/22 10:09 IMPRESSION: No acute findings. Chest X-Ray 11/24/22 13:40 IMPRESSION: No interval change from previous Head CT 11/24/22 13:40 IMPRESSION: 1. No acute intracranial abnormality. 2. Cerebral atrophy and chronic microvascular white matter disease. 3. Bilateral proptosis without evidence of inflammation, mass or extraocular muscle enlargement. This finding is nonspecific but can be seen in the setting of thyroid ophthalmopathy. No change since 01/17/2021. Laboratory Results WBC 12.5 10^3/uL (4.0-10.0) H 11/24/22 05:31 RBC 5.54 10^6/uL (4.1-5.3) H 11/24/22 05:31 Hgb 14.5 g/dL (11.7-16.6) 11/24/22 05:31 Hct 46.5 % (42.0-52.0) 11/24/22 05:31 MCV 83.9 fl (80-94) 11/24/22 05:31 MCH 26.2 pg (28.0-34.0) L 11/24/22 05:31 MCHC 31.2 g/dL (30.0-36.0) 11/24/22 05:31 RDW 16.6 % (12.1-15.1) H 11/24/22 05:31 Plt Count 210 10^3/cmm (130-400) 11/24/22 05:31 MPV 10.7 fL (7.4-10.4) H 11/24/22 05:31 Neut % (Auto) 65.5 % 11/24/22 05:31 Lymph % (Auto) 22.8 % 11/24/22 05:31 [place] % (Auto) 8.7 % 11/24/22 05:31 Eos % (Auto) 1.9 % 11/24/22 05:31 Baso % (Auto) 0.8 % 11/24/22 05:31 Neut # (Auto) 8.19 10^3/uL (1.8-7.7) H 11/24/22 05:31 Lymph # (Auto) 2.9 10^3/uL (0.8-4.8) 11/24/22 05:31 [place] # (Auto) 1.1 10^3/uL (0.2-0.9) H 11/24/22 05:31 Eos # (Auto) 0.2 10^3/uL (0.0-0.8) 11/24/22 05:31 Baso # (Auto) 0.1 10^3/uL (0.0-0.1) 11/24/22 05:31 Nucleated RBC % (auto) 0 % 11/24/22 05:31 Nucleated RBCs # 0.0 /100WBC 11/24/22 05:31 Sodium 142 mmol/L (136-145) 11/24/22 05:31 Potassium 3.6 mmol/L (3.5-5.1) 11/24/22 05:31 Chloride 102 mmol/L (98-107) 11/24/22 05:31 Carbon Dioxide 27 mmol/L (22-29) 11/24/22 05:31 Anion Gap 16.6 (5-19) 11/24/22 05:31 BUN 23 mg/dL (8-23) 11/24/22 05:31 Creatinine 1.5 mg/dL (0.7-1.2) H 11/24/22 05:31 GFR Calculation Not Reportable 11/24/22 05:31 Glucose 146 mg/dL (65-115) H 11/24/22 05:31 Calculated Osmolality 300 mOsm/kg (285-295) H 11/24/22 05:31 Calcium 9.3 mg/dL (8.5-10.5) 11/24/22 05:31 Total Bilirubin 0.5 mg/dL (0.15-1.2) 11/24/22 05:31 AST 25 U/L (0-40) 11/24/22 05:31 ALT 16 U/L (0-41) 11/24/22 05:31 Alkaline Phosphatase 66 U/L (40-130) 11/24/22 05:31 Total Protein 6.8 g/dL (6.6-8.7) 11/24/22 05:31 Albumin 3.9 g/dL (3.5-5.2) 11/24/22 05:31 Globulin 2.9 g/dL (1.3-4.6) 11/24/22 05:31 TSH 1.17 uIU/mL (0.27-4.20) 11/24/22 05:31 Urine Color Yellow (Yellow) 11/24/22 05:25 Urine Appearance Clear (CLEAR) 11/24/22 05:25 Urine pH 7 (5-7) 11/24/22 05:25 Ur Specific [place] 1.015 (1.005-1.030) 11/24/22 05:25 Urine Protein Neg (Negative) 11/24/22 05:25 Urine Glucose (UA) 4+ (Normal) H 11/24/22 05:25 Urine Ketones Negative (Negative) 11/24/22 05:25 Urine Blood Neg (Negative) 11/24/22 05:25 Urine Nitrate Negative (Negative) 11/24/22 05:25 Urine Bilirubin Neg (Negative) 11/24/22 05:25 Urine Urobilinogen Neg mg/dL (Negative) 11/24/22 05:25 Ur Leukocyte Esterase Negative (Negative) 11/24/22 05:25 Discharge Plan Discharge Patient Disposition: Admitted As Inpatient Admit Provider: Wili Anaya Clinical Impression: Fall, Weakness, Acute pain of right knee Condition: Stable Coding Level of Care Code ED Sales Management Trainee for Chg Fwd Documented by User: Oswaldo Soto DO 11/25/22 06:41 HPI - Fall General: Chief Complaint: Fall Stated Complaint: fall Time Seen by Provider: 11/24/22 05:05 PFSH ED PFSH: Medical History (Updated 11/24/22 @ 14:34 by Oswaldo Soto DO) Arteriosclerotic heart disease (ASHD) Atrial flutter with rapid ventricular response Cellulitis Chest pain Chronic kidney disease, stage 3 (moderate) Chronic obstructive pulmonary disease, unspecified Chronic shortness of breath Chronic systolic (congestive) heart failure Depression with anxiety Drug-induced chronic gout, unspecified wrist, without tophus (tophi) Dyspnea Encounter for counseling for care management of patient with chronic conditions and complex health needs using nurse-based model Essential (primary) hypertension Essential hypertension Gastro-esophageal reflux disease without esophagitis GERD (gastroesophageal reflux disease) Gout Hyperlipidemia associated with type 2 diabetes mellitus Leukocytosis Mixed hyperlipidemia Obesity Obstructive sleep apnea PSVT (paroxysmal supraventricular tachycardia) PSVT (paroxysmal supraventricular tachycardia) Tremor Type 2 diabetes mellitus Umbilical hernia without obstruction or gangrene Vitamin B 12 deficiency Vitamin D deficiency Surgical History History of back surgery Hx of appendectomy Hx of CABG Patient had coronary bypass surgery on July 07, 2006 at a [facility]. This included left internal mammary to the LAD, single vein graft to the diagonal, single vein graft to the right posterior descending artery and sequential vein graft to the first and second marginal for a total of 5 byp asses. Family History Father Stroke Social History Smoking and tobacco status: former smoker Quit status (tobacco): has quit using tobacco Year quit tobacco: 2007 - Chew x 60 Years Second hand smoke exposure: No Smoking risk assessment/counseling performed?: Yes Alcohol intake: never Desire information about alcohol rehabilitation?: No Counseling given: No Substance/Drug Use: never Desire information about substance/drug rehabilitation?: No Counseling given: No Lives independently: Yes Household members: spouse Housing: House Marital status: service: No Current occupational status: retired Pets and animals: Yes Do you think of yourself as: Straight/Heterosexual Current gender identity: Male Course Vital Signs: Vital signs: Vital Signs Temperature 98.5 F 11/24/22 05:05 Pulse Rate 69 11/24/22 14:30 Respiratory Rate 16 11/24/22 13:55 Blood Pressure 147/80 11/24/22 14:45 Pulse Oximetry 94 11/24/22 14:30 Oxygen Delivery Me thod Room Air 11/24/22 15:21 Oxygen Flow Rate 2 11/24/22 11:14 MDM - Fall Medical Decision Making Care assumed at change of shift. CT results negative for pelvis and back patient complaining of pain in the knee no deformity with varus or valgus stress no knee joint effusion is not inflamed or hot or tender to the touch but he has difficult time moving and is able to move it with some active range of motion but the total range of motion is somewhat limited. Reviewed the chart. Will order right knee x-ray. Right knee x-ray negative. Patient unable to even roll over in bed at this point discussed with patient and the family will place on ops with plan for continued evaluation and possible detention placement. Medical Records I reviewed the patient's medical records. Lab Data I reviewed the patient's lab results. 11/24/22 05:31 11/24/22 05:[address] 11/24/22 00:00 IMPRESSION: No pelvic fracture or evidence of significant soft tissue injury. Lumbar Spine CT 11/24/22 05:15 IMPRESSION: 1. No acute fracture. 2. Lumbar disc and facet degeneration with epidural lipomatosis produces [id number] multilevel spinal stenosis, greatest at L2-L3. Pelvis X-Ray 11/24/22 05:15 IMPRESSION: No acute findings. Knee X-Ray 11/24/22 10:09 IMPRESSION: No acute findings. Chest X-Ray 11/24/22 13:40 IMPRESSION: No interval change from previous Head CT 11/24/22 13:40 IMPRESSION: 1. No acute intracranial abnormality. 2. Cerebral atrophy and chronic microvascular white matter disease. 3. Bilateral proptosis without evidence of inflammation, mass or extraocular muscle enlargement. This finding is nonspecific but can be seen in the setting of thyroid ophthalmopathy. No change since 01/17/2021. Laboratory Results WBC 12.5 10^3/uL (4.0-10.0) H 11/24/22 05:31 RBC 5.54 10^6/uL (4.1-5.3) H 11/24/22 05:31 Hgb 14.5 g/dL (11.7-16.6) 11/24/22 05:31 Hct 46.5 % (42.0-52.0) 11/24/22 05:31 MCV 83.9 fl (80-94) 11/24/22 05:31 MCH 26.2 pg (28.0-34.0) L 11/24/22 05:31 MCHC 31.2 g/dL (30.0-36.0) 11/24/22 05:31 RDW 16.6 % (12.1-15.1) H 11/24/22 05:31 Plt Count 210 10^3/cmm (130-400) 11/24/22 05:31 MPV 10.7 fL (7.4-10.4) H 11/24/22 05:31 Neut % (Auto) 65.5 % 11/24/22 05:31 Lymph % (Auto) 22.8 % 11/24/22 05:31 [place] % (Auto) 8.7 % 11/24/22 05:31 Eos % (Auto) 1.9 % 11/24/22 05:31 Baso % (Auto) 0.8 % 11/24/22 05:31 Neut # (Auto) 8.19 10^3/uL (1.8-7.7) H 11/24/22 05:31 Lymph # (Auto) 2.9 10^3/uL (0.8-4.8) 11/24/22 05:31 [place] # (Auto) 1.1 10^3/uL (0.2-0.9) H 11/24/22 05:31 Eos # (Auto) 0.2 10^3/uL (0.0-0.8) 11/24/22 05:31 Baso # (Auto) 0.1 10^3/uL (0.0-0.1) 11/24/22 05:31 Nucleated RBC % (auto) 0 % 11/24/22 05:31 Nucleated RBCs # 0.0 /100WBC 11/24/22 05:31 Sodium 142 mmol/L (136-145) 11/24/22 05:31 Potassium 3.6 mmol/L (3.5-5.1) 11/24/22 05:31 Chloride 102 mmol/L (98-107) 11/24/22 05:31 Carbon Dioxide 27 mmol/L (22-29) 11/24/22 05:31 Anion Gap 16.6 (5-19) 11/24/22 05:31 BUN 23 mg/dL (8-23) 11/24/22 05:31 Creatinine 1.5 mg/dL (0.7-1.2) H 11/24/22 05:31 GFR Calculation Not Reportable 11/24/22 05:31 Glucose 146 mg/dL (65-115) H 11/24/22 05:31 Calculated Osmolality 300 mOsm/kg (285-295) H 11/24/22 05:31 Calcium 9.3 mg/dL (8.5-10.5) 11/24/22 05:31 Total Bilirubin 0.5 mg/dL (0.15-1.2) 11/24/22 05:31 AST 25 U/L (0-40) 11/24/22 05:31 ALT 16 U/L (0-41) 11/24/22 05:31 Alkaline Phosphatase 66 U/L (40-130) 11/24/22 05:31 Total Protein 6.8 g/dL (6.6-8.7) 11/24/22 05:31 Albumin 3.9 g/dL (3.5-5.2) 11/24/22 05:31 Globulin 2.9 g/dL (1.3-4.6) 11/24/22 05:31 TSH 1.17 uIU/mL (0.27-4.20) 11/24/22 05:31 Urine Color Yellow (Yellow) 11/24/22 05:25 Urine Appearance Clear (CLEAR) 11/24/22 05:25 Urine pH 7 (5-7) 11/24/22 05:25 Ur Specific [place] 1.015 (1.005-1.030) 11/24/22 05:25 Urine Protein Neg (Negative) 11/24/22 05:25 Urine Glucose (UA) 4+ (Normal) H 11/24/22 05:25 Urine Ketones Negative (Negative) 11/24/22 05:25 Urine Blood Neg (Negative) 11/24/22 05:25 Urine Nitrate Negative (Negative) 11/24/22 05:25 Urine Bilirubin Neg (Negative) 11/24/22 05:25 Urine Urobilinogen Neg mg/dL (Negative) 11/24/22 05:25 Ur Leukocyte Esterase Negative (Negative) 11/24/22 05:25 Discharge Plan Discharge Patient Disposition: Admitted As Inpatient Admit Provider: Wili Anaya Clinical Impression: Fall, Weakness, Acute pain of right knee Condition: Stable Coding Level of Care Code ED Sales Management Trainee for Kieran Sanders
[2022-11-24 05:36] LABS: Basophils # 0.1 10^3/uL (0.0-0.1); Basophils % 0.8 %; Eosinophils # 0.2 10^3/uL (0.0-0.8); Eosinophils % 1.9 %; Hematocrit 46.5 % (42.0-52.0); Hemoglobin 14.5 g/dL (11.7-16.6); Lymphocytes # 2.9 10^3/uL (0.8-4.8); Lymphocytes % 22.8 %; Mean Corpuscular HGB Conc 31.2 g/dL (30.0-36.0); Mean Corpuscular Hemoglobin 26.2 pg (28.0-34.0); Mean Corpuscular Volume 83.9 fl (80-94); Mean Platelet Volume 10.7 fL (7.4-10.4); Monocytes # 1.1 10^3/uL (0.2-0.9); Monocytes % 8.7 %; Neutrophils # 8.19 10^3/uL (1.8-7.7); Neutrophils % 65.5 %; Nucleated Red Blood Cells % 0 %; Platelet Count 210 10^3/cmm (130-400); Red Blood Count 5.54 10^6/uL (4.1-5.3); Red Cell Distribution Width 16.6 % (12.1-15.1); White Blood Count 12.5 10^3/uL (4.0-10.0)
[2022-11-24 05:54] LABS: Add Urine Microscopic? NO; Charge for UA Resulting for Rev
[2022-11-24 05:56] LABS: Alanine Aminotransferase 16 U/L (0-41); Albumin Level 3.9 g/dL (3.5-5.2); Alkaline Phosphatase 66 U/L (40-130); Anion Gap 16.6 (5-19); Aspartate Amino Transferase 25 U/L (0-40); Blood Urea Nitrogen 23 mg/dL (8-23); Calcium 9.3 mg/dL (8.5-10.5); Carbon Dioxide 27 mmol/L (22-29); Chloride 102 mmol/L (98-107); Globulin 2.9 g/dL (1.3-4.6); Glucose 146 mg/dL (65-115); Osmolality Calculated 300 mOsm/kg (285-295); Potassium 3.6 mmol/L (3.5-5.1); Sodium 142 mmol/L (136-145); Total Bilirubin 0.5 mg/dL (0.15-1.2); Total Protein 6.8 g/dL (6.6-8.7)
[2022-11-24] MEDS: HYDROcodone-acetaminophen 5-325 mg Tablet 1 TAB PO (05:56)
[2022-11-24 06:00] LABS: Bilirubin Urine Neg (Negative); Blood Urine Neg (Negative); Glucose Urine UA 4+ (Normal); Ketones Urine Negative (Negative); Leukocyte Esterase Urine Negative (Negative); Nitrate Urine Negative (Negative); Protein Urine Neg (Negative); Specific Gravity, Urine 1.015 (1.005-1.030); Urine Appearance Clear (CLEAR); Urine Color Yellow (Yellow); Urobilinogen Urine Neg (Negative); pH Urine 7 (5-7)
[2022-11-24] MEDS: ondansetron 2 mg/ML SDV 2 mL 4 MG IVP (07:48)
[2022-11-24] MEDS: morphine 4 mg/mL SDV 1 mL IVP (07:48)
--- NOTE | 2022-11-24 10:09 | XRR_ITS ---
PROCEDURE INFORMATION: Exam: XR Right Knee Exam date and time: 11/24/2022 10:23 AM Age: 81 years old Clinical indication: Pain and injury or trauma; Fall; Blunt trauma; Knee; Right TECHNIQUE: Imaging protocol: Radiologic exam of the right knee. Views: 3 views. COMPARISON: No relevant prior studies available. FINDINGS: Bones/joints: Alignment is normal. Joint spaces are preserved. No acute fracture. No joint effusion. Soft tissues: Visible soft tissues are unremarkable. XR/XR knee RT 3V* [id number] IMPRESSION: No acute findings.
--- NOTE | 2022-11-24 11:39 | ECG_ITS ---
[facility] Test Date: 2022-11-24 Pat Name: Yumiko Basurto Department: Room: Gender: Male Order Dispatcher: : [id number] Requested By: Oswaldo Ray Order Number: [id number] Ana MD: Jack Polk M.D. Measurements Intervals [place] Rate: 74 P: -7 NM: 143 QRS: -58 QRSD: 153 T: 30 QT: 466 QTc: 520 Interpretive Statements SINUS RHYTHM WITH OCCASIONAL VENTRICULAR PREMATURE COMPLEXES INDETERMINATE AXIS RIGHT BUNDLE BRANCH BLOCK [120+ ms QRS DURATION, UPRIGHT V1, 40+ ms S IN I/aVL/V4/V5/V6] LEFT ANTERIOR FASCICULAR BLOCK [QRS AXIS <= -45, QR IN I, RS IN II] Compared to ECG 11/24/2022 05:10:00 Indeterminate axis now present Electronically Signed On 11-24-2022 17:32:01 CDT by Jack Polk M.D. [id number]
--- NOTE | 2022-11-24 11:56 | PC.PHAR ---
medications entered are from med bottles the pts son brought in and what the son states he gives the pt-
--- NOTE | 2022-11-24 13:25 | P.HP_ITS ---
Providers/Chief Complaint Admitting Physician: Wili Anaya MD, hospitalist Primary Care Provider: Shannan Ellis MD Chief Complaint: fall History of Present Illness Yumiko Basurto is a 81 year old male presenting to the emergency department after a fall. He reports he was standing up when his right leg gave way. He has been having some more pain in his back, and some right leg pain for perhaps the last for 5 days. He has had a history of falls, with perhaps 4-5 falls in the last 6 months. He attributes that to his overall weakness, and arthritis. He denies any dizziness, or any other symptoms preceding the fall. He relates these usually occur because he tripped, or leg gives way. He denies any syncope. He has had no fevers, cough, shortness of breath, or chest pain. He does report he is often constipated. No blood in stool or black or tarry stools. Denies any head injury, headache, nausea or vomiting currently. Review of Systems General: Reports: 10 or more systems reviewed and unremarkable except in HPI and below Card: Denies: chest pain Resp: Denies: dyspnea GI: Denies: abdominal pain, nausea, vomiting, hematemesis, hematochezia or melena Medications/Allergies Home Medications Medication Instructions Recorded Confirmed Last Taken Type blood-glucose meter 09/25/21 11/24/22 Unknown History apixaban 2.5 mg tablet (Eliquis) 2.5 mg PO BID #180 tabs 01/12/22 11/24/22 11/23/22 Rx lift chair #1 ea 01/12/22 11/24/22 Unknown Rx sleep apnea machine and supplies #1 ea 07/28/22 11/24/22 Unknown Rx albuterol sulfate 2.5 mg/3 mL 2.5 mg (3 mL) inhalation Q6H PRN 11/02/22 11/24/22 Unknown Rx (0.083 %) solution for nebulization shortness of breath or wheezing #90 mL Folate 1 tab PO QPM 11/24/22 11/24/22 11/23/22 History acetaminophen 500 mg tablet 1,000 mg PO BEDTIME 11/24/22 11/24/22 11/23/22 History cholecalciferol (vitamin D3) 50 50 mcg PO QPM 11/24/22 11/24/22 11/23/22 History mcg (2,000 unit) tablet (Vitamin D3) cyanocobalamin (vitamin B-12) 5,000 mcg PO QPM 11/24/22 11/24/22 11/23/22 History 2,500 mcg sublingual tablet (Vitamin B-12) empagliflozin 10 mg tablet 10 mg PO QAM 11/24/22 11/24/22 11/23/22 History (Jardiance) fluoxetine 20 mg capsule 20 mg PO QAM 11/24/22 11/24/22 11/23/22 History fluticasone furoate 200 1 ea inhalation QAM 11/24/22 11/24/22 11/23/22 History mcg-vilanterol 25 mcg/dose inhalation powder (Breo Ellipta) food supplemt, lactose-reduced 1 ea PO BID 11/24/22 11/24/22 Unknown History hydroxyzine HCl 25 mg tablet 25 mg PO BID 11/24/22 11/24/22 11/23/22 History metolazone 2.5 mg tablet 2.5 mg PO QAM 11/24/22 11/24/22 11/23/22 History nitroglycerin 0.4 mg sublingual 0.4 mg sublingual Q5M PRN Chest 11/24/22 11/24/22 Unknown History tablet (Nitrostat) Pain pantoprazole 40 mg tablet,delayed 40 mg PO QAM 11/24/22 11/24/22 11/23/22 History release pyridoxine (vitamin B6) 100 mg 100 mg PO QPM 11/24/22 11/24/22 11/23/22 History tablet (Vitamin B-6) rosuvastatin 10 mg tablet (Crestor) 10 mg PO QAM 11/24/22 11/24/22 11/23/22 History sotalol 80 mg tablet 80 mg PO QAM 11/24/22 11/24/22 11/23/22 History Allergies Allergy/AdvReac Type Severity Reaction Status Date / Time iodine Allergy Severe Unknown Verified 11/24/22 05:17 amiodarone Allergy Mild RASH, Verified 11/24/22 05:17 SOB,Hypotension, PFSH Acute PFSH: Medical History (Updated 11/24/22 @ 13:49 by Wili Anaya MD) Arteriosclerotic heart disease (ASHD) Atrial flutter with rapid ventricular response Cellulitis Chest pain Chronic kidney disease, stage 3 (moderate) Chronic obstructive pulmonary disease, unspecified Chronic shortness of breath Chronic systolic (congestive) heart failure Depression with anxiety Drug-induced chronic gout, unspecified wrist, without tophus (tophi) Dyspnea Encounter for counseling for care management of patient with chronic conditions and complex health needs using nurse-based model Essential (primary) hypertension Essential hypertension Gastro-esophageal reflux disease without esophagitis GERD (gastroesophageal reflux disease) Gout Hyperlipidemia associated with type 2 diabetes mellitus Leukocytosis Mixed hyperlipidemia Obesity Obstructive sleep apnea PSVT (paroxysmal supraventricular tachycardia) PSVT (paroxysmal supraventricular tachycardia) Tremor Type 2 diabetes mellitus Umbilical hernia without obstruction or gangrene Vitamin B 12 deficiency Vitamin D deficiency Surgical History History of back surgery Hx of appendectomy Hx of CABG Patient had coronary bypass surgery on July 07, 2006 at a [facility]. This included left internal mammary to the LAD, single vein graft to the diagonal, single vein graft to the right posterior descending artery and sequential vein graft to the first and second marginal for a total of 5 bypasses. Family History Father Stroke Social History Smoking and tobacco status: former smoker Quit status (tobacco): has quit using tobacco Year quit tobacco: 2007 - Chew x 60 Years Second hand smoke exposure: No Smoking risk assessment/counseling performed?: Yes Alcohol intake: never Desire information about alcohol rehabilitation?: No Counseling given: No Substance/Drug Use: never Desire information about substance/drug rehabilitation?: No Counseling given: No Lives independently: Yes Household members: spouse Housing: House Marital status: service: No Current occupational status: retired Pets and animals: Yes Do you think of yourself as: Straight/Heterosexual Current gender identity: Male Vitals/I&O/Wt Last Vital Signs Temp 98.5 F 11/24/22 05:05 Pulse 74 11/24/22 11:14 Resp 16 11/24/22 08:13 BP 127/76 11/24/22 11:14 Pulse Ox 95 11/24/22 11:14 O2 Del Method Nasal Cannula 11/24/22 11:14 O2 Flow Rate 2 11/24/22 11:14 Weight last 48 hrs Weight 72.575 kg Physical Exam Narrative: General exam is a white male, conversant, pleasant, with son at bedside. HEENT: Atraumatic and normocephalic. Oropharynx clear. Neck is supple no lymphadenopathy thyromegaly Cardiovascular regular rate and rhythm, no murmur Lungs fair air expansion. Faint expiratory wheeze. Abdomen is soft obese. Umbilical hernia easily reducible is noted. No obvious organomegaly. exams deferred Extremities trace edema bilaterally. No cyanosis or clubbing Skin no rash Neuro no obvious focal deficit. Movement of right lower extremity is impaired by pain when trying to do straight leg raise. It is difficult to tell if true weakness is separate from pain. No decrease sensation. No foot drop. Data 11/24/22 05:31 11/24/22 05:31 Other Labs: Knee x-ray demonstrates no fracture. Pelvis x-ray no fracture. Pelvis CT and lumbar CT no fracture. Lumbar and epidural arthritis and lipomatosis produce some areas of mild to moderate spinal stenosis at L2-L3 EKG demonstrates a rate of 76, right bundle branch block, left anterior fascicular block. I reviewed this personally. Left axis deviation. LFTs, albumin, calcium are normal Urinalysis 4+ glucose otherwise negative I have ordered a chest x-ray, CT head, TSH A&P Assessment and plan (1) Fall: With this presentation, patient describes a mechanical fall. However, he has had multiple falls in the past, and has history of significant weakness currently with his right lower extremity. I think his weakness is mostly related to pain. Secondary to his frequent falls, and history of cardiac arrhythmia will monitor on telemetry Secondary to weakness and falls we will check a CT head, chest x-ray Fall precautions in the hospital Physical therapy consultation (2) Back pain: Patient is having right lower back pain. No rashes evident. Some pain into his leg. No evidence of decreased sensation, incontinence, or any concerns of cauda equina. I do believe he likely has some referred pain, or sciatica to the leg. Physical therapy consultation Initiate Neurontin 100 mg twice daily, increase as tolerated Pain control Physical therapy to assess and determine safe discharge plan for mobility concerns. Potentially home, or home with physical therapy as most desired. Cannot completely rule out skilled care needs at this time. CT suggests mild to moderate spinal stenosis. With current symptomatology there is not a plan for an MRI currently unless clinical circumstances change (3) Atrial fibrillation: Continue sotalol Monitor on telemetry Continue chronic anticoagulation (4) Type 2 diabetes mellitus: Consistent carb diet Sliding scale insulin Plan History of chronic diastolic heart failure. Monitor daily. No IV fluids Multiple other medical problems as outlined in past medical history Full code currently SCDs, and Eliquis will suffice for DVT prophylaxis Attestations Medical Necessity Statement*: Will need less than 2 midnight stay for evaluation of back pain, evaluation of mobility, initiation of pain control. Diagnoses Fall W19.XXXA Back pain M54.9 Atrial fibrillation I48.91 Type 2 diabetes mellitus E11.9 Time Spent (min) 43
--- NOTE | 2022-11-24 13:40 | CTR_ITS ---
PROCEDURE INFORMATION: Exam: CT Head Without Contrast Exam date and time: 11/24/2022 2:43 PM Age: 81 years old Clinical indication: Injury or trauma; Blunt trauma (contusions or hematomas); Additional info: Recurrent falls TECHNIQUE: Imaging protocol: Computed tomography of the head without contrast. REPORTING DATA: Count of CT and Cardiac NM exams in prior 12 months: This patient has received 0 known CTs and 0 known cardiac nuclear medicine studies in the 12 months prior to the current study. COMPARISON: CT head wo con* [id number] 01/17/2021 5:43 AM RADIATION DOSE METRICS: Total DLP (mGy-cm): 1314.21 FINDINGS: Brain: There is diffuse cerebral atrophy and chronic microvascular white matter disease. There is no acute intracranial hemorrhage. There is no significant mass effect or midline shift. Cerebral ventricles: There is mild ex vacuo dilation of the lateral ventricles. The basal cisterns are unremarkable. Paranasal sinuses: The paranasal sinuses are clear. Mastoid air cells: The mastoid air cells are clear. Orbital cavities: Bilateral proptosis. The optic nerves and extraocular muscles are morphologically normal and symmetric. No edema or mass in the orbital fat. Bones/joints: The calvarium is intact. Soft tissues: The visible extracranial soft tissues are unremarkable. CT/CT head wo con* [id number] IMPRESSION: 1. No acute intracranial abnormality. 2. Cerebral atrophy and chronic microvascular white matter disease. 3. Bilateral proptosis without evidence of inflammation, mass or extraocular muscle enlargement. This finding is nonspecific but can be seen in the setting of thyroid ophthalmopathy. No change since 01/17/2021.
--- NOTE | 2022-11-24 13:40 | XR_ITS ---
WS: [id number] EXAMINATION: XR chest 1V portable [id number] REASON FOR EXAM: recurrent falls COMPARISON: 03/13/2021 ORDER DATE: 11/24/2022 1:45 PM TECHNIQUE: A single, portable frontal chest x-ray was obtained. X-RAY FINDINGS: Findings: No nodules, masses or effusions are seen. The heart is enlarged. The pulmonary vascularity is not increased. No pneumonia or pneumothorax is seen. The aortic arch and descending thoracic aorta show calcification and tortuosity. Midline sternotomy sutures are present. XR/XR chest 1V portable [id number] IMPRESSION: No interval change from previous
[2022-11-24] MEDS: morphine 4 mg/mL SDV 1 mL 2 MG IVP (13:55)
[2022-11-24 14:32] LABS: Thyroid Stimulating Hormone 1.17 uIU/mL (0.27-4.20)
[2022-11-24 17:07] LABS: Glucose Point of Care 141 mg/dL (70-110)
[2022-11-24] MEDS: gabapentin 100 mg Capsule PO (17:25)
[2022-11-24] MEDS: sennosides-docusate Tablet 1 TAB PO (17:25)
[2022-11-24] MEDS: docusate sodium 100 mg Capsule PO (17:25)
[2022-11-24] MEDS: oxyCODONE 5 mg IR Tab/Cap PO (18:31)
--- NOTE | 2022-11-24 19:13 | PC.NURSE ---
called pt's family to ask for a family member to sit with patient, d/t combative and yelling at staff. next of kin explained that his behavior is not new for him and that he is cruel and combative at home and there is no one available to be with him d/t his behavior. next of kin explained that his son, Paco, is his main caregiver and that he is too exhausted to sit with him at this time. primary nurse notified.
[2022-11-24] MEDS: apixaban 5 mg Tablet 2.5 MG PO (20:16)
[2022-11-24 20:56] LABS: Glucose Point of Care 115 mg/dL (70-110)
[2022-11-24] MEDS: budesonide 0.5 mg/2 mL Neb INHALATION (22:02)
[2022-11-25] VITALS (8 sets, daily range): BP systolic 123–152; BP diastolic 65–77; PULSE 65–86; RESP 16–18; TEMP 36.4–37; O2SAT 89–98
[2022-11-25] MEDS: oxyCODONE 5 mg IR Tab/Cap PO ×2 (04:08→22:35)
[2022-11-25] MEDS: metOLazone 5 MG Tablet 2.5 MG PO (05:45)
[2022-11-25] MEDS: sotalol 80 mg Tablet PO (05:45)
[2022-11-25] MEDS: pantoprazole DR 40 mg Tablet PO (05:45)
[2022-11-25] MEDS: fluoxetine 20 mg Capsule PO (05:45)
[2022-11-25 06:29] LABS: Glucose Point of Care 142 mg/dL (70-110)
--- NOTE | 2022-11-25 08:01 | PM.PN ---
Subjective Subjective: Patient reports his right knee is hurting. He states his back is less painful. This hurts more when he is laying, and feels better when he sitting up on the edge of the bed. Does not think it is any better than yesterday. Medications: Reviewed: Yes Vitals/I&O/Wt Last Vital Signs Temp 98.3 F 11/25/22 07:44 Pulse 69 11/25/22 07:44 Resp 16 11/25/22 07:44 BP 152/77 11/25/22 07:44 Pulse Ox 98 11/25/22 07:44 O2 Del Method Nasal Cannula 11/25/22 07:44 O2 Flow Rate 3 11/24/22 22:02 11/24/22 11/25/22 11/25/22 22:59 06:59 14:59 Output Total 350 / 350 Balance -350 / -350 Weight last 48 hrs Weight 72.575 kg Physical Exam Narrative: General exam no distress Neck is supple no lymphadenopathy thyromegaly Cardiovascular regular rate and rhythm, no murmur Lungs clear to auscultation bilaterally Abdomen is soft obese. Umbilical hernia easily reducible is noted. No obvious organomegaly. Extremities trace edema bilaterally. No cyanosis or clubbing. Right knee may be slightly swollen Neuro no obvious focal deficit. Movement of right lower extremity is impaired by pain when trying to do straight leg raise. No foot drop. No obvious loss of sensation. Data 11/24/22 05:31 11/24/22 05:31 A&P Assessment and plan (1) Fall: With this presentation, patient describes a mechanical fall. However, he has had multiple falls in the past, and has history of significant weakness currently with his right lower extremity. I think his weakness is mostly related to pain. Secondary to his frequent falls, and history of cardiac arrhythmia will monitor on telemetry Secondary to weakness CT head and chest x-ray done and negative Fall precautions in the hospital Physical therapy consultation today (2) Back pain: Patient is having right lower back pain. No rashes evident. Some pain into his leg. No evidence of decreased sensation, incontinence, or any concerns of cauda equina. I do believe he likely has some referred pain, or sciatica to the leg. Physical therapy consultation Increase Neurontin to 100 mg 3 times daily Add Robaxin Pain control as needed with narcotics Physical therapy to assess and determine safe discharge plan for mobility concerns. Potentially home, or home with physical therapy as most desired. Cannot completely rule out skilled care needs at this time. CT suggests mild to moderate spinal stenosis. With current symptomatology there is not a plan for an MRI currently unless clinical circumstances change Secondary to some swelling of the knee, and uric acid with this morning's labs Consider MRI if not improving of treatment (3) Atrial fibrillation: Continue sotalol Monitor on telemetry Continue chronic anticoagulation (4) Type 2 diabetes mellitus: Consistent carb diet Sliding scale insulin Plan History of chronic diastolic heart failure. Monitor daily. No IV fluids Multiple other medical problems as outlined in past medical history Full code currently SCDs, and Eliquis will suffice for DVT prophylaxis Attestations Medical Necessity Statement*: Needs continued hospitalization, secondary to inability to safely ambulate physical therapy evaluation pending. Diagnoses Fall W19.XXXA Back pain M54.9 Atrial fibrillation I48.91 Type 2 diabetes mellitus E11.9 Time Spent (min) 23
[2022-11-25] MEDS: docusate sodium 100 mg Capsule PO ×2 (08:33→16:23)
[2022-11-25] MEDS: insulin lispro 100 unit/1 mL SUBCUT ×2 (08:33→21:53)
[2022-11-25] MEDS: apixaban 5 mg Tablet 2.5 MG PO ×2 (08:34→20:15)
[2022-11-25] MEDS: sennosides-docusate Tablet 1 TAB PO ×2 (08:35→16:23)
[2022-11-25] MEDS: acetaminophen 325 mg Tablet 650 MG PO (09:45)
[2022-11-25] MEDS: gabapentin 100 mg Capsule PO ×3 (09:46→20:15)
[2022-11-25] MEDS: TRAMadol 50 mg Tablet PO (09:46)
[2022-11-25 10:57] LABS: Glucose Point of Care 136 mg/dL (70-110)
[2022-11-25 12:05] LABS: Basophils # 0.1 10^3/uL (0.0-0.1); Basophils % 0.6 %; Eosinophils # 0.2 10^3/uL (0.0-0.8); Eosinophils % 1.9 %; Hematocrit 42.7 % (42.0-52.0); Lymphocytes % 19.9 %; Mean Corpuscular HGB Conc 32.8 g/dL (30.0-36.0); Mean Corpuscular Hemoglobin 27.6 pg (28.0-34.0); Mean Corpuscular Volume 84.1 fl (80-94); Mean Platelet Volume 11.5 fL (7.4-10.4); Monocytes # 0.8 10^3/uL (0.2-0.9); Monocytes % 8.2 %; Neutrophils # 7.08 10^3/uL (1.8-7.7); Neutrophils % 69.2 %; Nucleated Red Blood Cells % 0 %; Platelet Count 197 10^3/cmm (130-400); Red Blood Count 5.08 10^6/uL (4.1-5.3); Red Cell Distribution Width 16.4 % (12.1-15.1); White Blood Count 10.2 10^3/uL (4.0-10.0)
[2022-11-25 12:15] LABS: Anion Gap 16.1 (5-19); Blood Urea Nitrogen 21 mg/dL (8-23); Calcium 9.2 mg/dL (8.5-10.5); Carbon Dioxide 28 mmol/L (22-29); Chloride 98 mmol/L (98-107); Glucose 115 mg/dL (65-115); Osmolality Calculated 290 mOsm/kg (285-295); Potassium 4.1 mmol/L (3.5-5.1); Sodium 138 mmol/L (136-145); Uric Acid 7.9 mg/dL (3.4-7.0)
[2022-11-25] MEDS: predniSONE 20 mg Tablet 40 MG PO (16:21)
[2022-11-25 17:30] LABS: Glucose Point of Care 127 mg/dL (70-110)
[2022-11-25 21:18] LABS: Glucose Point of Care 165 mg/dL (70-110)
[2022-11-25] MEDS: budesonide 0.5 mg/2 mL Neb INHALATION (21:24)
[2022-11-26] VITALS (10 sets, daily range): BP systolic 126–146; BP diastolic 55–75; PULSE 64–71; RESP 15–20; TEMP 36.4–36.7; O2SAT 92–95
[2022-11-26] MEDS: TRAMadol 50 mg Tablet PO ×2 (01:32→21:29)
[2022-11-26] MEDS: fluoxetine 20 mg Capsule PO (05:56)
[2022-11-26] MEDS: sotalol 80 mg Tablet PO (05:56)
[2022-11-26] MEDS: pantoprazole DR 40 mg Tablet PO (05:56)
[2022-11-26] MEDS: metOLazone 5 MG Tablet 2.5 MG PO (05:57)
[2022-11-26 07:03] LABS: Glucose Point of Care 202 mg/dL (70-110)
[2022-11-26] MEDS: predniSONE 20 mg Tablet 40 MG PO (07:38)
[2022-11-26] MEDS: gabapentin 100 mg Capsule PO ×3 (07:39→21:30)
[2022-11-26] MEDS: sennosides-docusate Tablet 1 TAB PO ×2 (07:39→17:48)
[2022-11-26] MEDS: docusate sodium 100 mg Capsule PO ×2 (07:39→17:48)
[2022-11-26] MEDS: oxyCODONE 5 mg IR Tab/Cap PO ×2 (07:39→17:48)
[2022-11-26] MEDS: apixaban 5 mg Tablet 2.5 MG PO ×2 (07:39→21:30)
[2022-11-26] MEDS: insulin lispro 100 unit/1 mL SUBCUT ×3 (07:43→17:49)
[2022-11-26] MEDS: ipratropium-albuterol 3 mL Neb INHALATION (08:28)
[2022-11-26] MEDS: budesonide 0.5 mg/2 mL Neb INHALATION ×2 (08:28→20:28)
--- NOTE | 2022-11-26 09:40 | P.PN_ITS ---
Subjective Subjective: Yumiko's leg is better but still painful. No other complaints. Worried about going home. Physical therapy has evaluated again today and recommends nursing facility placement for strengthening. Placed on prednisone yesterday for elevated uric acid, knee slightly swollen Medications: Reviewed: Yes Vitals/I&O/Wt Last Vital Signs Temp 97.7 F 11/26/22 07:14 Pulse 67 11/26/22 08:28 Resp 18 11/26/22 08:28 BP 127/74 11/26/22 07:14 Pulse Ox 93 11/26/22 08:28 O2 Del Method Room Air 11/26/22 08:28 O2 Flow Rate 2 11/25/22 21:25 11/25/22 11/26/22 11/26/22 22:59 06:59 14:59 Output Total 100 / 250 Balance -100 / 230 Physical Exam Narrative: General exam no distress Neck is supple no lymphadenopathy thyromegaly Cardiovascular regular rate and rhythm, no murmur Lungs clear to auscultation bilaterally Abdomen is soft obese. Umbilical hernia easily reducible is noted. No obvious organomegaly. Extremities trace edema bilaterally. No cyanosis or clubbing. Right knee may be slightly swollen but no erythema Neuro no obvious focal deficit. Movement of right lower extremity is impaired b y pain when trying to do straight leg raise. No foot drop. No obvious loss of sensation. Slightly better movement than yesterday. Data 11/25/22 11:43 11/25/22 11:43 A&P Assessment and plan (1) Fall: With this presentation, patient describes a mechanical fall. However, he has had multiple falls in the past, and has history of significant weakness currently with his right lower extremity. I think his weakness is mostly related to pain. Secondary to his frequent falls, and history of cardiac arrhythmia will monitor on telemetry Secondary to weakness CT head and chest x-ray done and negative Fall precautions in the hospital Physical therapy consultation appreciated (2) Back pain: Patient is having right lower back pain. No rashes evident. Some pain into his leg. No evidence of decreased sensation, incontinence, or any concerns of cauda equina. I do believe he likely has some referred pain, or sciatica to the leg. Physical therapy consultation Continue Neurontin to 100 mg 3 times daily Robaxin as needed Pain control as needed with narcotics Physical therapy recommends skilled care CT suggests mild to moderate spinal stenosis. With current symptomatology there is not a plan for an MRI currently unless clinical circumstances change. He will need outpatient follow-up with pain clinic, primary care provider Secondary to some swelling of the knee, and uric acid was done and elevated. Prednisone 40 mg a day started for presumptive diagnosis of gout Overall patient improving but needs skilled care for pain, recurrent falls, significant weakness requiring rehabilitation (3) Atrial fibrillation: Continue sotalol Monitor on telemetry Continue chronic anticoagulation (4) Type 2 diabetes mellitus: Consistent carb diet Sliding scale insulin Plan History of chronic diastolic heart failure. Monitor daily. No IV fluids. BMP today. If stable no need for laboratory tomorrow Multiple other medical problems as outlined in past medical history Full code currently SCDs, and Eliquis will suffice for DVT prophylaxis Attestations Medical Necessity Statement*: Needs continued hospitalization, pending placement for weakness, gait instability, need for physical therapy after evaluation with labs today con tinued treatment with therapy. Diagnoses Fall W19.XXXA Back pain M54.9 Atrial fibrillation I48.91 Type 2 diabetes mellitus E11.9 Time Spent (min) 24
[2022-11-26 11:18] LABS: Blood Urea Nitrogen 29 mg/dL (8-23); Carbon Dioxide 27 mmol/L (22-29); Chloride 99 mmol/L (98-107); Glucose 178 mg/dL (65-115); Osmolality Calculated 300 mOsm/kg (285-295); Sodium 140 mmol/L (136-145)
[2022-11-26 11:21] LABS: Anion Gap 18.3 (5-19)
[2022-11-26 11:22] LABS: Potassium 4.3 mmol/L (3.5-5.1)
[2022-11-26 12:09] LABS: Glucose Point of Care 167 mg/dL (70-110)
[2022-11-26 17:44] LABS: Glucose Point of Care 209 mg/dL (70-110)
[2022-11-26 21:12] LABS: Glucose Point of Care 159 mg/dL (70-110)
[2022-11-27 00:08] VITALS: BP 131/76; PULSE 66; RESP 19; TEMP 36.6; O2SAT 95
[2022-11-27 01:56] VITALS: RESP 20; O2SAT 95
[2022-11-27] MEDS: oxyCODONE 5 mg IR Tab/Cap PO (01:56)
[2022-11-27 03:47] VITALS: BP 134/82; PULSE 64; RESP 18; TEMP 37; O2SAT 94
[2022-11-27] MEDS: metOLazone 5 MG Tablet 2.5 MG PO (05:52)
[2022-11-27] MEDS: fluoxetine 20 mg Capsule PO (05:53)
[2022-11-27] MEDS: sotalol 80 mg Tablet PO (05:53)
[2022-11-27] MEDS: pantoprazole DR 40 mg Tablet PO (05:53)
[2022-11-27 06:44] LABS: Glucose Point of Care 135 mg/dL (70-110)
--- NOTE | 2022-11-27 07:46 | PC.SOCIAL ---
IMM Update pg 2 of IMM not updated @ this time as patient is currently in observation status.
[2022-11-27] MEDS: docusate sodium 100 mg Capsule PO (07:56)
[2022-11-27] MEDS: predniSONE 20 mg Tablet 40 MG PO (07:57)
[2022-11-27] MEDS: sennosides-docusate Tablet 1 TAB PO (07:57)
[2022-11-27] MEDS: gabapentin 100 mg Capsule PO (07:58)
[2022-11-27] MEDS: apixaban 5 mg Tablet 2.5 MG PO (07:58)
[2022-11-27 08:00] VITALS: BP 130/76; PULSE 68; PULSE 77; RESP 16; RESP 18; TEMP 36.4; O2SAT 94
[2022-11-27] MEDS: budesonide 0.5 mg/2 mL Neb INHALATION (08:14)
[2022-11-27] MEDS: ipratropium-albuterol 3 mL Neb INHALATION (08:14)
[2022-11-27 11:34] LABS: Glucose Point of Care 195 mg/dL (70-110)
--- NOTE | 2022-11-27 11:49 | P.DS_ITS ---
Discharge Providers Date of Admission: 11/24/22 13:40 Date of Discharge: November 27, 2022 Attending Provider at Admission: Wili Anaya MD Attending Provider at Discharge: Sirena Fitzgerald MD Primary Care Provider: Shannan Ellis MD Diagnoses at Discharge Discharge Diagnosis (1) Fall: Status: Acute (2) Back pain: Status: Acute (3) Atrial fibrillation: Status: Acute (4) Type 2 diabetes mellitus: Status: Acute Reason for Visit Reason for Visit: fall Brief History: Taken from H&P: Yumiko Basurto is a 81 year old male presenting to the emergency department after a fall.? He reports he was standing up when his right leg gave way.? He has been having some more pain in his back, and some right leg pain for perhaps the last for 5 days.? He has had a history of falls, with perhaps 4-5 falls in the last 6 months.? He attributes that to his overall weakness, and arthritis.? He denies any dizziness, or any other symptoms preceding the fall.? He relates these usually occur because he tripped, or leg gives way.? He denies any syncope.? He has had no fevers, cough, shortness of breath, or chest pain.? He does report he is often constipated.? No blood in stool or black or tarry stools.? Denies any head injury, headache, nausea or vomiting currently. Hospital Course Hospital Course (1) Fall: With this presentation, patient describes a mechanical fall. However, he has had multiple falls in the past, and has history of significant weakness currently with his right lower extremity mostly related to pain. Secondary to his frequent falls, and history of cardiac arrhythmia he was monitored on telemetry without any acute events noted. Secondary to weakness CT head and chest x-ray done and negative Fall precautions in the hospital Physical therapy consultation appreciated Secondary to some swelling of the knee, uric acid was done and elevated at 7.9.? Prednisone 40 mg a day started for presumptive diagnosis of gout, swelling is much improved. Patient reports a PMH gouty attacks- may benefit from allopurinol as outpatient once acute attack is settled (2) Back pain: Patient is having right lower back pain.? No rashes evident.? Some pain into his leg.? No evidence of decreased sensation, incontinence, or any concerns of cauda equina.? he likely has some referred pain, or sciatica to the leg. Physical therapy consultation appreciated Continue Neurontin to 100 mg 3 times daily Robaxin as needed Pain control as needed with narcotics Physical therapy recommends skilled care which has been arranged CT suggests mild to moderate spinal stenosis.? With current symptomatology there is not a plan for an MRI currently unless clinical circumstances change.? He will need outpatient follow-up with pain clinic, primary care provider (3) Atrial fibrillation: Continue sotalol Continue chronic anticoagulation Physical Exam Narrative: General: No acute distress, AO x3 HEENT: PERRLA, pupils bilaterally equal and reactive, pallors not present Chest: Normal vesicular breath sounds, no added sounds, equal good air entry bilaterally CVS: S1-S2 regular, no murmurs, no tachycardia, no gallops, no rubs Abdomen: Soft, nontender, no organomegaly, bowel sounds present Neuro: No focal deficits, no facial deformity, AO x3, power 5/5 in all limbs Extremities: Knee swelling appears to be much improved compared to previously Discharge Data Studies Completed and Pending Completed Studies During Hospitalization Category Date Time Status CT head wo con* [id number] Routine Cat Scan 11/24/22 13:[address] lumbar spine wo con* [id number] Stat Cat Scan 11/24/22 05:[address] pelvis wo con [id number] Stat Cat Scan 11/24/22 Completed XR chest 1V portable [id number] Routine Exams 11/24/22 13:40 Completed XR knee RT 3V* [id number] Stat Exams 11/24/22 10:09 Completed XR pelvis 1-2V* [id number] Stat Exams 11/24/22 05:15 Completed Pending at discharge Category Date Time Status COVID [SARS Covid-2 Antigen] Routine Lab 11/27/22 11:07 Uncollected Radiology Impressions Pelvis CT 11/24/22 00:00 IMPRESSION: No pelvic fracture or evidence of significant soft tissue injury. Lumbar Spine CT 11/24/22 05:15 IMPRESSION: 1. No acute fracture. 2. 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 Pelvis X-Ray 11/24/22 05:15 IMPRESSION: No acute findings. Knee X-Ray 11/24/22 10:09 IMPRESSION: No acute findings. Chest X-Ray 11/24/22 13:40 IMPRESSION: No interval change from previous Head CT 11/24/22 13:40 IMPRESSION: 1. No acute intracranial abnormality. 2. Cerebral atrophy and chronic microvascular white matter disease. 3. Bilateral proptosis without evidence of inflammation, mass or extraocular muscle enlargement. This finding is nonspecific but can be seen in the setting of thyroid ophthalmopathy. No change since 01/17/2021. Laboratory Results WBC 10.2 10^3/uL (4.0-10.0) H 11/25/22 11:43 RBC 5.08 10^6/uL (4.1-5.3) 11/25/22 11:43 Hgb 14.0 g/dL (11.7-16.6) 11/25/22 11:43 Hct 42.7 % (42.0-52.0) 11/25/22 11:43 MCV 84.1 fl (80-94) 11/25/22 11:43 MCH 27.6 pg (28.0-34.0) L 11/25/22 11:43 MCHC 32.8 g/dL (30.0-36.0) 11/25/22 11:43 RDW 16.4 % (12.1-15.1) H 11/25/22 11:43 Plt Count 197 10^3/cmm (130-400) 11/25/22 11:43 MPV 11.5 fL (7.4-10.4) H 11/25/22 11:43 Neut % (Auto) 69.2 % 11/25/22 11:43 Lymph % (Auto) 19.9 % 11/25/22 11:43 [place] % (Auto) 8.2 % 11/25/22 11:43 Eos % (Auto) 1.9 % 11/25/22 11:43 Baso % (Auto) 0.6 % 11/25/22 11:43 Neut # (Auto) 7.08 10^3/uL (1.8-7.7) 11/25/22 11:43 Lymph # (Auto) 2.0 10^3/uL (0.8-4.8) 11/25/22 11:43 [place]ison # (Auto) 0.8 10^3/uL (0.2-0.9) 11/25/22 11:43 Eos # (Auto) 0.2 10^3/uL (0.0-0.8) 11/25/22 11:43 Baso # (Auto) 0.1 10^3/uL (0.0-0.1) 11/25/22 11:43 Nucleated RBC % (auto) 0 % 11/25/22 11:43 Nucleated RBCs # 0.0 /100WBC 11/25/22 11:43 Sodium 140 mmol/L (136-145) 11/26/22 10:46 Potassium 4.3 mmol/L (3.5-5.1) 11/26/22 10:46 Chloride 99 mmol/L (98-107) 11/26/22 10:46 Carbon Dioxide 27 mmol/L (22-29) 11/26/22 10:46 Anion Gap 18.3 (5-19) 11/26/22 10:46 BUN 29 mg/dL (8-23) H 11/26/22 10:46 Creatinine 1.3 mg/dL (0.7-1.2) H 11/26/22 10:46 GFR Calculation Not Reportable 11/26/22 10:46 Glucose 178 mg/dL (65-115) H 11/26/22 10:46 POC Glucose 195 mg/dL (70-110) H 11/27/22 11:28 Calculated Osmolality 300 mOsm/kg (285-295) H 11/26/22 10:46 Uric Acid 7.9 mg/dL (3.4-7.0) H 11/25/22 11:43 Calcium 9.0 mg/dL (8.5-10.5) 11/26/22 10:46 Total Bilirubin 0.5 mg/dL (0.15-1.2) 11/24/22 05:31 AST 25 U/L (0-40) 11/24/22 05:31 ALT 16 U/L (0-41) 11/24/22 05:31 Alkaline Phosphatase 66 U/L (40-130) 11/24/22 05:31 Total Protein 6.8 g/dL (6.6-8.7) 11/24/22 05:31 Albumin 3.9 g/dL (3.5-5.2) 11/24/22 05:31 Globulin 2.9 g/dL (1.3-4.6) 11/24/22 05:31 TSH 1.17 uIU/mL (0.27-4.20) 11/24/22 05:31 Urine Color Yellow (Yellow) 11/24/22 05:25 Urine Appearance Clear (CLEAR) 11/24/22 05:25 Urine pH 7 (5-7) 11/24/22 05:25 Ur Specific [place] 1.015 (1.005-1.030) 11/24/22 05:25 Urine Protein Neg (Negative) 11/24/22 05:25 Urine Glucose (UA) 4+ (Normal) H 11/24/22 05:25 Urine Ketones Negative (Negative) 11/24/22 05:25 Urine Blood Neg (Negative) 11/24/22 05:25 Urine Nitrate Negative (Negative) 11/24/22 05:25 Urine Bilirubin Neg (Negative) 11/24/22 05:25 Urine Urobilinogen Neg mg/dL (Negative) 11/24/22 05:25 Ur Leukocyte Esterase Negative (Negative) 11/24/22 05:25 Vitals Last Vital Signs Temp 97.5 F L 11/27/22 08:00 Pulse 77 11/27/22 08:00 Resp 16 11/27/22 08:00 BP 130/76 11/27/22 08:00 Pulse Ox 94 11/27/22 08:00 O2 Del Method Room Air 11/27/22 08:00 O2 Flow Rate 2 11/26/22 20:00 Discharge Plan Discharge Patient Disposition: Xfer SNF Condition: Stable Prescriptions: New tramadol 50 mg Tablet 50 mg PO Q6H PRN (Reason: Moderate Pain) 7 Days Qty: 28 0RF prednisone 20 mg Tablet 40 mg PO DAILY 5 Days Qty: 10 0RF allopurinol 100 mg tablet 100 mg PO DAILY 30 Days Qty: 30 0RF Continued (DME) blood-glucose meter Misc See Rx Instructions .Route Rx Instructions: As directed (DME) lift chair See Rx Instructions .Route .MEDSUPPLY Qty: 1 0RF Rx Instructions: As directed Eliquis 2.5 mg tablet 2.5 mg PO BID Qty: 180 3RF (DME) sleep apnea machine and supplies See Rx Instructions .Route .MEDSUPPLY Qty: 1 0RF Rx Instructions: As directed albuterol sulfate 2.5 mg /3 mL (0.083 %) solution for nebulization 2.5 mg inhalation Q6H PRN (Reason: shortness of breath or wheezing) Qty: 90 3RF Vitamin B-12 2,500 mcg Tablet, Sublingual 5,000 mcg PO QPM Tylenol Ex Str Rapid Release 500 mg Tablet 1,000 mg PO BEDTIME Nitrostat 0.4 mg Tablet, Sublingual 0.4 mg SUBLINGUAL Q5M PRN (Reason: Chest Pain) Rx Instructions: do not exceed 3 doses per episode Vitamin B-6 100 mg Tablet 100 mg PO QPM Boost Liquid 1 ea PO BID Vitamin D3 50 mcg (2,000 unit) Tablet 50 mcg PO QPM Folate 1 tab PO QPM metolazone 2.5 mg tablet 2.5 mg PO QAM sotalol 80 mg tablet 80 mg PO QAM pantoprazole 40 mg tablet,delayed release (DR/EC) 40 mg PO QAM hydroxyzine HCl 25 mg tablet 25 mg PO BID fluoxetine 20 mg capsule 20 mg PO QAM Crestor 10 mg tablet 10 mg PO QAM Jardiance 10 mg tablet 10 mg PO QAM Breo Ellipta 200-25 mcg/dose blister with device 1 ea inhalation QAM Discharge Orders: Discharge Order (Routine); Ordered 11/27/22 Ordered By: Sirena Fitzgerald Referrals: [facility] [Outside] Shannan Ellis MD [Primary Care Provider] - Discharge Diet: Usual diet Discharge Activity: Resume usual activity Patient Instructions: Opioid Safety Discharge Attestations Time Spent in Discharge Care*: greater than 30 min Status at Discharge: Cognitive status at discharge: mildly impaired cognition , Behavioral status at discharge: cooperative , Quality Metrics Clinical Quality Measures [ No reported AMI, CVA or VTE this stay] Coding Level of Care Code Acute Code for Chg Fwd Diagnoses Fall W19.XXXA Back pain M54.9 Atrial fibrillation I48.91 Type 2 diabetes mellitus E11.9
[2022-11-27 12:00] VITALS: BP 136/85; PULSE 87; RESP 18; TEMP 36.7; O2SAT 91
[2022-11-27 13:21] LABS: SARS Covid-2 Antigen negative (Negative)
== END 2022-11-27 16:26 | disposition skilled nursing facility (03) ==
LOC: ER 06:48 → MEDSURG 13:41
PROVIDERS: Emergency Medicine; Admitting Provider Internal Medicine; Emergency Provider Family Medicine; PCP Family Medicine; Visit Provider Student in an Organized Health Care Education/Training Program
DX: R53.1 Weakness; M25.561 Pain in right knee; R29.6 Repeated falls; Z91.81 History of falling; Z79.01 Long term (current) use of anticoagulants; I48.91 Unspecified atrial fibrillation; R94.31 Abnormal electrocardiogram [ECG] [EKG]; E11.9 Type 2 diabetes mellitus without complications; M54.50 Low back pain, unspecified; I50.32 Chronic diastolic (congestive) heart failure; K59.00 Constipation, unspecified
CPT/HCPCS: 36415; 36416; 70450; 71045; 72131; 72170; 72192; 73562; 80048; 80053; 81003; 82962; 84443; 84550; 85025; 87426; 93005; 94640; 96372; 96374; 96375; 96376; 97110; 97162; 97530; 99285; G0378; J1815; J2270; J2405; J7512; J7626

== ENCOUNTER 2022-12-21 16:41 | Emergency (ER) | payer MEDICARE, MEDICAID, SELFPAY ==
[2022-12-21 16:42] VITALS: BMI 33.4
[2022-12-21 16:45] VITALS: BP 141/98; PULSE 86; RESP 16; TEMP 37.2; O2SAT 91
--- NOTE | 2022-12-21 16:46 | W.ED.GIBLEED ---
Documented by User: Oswaldo Soto DO 12/22/22 05:59 HPI - GI Bleed General: Chief complaint: GI Bleed Stated complaint: rectal bleeding Time Seen by Provider: 12/21/22 16:46 Source: patient and EMS Mode of arrival: EMS History of Present Illness: 82-year-old male presents to the emergency room with complaints of rectal bleeding. Patient was combative and uncooperative at the shelter. He is not really able to give any significant history. He will answer questions but his answers for the most part are nonsensical. He told me that he was called after we give him some blankets he said things tasted better. He is unsure of where he had he does not know why he is here. He is on apixaban due to atrial fibrillation. MD complaint: gross hematochezia Onset (ago): unknown Relieving factors: none Exacerbating factors: none Associated symptoms: Denies abdominal pain, chills, easy bruising, epistaxis, fever(s), headache(s), malaise, nausea, other bleeding, poor appetite, rash, syncope or vomiting Review of Systems Const: Denies: fever(s), chills, fatigue or malaise ENMT: Denies: epistaxis Card: Denies: chest pain, palpitations or syncope Resp: Denies: dyspnea, productive cough or non-productive cough GI: Denies: abdominal pain, nausea or vomiting : Denies: flank pain, dysuria, urinary frequency or urinary urgency Musc: Denies: neck pain or back pain Skin/Breast: Denies: rash or pruritus Neuro: Denies: headache(s) Jean/Lymph: Denies: easy bruising PFS ED PFSH: Medical History Arteriosclerotic heart disease (ASHD) Atrial flutter with rapid ventricular response Cellulitis Chest pain Chronic kidney disease, stage 3 (moderate) Chronic obstructive pulmonary disease, unspecified Chronic shortness of breath Chronic systolic (congestive) heart failure Depression with anxiety Drug-induced chronic gout, unspecified wrist, without tophus (tophi) Dyspnea Encounter for counseling for care management of patient with chronic conditions and complex health needs using nurse-based model Essential (primary) hypertension Essential hypertension Gastro-esophageal reflux disease without esophagitis GERD (gastroesophageal reflux disease) Gout Hyperlipidemia associated with type 2 diabetes mellitus Leukocytosis Mixed hyperlipidemia Obesity Obstructive sleep apnea PSVT (paroxysmal supraventricular tachycardia) PSVT (paroxysmal supraventricular tachycardia) Tremor Type 2 diabetes mellitus Umbilical hernia without obstruction or gangrene Vitamin B 12 deficiency Vitamin D deficiency Surgical History History of back surgery Hx of appendectomy Hx of CABG Patient had coronary bypass surgery on July 07, 2006 at a [facility]. This included left internal mammary to the LAD, single vein graft to the diagonal, single vein graft to the right posterior descending artery and sequential vein graft to the first and second marginal for a total of 5 bypasses. Family History Father Stroke Social History Smoking and tobacco status: former smoker Quit status (tobacco): has quit using tobacco Year quit tobacco: 2007 - Chew x 60 Years Second hand smoke exposure: No Smoking risk assessment/counseling performed?: Yes Alcohol intake: never Desire information about alcohol rehabilitation?: No Counseling given: No Substance/Drug Use: never Desire information about substance/drug rehabilitation?: No Counseling given: No Lives independently: Yes Household members: spouse Housing: House Marital status: service: No Current occupational status: retired Pets and animals: Yes Do you think of yourself as: Straight/Heterosexual Current gender identity: Male Physical Exam Const: ORIENTATION/CONSCIOUSNESS: Yes awake HENMT: COMMON NORMALS: normocephalic, atraumatic and hearing grossly normal bilaterally HEAD & SCALP: normocephalic and atraumatic Resp: COMMON NORMALS: normal respiratory effort, No retractions, No use of accessory muscles and clear to auscultation bilaterally AUSCULTATION: clear to auscultation bilaterally Cardio: COMMON NORMALS: regular rate, regular rhythm and No murmurs present (Cardio) RATE: regular rate RHYTHM: regular rhythm GI: COMMON NORMALS: Soft to palpation and No hepatosplenomegaly present AUSCULTATION: Yes normoactive bowel sounds PALPATION: Yes Soft to palpation, No Tenderness to palpation present (GI), No Guarding due to palpation present (GI) and Yes No hepatosplenomegaly present OTHER: Umbilical hernia, easily reducible Extremity: COMMON NORMALS: normal to inspection, capillary refill normal, no clubbing, cyanosis or edema, no calf tenderness and no pedal edema Skin: COMMON NORMALS: no rashes or lesions noted GENERAL SKIN EXAM: no rashes or lesions noted Course Vital Signs: Vital signs: Vital Signs Temperature 98.9 F 12/21/22 16:45 Pulse Rate 85 12/21/22 18:16 Respiratory Rate 16 12/21/22 18:16 Blood Pressure 156/99 12/21/22 18:16 Pulse Oximetry 96 12/21/22 18:16 Oxygen Delivery Me thod Room Air 12/21/22 16:45 MDM - GI Bleed Medical Decision Making Care signed out to Dr. Quiñones at change of shift. See final notes for diagnosis and disposition. Patient presents with concerns of blood in his stool his hemoglobin here is normal CT showed a nonocclusive thrombus his abdominal exam here is benign no signs of mesenteric ischemia he is to follow-up with PCP stable for discharge back to the shelter. 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 Complete evaluation is limited by motion artifact. No CT findings of bowel ischemia. ADDENDUM: 12/21/221912 THIS REPORT CONTAINS FINDINGS THAT MAY BE CRITICAL TO PATIENT CARE. The findings were verbally communicated via telephone conference with Dr. Quiñones at 711 PM TAB MACHINE OPERATOR on 12/21/2022. The findings were acknowledged and understood. Laboratory Results WBC 9.9 10^3/uL (4.0-10.0) 12/21/22 17:05 RBC 5.12 10^6/uL (4.1-5.3) 12/21/22 17:05 Hgb 13.9 g/dL (11.7-16.6) 12/21/22 17:05 Hct 43.8 % (42.0-52.0) 12/21/22 17:05 MCV 85.5 fl (80-94) 12/21/22 17:05 MCH 27.1 pg (28.0-34.0) L 12/21/22 17:05 MCHC 31.7 g/dL (30.0-36.0) 12/21/22 17:05 RDW 16.7 % (12.1-15.1) H 12/21/22 17:05 Plt Count 190 10^3/cmm (130-400) 12/21/22 17:05 MPV 10.7 fL (7.4-10.4) H 12/21/22 17:05 Neut % (Auto) 69.0 % 12/21/22 17:05 Lymph % (Auto) 17.9 % 12/21/22 17:05 Robeson % (Auto) 10.7 % 12/21/22 17:05 Eos % (Auto) 1.9 % 12/21/22 17:05 Baso % (Auto) 0.3 % 12/21/22 17:05 Neut # (Auto) 6.86 10^3/uL (1.8-7.7) 12/21/22 17:05 Lymph # (Auto) 1.8 10^3/uL (0.8-4.8) 12/21/22 17:05 Robeson # (Auto) 1.1 10^3/uL (0.2-0.9) H 12/21/22 17:05 Eos # (Auto) 0.2 10^3/uL (0.0-0.8) 12/21/22 17:05 Baso # (Auto) 0.0 10^3/uL (0.0-0.1) 12/21/22 17:05 Nucleated RBC % (auto) 0 % 12/21/22 17:05 Nucleated RBCs # 0.0 /100WBC 12/21/22 17:05 PT 15.10 SECONDS (12.1-14.9) H 12/21/22 17:05 INR 1.16 (0.8-1.2) 12/21/22 17:05 APTT 27.9 SECONDS (23.9-36.7) 12/21/22 17:05 Sodium 137 mmol/L (136-145) 12/21/22 17:05 Potassium 3.3 mmol/L (3.5-5.1) L 12/21/22 17:05 Chloride 96 mmol/L (98-107) L 12/21/22 17:05 Carbon Dioxide 26 mmol/L (22-29) 12/21/22 17:05 Anion Gap 18.3 (5-19) 12/21/22 17:05 BUN 22 mg/dL (8-23) 12/21/22 17:05 Creatinine 1.3 mg/dL (0.7-1.2) H 12/21/22 17:05 GFR Calculation Not Reportable 12/21/22 17:05 Glucose 130 mg/dL (65-115) H 12/21/22 17:05 Calculated Osmolality 289 mOsm/kg (285-295) 12/21/22 17:05 Calcium 9.0 mg/dL (8.5-10.5) 12/21/22 17:05 Total Bilirubin 0.9 mg/dL (0.15-1.2) 12/21/22 17:05 AST 29 U/L (0-40) 12/21/22 17:05 ALT 15 U/L (0-41) 12/21/22 17:05 Alkaline Phosphatase 75 U/L (40-130) 12/21/22 17:05 Total Protein 6.6 g/dL (6.6-8.7) 12/21/22 17:05 Albumin 3.5 g/dL (3.5-5.2) 12/21/22 17:05 Globulin 3.1 g/dL (1.3-4.6) 12/21/22 17:05 Discharge Plan Discharge Patient Disposition: Home Clinical Impression: Acute lower GI bleeding Condition: Stable Prescriptions: No Action (DME) blood-glucose meter Misc See Rx Instructions .Route Rx Instructions: As directed (DME) lift chair See Rx Instructions .Route .MEDSUPPLY Qty: 1 0RF Rx Instructions: As directed Eliquis 2.5 mg tablet 2.5 mg PO BID Qty: 180 3RF (DME) sleep apnea machine and supplies See Rx Instructions .Route .MEDSUPPLY Qty: 1 0RF Rx Instructions: As directed albuterol sulfate 2.5 mg /3 mL (0.083 %) solution for nebulization 2.5 mg inhalation Q6H PRN (Reason: shortness of breath or wheezing) Qty: 90 3RF Vitamin B-12 2,500 mcg Tablet, Sublingual 5,000 mcg PO QPM acetaminophen 500 mg Tablet 1,000 mg PO BEDTIME Nitrostat 0.4 mg Tablet, Sublingual 0.4 mg SUBLINGUAL Q5M PRN (Reason: Chest Pain) Rx Instructions: do not exceed 3 doses per episode Vitamin B-6 100 mg Tablet 100 mg PO QPM food supplemt, lactose-reduced Liquid 1 ea PO BID Vitamin D3 50 mcg (2,000 unit) Tablet 50 mcg PO QPM Folate 1 tab PO QPM metolazone 2.5 mg tablet 2.5 mg PO QAM sotalol 80 mg tablet 80 mg PO QAM pantoprazole 40 mg tablet,delayed release (DR/EC) 40 mg PO QAM hydroxyzine HCl 25 mg tablet 25 mg PO BID fluoxetine 20 mg capsule 20 mg PO QAM Crestor 10 mg tablet 10 mg PO QAM Jardiance 10 mg tablet 10 mg PO QAM Breo Ellipta 200-25 mcg/dose blister with device 1 ea inhalation QAM allopurinol 100 mg tablet 100 mg PO DAILY 30 Days Qty: 30 0RF Discharge Orders: Discharge ED (Routine); Ordered 12/21/22 Ordered By: Janis Quiñones Referrals: Shannan Ellis MD [Primary Care Provider] - 1-3 days Discharge Diet: Advance as tolerated Discharge Activity: Resume usual activity Patient Instructions: Rectal Bleeding (ED) Coding Level of Care Code ED Lot Associate for Chg Fwd Documented by User: Janis Quiñones MD 12/21/22 20:32 HPI - GI Bleed General: Chief complaint: GI Bleed Stated complaint: rectal bleeding Time Seen by Provider: 12/21/22 16:46 PFSH ED PFSH: Medical History Arteriosclerotic heart disease (ASHD) Atrial flutter with rapid ventricular response Cellulitis Chest pain Chronic kidney disease, stage 3 (moderate) Chronic obstructive pulmonary disease, unspecified Chronic shortness of breath Chronic systolic (congestive) heart failure Depression with anxiety Drug-induced chronic gout, unspecified wrist, without tophus (tophi) Dyspnea Encounter for counseling for care management of patient with chronic conditions and complex health needs using nurse-based model Essential (primary) hypertension Essential hypertension Gastro-esophageal reflux disease without esophagitis GERD (gastroesophageal reflux disease) Gout Hyperlipidemia associated with type 2 diabetes mellitus Leukocytosis Mixed hyperlipidemia Obesity Obstructive sleep apnea PSVT (paroxysmal supraventricular tachycardia) PSVT (paroxysmal supraventricular tachycardia) Tremor Type 2 diabetes mellitus Umbilical hernia without obstruction or gangrene Vitamin B 12 deficiency Vitamin D deficiency Surgical History History of back surgery Hx of appendectomy Hx of CABG Patient had coronary bypass surgery on July 07, 2006 at a [facility]. This included left internal mammary to the LAD, single vein graft to the diagonal, single vein graft to the right posterior descending artery and sequential vein graft to the first and second marginal for a total of 5 bypasses. Family History Father Stroke Social History Smoking and tobacco status: former smoker Quit status (tobacco): has quit using tobacco Year quit tobacco: 2007 - Chew x 60 Years Second hand smoke exposure: No Smoking risk assessment/counseling performed?: Yes Alcohol intake: never Desire information about alcohol rehabilitation?: No Counseling given: No Substance/Drug Use: never Desire information about substance/drug rehabilitation?: No Counseling given: No Lives independently: Yes Household members: spouse Housing: House Marital status: service: No Current occupational status: retired Pets and animals: Yes Do you think of yourself as: Straight/Heterosexual Current gender identity: Male Course Vital Signs: Vital signs: Vital Signs Temperature 98.9 F 12/21/22 16:45 Pulse Rate 85 12/21/22 18:16 Respiratory Rate 16 12/21/22 18:16 Blood Pressure 156/99 12/21/22 18:16 Pulse Oximetry 96 12/21/22 18:16 Oxygen Delivery Me thod Room Air 12/21/22 16:45 MDM - GI Bleed Medical Decision Making Patient presents with concerns of blood in his stool his hemoglobin here is normal CT showed a nonocclusive thrombus his abdominal exam here is benign no signs of mesenteric ischemia he is to follow-up with PCP stable for discharge back to the shelter. Medical Records I reviewed the patient's medical records. Lab Data I reviewed the patient's lab results. 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 Complete evaluation is limited by motion artifact. No CT findings of bowel ischemia. ADDENDUM: 12/21/221912 THIS REPORT CONTAINS FINDINGS THAT MAY BE CRITICAL TO PATIENT CARE. The findings were verbally communicated via telephone conference with Dr. Quiñones at 711 PM TAB MACHINE OPERATOR on 12/21/2022. The findings were acknowledged and understood. Laboratory Results WBC 9.9 10^3/uL (4.0-10.0) 12/21/22 17:05 RBC 5.12 10^6/uL (4.1-5.3) 12/21/22 17:05 Hgb 13.9 g/dL (11.7-16.6) 12/21/22 17:05 Hct 43.8 % (42.0-52.0) 12/21/22 17:05 MCV 85.5 fl (80-94) 12/21/22 17:05 MCH 27.1 pg (28.0-34.0) L 12/21/22 17:05 MCHC 31.7 g/dL (30.0-36.0) 12/21/22 17:05 RDW 16.7 % (12.1-15.1) H 12/21/22 17:05 Plt Count 190 10^3/cmm (130-400) 12/21/22 17:05 MPV 10.7 fL (7.4-10.4) H 12/21/22 17:05 Neut % (Auto) 69.0 % 12/21/22 17:05 Lymph % (Auto) 17.9 % 12/21/22 17:05 Robeson % (Auto) 10.7 % 12/21/22 17:05 Eos % (Auto) 1.9 % 12/21/22 17:05 Baso % (Auto) 0.3 % 12/21/22 17:05 Neut # (Auto) 6.86 10^3/uL (1.8-7.7) 12/21/22 17:05 Lymph # (Auto) 1.8 10^3/uL (0.8-4.8) 12/21/22 17:05 Robeson # (Auto) 1.1 10^3/uL (0.2-0.9) H 12/21/22 17:05 Eos # (Auto) 0.2 10^3/uL (0.0-0.8) 12/21/22 17:05 Baso # (Auto) 0.0 10^3/uL (0.0-0.1) 12/21/22 17:05 Nucleated RBC % (auto) 0 % 12/21/22 17:05 Nucleated RBCs # 0.0 /100WBC 12/21/22 17:05 PT 15.10 SECONDS (12.1-14.9) H 12/21/22 17:05 INR 1.16 (0.8-1.2) 12/21/22 17:05 APTT 27.9 SECONDS (23.9-36.7) 12/21/22 17:05 Sodium 137 mmol/L (136-145) 12/21/22 17:05 Potassium 3.3 mmol/L (3.5-5.1) L 12/21/22 17:05 Chloride 96 mmol/L (98-107) L 12/21/22 17:05 Carbon Dioxide 26 mmol/L (22-29) 12/21/22 17:05 Anion Gap 18.3 (5-19) 12/21/22 17:05 BUN 22 mg/dL (8-23) 12/21/22 17:05 Creatinine 1.3 mg/dL (0.7-1.2) H 12/21/22 17:05 GFR Calculation Not Reportable 12/21/22 17:05 Glucose 130 mg/dL (65-115) H 12/21/22 17:05 Calculated Osmolality 289 mOsm/kg (285-295) 12/21/22 17:05 Calcium 9.0 mg/dL (8.5-10.5) 12/21/22 17:05 Total Bilirubin 0.9 mg/dL (0.15-1.2) 12/21/22 17:05 AST 29 U/L (0-40) 12/21/22 17:05 ALT 15 U/L (0-41) 12/21/22 17:05 Alkaline Phosphatase 75 U/L (40-130) 12/21/22 17:05 Total Protein 6.6 g/dL (6.6-8.7) 12/21/22 17:05 Albumin 3.5 g/dL (3.5-5.2) 12/21/22 17:05 Globulin 3.1 g/dL (1.3-4.6) 12/21/22 17:05 Discharge Plan Discharge Patient Disposition: Home Clinical Impression: Acute lower GI bleeding Condition: Stable Prescriptions: No Action (DME) blood-glucose meter Misc See Rx Instructions .Route Rx Instructions: As directed (DME) lift chair See Rx Instructions .Route .MEDSUPPLY Qty: 1 0RF Rx Instructions: As directed Eliquis 2.5 mg tablet 2.5 mg PO BID Qty: 180 3RF (DME) sleep apnea machine and supplies See Rx Instructions .Route .MEDSUPPLY Qty: 1 0RF Rx Instructions: As directed albuterol sulfate 2.5 mg /3 mL (0.083 %) solution for nebulization 2.5 mg inhalation Q6H PRN (Reason: shortness of breath or wheezing) Qty: 90 3RF Vitamin B-12 2,500 mcg Tablet, Sublingual 5,000 mcg PO QPM acetaminophen 500 mg Tablet 1,000 mg PO BEDTIME Nitrostat 0.4 mg Tablet, Sublingual 0.4 mg SUBLINGUAL Q5M PRN (Reason: Chest Pain) Rx Instructions: do not exceed 3 doses per episode Vitamin B-6 100 mg Tablet 100 mg PO QPM food supplemt, lactose-reduced Liquid 1 ea PO BID Vitamin D3 50 mcg (2,000 unit) Tablet 50 mcg PO QPM Folate 1 tab PO QPM metolazone 2.5 mg tablet 2.5 mg PO QAM sotalol 80 mg tablet 80 mg PO QAM pantoprazole 40 mg tablet,delayed release (DR/EC) 40 mg PO QAM hydroxyzine HCl 25 mg tablet 25 mg PO BID fluoxetine 20 mg capsule 20 mg PO QAM Crestor 10 mg tablet 10 mg PO QAM Jardiance 10 mg tablet 10 mg PO QAM Breo Ellipta 200-25 mcg/dose blister with device 1 ea inhalation QAM allopurinol 100 mg tablet 100 mg PO DAILY 30 Days Qty: 30 0RF Discharge Orders: Discharge ED (Routine); Ordered 12/21/22 Ordered By: Janis Quiñones Referrals: Shannan Ellis MD [Primary Care Provider] - 1-3 days Discharge Diet: Advance as tolerated Discharge Activity: Resume usual activity Patient Instructions: Rectal Bleeding (ED) Coding Level of Care Code ED Lot Associate for Kieran Sanders
[2022-12-21 17:12] LABS: Basophils % 0.3 %; Eosinophils # 0.2 10^3/uL (0.0-0.8); Eosinophils % 1.9 %; Hematocrit 43.8 % (42.0-52.0); Hemoglobin 13.9 g/dL (11.7-16.6); Lymphocytes # 1.8 10^3/uL (0.8-4.8); Lymphocytes % 17.9 %; Mean Corpuscular HGB Conc 31.7 g/dL (30.0-36.0); Mean Corpuscular Hemoglobin 27.1 pg (28.0-34.0); Mean Corpuscular Volume 85.5 fl (80-94); Mean Platelet Volume 10.7 fL (7.4-10.4); Monocytes # 1.1 10^3/uL (0.2-0.9); Monocytes % 10.7 %; Neutrophils # 6.86 10^3/uL (1.8-7.7); Nucleated Red Blood Cells % 0 %; Platelet Count 190 10^3/cmm (130-400); Red Blood Count 5.12 10^6/uL (4.1-5.3); Red Cell Distribution Width 16.7 % (12.1-15.1); White Blood Count 9.9 10^3/uL (4.0-10.0)
--- NOTE | 2022-12-21 17:21 | CTR_ITS ---
PROCEDURE INFORMATION: Exam: CT Abdomen And Pelvis With Contrast Exam date and time: 12/21/2022 6:28 PM Age: 82 years old Clinical indication: Abdominal pain; Generalized; Additional info: Abd pain TECHNIQUE: Imaging protocol: Computed tomography of the abdomen and pelvis with contrast. Radiation optimization: All CT scans at this facility use at least one of these dose optimization techniques: automated exposure control; mA and/or kV adjustment per patient size (includes targeted exams where dose is matched to clinical indication); or iterative reconstruction. Contrast material: OMNI 350; Contrast volume: 100 ml; Contrast route: INTRAVENOUS (IV); REPORTING DATA: Count of CT and Cardiac NM exams in prior 12 months: This patient has received 3 known CTs and 0 known cardiac nuclear medicine studies in the 12 months prior to the current study. COMPARISON: CT pelvis wo con [id number] 11/24/2022 5:49 AM RADIATION DOSE METRICS: Total DLP (mGy-cm): 1077.93 FINDINGS: Liver: Unremarkable. Gallbladder and bile ducts: Status post cholecystectomy. Pancreas: No ductal dilation. Spleen: No splenomegaly. Adrenal glands: Normal. No mass. Kidneys and ureters: There is symmetric renal enhancement. No perinephric stranding. No hydronephrosis. Stomach and bowel: There are no dilated bowel loops. No bowel pneumatosis. Appendix: The appendix is not identified. There are no right lower quadrant inflammatory changes. Intraperitoneal space: No free fluid. No perforation. Vasculature: Nonocclusive thrombus noted along the sidewall of the superior mesenteric artery. Complete evaluation is limited by motion artifact. Lymph nodes: No enlarged lymph nodes. Urinary bladder: Unremarkable as visualized. Reproductive: Unremarkable as visualized. Bones/joints: Degenerative changes are noted. Soft tissues: Small fat containing umbilical hernia. 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 Complete evaluation is limited by motion artifact. No CT findings of bowel ischemia.
[2022-12-21 17:25] LABS: INR 1.16 (0.8-1.2); Partial Thromboplastin Time 27.9 SECONDS (23.9-36.7)
[2022-12-21 17:29] LABS: Alanine Aminotransferase 15 U/L (0-41); Albumin Level 3.5 g/dL (3.5-5.2); Alkaline Phosphatase 75 U/L (40-130); Aspartate Amino Transferase 29 U/L (0-40); Blood Urea Nitrogen 22 mg/dL (8-23); Carbon Dioxide 26 mmol/L (22-29); Chloride 96 mmol/L (98-107); Globulin 3.1 g/dL (1.3-4.6); Glucose 130 mg/dL (65-115); Osmolality Calculated 289 mOsm/kg (285-295); Sodium 137 mmol/L (136-145); Total Bilirubin 0.9 mg/dL (0.15-1.2); Total Protein 6.6 g/dL (6.6-8.7)
[2022-12-21 17:36] LABS: Anion Gap 18.3 (5-19); Potassium 3.3 mmol/L (3.5-5.1)
[2022-12-21] MEDS: diphenhydrAMINE 50 mg/mL SDV 1mL IVP (18:11)
[2022-12-21] MEDS: methylPREDNISolone sod succ 40 MG in water for injection-sterile 1 ML 12 MG IVP (18:11)
[2022-12-21 18:16] VITALS: BP 156/99; PULSE 85; RESP 16; O2SAT 96
[2022-12-21] MEDS: iohexol 350 mg/mL 500 mL Btl (per mL) IV (18:37)
== END 2022-12-21 20:30 | disposition home or self-care (01) ==
PROVIDERS: Family Medicine; Emergency Provider Emergency Medicine; PCP Family Medicine
DX: K92.2 Gastrointestinal hemorrhage, unspecified (principal); Z79.01 Long term (current) use of anticoagulants; E11.22 Type 2 diabetes mellitus with diabetic chronic kidney disease; I13.0 Hypertensive heart and chronic kidney disease with heart failure and stage 1 through stage 4 chronic kidney disease, or unspecified chronic kidney disease; N18.30 Chronic kidney disease, stage 3 unspecified; I50.22 Chronic systolic (congestive) heart failure; J44.9 Chronic obstructive pulmonary disease, unspecified; E78.2 Mixed hyperlipidemia; Z95.1 Presence of aortocoronary bypass graft
CPT/HCPCS: 74177; 80053; 85025; 85610; 85730; 96374; 96375; 99285; J1200; J2920; Q9967